=== PATIENT | male | born 1960 | race Caucasian/White ===

== ENCOUNTER 2018-07-04 16:05 | Outpatient (REF) | payer BC, SELFPAY ==
--- NOTE | 2018-07-04 15:53 | SKI_PTH ---
PATIENT: Gabe Lanza LOC: [facility] U#:[id number] AGE/SX: 58/M ROOM: RE07/04/[address]: Isac Barker MD : [id number] BED: DIS: 07/04/2018 SPEC #: [id number] RECD: 07/04/18 18:14 STATUS: DOMINGO REQ #: [id number] MANGO: 07/04/18 15:[address]: Isac Barker DEPT: Surgical Specimen RECD BY: Karina Stovall ENTERED: 07/04/18 18:14 SP TYPE: SKI OTHR DR: Lola Barnes Tissues: 1 - SKIN BIOPSY(SHAVE/PUNCH) Procedures: IMMUNOPEROXIDASE STAIN SKIN LEVEL 4 MIB-1 IHC Semi Quantative % SPECIAL STAIN 1 Comments: [id number]
== END 2018-07-04 16:25 ==
LOC: LBN 16:05
PROVIDERS: PCP Nurse Practitioner Family; Visit Provider Otolaryngology
DX: C96.6 Unifocal Langerhans-cell histiocytosis (principal)
CPT/HCPCS: 88360; 88305; 88312; 88361

== ENCOUNTER 2019-02-14 10:21 | Outpatient (CLI) | payer OTHER, SELFPAY ==
[2019-02-14 10:46] LABS: Abs Immature Grans 0.14 k/cumm (0.0-0.09); HGB 14.2 g/dL (13.5-17.5); Mean Corp. HGB Concentration 33.8 g/dL (32.0-36.0); Mean Corpuscular Hemoglobin 30.9 pg (27.0-33.0); Mean Corpuscular Volume 91.3 fL (80-95); Mean Platelet Volume 11.9 fL (8.0-11.0); RBC Distribution Width 13.9 % (11.8-14.1); White Blood Cell Count 7.15 k/cumm (4.4-10.8)
[2019-02-14 11:07] LABS: Absolute Monocyte Count 0.72 k/cumm (0.11-0.7); Absolute Neutrophil Count 4.79 k/cumm (1.2-6.7); Atypical Lymphocytes % 1; Diff Comment Manual Differential; Platelet Count 62 x1000/uL (130-400); RBC Morphology Normal
[2019-02-14 11:45] LABS: TSH 2.65 uIU/mL (0.36-3.74)
[2019-02-17 09:28] LABS: PSA, Screening 1.3 ng/ml (0-3.5)
== END 2019-02-14 10:41 ==
PROVIDERS: Surgery; PCP Family Medicine; Visit Provider Internal Medicine Hematology & Oncology
DX: Z12.5 Encounter for screening for malignant neoplasm of prostate (principal); Z80.42 Family history of malignant neoplasm of prostate; D69.6 Thrombocytopenia, unspecified; Z98.890 Other specified postprocedural states
CPT/HCPCS: 36415; 84153; 84443; 85025

== ENCOUNTER 2019-04-02 07:57 | Outpatient (CLI) | payer OTHER, SELFPAY ==
[2019-04-02 08:26] LABS: Abs Immature Grans 0.16 k/cumm (0.0-0.09); HCT 42.9 % (40.0-50.0); HGB 14.2 g/dL (13.5-17.5); Mean Corp. HGB Concentration 33.1 g/dL (32.0-36.0); Mean Corpuscular Hemoglobin 30.5 pg (27.0-33.0); Mean Corpuscular Volume 92.1 fL (80-95); Mean Platelet Volume 11.8 fL (8.0-11.0); RBC 4.66 m/cumm (4.50-6.00); RBC Distribution Width 13.8 % (11.8-14.1); White Blood Cell Count 6.71 k/cumm (4.4-10.8)
[2019-04-02 08:31] LABS: ALT 30 U/L (16-63); AST 15 U/L (15-37); Albumin 3.9 g/dL (3.4-5.0); Alkaline Phosphatase 80 U/L (46-116); Anion Gap 8.1 mmol/L (3-11); BUN 17 mg/dL (7-18); Bilirubin, Total 0.6 mg/dL (0.2-1.0); CO2 27.9 mmol/L (21.0-32.0); CREATININE 1.04 mg/dL (0.70-1.30); Calcium 8.3 mg/dL (8.5-10.1); Chloride 103 mmol/L (98-107); Glucose 114 mg/dL (70-100); Potassium 4.2 mmol/L (3.5-5.1); Sodium 139 mmol/L (136-145); Total Protein 7.5 g/dL (6.4-8.2)
[2019-04-02 09:14] LABS: Absolute Monocyte Count 0.94 k/cumm (0.11-0.7)
[2019-04-02 09:15] LABS: Absolute Lymphocyte Count 1.27 k/cumm (1.2-3.4); Atypical Lymphocytes % 4
[2019-04-02 09:17] LABS: Platelet Count 65 x1000/uL (130-400)
[2019-04-02 09:18] LABS: Diff Comment Manual Differential; Polychromasia Present
== END 2019-04-02 08:17 ==
PROVIDERS: PCP Family Medicine; Visit Provider Internal Medicine Hematology & Oncology
DX: D69.6 Thrombocytopenia, unspecified (principal)
CPT/HCPCS: 36415; 80053; 85025

== ENCOUNTER 2019-04-07 08:35 | Outpatient (CLI) | payer OTHER, SELFPAY | END 2019-04-07 08:55 | PROVIDERS: PCP Family Medicine; Visit Provider Internal Medicine Endocrinology, Diabetes & Metabolism | DX: C73 Malignant neoplasm of thyroid gland (principal); E89.0 Postprocedural hypothyroidism | CPT/HCPCS: 36415; 84443 ==

== ENCOUNTER 2019-04-23 02:05 | Outpatient (CLI) | payer OTHER, SELFPAY ==
[2019-04-23 07:45] LABS: Abs Immature Grans 0.26 k/cumm (0.0-0.09); Absolute Basophil Count 0.01 k/cumm (0.0-0.2); Absolute Eosinophil Count 0.01 k/cumm (0.0-0.7); Absolute Lymphocyte Count 1.37 k/cumm (1.2-3.4); Absolute Monocyte Count 1.26 k/cumm (0.11-0.7); Absolute Neutrophil Count 4.22 k/cumm (1.2-6.7); Basophils % 0.1; Eosinophils % 0.1; HCT 43.1 % (40.0-50.0); HGB 14.3 g/dL (13.5-17.5); Immature Grans % 3.6; Lymphocytes % 19.2; Mean Corp. HGB Concentration 33.2 g/dL (32.0-36.0); Mean Corpuscular Hemoglobin 30.2 pg (27.0-33.0); Mean Corpuscular Volume 90.9 fL (80-95); Mean Platelet Volume 11.6 fL (8.0-11.0); Monocytes % 17.7; Neutrophils % 59.3; RBC 4.74 m/cumm (4.50-6.00); RBC Distribution Width 13.7 % (11.8-14.1); White Blood Cell Count 7.13 k/cumm (4.4-10.8)
[2019-04-23 07:59] LABS: ALT 38 U/L (16-63); AST 18 U/L (15-37); Albumin 3.8 g/dL (3.4-5.0); Alkaline Phosphatase 80 U/L (46-116); Anion Gap 8.5 mmol/L (3-11); BUN 17 mg/dL (7-18); Bilirubin, Total 0.6 mg/dL (0.2-1.0); CO2 29.5 mmol/L (21.0-32.0); CREATININE 0.99 mg/dL (0.70-1.30); Calcium 8.6 mg/dL (8.5-10.1); Chloride 102 mmol/L (98-107); Glucose 117 mg/dL (70-100); Sodium 140 mmol/L (136-145); Total Protein 7.7 g/dL (6.4-8.2)
[2019-04-23 07:59] LABS: Diff Comment Diff Reviewed; Platelet Count 61 x1000/uL (130-400); Polychromasia Present
[2019-04-23 08:09] LABS: TSH 1.79 uIU/mL (0.36-3.74)
== END 2019-04-23 02:25 ==
PROVIDERS: Internal Medicine Endocrinology, Diabetes & Metabolism; PCP Family Medicine; Visit Provider Internal Medicine Hematology & Oncology
DX: D69.6 Thrombocytopenia, unspecified (principal); C73 Malignant neoplasm of thyroid gland
CPT/HCPCS: 36415; 80053; 84443; 85025

== ENCOUNTER 2019-06-25 17:27 | Emergency (ER) | payer OTHER, SELFPAY ==
[2019-06-25 17:39] VITALS: BP 138/86; PULSE 85; RESP 16; TEMP 36.6; O2SAT 95
--- NOTE | 2019-06-25 18:14 | ED.GENADUL_ITS ---
Discharge Plan Disposition Patient Disposition: HOME Condition: Good Discharge Details Chief Complaint: Orthopedic Clinical Impression: Epicondylitis, lateral Primary Care Provider: Washington Cristobal ED Provider: Renee Simpson Home Meds and New Rx's Prescriptions: New prednisone 20 mg tablet 40 mg PO DAILY Qty: 10 RF: 0 Continued amlodipine 10 mg tablet 10 mg PO DAILY Qty: 90 RF: 3 lisinopril 40 mg tablet 40 mg PO DAILY Qty: 90 RF: 3 levothyroxine 112 mcg tablet 112 mcg PO DAILY RF: 0 Discharge Instructions Instructions: Tennis Elbow (ED) Additional Instructions: Rest. Activities as tolerated. Elevate injury to prevent swelling. Ice to the area of discomfort for 15 min. 3-5 times daily. Use prednisone for inflammation Get tennis elbow strap Tylenol every 6 hours for soreness if needed over the counter for comfort. Followup with orthopedic doctor as discussed if not improving in one week. Return for any worsening or concerns sooner if needed. Referrals: Raffaele Merino MD [ [facility] STAFF PHYSICIAN] - Discharge Data Discharge Date/Time-TO BE ENTERED AT DEPARTURE: 06/25/19 19:40 Medical Decision Making Is a 59-year-old patient who presents to the emergency room after a syncopal episode while he was at the chiropractor having his right elbow evaluated. Patient reports severe right elbow pain which began 1 week ago after chopping wood. Patient points to the lateral epicondyle as maximum site of pain. Patient reports pain was somewhat improving over the last week after resting however yesterday lifted something heavy and had significant increase in right elbow pain now less tolerable. Patient reports significant pain with range of motion. Held at a 90 degree angle. Patient did have a syncopal episode which was witnessed at chiropractor's office which was brief, transient described as tunnel vision, clamminess mild nausea and episode of syncope after which patient returned normal and symptoms entirely resolved. Patient reports he is not significantly concerned with his syncopal episode. Patient reports this episode was concurrent with a painful elbow examination. I feel likely this is attributed to a vasovagal response and acute coronary syndrome or arrhythmia is less likely. EKG performed revealing normal sinus rhythm with a rate of 83. No ST segment changes. Nothing to indicate Brugada, hypertrophic cardiomyopathy, or QT prolongation. EKG was reviewed by Dr. Hahn. On exam patient does have notable lateral epicondyle tenderness consistent with tennis elbow. Patient would prefer x-ray at this time. X-ray ordered. X-ray does not reveal any identifiable fracture at this time. Patient provided a sling as well as a tennis elbow strap. Rice encouraged as well as orthopedic follow-up. Patient feels stable for discharge home at this time. Vital signs remained stable. Patient encouraged prompt follow-up with PCP. Encouraged return for any return of syncopal feeling, presyncopal state feeling or dizziness. Patient reports his understanding. The patient was stable and requested discharge. Prior to discharge, my usual and customary return precautions were reviewed with the patient - this included follow-up instructions and reasons to return to the Emergency Department if conditions worsens, does not improve as expected, or other new concerns arise. HPI General Date/Time Provider Initiated Documentation: 06/25/19 18:00 . HPI Narrative: Is a 59-year-old patient who presents for complaints of elbow pain. Patient was at chiropractor prior to arrival having elbow evaluated as he has had onset of elbow pain for several weeks when during his chiropractor appointment he had a syncopal episode when examining his elbow which was quite painful. Patient attributes his syncopal episode to this painful experience. Patient describes his syncopal episode as tunnel vision followed by clamminess mild nausea a brief syncopal episode which was witnessed and then returned to normal. At this time patient feels at his baseline with the exception of his elbow pain. Patient denies headache, dizziness, nausea, vomiting, chest pain or palpitations. Patient does report that he initially noted onset of elbow pain after chopping wood. Patient noted 1 week of elbow pain which she was trying to rest then tried to lift something heavy yesterday which exacerbated his pain. This prompted his evaluation at the chiropractor. Patient denies numbness, tingling or weakness. No other concerns or complaints at this time. Patient reports a history of new thrombocytopenia history of borderline diabetes otherwise denies any significant medical concerns or complaints. Related Data Home Medications Medication Instructions Recorded Confirmed amlodipine 10 mg tablet 10 mg PO DAILY #90 tab 09/09/18 06/25/19 lisinopril 40 mg tablet 40 mg PO DAILY #90 tab 09/09/18 06/25/19 levothyroxine 112 mcg tablet 112 mcg PO DAILY 06/13/19 06/25/19 prednisone 40 mg PO DAILY #10 tab 06/25/19 Previous Rx's Medication Instructions Recorded amlodipine 10 mg tablet 10 mg PO DAILY #90 tab 09/09/18 lisinopril 40 mg tablet 40 mg PO DAILY #90 tab 09/09/18 prednisone 40 mg PO DAILY #10 tab 06/25/19 Allergies Allergy/AdvReac Type Severity Reaction Status Date / Time No Known Allergies Allergy Unverified 06/25/19 17:47 General Stated Complaint: Orthopedic TARA: 3 Review of Systems All systems reviewed & are unremarkable except as noted in HPI and below Constitutional Constitutional: Denies fatigue, Denies headache(s) and Denies malaise Eyes Eyes: Denies change in vision ENT Ears, Nose, Mouth, and Throat: Denies headache(s) Cardiovascular Cardiovascular: Denies chest pain, Reports diaphoresis (Just prior to her syncopal episode now entirely resolved), Reports syncope, Denies rapid heart rate, Denies irregular heart rhythm, Denies dyspnea and Denies dyspnea on exertion Respiratory Respiratory: Denies cough, Denies dyspnea and Denies dyspnea on exertion Neurologic Neurologic: Reports syncope and Denies headache(s) Endocrine Endocrine: Denies fatigue [facility] Medical History Chronic bacterial otitis externa of both ears (Chronic) Hypertension (Chronic) Langerhans cell histiocytoses (Acute) [facility] [place]c [place] 04/23/19: KRAS gene mutation on the skin biopsy came back positive. This is an extremely rare diagnosis. his staging is negative . Single system disease involving the skin only. He will need to be followed by dermatology.([facility] [place] has requested that) Meralgia paraesthetica (Acute) Metabolic syndrome (Chronic) Prediabetes (Chronic) Skin lesion of face (Chronic) Thrombocytopenia (Chronic) Vitamin D deficiency (Chronic) Surgical History (Updated 04/23/19 @ 14:14 by Olinda Lombardi RN) H/O thyroidectomy (Chronic) 12/17/18- s/p hemithyroidectomy 12/17/18 with vocal cord paralysis. saw ENT in f/u. voice has recovered and he will see ENT again before his next surgery. ([facility] [place] report 04/23/19) Social History Smoking/Tobacco Use Status: Never Alcohol Intake: current Alcohol Intake frequency: holidays/special occasions only Drug use: Never Substance use type: does not use Household members: spouse Housing: house Number of Children: 2 current occupation: [employer], [employer] What type of physical activity do you participate in: none Seatbelt use: always Drive intox or ride w/intox cdl company driver: No Working smoke detector in home: Yes Fire extinguisher in home: Yes Carbon monox detector in home: Yes Do you feel safe at home: Yes Do you feel safe in your relationship?: Yes Exam Narrative Exam Narrative: CONST: Healthy appearing patient, in no acute distress. Well hydrated. Alert and alert. HENMT: Head nomocephalic, normal to inspection. Atraumatic. Hearing grossly normal. EYES: General normal appearance. Alignment normal. Eyelids normal. Conjunctiva normal. NECK: Normal visual inspection. FROM. Trachea midline. No Midline tenderness. CHEST: Normal insepection of the chest. RESP: Normal respiratory effort. Speaking full sentences. No cough. No audible wheezing. No retractions. Breath sounds full and equal bilaterally. CARDIO: No JVD. No murmurs or rubs. Regular rate and rhythm MUSCULOSKELETAL: Normal Gait. No shoulder pain with palpation, no clavicle pain with palpation. No humeral pain with palpation. Right lateral epicondyle tenderness at the elbow. No significant medial epicondyle tenderness or olecranon tenderness. Patient with full range of motion. Pain with supination pronation and flexion and extension at the wrist. No significant forearm pain with palpation. No wrist, hand pain with palpation. Pulses intact. [employer] strength intact. No lower leg swelling bilaterally SKIN: Normal. Dry. No rashes. No open wounds. NEURO: Alert and awake. Speech clear. PSYCH: Normal affect. Cooperative. Course Vital Signs Vital signs: Vital Signs Temperature 36.6 C 06/25/19 17:39 Pulse 85 06/25/19 17:39 Respiratory Rate 16 06/25/19 17:39 Blood Pressure 138/86 06/25/19 17:39 Pulse Oximetry 95 06/25/19 17:39 Temperature 36.6 C 06/25/19 17:39 Temperature Source Temporal Artery Scan 06/25/19 17:39 Pulse 85 06/25/19 17:39 Respiratory Rate 16 12/18/19 17:39 Respiratory Effort Non-Labored 06/25/19 17:46 Blood Pressure 138/86 06/25/19 17:39 Blood Pressure Position Sitting 06/25/19 17:39 Pulse Oximetry 95 06/25/19 17:39 Oxygen Delivery Method Room Air 06/25/19 17:39 Oxygen Flow Rate 0 06/25/19 17:39 Pain Level 10 06/25/19 17:39
--- NOTE | 2019-06-25 19:03 | DI.RAD_ITS ---
EXAM: XR ELBOW RT COMPLETE CLINICAL HISTORY: pain lateral epicondyle COMPARISON: No exams were available for comparison FINDINGS: Three views were obtained. There is no evidence of an elbow joint effusion or hemarthrosis. Mild ma rginal osteophyte formation noted involving the joints of the elbow with a small olecranon osteophyte also noted. Tiny soft tissue calcification noted medially. IMPRESSION: Degenerative changes, no evidence of acute process.
--- NOTE | 2019-06-25 19:16 | DI.VRAD_ITS ---
PROCEDURE INFORMATION: Exam: XR Right Elbow Exam date and time: 06/25/2019 7:03 PM Age: 59 years old Clinical indication: Pain; Elbow; Right TECHNIQUE: Imaging protocol: XR Right elbow. Views: 3 or more views. COMPARISON: No relevant prior studies available. FINDINGS: Bones/joints: No fractures. No blastic or lytic lesions. No periostitis or osteolysis. Radiocapitellar alignment and ulnotrochlear alignment are normal. Proximal radioulnar alignment is normal. Gross joint effusion although the lateral view is mildly obliqued, limiting radiographic sensitivity for effusion. Mild spurring at the coronoid process and olecranon. Soft tissues: 2 mm rounded hyperdense focus in the posteromedial soft tissues with mild focal subcutaneous stranding. This could relate to soft tissue contusion and a small foreign body, versus a small chronic degenerative or posttraumatic soft tissue calcification. IMPRESSION: 1. No acute osseous abnormalities. 2. Mild degenerative spurring at the olecranon and coronoid process. 3. Question mild soft tissue stranding in the posteromedial elbow above the joint line with a 2 mm rounded radiodense focus which could represent a small foreign body or chronic degenerative or posttraumatic calcification. Dictated and Authenticated by: Mark Buchanan MD. Ordering:YAHAIRA Duran MD
[2019-06-25] MEDS: Acetaminophen 500 MG TAB 1000 MG PO (19:28)
== END 2019-06-25 19:40 | disposition home or self-care (01) ==
PROVIDERS: Emergency Provider Physician Assistant; PCP Family Medicine
DX: M77.11 Lateral epicondylitis, right elbow (principal); R55 Syncope and collapse; I10 Essential (primary) hypertension
CPT/HCPCS: 93005; 99283; 73080; 93010; L3650

== ENCOUNTER 2019-07-27 15:30 | Inpatient (IN) | payer OTHER, SELFPAY ==
[2019-07-27] VITALS (29 sets, daily range): BP systolic 102–173; BP diastolic 57–87; PULSE 71–93; RESP 10–23; TEMP 36.2–36.8; O2SAT 93–97
[2019-07-27 16:08] LABS: Abs Immature Grans 0.18 k/cumm (0.0-0.09); Absolute Basophil Count 0.01 k/cumm (0.0-0.2); Absolute Eosinophil Count 0.01 k/cumm (0.0-0.7); Absolute Lymphocyte Count 2.33 k/cumm (1.2-3.4); Absolute Monocyte Count 1.88 k/cumm (0.11-0.7); Absolute Neutrophil Count 4.86 k/cumm (1.2-6.7); Basophils % 0.1; Eosinophils % 0.1; HCT 44.7 % (40.0-50.0); HGB 14.8 g/dL (13.5-17.5); Immature Grans % 1.9 %; Lymphocytes % 25.1; Mean Corp. HGB Concentration 33.1 g/dL (32.0-36.0); Mean Corpuscular Hemoglobin 29.4 pg (27.0-33.0); Mean Corpuscular Volume 88.7 fL (80-95); Mean Platelet Volume 12.2 fL (8.0-11.0); Monocytes % 20.3; Neutrophils % 52.5; Platelet Count 67 x1000/uL (130-400); RBC 5.04 m/cumm (4.50-6.00); RBC Distribution Width 14.1 % (11.8-14.1); White Blood Cell Count 9.27 k/cumm (4.4-10.8)
--- NOTE | 2019-07-27 16:23 | ED.GENADUL_ITS ---
Discharge Plan Disposition Patient Disposition: [facility] INPATIENT Condition: Serious Discharge Details Chief Complaint: Chest Pain Clinical Impression: Acute pancreatitis Primary Care Provider: Washington Cristobal ED Provider: Royer Jackson Home Meds and New Rx's Prescriptions: No Action amlodipine 10 mg tablet 10 mg PO DAILY Qty: 90 RF: 3 lisinopril 40 mg tablet 40 mg PO DAILY Qty: 90 RF: 3 levothyroxine 112 mcg tablet 112 mcg PO DAILY RF: 0 Medical Decision Making 16:30 --I arrived in the emergency department at 4 PM and immediately saw the patient. Screening ECG had been performed and was reviewed and interpreted by me: Normal sinus rhythm 85 bpm, normal axis, no STEMI, nondiagnostic. Mr. Lanza is a 59-year-old male with history of thrombocytopenia, Langerhans' cell histiocytosis, hypertension, here with epigastric abdominal pain that started about an hour prior to arrival. He has tenderness in his epigastrium and right upper quadrant. Pain radiates to right shoulder. I am concerned about the potential for acute cholecystitis or other acute surgical pathology. A bedside [id number] ultrasound was performed by me and revealed dilated gallbladder with gallbladder wall thickness of approximately 4 cm. Gallbladder slightly distended with no obvious stone. No pericholecystic fluid. Positive sonographic Tavera sign. Plan to check LFTs, lipase, and lactate. Plan to obtain advanced imaging. I have called radiology to request right upper quadrant ultrasound. I will give Dilaudid 1 mg IV for pain and will give Pepcid 20 mg IV. Consider less likely ACS. Troponin is pending. Patient NPO. --Patient reassessed and pain improved after Dilaudid. 17:55 --labs reviewed and lipase elevated. Normal LFTs. CT of the abdomen pelvis was interpreted by radiology: Findings suggesting mild pancreatitis without evidence of pancreatic necrosis or pseudocyst formation. Gallbladder and bile ducts noted to have prominent fold in the fundus of the gallbladder but no visible calculi, pericholecystic fluid, gallbladder wall thickening or dilatation of the bile ducts. Plan to admit for pain control and IV fluid. --Case discussed with Dr. Palma, we reviewed ED presentation and course. Plan to admit for further treatment. Bridging orders to follow requested. HPI General Mode of arrival: ambulatory . Date/Time Provider Initiated Documentation: 07/27/19 15:35 . Limitations to Documentation: no limitations . Information obtained by: patient and family . HPI Narrative: 59yo m presents with chief complaint of abdominal pain. Patient notes about an hour prior to arrival he was about to have dinner and started to have severe epigastric abdominal pain. Pain has persisted. Pain is constant. Pain described as a pressure. Pain localized to epigastrium. Pain radiates to his right shoulder. Pain is currently severe rated 10 out of 10. He has no associated nausea or vomiting. No shortness of breath. When he takes a deep breath pain worsens. No trauma. No recent fever. Related Data Home Medications Medication Instructions Recorded Confirmed amlodipine 10 mg tablet 10 mg PO DAILY #90 tab 09/09/18 07/27/19 lisinopril 40 mg tablet 40 mg PO DAILY #90 tab 09/09/18 07/27/19 levothyroxine 112 mcg tablet 112 mcg PO DAILY 06/13/19 07/27/19 Previous Rx's Medication Instructions Recorded amlodipine 10 mg tablet 10 mg PO DAILY #90 tab 09/09/18 lisinopril 40 mg tablet 40 mg PO DAILY #90 tab 09/09/18 Allergies Allergy/AdvReac Type Severity Reaction Status Date / Time No Known Allergies Allergy Unverified 07/27/19 15:38 General Stated Complaint: Chest Pain TARA: 3 Review of Systems All systems reviewed & are unremarkable except as noted in HPI and below Constitutional Constitutional: Denies fever(s) Gastrointestinal Gastrointestinal: Reports as per HPI and Denies hematemesis [facility] Medical History Chronic bacterial otitis externa of both ears (Chronic) Hypertension (Chronic) Langerhans cell histiocytoses (Acute) [facility] [place]c [place] 04/23/19: KRAS gene mutation on the skin biopsy came back positive. This is an extremely rare diagnosis. his staging is negative . Single system disease involving the skin only. He will need to be followed by dermatology.([facility] [place] has requested that) Meralgia paraesthetica (Acute) Metabolic syndrome (Chronic) Prediabetes (Chronic) Skin lesion of face (Chronic) Thrombocytopenia (Chronic) Vitamin D deficiency (Chronic) Surgical History H/O thyroidectomy (Chronic) 12/17/18- s/p hemithyroidectomy 6/11/19 with vocal cord paralysis. saw ENT in f/u. voice has recovered and he will see ENT again before his next surgery. ([facility] [place] report 04/23/19) Family History Mother Breast cancer Uterine cancer Father Alcohol abuse Sister No problems noted. Brother No problems noted. 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, [employer] What type of physical activity do you participate in: none Seatbelt use: always Drive intox or ride w/intox residential driver: No Working smoke detector in home: Yes Fire extinguisher in home: Yes Carbon monox detector in home: Yes Do you feel safe at home: Yes Do you feel safe in your relationship?: Yes Exam Const General: cooperative HENMT Mouth: moist mucous membranes Eyes Conjunctivae: normal conjunctivae Sclera: normal sclerae Neck Neck: trachea midline and no JVD Resp Auscultation: clear to auscultation bilaterally, no rales, no rhonchi and no wheezes Cardio Jugular venous pressure: no JVD Rate: regular rate and not tachycardic Rhythm: regular rhythm GI Palpation: soft, not firm, no guarding, no masses, not rigid and tender in the epigastrum, in the RUQ and Tavera's sign positive; with no rebound tenderness Auscultation: normal bowel sounds Skin General skin exam: no rashes or lesions noted Neuro General: alert, awake, oriented x3 and tone normal Extrem General: no edema Psych Appearance: grossly normal Mental Status: mental status grossly normal Course Vital Signs Vital signs: Vital Signs Temperature 34.9 C L 07/27/19 15:34 Pulse 93 H 07/27/19 15:34 Blood Pressure 173/87 H 07/27/19 15:34 Pulse Oximetry 95 07/27/19 15:34 Temperature 34.9 C L 07/27/19 15:34 Temperature Source Skin 07/27/19 15:34 Pulse 91 H 07/27/19 15:39 Pulse 89 07/27/19 16:00 Respiratory Rate 16 07/27/19 16:00 Respiratory Effort 07/27/19 15:40 Blood Pressure 173/87 H 07/27/19 15:39 Blood Pressure Mean 107 07/27/19 15:39 Blood Pressure Position Supine 07/27/19 15:34 Pulse Oximetry 94 L 07/27/19 16:00 Oxygen Delivery Method Room Air 07/27/19 15:34 Oxygen Flow Rate 0 07/27/19 15:34 Pain Level 10 07/27/19 15:34 Lab/Test Results Lab/Test Results: Laboratory Tests Range/Units 07/27/19 15:43 WBC (4.4-10.8) k/cumm 9.27 RBC (4.50-6.00) m/cumm 5.04 Hgb (13.5-17.5) g/dL 14.8 Hct (40.0-50.0) % 44.7 MCV (80-95) fL 88.7 MCH (27.0-33.0) pg 29.4 MCHC (32.0-36.0) g/dL 33.1 RDW (11.8-14.1) % 14.1 Plt Count (130-400) x1000/uL 67 L MPV (8.0-11.0) fL 12.2 H Immature Gran % % 1.9 Neutrophils % 52.5 Lymphocytes % 25.1 Monocytes % 20.3 Eosinophils % 0.1 Basophils % 0.1 Absolute Neutrophils (1.2-6.7) k/cumm 4.86 Absolute Lymphocytes (1.2-3.4) k/cumm 2.33 Absolute Monocytes (0.11-0.7) k/cumm 1.88 H Absolute Eosinophils (0.0-0.7) k/cumm 0.01 Absolute Basophils (0.0-0.2) k/cumm 0.01
[2019-07-27 16:25] LABS: ALT 45 U/L (16-63); AST 31 U/L (15-37); Albumin 4.1 g/dL (3.4-5.0); Alkaline Phosphatase 90 U/L (46-116); Anion Gap 11.4 mmol/L (3-11); BUN 14 mg/dL (7-18); Bilirubin, Total 0.5 mg/dL (0.2-1.0); CO2 29.6 mmol/L (21.0-32.0); CREATININE 1.18 mg/dL (0.70-1.30); Chloride 100 mmol/L (98-107); Glucose 149 mg/dL (74-106); Magnesium 1.8 mg/dL (1.8-2.4); Potassium 3.3 mmol/L (3.5-5.1); Sodium 141 mmol/L (136-145); Total Protein 8.1 g/dL (6.4-8.2)
[2019-07-27 16:27] LABS: PTT Activated 26.7 sec (21.0-31.4); Prothrombin Time 10.1 sec (9.3-11.0)
[2019-07-27 16:32] LABS: Diff Comment Agrees w/ Instrument
[2019-07-27] MEDS: HYDROmorphone 2 MG/ML VIAL 1 MG IVP (16:34)
[2019-07-27] MEDS: FAMOTIDINE 20 MG/50 ML BAG 200 MG IVPB (16:36)
[2019-07-27 16:54] LABS: Lactate 1.7 mmol/L (0.6-1.4)
[2019-07-27 16:55] LABS: Troponin I < 0.05 ng/Ml (<0.06)
[2019-07-27] MEDS: Omnipaque 350 MG/ML 100 ML BTL IJ (17:08)
[2019-07-27] MEDS: Normal Saline - Diluent 50 ML VIAL IV ×2 (17:08→17:18)
--- NOTE | 2019-07-27 17:14 | DI.CT_ITS ---
EXAM: CT ABDOMEN PELVIS W CLINICAL HISTORY: abdominal pain, ttp RUQ, ultrasound not available TECHNIQUE: CT examination of the abdomen and pelvis was performed with a bolus infusion of 100 cc of Omnipaque 350. COMPARISON: No exams were available for comparison FINDINGS: Images obtained through the lung bases are unremarkable. No free intraperitoneal air is seen. Liver shows mildly geographic heterogeneous attenuation. Tiny low-attenuation nonspecific left hepat ic lobe lesion noted, too small to characterize. Gallbladder and bile ducts are CT normal. Pancreas is mildly edematous with apparent robinson pancreatic fat edema consistent with pancreatitis. No free f luid collection seen. Spleen is unremarkable. Abdominal aorta and major branches are unremarkable. Adrenals and kidneys appear normal. No urinary tract calcification or obstruction. No abdominal or pelvic adenopathy. Small bilateral fat contain ing inguinal hernias noted. Appendix is normal. No evidence of diverticulitis or bowel obstruction. IMPRESSION: Pancreatic edema and robinson pancreatic fat edema suggesting acute uncomplicated pancreatitis.
[2019-07-27 17:28] LABS: Lipase > 15000 U/L (73-393)
--- NOTE | 2019-07-27 17:42 | DI.VRAD_ITS ---
PROCEDURE INFORMATION: Exam: CT Abdomen And Pelvis With Contrast Exam date and time: 07/27/2019 4:40 PM Age: 59 years old Clinical indication: Other: Abdominal pain, ttp ruq TECHNIQUE: Imaging protocol: Computed tomography of the abdomen and pelvis with intravenous contrast. Radiation optimization: All CT scans at this facility use at least one of these dose optimization techniques: automated exposure control; mA and/or kV adjustment per patient size (includes targeted exams where dose is matched to clinical indication); or iterative reconstruction. Contrast material: OMNIPAQUE 350; Contrast volume: 100 ml; Contrast route: IV; COMPARISON: No relevant prior studies available. FINDINGS: Lungs: Minimal scarring and/or atelectasis at the dependent lung bases. Liver: Normal. No mass. Gallbladder and bile ducts: Prominent fold in the fundus of the gallbladder but no visible calculi, pericholecystic fluid gallbladder wall thickening or dilatation of the bile ducts. Pancreas: No pancreatic mass is seen. There is no significant abnormal enhancement. There are no peripancreatic fluid collections. The pancreatic duct is not dilated. However the does appear to be minimal hazy inflammatory reaction around the head and body of the pancreas. Spleen: Normal. No splenomegaly. Adrenals: Normal. No mass. Kidneys and ureters: Normal. No hydronephrosis. Stomach and bowel: Stomach is moderately distended with residual food material and an air-fluid level. There are few borderline prominent loops of small bowel in the upper abdomen. There is no transition zone. No inflammation around the colon is visible. Appendix: No evidence of appendicitis. Intraperitoneal space: Unremarkable. No free air. No significant fluid collection. Vasculature: Minimal atherosclerotic calcification. Lymph nodes: Unremarkable. No enlarged lymph nodes. Bladder: Unremarkable as visualized. Reproductive: Unremarkable as visualized. Bones/joints: Moderate degenerative changes of facet joints in the lower lumbar spine. Soft tissues: Large amount of intra-abdominal fat. IMPRESSION: Findings suggesting mild pancreatitis without evidence of pancreatic necrosis or pseudocyst formation Dictated and Authenticated by: Jair Goff MD. Ordering:SHREE Linton MD
[2019-07-27] MEDS: Lactated Ringers 1,000 ML 1000 ML IV (18:07)
[2019-07-27 19:28] LABS: Calculated LDL 106 mg/dL; Cholesterol 153 mg/dL (<200); HDL Cholesterol 20 mg/dL (40-60); Triglyceride 137 mg/dL (<150)
[2019-07-27] MEDS: Normal Saline Flush 10 ML SYR IVP (19:45)
[2019-07-27] MEDS: Lactated Ringers 1,000 ML 600 ML IV ×2 (19:45→21:33)
--- NOTE | 2019-07-27 20:08 | HPE_ITS ---
Date of service: 07/27/19 Time of Service: 20:08 Assessment and Plan Assessment and plan (1) Acute pancreatitis: Status: Acute Assessment and plan: Possibly gallstone pancreatitis. However CT scan jo-ann ws no evidence for acute cholecystitis and no evidence for gallstones on ultrasound. Patient admits that he has couple of alcoholic drinks on the weekends. Does not participate in binge drinking. 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 Did state that he had some fried chicken wings this afternoon just prior to this attack. I checked a lipid panel and he has no evidence for hypertriglyceridemia. We will get an abdominal ultrasound in the morning and repeat his labs in the morning. Meantime we will treat him with aggressive IV fluid hydration along with narcotic analgesics and antiemetics. Depending on the results of his abdominal ultrasound he may need an MRCP Qualifiers: Acute pancreatitis complication: no infection or necrosis Pancreatitis type: unspecified pancreatitis type Qualified Code(s): K85.90 - Acute pancreatitis without necrosis or infection, unspecified (2) Hypertension: Status: Chronic Assessment and plan: Continue current home antihypertensive medications. Qualifiers: Hypertension type: essential hypertension Qualified Code(s): I10 - Essential (primary) hypertension (3) Hypothyroidism (acquired): Status: Chronic Assessment and plan: Continue current dose of levothyroxine. History of Present Illness History of Present Illness Chief Complaint: Abdominal pain Narrative: 59-year-old male presents emergency department with acute onset of epigastric abdominal pain with radiation into his right shoulder area. [id number] ultrasound of the abdomen was performed Dr. Royer Jackson, emergency room attending and per his interpretation demonstrated dilated gallbladder with gallbladder wall thickness of approximately 4 mm. No obvious stone was seen and no pericholecystic fluid was seen. Patient had a positive sonographic Tavera sign. Subsequent work-up in the emergency department revealed pancreatitis with a lipase greater than 15,000. CT scan of the abdomen pelvis with contrast was performed because of the lack of availability of formal abdominal ultrasound. CT scan suggested mild pancreatitis without evidence of pancreatic necrosis or pseudocyst formation. Gallbladder and bile duct showed prominent fold in the fundus of the gallbladder but no visible calculi or pericholecystic fluid or gallbladder wall thickening or dilatation of the bile ducts. No pancreatic mass is seen. No peripancreatic fluid collection. Other pertinent labs include a CBC that showed no leukocytosis and no anemia but a chronic stable thrombocytopenia of 67,000. CMP demonstrated a low potassium at 3.3 with normal BUN of 14 creatinine 1.18 and normal liver transaminases and normal alkaline phosphatase. Troponin was less than 0.05. Lipase was greater than 15,000. We subsequently obtain a lipid profile and showed normal triglycerides of 137. Calcium level was normal at 9.0 Treatment emergency department included 1 L of lactated Ringer's was given at a rate of thousand milliliters per hour and he was given Pepcid 20 mg IV and Dilaudid 1 mg IV. Patient is now admitted to the medical/surgical floor for treatment acute pancreatitis including analgesics antiemetics and aggressive IV fluids. Serial labs will be obtained. A formal ultrasound of his abdomen will be obtained in the morning. Depending on that result an MRCP may be indicated. Review of Systems All systems reviewed & are unremarkable except as noted in HPI and below Gastrointestinal Gastrointestinal: Reports as per HPI [facility] Medical History (Updated 07/27/19 @ 21:37 by Mike Palma) Chronic bacterial otitis externa of both ears (Resolved) History of thyroid cancer (Acute) Hypertension (Chronic) Hypothyroidism (acquired) (Chronic) Langerhans cell histiocytoses (Acute) [facility] [place] hem/onc report 04/23/19: KRAS gene mutation on the skin biopsy came back positive. This is an extremely rare diagnosis. his staging is negative . Single system disease involving the skin only. He will need to be followed by dermatology.([facility] has requested that) Meralgia paraesthetica (Acute) Metabolic syndrome (Chronic) Prediabetes (Chronic) Skin lesion of face (Chronic) Thrombocytopenia (Chronic) Vitamin D deficiency (Chronic) Surgical History (Updated 07/27/19 @ 21:30 by Mike Palma) H/O inguinal hernia repair (Acute) H/O local excision of skin lesion (Acute) excision of skin lesion from chin; positive for Langerhans cell histiocytosis H/O thyroidectomy (Chronic) 12/17/18- s/p hemithyroidectomy 12/17/18 with vocal cord paralysis. saw ENT in f/u. voice has recovered and he will see ENT again before his next surgery. ([facility] report 04/23/19) Family History Mother Breast cancer Uterine cancer Father Alcohol abuse Sister No problems noted. Brother No problems noted. 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 Working smoke detector in home: Yes Fire extinguisher in home: Yes Carbon monox detector in home: Yes Do you feel safe at home: Yes Do you feel safe in your relationship?: Yes Meds Home Medications and Allergies Home Medications Medication Instructions Recorded Confirmed Type amlodipine 10 mg tablet 10 mg PO DAILY #90 tab 09/09/18 07/27/19 Rx lisinopril 40 mg tablet 40 mg PO DAILY #90 tab 09/09/18 07/27/19 Rx levothyroxine 112 mcg tablet 112 mcg PO DAILY 06/13/19 07/27/19 History Allergies Allergy/AdvReac Type Severity Reaction Status Date / Time No Known Allergies Allergy Unverified 07/27/19 15:38 Exam Narrative Exam Narrative: Obese male lying in bed sleeping. Easily awakened alert and oriented person place time and circumstance. HEENT unremarkable. Neck supple nontender with normal carotid pulses no bruits. He has a well- healed anterior cervical incision scar from the site of his previous hemithyroidectomy. Lungs clear to auscultation. Heart regular rate and rhythm without murmur rub or gallop. Abdomen is obese soft minimal tenderness in right upper quadrant. No guarding or rebound tenderness. Normal active bowel sounds. Extremities without peripheral cyanosis or edema. He has normal strength and range of motion. Neurologic exam is nonfocal. Results Imaging Abdomen CT scan report/results: report reviewed Labs Result diagrams: 07/27/19 15:43 07/27/19 15:43 Labs: Laboratory Results - last 24 hr 07/27/19 07/27/19 07/27/19 15:43 15:43 15:43 WBC 9.27 RBC 5.04 Hgb 14.8 Hct 44.7 MCV 88.7 MCH 29.4 MCHC 33.1 RDW 14.1 Plt Count 67 L MPV 12.2 H Immature Gran % 1.9 Neutrophils % 52.5 Lymphocytes % 25.1 Monocytes % 20.3 Eosinophils % 0.1 Basophils % 0.1 Absolute Neutrophils 4.86 Absolute Lymphocytes 2.33 Absolute Monocytes 1.88 H Absolute Eosinophils 0.01 Absolute Basophils 0.01 Differential Comment Agrees w/ instrument PT 10.1 INR 1.0 APTT 26.7 Sodium 141 Potassium 3.3 L Chloride 100 Carbon Dioxide 29.6 Anion Gap 11.4 H BUN 14 Creatinine 1.18 Estimated GFR/1.73 m2 >= 60.00 Glucose 149 H Lactate Calcium 9.0 Magnesium 1.8 Total Bilirubin 0.5 AST 31 ALT 45 Alkaline Phosphatase 90 Troponin I < 0.05 Total Protein 8.1 Albumin 4.1 Triglycerides Total Cholesterol LDL Cholesterol, Calc HDL Cholesterol Lipase 07/27/19 07/27/19 07/27/19 16:43 16:43 16:43 WBC RBC Hgb Hct MCV MCH MCHC RDW Plt Count MPV Immature Gran % Neutrophils % Lymphocytes % Monocytes % Eosinophils % Basophils % Absolute Neutrophils Absolute Lymphocytes Absolute Monocytes Absolute Eosinophils Absolute Basophils Differential Comment PT INR APTT Sodium Potassium Chloride Carbon Dioxide Anion Gap BUN Creatinine Estimated GFR/1.73 m2 Glucose Lactate 1.7 H Calcium Magnesium Total Bilirubin AST ALT Alkaline Phosphatase Troponin I Total Protein Albumin Triglycerides 137 Total Cholesterol 153 LDL Cholesterol, Calc 106 HDL Cholesterol 20 L Lipase > 81594 H Last Vital Signs Temp 36.6 C 07/27/19 19:30 Pulse 71 07/27/19 19:30 Resp 14 07/27/19 19:30 BP 122/79 07/27/19 19:30 Pulse Ox 97 07/27/19 19:30
[2019-07-27] MEDS: Pantoprazole 40 MG VIAL IVP (21:28)
[2019-07-27 22:21] LABS: Lactate 1.7 mmol/L (0.6-1.4)
[2019-07-27 22:31] LABS: Anion Gap 5.7 mmol/L (3-11); BUN 14 mg/dL (7-18); CO2 29.3 mmol/L (21.0-32.0); CREATININE 0.97 mg/dL (0.70-1.30); Calcium 8.4 mg/dL (8.5-10.1); Chloride 105 mmol/L (98-107); Glucose 120 mg/dL (74-106); Potassium 4.1 mmol/L (3.5-5.1); Sodium 140 mmol/L (136-145)
[2019-07-27 22:36] LABS: C-Reactive Protein 0.66 mg/dL (0.0-0.3)
[2019-07-27 22:46] LABS: Lipase 5350 U/L (73-393)
[2019-07-27] MEDS: POTASSIUM CHLORIDE/0.9% NACL 1,000 ML 350 MEQ IV (23:15)
[2019-07-28] VITALS (7 sets, daily range): BP systolic 112–132; BP diastolic 60–88; PULSE 78–90; RESP 16–22; TEMP 36.6–37; O2SAT 95–99
[2019-07-28] MEDS: POTASSIUM CHLORIDE/0.9% NACL 1,000 ML 350 MEQ IV ×2 (02:05→05:02)
[2019-07-28 07:20] LABS: Lactate 1.4 mmol/L (0.6-1.4)
[2019-07-28 07:30] LABS: Abs Immature Grans 0.12 k/cumm (0.0-0.09); Absolute Lymphocyte Count 1.12 k/cumm (1.2-3.4); Absolute Neutrophil Count 6.46 k/cumm (1.2-6.7); HGB 13.3 g/dL (13.5-17.5); Immature Grans % 1.3 %; Lymphocytes % 12.3; Mean Corp. HGB Concentration 33.3 g/dL (32.0-36.0); Mean Corpuscular Volume 90.3 fL (80-95); Mean Platelet Volume 11.4 fL (8.0-11.0); Monocytes % 15.4; RBC 4.43 m/cumm (4.50-6.00); RBC Distribution Width 14.1 % (11.8-14.1)
[2019-07-28 07:45] LABS: ALT 58 U/L (16-63); AST 29 U/L (15-37); Albumin 3.4 g/dL (3.4-5.0); Alkaline Phosphatase 79 U/L (46-116); Anion Gap 7.4 mmol/L (3-11); BUN 12 mg/dL (7-18); Bilirubin, Total 0.5 mg/dL (0.2-1.0); C-Reactive Protein 1.04 mg/dL (0.0-0.3); CO2 28.6 mmol/L (21.0-32.0); CREATININE 0.87 mg/dL (0.70-1.30); Calcium 8.3 mg/dL (8.5-10.1); Chloride 108 mmol/L (98-107); Glucose 103 mg/dL (74-106); Potassium 4.3 mmol/L (3.5-5.1); Sodium 144 mmol/L (136-145); Total Protein 6.8 g/dL (6.4-8.2)
[2019-07-28 07:52] LABS: Lipase 1535 U/L (73-393)
[2019-07-28 07:56] LABS: Diff Comment Diff Reviewed; Platelet Count 53 x1000/uL (130-400); Polychromasia Present
[2019-07-28] MEDS: amLODIPine 10 MG TAB PO (09:06)
[2019-07-28] MEDS: POTASSIUM CHLORIDE/0.9% NACL 1,000 ML 175 MEQ IV (09:06)
[2019-07-28] MEDS: Lisinopril 20 MG TAB 40 MG PO (09:06)
[2019-07-28] MEDS: Levothyroxine 112 MCG TAB PO (09:06)
--- NOTE | 2019-07-28 10:43 | PHARADMIT ---
Admission Pharmacy Clinical Review acute pancreatitis Code Status Full Code Current Weight 117.934 kg Renally Cleared and Narrow Therapeutic Index Meds Crcl ~116.9 mL/min using adjusted body weight current meds okay QTc Value / Action Taken QTc 452 BP Control, Fever BP 132/88 afebrile Electrolytes reviewed Cl 108 DVT Prophylaxis none plt 53 Opiate Usage / Scheduled Bowel Regimen Ordered prn/none Plt/SCr for Heparin / Enoxaparin plt 53 SCr 0.87 INR for Warfarin n/a H/H stable, WBC/Bands h/h 13.36/40 wbc 9.10 Antibiotic appropriateness none Cultures and Sensitivities none Surgical ABX d/c within 24 hr n/a DM control / Insulin Dosing BG 103 none Heart Failure (Check EF%) (CHONG's, B-Block, Diuretics) amlodipine, lisinopril IV to PO Switch n/a Home Meds Reviewed yes Home Meds Not Ordered all ordered Comments abdominal ultrasound ordered for today, possible ERCP pending US results
--- NOTE | 2019-07-28 10:57 | DI.US_ITS ---
EXAM: US ABDOMEN CLINICAL HISTORY: acute pancreatitis TECHNIQUE: Ultrasound performed using standard protocol. COMPARISON: CT ABDOMEN PELVIS W from 07/27/2019 FINDINGS: The hepatic parenchyma is heterogeneous as noted on CT. A 2 cm in diameter low echogenicity region i s seen adjacent to the falciform ligament, I am uncertain whether this corresponds to the small focal area of decreased attenuation seen on CT but the measurement of the area on ultrasound is significan tly larger than on CT where this only measured about 10 millimeters. Findings are nonspecific and ma y represent an area of focal fat. No gross mass was identified on CT. Gallbladder is distended but there is no cholelithiasis. No biliary dilatation. Kidneys are unremarkable. Pancreas poorly seen. IMPRESSION: Pancreas not well visualized in a patient with CT evidence of presumed acute pancreatitis. Hepatic geographic changes consistent with hepatic steatosis. Indeterminate left lobe hepatic lesion , 2 cm, neoplastic process not absolutely excluded but this is more likely enrollment representative of focal fa t or focal fat sparing. Multiphasic hepatic CT or multiphasic hepatic MRI may be considered for foll ow-up when the patient is able to tolerate such a procedure.
--- NOTE | 2019-07-28 14:22 | DSE_ITS ---
Date of service: 07/28/19 Time of Service: 14:22 DS: Diagnosis Discharge Diagnosis (1) Acute pancreatitis: Status: Resolved (2) Hypertension: Status: Chronic (3) Hypothyroidism (acquired): Status: Chronic (4) Hepatic lesion: Status: Acute Asessment and Plan: seen on ultrasound - will require outpatient follow up. Discharge Plan Disposition Patient Disposition: HOME Condition: Stable Discharge Details Chief Complaint: Chest Pain Clinical Impression: Acute pancreatitis Reason For Visit: ACUTE PANCREATITIS Admit Date/Time: 07/27/19 18:09 Admit Provider: Mike Palma Attending Provider: Mike Palma Primary Care Provider: [place] Cristobal ED Provider: Royer Jackson Hospital Course Hospital Course: Mr Lanza is a 59 year old male with PMHx of one prior episode of pancreatitis, as well as hypertension, hypothyroidism, chronic thrombocytopenia, who was admitted to [facility] hospitalist service on 07/27/2019 with acute pancreatitis. Imaging (CT, ultrasound) ruled out gall stones/cyst/pseudocyst/abscess formation. His triglycerides were not elevated, and the patient denies drinking heavily - drinks rarely. He was made NPO, treated with aggressive IV fluids and improved unexpectedly quickly. He was able to tolerate a regular consistency low fat lunch on 07/28/2019 and is felt to be medically ready for discharge home today. He will need outpatient follow up for an incidentally found 2 cm hepatic lesion - he will need either a hepatic CT or an MRI, which I will defer to the PCP. The patient should follow with his PCP within 1-2 weeks and is recommended to follow a low fat diet. Care for patient as well as completion of his discharge summary on day of discharge took 25 minutes. Home Meds and New Rx's Prescriptions: Continued amlodipine 10 mg tablet 10 mg PO DAILY Qty: 90 RF: 3 lisinopril 40 mg tablet 40 mg PO DAILY Qty: 90 RF: 3 levothyroxine 112 mcg tablet 112 mcg PO DAILY RF: 0 Discharge Instructions Instructions: Pancreatitis (DC), Low Fat Diet (DC) Additional Instructions: Return to the hospital with any fever, bleeding, worsening abdominal pain, chest pain, or shortness of breath. Follow a low fat diet. Referrals: [place] Cristobal DO [Primary Care Provider] - Activity:: Activity as Tolerated Equipment/Supplies:: No Equipment Needed Diet:: low fat Discharge Orders Discharge Orders: Discharge Order (Routine); Ordered 07/28/19 Ordered By: Indu Figueroa DS: Summary Status at Discharge Functional status at discharge: independent ambulation Overall status at discharge: patient is back to baseline Mental Status: mental status grossly normal Speech and Movement: speech and movement normal Mood: congruent mood Affect: normal affect Exam Narrative Exam Narrative: General: pleasant obese male, A&Ox3, sitting up comfortably in bed HEENT: EOMI, MMM Heart: RRR, no m/r/g Lungs: CTAB GI: abdomen is soft, nontender, nondistended Extremities: no e/c/c BLE's Psych Mental Status: mental status grossly normal Speech and Movement: speech and movement normal Mood: congruent mood Affect: normal affect DS: Data Vitals/I&O Vitals and I&O: Vital Signs Temperature 36.6 C 07/28/19 07:30 Temperature Source Tympanic 07/28/19 07:30 Pulse 89 07/28/19 10:05 Pulse Rhythm Regular 07/28/19 07:40 Pulse 74 07/27/19 18:32 Respiratory Rate 22 07/28/19 07:30 Respiratory Effort Non-Labored 07/28/19 07:40 Respiratory Depth Normal 07/28/19 07:40 Respiratory Pattern Normal 07/28/19 07:40 Blood Pressure 132/88 07/28/19 07:30 Blood Pressure Mean 86 07/27/19 18:31 Blood Pressure Position Supine 07/27/19 15:34 Pulse Oximetry 97 07/28/19 07:30 Oxygen Delivery Method Room Air 07/28/19 07:30 Oxygen Flow Rate 0 07/28/19 07:30 Pain Level 0 07/28/19 04:33 Intake & Output 07/27/19 07/28/19 07/28/19 23:59 11:59 23:59 Intake Total 1050 / 1050 4991.667 / 4991.667 Output Total 800 / 800 Balance 1050 / 1050 4191.667 / 4191.667 Weight 117.934 kg Intake: IV 1050 / 1050 4991.667 / 4991.667 Output: Urine 800 / 800 Other: Urine Color Yellow Urine Appearance Clear Urine Odor None Comment Voided into the toiletx2 as per patient. Voiding Methods Toilet Urinal Data Completed and Pending Completed studies during hospitalization [Text1]: CT abdomen/pelvis 07/27/2019: Pancreatic edema and robinson pancreatic fat edema suggesting acute uncomplicated pancreatitis. US abdomen 07/28/2019: Pancreas not well visualized in a patient with CT evidence of presumed acute pancreatitis. Hepatic geographic changes consistent with hepatic steatosis. Indeterminate left lobe hepatic lesion, 2 cm, neoplastic process not absolutely excluded but this is more likely medical collections representative of focal fat or focal fat sparing. Multiphasic hepatic CT or multiphasic hepatic MRI may be considered for follow- up when the patient is able to tolerate such a procedure. Labs on day of discharge: Labs from last 24 hours 07/28/19 07/28/19 07/28/19 07:07 07:07 07:07 WBC 9.10 RBC 4.43 L Hgb 13.3 L Hct 40.0 MCV 90.3 MCH 30.0 MCHC 33.3 RDW 14.1 Plt Count 53 L MPV 11.4 H Immature Gran % 1.3 Neutrophils % 71.0 Lymphocytes % 12.3 Monocytes % 15.4 Eosinophils % 0.0 Basophils % 0.0 Absolute Neutrophils 6.46 Absolute Lymphocytes 1.12 L Absolute Monocytes 1.40 H Absolute Eosinophils 0.00 Absolute Basophils 0.00 Differential Comment Diff reviewed RBC Morphology See below Polychromasia Present PT INR APTT Sodium 144 Potassium 4.3 Chloride 108 H Carbon Dioxide 28.6 Anion Gap 7.4 BUN 12 Creatinine 0.87 Estimated GFR/1.73 m2 >= 60.00 Glucose 103 Lactate 1.4 Calcium 8.3 L Magnesium Total Bilirubin 0.5 AST 29 ALT 58 Alkaline Phosphatase 79 Troponin I C-Reactive Protein Total Protein 6.8 Albumin 3.4 Triglycerides Total Cholesterol LDL Cholesterol, Calc HDL Cholesterol Lipase 1535 H 07/28/19 07/27/19 07/27/19 07:07 22:12 22:12 WBC RBC Hgb Hct MCV MCH MCHC RDW Plt Count MPV Immature Gran % Neutrophils % Lymphocytes % Monocytes % Eosinophils % Basophils % Absolute Neutrophils Absolute Lymphocytes Absolute Monocytes Absolute Eosinophils Absolute Basophils Differential Comment RBC Morphology Polychromasia PT INR APTT Sodium Potassium Chloride Carbon Dioxide Anion Gap BUN Creatinine Estimated GFR/1.73 m2 Glucose Lactate 1.7 H Calcium Magnesium 2.0 Total Bilirubin AST ALT Alkaline Phosphatase Troponin I C-Reactive Protein 1.04 H 0.66 H Total Protein Albumin Triglycerides Total Cholesterol LDL Cholesterol, Calc HDL Cholesterol Lipase 5350 H 07/27/19 07/27/19 07/27/19 22:12 16:43 16:43 WBC RBC Hgb Hct MCV MCH MCHC RDW Plt Count MPV Immature Gran % Neutrophils % Lymphocytes % Monocytes % Eosinophils % Basophils % Absolute Neutrophils Absolute Lymphocytes Absolute Monocytes Absolute Eosinophils Absolute Basophils Differential Comment RBC Morphology Polychromasia PT INR APTT Sodium 140 Potassium 4.1 D Chloride 105 Carbon Dioxide 29.3 Anion Gap 5.7 BUN 14 Creatinine 0.97 Estimated GFR/1.73 m2 >= 60.00 Glucose 120 H Lactate 1.7 H Calcium 8.4 L Magnesium Total Bilirubin AST ALT Alkaline Phosphatase Troponin I C-Reactive Protein Total Protein Albumin Triglycerides 137 Total Cholesterol 153 LDL Cholesterol, Calc 106 HDL Cholesterol 20 L Lipase 07/27/19 07/27/19 07/27/19 16:43 15:43 15:43 WBC 9.27 RBC 5.04 Hgb 14.8 Hct 44.7 MCV 88.7 MCH 29.4 MCHC 33.1 RDW 14.1 Plt Count 67 L MPV 12.2 H Immature Gran % 1.9 Neutrophils % 52.5 Lymphocytes % 25.1 Monocytes % 20.3 Eosinophils % 0.1 Basophils % 0.1 Absolute Neutrophils 4.86 Absolute Lymphocytes 2.33 Absolute Monocytes 1.88 H Absolute Eosinophils 0.01 Absolute Basophils 0.01 Differential Comment Agrees w/ instrument RBC Morphology Polychromasia PT 10.1 INR 1.0 APTT 26.7 Sodium Potassium Chloride Carbon Dioxide Anion Gap BUN Creatinine Estimated GFR/1.73 m2 Glucose Lactate Calcium Magnesium Total Bilirubin AST ALT Alkaline Phosphatase Troponin I C-Reactive Protein Total Protein Albumin Triglycerides Total Cholesterol LDL Cholesterol, Calc HDL Cholesterol Lipase > 64979 H 07/27/19 15:43 WBC RBC Hgb Hct MCV MCH MCHC RDW Plt Count MPV Immature Gran % Neutrophils % Lymphocytes % Monocytes % Eosinophils % Basophils % Absolute Neutrophils Absolute Lymphocytes Absolute Monocytes Absolute Eosinophils Absolute Basophils Differential Comment RBC Morphology Polychromasia PT INR APTT Sodium 141 Potassium 3.3 L Chloride 100 Carbon Dioxide 29.6 Anion Gap 11.4 H BUN 14 Creatinine 1.18 Estimated GFR/1.73 m2 >= 60.00 Glucose 149 H Lactate Calcium 9.0 Magnesium 1.8 Total Bilirubin 0.5 AST 31 ALT 45 Alkaline Phosphatase 90 Troponin I < 0.05 C-Reactive Protein Total Protein 8.1 Albumin 4.1 Triglycerides Total Cholesterol LDL Cholesterol, Calc HDL Cholesterol Lipase [facility] Medical History (Updated 07/28/19 @ 14:23 by Indu Figueroa MD) Chronic bacterial otitis externa of both ears (Resolved) History of thyroid cancer (Acute) Hypertension (Chronic) Hypothyroidism (acquired) (Chronic) Langerhans cell histiocytoses (Acute) [facility] [place] hem/onc report 04/23/19: KRAS gene mutation on the skin biopsy came back positive. This is an extremely rare diagnosis. his staging is negative . Single system disease involving the skin only. He will need to be followed by dermatology.([facility] has requested that) Meralgia paraesthetica (Acute) Metabolic syndrome (Chronic) Prediabetes (Chronic) Skin lesion of face (Chronic) Thrombocytopenia (Chronic) Vitamin D deficiency (Chronic) Surgical History (Updated 07/27/19 @ 21:30 by Mike Palma) H/O inguinal hernia repair (Acute) H/O local excision of skin lesion (Acute) excision of skin lesion from chin; positive for Langerhans cell histiocytosis H/O thyroidectomy (Chronic) 12/17/18- s/p hemithyroidectomy 12/17/18 with vocal cord paralysis. saw ENT in f/u. voice has recovered and he will see ENT again before his next surgery. ([facility] report 04/23/19) Family History Mother Breast cancer Uterine cancer Father Alcohol abuse Sister No problems noted. Brother No problems noted. 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
== END 2019-07-28 14:43 | disposition home or self-care (01) | DRG 440 ==
LOC: ER 18:27 → MS 18:55
PROVIDERS: Admitting Provider Internal Medicine; Emergency Provider Student in an Organized Health Care Education/Training Program; PCP Family Medicine; Visit Provider Internal Medicine
DX: K85.90 Acute pancreatitis without necrosis or infection, unspecified (principal); I10 Essential (primary) hypertension; D69.6 Thrombocytopenia, unspecified; R93.2 Abnormal findings on diagnostic imaging of liver and biliary tract; E89.0 Postprocedural hypothyroidism
CPT/HCPCS: 36415; 80048; 80053; 80061; 83690; 93005; 96361; 96365; 96375; 99223; 99238; 99285; 74177; 76700; 83605; 83735; 84484; 85025; 85610; 85730; 86140; 93010; J3490

== ENCOUNTER 2019-09-02 01:59 | Outpatient (CLI) | payer OTHER, SELFPAY ==
--- NOTE | 2019-09-02 06:45 | DI.CT_ITS ---
EXAM: CT ABDOMEN WO/W CLINICAL HISTORY: F/U PREVIOUS HEPATIC LESION, K76.9 TECHNIQUE: The exam was performed according to the usual protocol. COMPARISON: CT ABDOMEN PELVIS W from 07/27/2019 FINDINGS: CT examination of the liver was performed with noncontrast CT followed by contrast injection of 100 c c of Omnipaque 350 with arterial phase, venous phase, and 5 minutes delay imaging. There is a 9 mill imeter well-circumscribed water attenuation lesion of the left hepatic lobe. This shows no enhanceme nt. No additional lesion identified. Mild heterogeneity of attenuation of hepatic parenchyma noted. No biliary dilatation. Gallbladder CT normal. Pancreas unremarkable. Spleen is intact. Adrenals and kidneys are unremarkable. No vascular abnormality. No adenopathy. Images obtained through the lung bases are unremarkable. IMPRESSION: 9 millimeter benign-appearing left hepatic lobe lesion. No additional hepatic mass identified. No f ollow-up recommended.
[2019-09-02 07:43] LABS: Anion Gap 9.4 mmol/L (3-11); BUN 16 mg/dL (7-18); CO2 27.6 mmol/L (21.0-32.0); CREATININE 1.04 mg/dL (0.70-1.30); Calcium 8.5 mg/dL (8.5-10.1); Chloride 105 mmol/L (98-107); Glucose 110 mg/dL (74-106); Potassium 4.1 mmol/L (3.5-5.1); Sodium 142 mmol/L (136-145)
[2019-09-02 07:54] LABS: Calculated LDL 100 mg/dL (<100); Cholesterol 150 mg/dL (<200); HDL Cholesterol 24 mg/dL (40-60); Triglyceride 130 mg/dL (<150)
[2019-09-02] MEDS: Omnipaque 350 MG/ML 100 ML BTL IJ (08:51)
== END 2019-09-02 02:19 ==
PROVIDERS: PCP Family Medicine; Visit Provider Family Medicine
DX: K76.9 Liver disease, unspecified (principal); I10 Essential (primary) hypertension; R93.2 Abnormal findings on diagnostic imaging of liver and biliary tract
CPT/HCPCS: 80048; 80061; 74170; J3490

== ENCOUNTER 2019-11-11 02:54 | Outpatient (CLI) | payer OTHER, SELFPAY ==
[2019-11-11 17:13] LABS: Abs Immature Grans 0.15 k/cumm (0.0-0.09); Absolute Basophil Count 0.01 k/cumm (0.0-0.2); Absolute Eosinophil Count 0.01 k/cumm (0.0-0.7); Absolute Lymphocyte Count 1.85 k/cumm (1.2-3.4); Absolute Monocyte Count 3.17 k/cumm (0.11-0.7); Absolute Neutrophil Count 5.51 k/cumm (1.2-6.7); Basophils % 0.1; Eosinophils % 0.1; HGB 14.8 g/dL (13.5-17.5); Immature Grans % 1.4 %; Lymphocytes % 17.3; Mean Corp. HGB Concentration 33.6 g/dL (32.0-36.0); Mean Corpuscular Hemoglobin 30.3 pg (27.0-33.0); Mean Platelet Volume 11.6 fL (8.0-11.0); Monocytes % 29.6; Neutrophils % 51.5; RBC 4.89 m/cumm (4.50-6.00); RBC Distribution Width 14.5 % (11.8-14.1)
[2019-11-11 17:45] LABS: ALT 38 U/L (16-63); AST 17 U/L (15-37); Alkaline Phosphatase 86 U/L (46-116); Anion Gap 7.7 mmol/L (3-11); BUN 19 mg/dL (7-18); Bilirubin, Total 0.4 mg/dL (0.2-1.0); CO2 30.3 mmol/L (21.0-32.0); CREATININE 1.09 mg/dL (0.70-1.30); Calcium 8.6 mg/dL (8.5-10.1); Chloride 102 mmol/L (98-107); Glucose 110 mg/dL (74-106); Sodium 140 mmol/L (136-145); Total Protein 7.6 g/dL (6.4-8.2)
[2019-11-11 19:02] LABS: Diff Comment Diff Reviewed
[2019-11-11 19:03] LABS: Platelet Count 62 x1000/uL (130-400)
== END 2019-11-11 03:14 ==
PROVIDERS: PCP Family Medicine; Visit Provider Internal Medicine Hematology & Oncology
DX: D69.6 Thrombocytopenia, unspecified (principal)
CPT/HCPCS: 36415; 80053; 85025

== ENCOUNTER 2019-11-20 17:33 | Outpatient (REF) | payer OTHER, SELFPAY | END 2019-11-20 17:53 | LOC: LBN 17:33 | PROVIDERS: PCP Family Medicine; Visit Provider Otolaryngology | DX: H60.333 Swimmer's ear, bilateral (principal); H60.8X3 Other otitis externa, bilateral | CPT/HCPCS: 87077; 87070; 87186 ==

== ENCOUNTER 2019-12-18 17:16 | Outpatient (REF) | payer OTHER, SELFPAY | END 2019-12-18 17:36 | LOC: LBN 17:16 | PROVIDERS: PCP Family Medicine; Visit Provider Family Medicine | DX: H60.333 Swimmer's ear, bilateral (principal) | CPT/HCPCS: 87070 ==

== ENCOUNTER 2020-02-20 04:38 | Outpatient (CLI) | payer OTHER, SELFPAY ==
[2020-02-20 16:52] LABS: Abs Immature Grans 0.25 10^3/uL (0.0-0.06); Absolute Basophil Count 0.02 10^3/uL (0.0-0.2); Absolute Eosinophil Count 0.03 10^3/uL (0.0-0.7); Absolute Lymphocyte Count 1.54 10^3/uL (1.2-3.4); Absolute Monocyte Count 1.52 10^3/uL (0.1-0.8); Absolute Neutrophil Count 4.91 10^3/uL (1.2-6.7); Basophils % 0.2; Eosinophils % 0.4; HCT 40.3 % (40.0-50.0); HGB 13.4 g/dL (13.5-17.5); Lymphocytes % 18.6; MCH 29.9 pg (27.0-33.0); MCHC 33.3 % (32.0-36.0); MPV 12.1 fL (8.0-11.0); Monocytes % 18.4; Neutrophils % 59.4; Nucleated RBC 0 %; RBC 4.48 10^6/uL (4.36-5.78); RDW 13.2 % (11.8-14.1); RDW-SD 43.3 fL; WBC 8.27 10^3/uL (4.4-10.8)
[2020-02-20 17:10] LABS: ALT 64 U/L (16-63); AST 29 U/L (15-37); Albumin 3.9 g/dL (3.4-5.0); Alkaline Phosphatase 74 U/L (46-116); BUN 21 mg/dL (7-18); Bilirubin, Total 0.5 mg/dL (0.2-1.0); CREATININE 1.18 mg/dL (0.70-1.30); Calcium 8.4 mg/dL (8.5-10.1); Chloride 105 mmol/L (98-107); Glucose 106 mg/dL (74-106); Potassium 3.8 mmol/L (3.5-5.1); Sodium 143 mmol/L (136-145); Total Protein 8.1 g/dL (6.4-8.2)
[2020-02-20 17:34] LABS: Diff Comment Agrees w/ Instrument; Platelet Count 71 10^3/uL (130-400)
[2020-02-20 17:35] LABS: RBC Morphology Normal
== END 2020-02-20 04:58 ==
PROVIDERS: PCP Family Medicine; Visit Provider Internal Medicine Hematology & Oncology
DX: D69.6 Thrombocytopenia, unspecified (principal)
CPT/HCPCS: 36415; 80053; 85025

== ENCOUNTER 2020-07-19 01:31 | Outpatient (CLI) | payer OTHER, SELFPAY ==
--- NOTE | 2020-07-19 10:23 | DI.CT_ITS ---
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 TECHNIQUE: Imaging Protocol: Axial computed tomography images with coronal and sagittal reformatted images were created and reviewed. CONTRAST MATERIAL: Intravenous: Omnipaque 350 Contrast volume:structured data in ml Contrast route:I V - Oral: yes / no COMPARISON: No exams were available for comparison FINDINGS: In the right maxillary sinus there is a retention cyst in the posterior wall which measures 1.2 by 1. 2 by 1.9 centimetres and most probably post inflammatory retention cyst. There is no associated flui d level. The opposite-left maxillary sinus is clear. Ethmoidal air cells are clear bilaterally. Sp henoid sinuses are clear. Frontal sinuses are also well aerated. Mastoid air cells are also clear b ilaterally. External auditory canals: There is significant thickening of the lining mucosa-skin in both external auditory canals all the way to the tympanic membranes. There is thickening of both tympanic membrane s with some indrawing. There is no evidence of middle ear ossicle destruction. Right Temporal Bone: The cochlea, vestibule, vestibular and cochlear aqueduct are normal. The facial nerve canal is well m aintained. The semicircular canals are unremarkable. There is no evidence of dehiscence. The internal auditory canal is within normal limits. The scutum and tegmen are within normal limits. Left Temporal Bone: The cochlea, vestibule, vestibular and cochlear aqueduct are normal. The facial nerve canal is well m aintained. The semicircular canals are unremarkable. There is no evidence of dehiscence. The interna l auditory canal is within normal limits. The scutum and tegmen are within normal limits. There is no evidence of otosclerosis. IMPRESSION: There is symmetrical circumference thickening of the lining of both external auditory canals and ther e is thickening of both tympanic membranes with intra bill noted both tympanic membranes also evident. There is no evidence of ossicular destruction nor abnormal soft tissue density within the middle ea r cavities to suggest cholesteatoma formation. Mastoid air cells are also clear. No obvious inner ear abnormality. RADIATION DOSE DELIVERED: 414.92mGy.cm Total DLP DATA REPOSITORY: All CT scans at this facility are submitted to the National Radiology Data Registry (NRDR) Dose Index Registry (DIR) with the [employer] (A[employer]). RADIATION OPTIMIZATION: All CT scans at this facility use at least one of these dose optimization te chniques: automated exposure control; mA and/or kV adjustment per patient size (includes targeted exa ms where dose is matched to clinical indication); or iterative reconstruction.
== END 2020-07-19 01:51 ==
PROVIDERS: PCP Family Medicine; Visit Provider Otolaryngology
DX: H90.A31 Mixed conductive and sensorineural hearing loss, unilateral, right ear with restricted hearing on the contralateral side (principal)
CPT/HCPCS: 70480

== ENCOUNTER 2020-11-24 08:44 | Outpatient (CLI) | payer OTHER, SELFPAY ==
[2020-11-24 10:29] LABS: Source Nasal/Nares
[2020-11-24 12:58] LABS: COVID-19 PCR Negative (Negative)
== END 2020-11-24 08:45 | disposition home or self-care (01) ==
LOC: LBO 08:44
PROVIDERS: PCP Family Medicine; Visit Provider Surgery
DX: Z20.822 Contact with and (suspected) exposure to COVID-19 (principal); Z01.818 Encounter for other preprocedural examination
CPT/HCPCS: 87635

== ENCOUNTER 2020-11-26 07:09 | Day surgery (SDC) | payer OTHER, SELFPAY ==
[2020-11-26 07:24] VITALS: BP 115/71; PULSE 95; RESP 18; TEMP 36.6; O2SAT 94
[2020-11-26] MEDS: Lactated Ringers 1,000 ML 80 ML IV (07:41)
--- NOTE | 2020-11-26 07:45 | W.ANESPRE ---
General Info Date of Service Date Performed: 11/26/20 Height: 5 ft 8 in Weight: 117 kg Body Mass Index (BMI): 39.2 Surgical Procedure: Operation Date: 11/26/20 08:35 Proposed Procedures Side Surgeon p Colonoscopy, hemorrhoid banding Tonja Feranndez, DO Meds Allergies and Home Medications Allergies Allergy/AdvReac Type Severity Reaction Status Date / Time No Known Allergies Allergy Verified 11/26/20 07:29 Home Medication Medication Instructions Recorded hydrocortisone-pramoxine 2.5 %-1 % 1 applic TN QID PRN #30 gm 07/08/20 rectal cream calcium citrate 315 mg 3 tab PO BID tab 08/03/20 calcium-vitamin D3 6.25 mcg (250 unit) tablet levothyroxine 100 mcg tablet 225 mcg PO DAILY tab 08/03/20 lisinopril 40 mg tablet 40 mg PO DAILY #90 tab 09/14/20 calcitriol 0.5 mcg capsule 0.5 mcg PO BID #180 cap 10/19/20 amlodipine 10 mg tablet 10 mg PO DAILY #90 tab 11/02/20 bisacodyl 5 mg tablet,delayed 5 mg PO ONCE #4 tab 11/10/20 release polyethylene glycol 3350 17 238 g PO ONCE #238 g 11/10/20 gram/dose oral powder Current Visit Medications: Current Medications Generic Name Dose Route Start Last Admin Trade Name Freq PRN Reason Stop Dose Admin Hyoscyamine Sulfate 0.125 mg 11/25/20 23:48 Hyoscyamine 0.125 Mg Sl/Oral/Chew SL DIRECTED PRN Ringer's Solution 1,000 mls @ 80 mls/hr 11/26/20 06:00 11/26/20 07:41 IV 12/25/20 23:59 80 mls/hr INFUSION AISHA Administration IV Miscellaneous Supplies 1 each 11/26/20 06:00 Iv Access IV 12/25/20 23:59 DIRECTED AISHA Ondansetron HCl 4 mg 11/25/20 23:48 Ondansetron 4 Mg/2 Ml Vial IVP Q4H PRN PRN Nausea / Vomiting Sodium Chloride 0 ml 11/26/20 06:00 Normal Saline Flush 10 Ml Syr IV 12/25/20 23:59 PRN PRN Sodium Chloride 0 ml 11/26/20 06:00 Normal Saline 10 Ml Vial IJ 12/25/20 23:59 DIRECTED PRN Sterile Water 0 ml 11/26/20 06:00 Water,Injection,Sterile 10 Ml Vial IJ 12/25/20 23:59 DIRECTED PRN PFSH Active Problems Active Problems: Problem Status Onset Code 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 Rectal pain, chronic K62.89, G89.29 Chronic otitis externa of both ears H60.63 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 Erectile dysfunction N52.9 Hepatic lesion K76.9 Acute pancreatitis K85.90 Hypothyroidism (acquired) E03.9 H/O thyroidectomy Z90.09 Meralgia paraesthetica G57.10 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 Peck radiation oncology 02/25/20. Hypertension Hypothyroidism (acquired) Langerhans cell histiocytoses [facility] [place]: KRAS gene mutation on the skin biopsy came back positive. This is an extremely rare diagnosis. his staging is negative . Single system disease involving the skin only. He will need to be followed by dermatology.([facility] [place] has requested that) 09/24/20 Skin isolation only. [facility] [place] [facility] [place]U [place] 6 mo. Meralgia paraesthetica Metabolic syndrome Prediabetes Skin lesion of face Thrombocytopenia Vitamin D deficiency Surgical History Surgical History H/O inguinal hernia repair H/O local excision of skin lesion excision of skin lesion from chin; positive for Langerhans cell histiocytosis H/O thyroidectomy 12/17/18- s/p hemithyroidectomy; 12/22/19 completion thyroidectomy 12/17/18 with vocal cord paralysis. saw ENT in f/u. voice has recovered and he will see ENT again before his next surgery. ([facility] [place] report 04/23/19) Tobacco Smoking/Tobacco Use Status: Never Alcohol Alcohol Intake: current Alcohol intake frequency: a few times a week Substance Use Substance use: Never Substance use type: does not use Vital Signs and Lab Results Vital Signs Most Recent Vital Signs in EMR: Most Recent Vital Signs Temp Pulse Resp BP Pulse Ox 36.6 C 95 H 18 115/71 94 11/26/20 07:24 11/26/20 07:24 11/26/20 07:24 11/26/20 07:24 11/26/20 07:24 Lab Results Blood Type / Crossmatch: No Data to Display Complete Blood Count: No Data to Display Complete Metabolic Panel: No Data to Display Liver Function Panel: No Data to Display Coagulation Panel: No Data to Display Cardiac Panel: No Data to Display Arterial Blood Gas: No Data to Display Venous Blood Gas: No Data to Display Pancreas Panel: No Data to Display Thyroid Panel: No Data to Display Infectious Disease: Coronavirus (COVID-19)(PCR) Negative (Negative) 11/24/20 08:38 11/24/20 Coronavirus 2019 Source Nasal/nares 11/24/20 08:38 11/24/20 Blood Cultures: No Data to Display Toxicology Panel: No Data to Display Anesthesia Assessment and Plan Anesthesia History Personal History: No History of Anesthesia Complications Family History: No Family History of Anesthesia Complications Exercise Tolerance Exercise Tolerance: Metabolic Equivalents>4 Pertinent Negatives Pertinent Negatives: No Symptoms of GERD, No Major Cardiovascular Symptoms or Complaints, No Major Pulmonary Symptoms or Complaints and No History of CVA/TIA Cardiac & Pulmonary Exam Cardiac Exam: Normal S1/S2 Heart Sounds Pulmonary Exam: Clear Bilateral Breath Sounds Airway Exam Known Difficult Airway: No Mallampati Class: 3 Mouth Opening: Normal (> 3cm) Thyromental Distance: Greater than 3 cm Neck Range of Motion: Full ROM Neck Circumference: Thick Teeth Condition: Normal Dentition ASA Classification ASA Score: ASA 3 Emergency Case?: No NPO Status NPO Status: NPO Clears >2 hours, Solids >8 hours Anesthesia Plan Resuscitation Status: Full Code Anesthesia Technique: General Anesthesia Airway Planned: Natural Airway Monitors Used: Standard Monitors
[2020-11-26 08:31] VITALS: BMI 39.2
--- NOTE | 2020-11-26 09:02 | BOWEL_PTH ---
PATIENT: Gabe Lanza LOC: ANU U#:[id number] AGE/SX: 60/M ROOM: RE11/26/[address]: Tonja Fernandez : 1960 BED: DIS: 11/26/2020 SPEC #: [id number] RECD: 11/26/20 09:52 STATUS: DOMINGO RE #: [id number] MANGO: 11/26/20 09:[address]: Tonja Fernandez DEPT: Surgical Specimen RECD BY: Kristin Shah ENTERED: 11/26/20 09:54 SP TYPE: Bowel OTHR DR: [place] Cristobal DO Tissues: 1 - BIOPSY BOWEL 2 - BIOPSY BOWEL Procedures: GROSS AND MICRO LEVEL 4 Comments: [id number]
[2020-11-26 09:32] VITALS: BP 110/83; PULSE 83; RESP 18; TEMP 36.5; O2SAT 93
--- NOTE | 2020-11-26 09:34 | W.ANESPOSTOP ---
Postoperative Evaluation Date, Time and Location Date Performed: 11/26/20 Time Performed: 09:35 Patient Location: Day Surgery Unit Vital Signs Most Recent Imported Vital Signs: Most Recent Vital Signs Temp Pulse Resp BP Pulse Ox 36.6 C 95 H 18 115/71 94 11/26/20 07:24 11/26/20 07:24 11/26/20 07:24 11/26/20 07:24 11/26/20 07:24 Most Recent Manually Entered Vital Signs: Adult Blood Pressure: 110/83 Heart Rate: 83 Respirations: 16 Oxygen Saturation (%): 93 Temperature (C): 36.5 C Pain Score (0-10 Scale): 0 Pain Score Most Recent Pain Score: Most Recent Pain Score Pain Level 0 11/26/20 07:24 Assessment Mental Status: Awake (Alert & Oriented to Patient Baseline) Airway and Respiratory Function: Patent airway with normal (patient baseline) respiratory exam Cardiovascular Function: Hemodynamically Stable Hydration Status: Adequately Hydrated Nausea & Vomiting: No Nausea or Vomiting Pain: Pt. Denies Any Pain Peripheral Nerve Block: Patient did not receive a nerve block
[2020-11-26 09:36] VITALS: BP 110/83; PULSE 83; RESP 16; TEMPC 36.5; O2SAT 93
[2020-11-26 10:05] VITALS: BP 121/75; PULSE 82; RESP 17; TEMP 36.6; O2SAT 94
--- NOTE | 2020-11-26 11:02 | W.COLOREPORT ---
Date of service: 11/26/20 Time of Service: 11:02 Colonoscopy Report Date of procedure: 11/26/20 Pre-op diagnosis general: rectal bleeding/pain Post-op diagnosis procedure note: other (rectal fissure/ulceration of cecum/polyp) Procedure: polypectomy x1 biopsy Surgeon: Tonja Fernandez Anesthesia Type: General:No Airway Pathology: other Complications: None Disposition: PACU Prep: Miralax/Dulcolax Retraction Time: 12 mins Procedure Description: After informed consent was obtained the patient was taken to the procedure room and placed in a left decubitous position. Monitors were applied and a time out was done. The patients name, date of , procedure, allergies to medications and metal in their body was reviewed. The patient was then sedated. Once sedated and comfortable a rectal exam was done. External exam was normal. Internal exam revealed a normal sphincter tone and no palpable masses. The scope was then introduced and retrofelexed. No internal hemorrhoids were identified. He has a lot of scarring in the 12 o'clock position from chronic longstanding and repeated bouts of anal fissures. There is no active fissure and it is healed currently. The scope was then advanced to the cecum w/out difficulty. The TI and appendiceal orifice were identified. The prep was good. The scope was then slowly retracted over 12 minutes back into the rectum. He has a small polyp at 80 cm. This is removed with cold biopsy forcep. All specimen is retrieved and no bleeding is noted. In the cecum- he has a one by one discrete area of ulceration. This is biopsied. The surrounding mucosa is normal. This is the only ulceration of the entire colon. There is no signs of inflammatory bowel disease within the remainder of the colon. He does have a few small diverticula in the sigmoid colon. There is no signs of active bleeding or infection. The scope was removed and the patient was woken up and taken back to Same day surgery in stable condition. The patient tolerated the procedure well and there were no immediate complications. Follow up: The patient should have a repeat colonoscopy depending on the pathology of the biopsies, probably 5 years, unless they develop changes in bowel habits or other new gastrointestinal complaints.
--- NOTE | 2020-11-26 11:14 | PDOC.DSDIS_ITS ---
Discharge Plan Disposition Patient Disposition: HOME Condition: Good Discharge Details Reason For Visit: colon scope Attending Provider: Tonja Fernandez Primary Care Provider: [place] Cristobal Home Meds and New Rx's Prescriptions: New Metamucil Sugar-Free (aspart) 3.4 gram/5.8 gram powder [id number] g PO DAILY Qty: 1040 RF: 6 Continued hydrocortisone-pramoxine 2.5-1 % cream 1 applic UT QID PRN (Reason: itching) Qty: 30 RF: 6 levothyroxine 100 mcg tablet 225 mcg PO DAILY RF: 0 calcium citrate-vitamin D3 [Citracal + D Maximum] 315 mg-6.25 mcg (250 unit) tablet 3 tab PO BID RF: 0 lisinopril 40 mg tablet 40 mg PO DAILY Qty: 90 RF: 3 calcitriol 0.5 mcg capsule 0.5 mcg PO BID Qty: 180 RF: 3 amlodipine 10 mg tablet 10 mg PO DAILY Qty: 90 RF: 3 Discontinued polyethylene glycol 3350 17 gram/dose powder 238 g PO ONCE Qty: 238 RF: 0 bisacodyl [Dulcolax (bisacodyl)] 5 mg tablet,delayed release (DR/EC) 5 mg PO ONCE Qty: 4 RF: 0 Discharge Instructions Instructions: High Fiber Diet (GEN), Anal Fissure (GEN) Additional Instructions: [facility] Colonoscopy Post- Op Instructions Instructions for Everyone who is given Anesthesia: For your safety, please do the following for the next twenty-four (24) hours: *Do Not operate a motor vehicle (car, truck, motorcycle, etc.) *Do Not drink alcoholic beverages or use any recreational drugs for the first 24 hours or while taking pain medications. The medications in your body may have a reaction that can be dangerous. *Do Not make any important decisions or sign any important papers. Findings: polyp x1 diverticula chronic anal fissure -High fiber diet. Make sure you are moving your bowels on a regular basis and no staining. Follow up: We will send a letter in 3 to 4 weeks as to when to repeat the colonoscopy, most likely in 5 years time. 1. No lifting over 20 pounds or strenuous activity for the first 24 hours after your procedure. After 24 hours there are no restrictions on your activity but you may feel fatigued for a few days. 2. After you arrive home you may have a light meal and return to your normal diet as you can tolerate it without feeling sick to your stomach. 3. You may have a bloated, gaseous feeling in your belly (abdomen) after a colonoscopy. Passing gas and belching will help. Walking or lying down on your left side with your knees flexed may relieve the discomfort. Call the office at [phone] (Office) or [phone] (Hospital) right away if you notice any of the following: a.Vomiting of blood or ?coffee ground stools?. b.Rectal bleeding 1Tbsp, blood clots or continuous bleeding. c.Severe belly (abdominal) pain. d.A hard distended belly (abdomen) and an inability to pass gas. 4. Please don?t expect to have a normal BM (bowel movement) for 2-3 days after your procedure. 5. If there are questions regarding the findings of your procedure, please contact your doctor 6. If you are unable to contact your doctor with a problem, contact the hospital at [phone]. 7. Continue all your regular medications unless directed otherwise. I understand the above instructions and have no questions. Signature of Patient or Adult Escort Name of Responsible Adult Escort Signature of Nurse Date/Time DIVERTICULAR DISEASE OVERVIEW???A diverticulum is a pouch-like structure that can form through points of weakness in the muscular wall of the colon (ie, at points where blood vessels pass through the wall). Diverticulosis affects men and women equally. The risk of diverticular disease increases with age. It occurs throughout the world but is seen more commonly in developed countries. WHAT IS DIVERTICULAR DISEASE? Diverticulosis???Diverticulosis merely describes the presence of diverticula. Diverticulosis is often found during a test done for other reasons, such as flexible sigmoidoscopy, colonoscopy, or barium enema. Most people with diverticulosis have no symptoms and will remain symptom free for the rest of their lives. A person with diverticulosis may have diverticulitis, or diverticular bleeding. Diverticulitis???Inflammation of a diverticulum (diverticulitis) occurs when there is thinning and breakdown of the diverticular wall. This may be caused by increased pressure within the colon or by hardened particles of stool, which can become lodged within the diverticulum. The symptoms of diverticulitis depend upon the degree of inflammation present. The most common symptom is pain in the left lower abdomen. Other symptoms can include nausea and vomiting, constipation, diarrhea, and urinary symptoms such as pain or burning when urinating or the frequent need to urinate. Diverticulitis is divided into simple and complicated forms. ?Simple diverticulitis, which accounts for 75 percent of cases, is not associated with complications and typically responds to medical treatment without surgery. ?Complicated diverticulitis occurs in 25 percent of cases and usually requires surgery. Complications associated with diverticulitis can include the following: ?Abscess ? a localized collection of pus ?Fistula ? an abnormal tract between two areas that are not normally connected (eg, bowel and bladder) ?Obstruction ? a blockage of the colon ?Peritonitis ? infection involving the space around the abdominal organ ?Sepsis ? overwhelming body-wide infection that can lead to failure of multiple organs Diverticular bleeding???Diverticular bleeding occurs when a small artery located within a diverticulum is eroded and bleeds into the colon. Diverticular bleeding usually causes painless bleeding from the rectum. In approximately 50 percent of cases, the person will see maroon or bright red blood with bowel movements. Is bleeding with a bowel movement normal?It is not normal to see blood in a bowel movement; this can be a sign of several conditions, most of which are not serious (eg, hemorrhoids) but some of which are serious and require immediate treatment. Anyone who sees blood after a bowel movement should consult with their healthcare provider to determine if further testing or evaluation is n eeded. DIVERTICULOSIS AND DIVERTICULITIS DIAGNOSIS???Diverticulosis is often found during tests performed for other reasons. ?Barium?enema ? This is an x-ray study that uses barium in an enema to view the outline of the lower intestinal tract. This is an older test and has been largely replaced by computed tomography (CT) scan. ?Flexible sigmoidoscopy ? This is an examination of the inside of the sigmoid colon with a thin, flexible tube that contains a camera. ?Colonoscopy ? This is an examination of the inside of the entire colon. ?CT scan ? A CT scan is often used to diagnose diverticulitis and its complications. If diverticulitis (not just diverticulosis) is suspected, the above three tests should not be used because of the risk of perforation. TREATMENT Diverticulosis???People with diverticulosis who do not have symptoms do not require treatment. However, most clinicians recommend increasing fiber in the diet, which can help to bulk the stools and possibly prevent the development of new diverticula, diverticulitis, or diverticular bleeding. Fiber is not proven to prevent these conditions in all patients but may help to control recurrent episodes in some. Increase fiber???Fruits and vegetables are a good source of fiber.? Fiber content of packaged foods can be calculated by reading the nutrition label. Seeds and nuts???Patients with diverticular disease have historically been advised to avoid whole pieces of fiber (such as seeds, corn, and nuts) because of concern that these foods could cause an episode of diverticulitis. However, this belief is completely unproven. We do not suggest that patients with diverticulosis avoid seeds, corn, or nuts. Diverticulitis???Treatment of diverticulitis depends upon how severe your symptoms are. Home treatment???If you have mild symptoms of diverticulitis (mild abdominal pain, usually left lower abdomen), you can be treated at home with a clear liquid diet and oral antibiotics. However, if you develop one or more of the following signs or symptoms, you should seek immediate medical attention: ?Temperature >100.1?F (38?C) ?Worsening or severe abdominal pain ?An inability to tolerate fluids Hospital treatment???If you have moderate to severe symptoms, you may be hospitalized for treatment. During this time, you are not allowed to eat or drink; antibiotics and fluids are given into a vein. If you develop an abscess of the colon, you may require drainage of the abscess (usually performed by placing a drainage tube across the abdominal wall) or by surgically opening the affected area. Surgery???If you develop a generalized infection in the abdomen (peritonitis), you will usually require an emergency operation. A two-part operation may be necessary in some cases. ?The first operation involves removal of the diseased colon and creation of a colostomy. A colostomy is an opening between the colon and the skin, where a bag is attached to collect waste from the intestine. The lower end of the colon is temporarily sewed closed to allow it to heal. ?Approximately three to six months later, a second operation is performed to reconnect the two parts of the colon and close the opening in the skin. You are then able to empty your bowels through the rectum. Sometimes patients require up to a year to recover from the first operation, depending on how sick they were. In non-emergency situations, the diseased area of the colon can be removed and the two ends of the colon can be reconnected in one operation, without the need for a colostomy. Surgery versus medical therapy???An operation to remove the diseased area of the colon may be necessary if you do not improve with medical therapy. After an episode of uncomplicated diverticulitis, elective surgery is generally not required as the risk of another attack or requiring emergency surgery is low. However, patients with persistent symptoms attributable to diverticulitis, a history of complicated diverticulitis, or a compromised immune system should be evaluated for possible surgery to prevent another attack. In such patients, another attack has been associated with a higher risk of complications or . Of course, the decision will also depend in part upon your other medical co nditions and ability to undergo surgery. In many cases, an elective operation can be performed laparoscopically, using small incisions, rather than the typical vertical (up and down) abdominal incisi on. Laparoscopic surgery usually allows you to recover more quickly and shortens the hospital stay. After diverticulitis resolves???After an episode of diverticulitis resolves, if you have not had a recent colonoscopy, the entire length of the colon should be evaluated to determine the extent of disease and to rule out the presence of abnormal lesions such as polyps or cancer. Recommended tests include colonoscopy, barium enema and sigmoidoscopy, or CT colonography. Diverticular bleeding???Most cases of diverticular bleeding resolve on their own. However, some people will need further testing or treatment to stop bleeding, which may include a colonoscopy, angiography (a treatment that blocks off the bleeding artery), bleeding scan, or surgery. DIVERTICULAR DISEASE PROGNOSIS Diverticulosis???Over time, diverticulosis may cause no problems or it may cause episodes of bleeding and/or diverticulitis. Approximately 15 to 25 percent of people with diverticulosis will develop diverticulitis, while 5 to 15 percent will develop diverticular bleeding. Diverticulitis???Approximately 85 percent of people with uncomplicated diverticulitis will respond to medical treatment, while approximately 15 percent of patients will need an operation. After successful treatment for a first attack of diverticulitis, one-third of patients will remain asymptomatic, one- third will have episodic cramps without diverticulitis, and one-third will go on to have a second attack of diverticulitis. The prognosis tends to remain similar following a second attack of diverticulitis. Only 10 percent of people remain symptom-free after a second attack. Subsequent attacks tend to be of similar severity, not increasing in severity as previously believed. ? ? ? High Fiber Diet What is Dietary Fiber? All fiber comes from plants, bushes, shawna or trees.? Of course, the ones that we eat provide us with fruits, vegetables and grains.? There are many different types of fiber but the three that are most important to the health of the body are: Insoluble Fiber This fiber does not dissolve in water, nor is it fermented by the bacteria residing in the colon.? Rather, it retains water and in so doing, helps to promote a larger, bulkier and more regular bowel activity.? This, in turn, may be important in preventing disorder such as diverticulosis and hemorrhoids, and in sweeping out certain toxins and cancer causing carcinogens.? Sources of insoluble fiber are: ? whole grain wheat and other whole grains ? corn bran, including popcorn, unflavored and unsweetened ? nuts and seeds ? potatoes and the skins from most fruits from trees such as apples, bananas and avocados ? many green vegetables such as green beans, zucchini, celery and cauliflower ? some fruit plants such as tomatoes and kiwi Soluble Fiber These fibers are fermented or used by the colon bacteria as a food source or nourishment.? When these good bacteria grow and thrive, many health benefits occur in both the colon and the body.? Soluble fiber is present in some degree in most edible plant foods, but the ones with the most soluble fiber include: ? legumes such as peas and most beans, including soybeans ? oats, rye and barley ? many fruits such as berries, plums, apples bananas and pears ? certain vegetables such as broccoli and carrots ? most root vegetables ? psyllium husk supplement products Prebiotic Soluble Fiber These are relatively newly discovered soluble plant fibers.? The technical name for this fiber is inulin or fructan. When these soluble fibers are fermented by the good colon bacteria, some further significant health benefits have been shown to occur by research in many medical centers. These soluble prebiotic fibers occur in significant amounts in: ? asparagus ? yams ? onions ? garlic ? bananas ? leeks ? agave ? chicory and other root vegetables such as [place] artichokes ? wheat, rye and barley (smaller amounts) Benefits of a High Fiber Diet The health benefits of a high fiber diet, consumed on a regular basis and reaching recommended amounts (below), are now fairly well-defined. There are some additional benefits in the early research stage with the prebiotic soluble fibers. What is now known regarding a high fiber diet include: Bowel Regularity A high fiber diet promotes regularity with a softer, bulkier and regular stool pattern. This decreases the chance of hemorrhoids, diverticulosis and perhaps colon cancer. Cholesterol and Reduced Triglycerides The soluble fibers are the ones that will reduce cholesterol levels when used on a regular basis. Psyllium husk and prebiotic soluble fiber will also reduce cholesterol. They may also reduce the incidence of coronary heart disease. Oats, flax seeds and legumes or beans are the recommended fibers. Colon Polyps and Cancer It is still not certain if a high fiber diet helps prevent colon cancer. Considerable research suggests that this may occur. Certainly it makes sense to increase regularity and so speed the movement of cancer causing carcinogens through the bowel. In addition, reducing a heavy meat diet reduces the bile flow from the liver in a favorable way. This, too, reduces the amount of carcinogens that reach and are manufactured in the colon. Finally, a high fiber diet, including prebiotic soluble fiber, increases the integrity and health of the wall of the colon. The risk of cancer may be reduced. Colon Wall Integrity A high fiber diet changes the bacterial makeup of the colon toward a more favorable balance. For instance, it is known that those people with obesity, diabetes type 2 and inflammatory bowel disease have a predominance of bad bacteria in the colon. This, in turn, may render the bowel wall weak and allow bacteria and, indeed, even toxins to seep through. A high fiber diet with a modest reduction in animal and meat products may return the bacterial makeup to a more positive balance. This, in particular, has been seen when the soluble fiber prebiotics are added to the diet. Blood Sugar Soluble fiber such as in legumes (beans), oats and in prebiotic fibers slows the absorption of blood sugar and so helps regulate the sugar in the blood. Insoluble fiber on a regular basis is associated with reduced risk of type 2 diabetes. Weight Loss High fiber diets are more filling and give a sense of fullness sooner than an animal and meat based diet does. In addition, the soluble prebiotic fibers have been shown to turn off the hunger hormones produced in the wall of the gut and to increase the hormones that give a sense of fullness. Those hormones are made in the wall of the gut. New medical research has shown that the bacterial makeup in the colon in overweight people is abnormal to the extent that they manufacture and absorb almost twice the number of calories through the colon wall as do normals. Prebiotic fibers (below) will help change this hormonal balancein a favorable way. Bacteria and the Function of the Colon The colon finishes the digestive process. Hopefully, the waste products move through in a nice regular manner. Insoluble fibers help this process by retaining water and so producing a bulkier, softer stool, which is easy to pass. The additional role of the colon is to provide a home for an enormous number of micro-organisms, mostly bacteria. Recent research has shown that there are over 1,000 species of bacteria with a total bacterial count ten times the number of cells in the body. These bacteria play a major role in keeping the colon wall itself healthy. In addition, these good bacteria produce a very strong immune system for the body. They significantly increase calcium absorption and bone density. They provide other documented benefits. It is the soluble fibers in the diet that are so effective in stimulating the growth of good colon bacteria. How Much is Enough? The amount of fiber in food is measured in grams.? National nutritional authorities recommend the following amounts of dietary fiber daily. Under Age 50? Over Age 50 Men? 38 grams? 30 grams Women??? 25 grams? 21 grams For a week or so, it is best to tally the amount of fiber you are consuming.? Boxed and packaged foods will have the amount of fiber per serving on the nut rition label. Which Fibers and Which Foods are Best? As noted, healthy fiber is only found in plants. The three major categories are whole grains, fruits and vegetables. Whole Grains Wheat, oats, barley, wild or brown rice, amaranth, buckwheat, bulgur, corn, millet, quinoa, rye, sorghum, teff and triticals. By far, wheat, oats and wild or brown rice are most common. Always buy whole grain products. White bread, baked goods and rolls almost always are made from wheat flour. Wheat flour is white because most of the fiber, vitamins and other nutrients have been removed. Try not buy enriched grains. What this means is that simple white flour has had vitamins added to it by the tearer. The word, enriched, implies a good and healthy product. On the contrary, enriched means that most of the fiber has been removed and a few vitamins added. Fruits Fruits come from trees such as apple and pear or from bushes or shawna. You should eat a wide variety of fruits, preferably with every meal. In many cases, the skin of a fruit such as apple will contain much of the insoluble fiber while the pulp contains most of the soluble fiber. To the extent possible, buy organic fruits as these will have little or no pesticides. Always wash fruit. Vegetables Eat a wide variety of vegetables. They should be a mainstay of lunch and dinners. Frozen vegetables retain as much nutrition and fiber as fresh vegetables. As with fruit, try to buy organic to reduce any residual pesticide ingestion. Wash fresh vegetables thoroughly. Cruciferous vegetables such as broccoli, [place] sprouts and cauliflower contain certain chemicals such as sulforaphane. This substance has very strong anti-cancer properties and should be eaten frequently. Legumes, Beans, Peas and Soybeans These vegetables have plenty of soluble fiber and should be part of a varied vegetable intake. Beans, in particular, contain a certain type of fiber that may lead to harmless gas or bloating. Nuts and Seeds These are rich sources of fiber and are a good substitute for sweets such as candies and baked sweet goods. While nuts and seeds are rich in fiber, they also contain vegetable fat and so can and do add calories. Read the Labels As noted, fresh and frozen foods are usually better.? They have good nutrition and few, if any, chemicals added to them.? When buying packaged foods and, in particular grains, look for three things: ? The first word on the label should be whole, such as whole wheat or whole grain. ? Check out the calories and the amount of fiber in a serving. ? How many and what other additives or chemicals are added.? Fewer is always better.? Do you know what each additive does?? Some are added not for the benefit of the chicken buyer but rather for manufacturers.? These could and do include sugar, artificial flavor, chemicals to prevent oxidation and spoilage, emulsifiers to blend the product.? You have to be a office automation technician. Fiber Facts, Nuggets and Pearls ? For breakfast you can easily get the day started well by using a high fiber, whole grain cereal.? Check the labels.? Add fruit such as blueberries and bananas.? If you are an egg eater, use whole wheat or grain toast.? Adding wheat germ gives you a good fiber kick. ? Always use whole grain or wheat with rolls and sandwiches.? Does your fast food store not have them?? Perhaps you look elsewhere.? Eating an occasional black cox or veggie burger provides variety. ? Snacks should consist of fruit and/or nuts.? While nuts are loaded with fiber, they are an energy rich food, meaning they have a lot of calories in a small packet. ? Fruit juices should contain pulp.? Clear juices such as clear orange, pear or apple juice contain little fiber and have a lot of fructose.? Prune juice is usually high in fiber. ? Homemade soups ? adding fresh or frozen vegetables to a chicken or vegetable stock is a good way to start homemade soup. ? Salads ? adding cooked and then chilled vegetables provide great flavoring to almost any salad.? Remember, a narvaez salad has lots of cooked corn in it.? Small slices of apples or oranges and nuts such as chopped walnuts or sliced almonds always adds taste, variety and fiber to almost any salad. ? Fruit ? Try to eat fruit of some type with almost every meal. ? Rethink how you place the various foods on your dinner plate.? Reducing the portions of the meat or animal food portion to the side with equal or more portions of vegetables, legumes and fruits portion always allows for more fiber.? There was never anything magic about making the meat or animal food portion the main part of the dinner plate.? Eating from smaller plates can, over time, trick your mind and assisted habit of using a dinner plate.? Again, there is nothing magic in an 11, 12, or 13 inch dinner plate. Fiber Supplements There are a variety of fiber supplements available on the food or pharmacy shelves. Psyllium This soluble plant fiber has been used in [place] for over 2,000 years. It is a soluble fiber with mucilage in it. This acts to retain a lot of water and also is fermented by colon bacteria. When 7 grams a day are used, it does lower cholesterol. Metamucil in various forms is psyllium. Methyl Cellulose All the cellulose products come from finely ground wood chips which are then treated in a variety of ways such as boiling in acids. Methyl cellulose is an insoluble fiber which does dissolve in water. It is also an emulsifier, meaning it blends oils and water. Citrucel is methyl cellulose (MC). MC may not be appropriate for Crohn?s disease or ulcerative colitis as several medical studies have shown that certain emulsifiers dissolve the mucous lining of the colon in animals prone to Crohn?s disease. This then allows bacteria to invade the underlying tissue. Inulin Inulin is a soluble prebiotic fiber found in many foods and which are fermented mostly in the left side of the colon. It is available in a supplement as generic inulin and in Fiber Choice. Oligofructose FOS These are also prebiotic fibers. They are fermented very quickly in the right side of the colon. Prebiotin [email or web address].[employer] B[employer]/ This product is a combination of oligofructose, which feeds the bacteria in the right side of the colon and inulin, which does the same in the left side of the colon. There seems to be a benefit for this particular formula based on medical research. Prebiotic Soluble Fiber These may be the healthiest of all the soluble fibers.? They grow in many plants and have had a great deal of research done on them in the last 10-15 years.? These fibers are found in asparagus, yams and other root vegetables such as chicory, garlic, onion, leeks and in smaller amounts in wheat.? This research has shown the following: ? Increase in good and decrease in bad colon bacteria ? Increase calcium absorption and enhanced bone mass ? Enhanced immune system ? Appetite and weight control by changing the hormone appetite signals to the brain ? May decrease colon cancer incidence ? Reduce or correct a leaky colon Eating a wide variety of plant food up to the recommended amount will likely give you enough prebiotic fiber. Supplements such as Prebiotin https://www.prebiotin.com/ can be added to the diet. Short Chain Fatty Acids (SCFA) Some rather remarkable research findings have shown that one of the benefits of ingesting a lot of soluble fiber, in particular the prebiotic ones, results in larger amounts of SCFAs in the colon.? These SCFAs are made by the good bacteria in the colon such as Bifidobacter and Lactobacillus.? These small molecules have been shown to do the following: ? Enhance the health and integrity of the colon wall ? Provide nourishment for the cells that actually line the colon ? Increases the acidity of the colon which is a very real health benefit ? Stabilize blood sugar for diabetics ? Reduce blood cholesterol and triglyceride ? Significantly enhance immunity ? May be a benefit for Crohn?s disease and ulcerative colitis patients Fiber and Gas Everyone has intestinal gas and that is a good thing.? It means that bacteria, hopefully the good ones, are thriving.? The normal amount of flatus passed each day depends on sex and what is eaten.? The normal number of flatus is 10-20 times a day.? When the bacteria that make intestinal gases are growing, it also means that other good bacteria are using the same fibers to grow and produce multiple health benefits, including the production of healthy short-chain fatty acids.? These substances are produced quietly in the colon and produce many health-related outcomes. Soluble fiber should always be used in a gradual manner.? If too much is consumed at any one time, then excess, but harmless, intestinal gas can occur.? People with irritable bowel syndrome are particularly prone to bloating and mild cramping.? In this instance, soluble fiber in the diet or supplement should be used in small doses and increased gradually. Finally, prebiotic fibers tend to cause the production of short-chain fatty acid s which acidify the colon.? This, in turn, reduces or stops the growth of bacteria that make the smelly hydrogen sulfide gases that produce noxious flatus.? People who consume many vegetables with prebiotics or take a prebiotic fiber supplement often have non-odoriferous flatus. Fiber and Irritable Bowel Syndrome Irritable bowel syndrome (IBS) is one of the most common disorders of the lower digestive tract.? The symptoms of IBS can be quite varied.? They can be a mix of several symptoms such as constipation, diarrhea, crampy abdominal discomfort, bloating and gas.? An attack of IBS can be triggered by emotional tension and anxiety, poor dietary habits and certain medications.? It is now known that infections in the intestine can lead to long-term IBS symptoms.? Increased amounts of fiber in the diet can help relieve the symptoms of irritable bowel syndrome by producing soft, bulky stools.? This helps to normalize the time it takes for the stool to pass through the colon.? Recent medical research with newer techniques has shown some surprising and dramatic findings for IBS patients.? Specifically, there is a very significant and abnormal shift of bacteria from those that provide health benefits to those bad bacteria that we really do not want in the gut.? The technical name for this bad group of bacteria is called Firmicutes.? Along with this abnormal bacterial collection, there is a smoldering low-grade inflammation in the gut wall that may contribute to symptoms.? The goal for IBS patients should be to gradually increase the soluble dietary fibers in the diet so as to promote the growth of good bacteria and so suppress the bad ones along with the associated inflammation. IBS patients need to be careful of the amount of soluble fiber they consume.? The reason for this is that, while the good colon bacteria thrive on these fibers and produce health benefits, other gas-forming bacteria may generate excessive but harmless gas and subsequent bloating.? Thus, soluble plant fibers or a dietary prebiotic supplement should be taken in small initial doses and then gradually increased to tolerance. Fiber and Colon Polyps/Cancer Colon cancer is a major health problem. This disease is most common in Western cultures. It is not seen very often in rural cultures where the diet is mostly plant based. Usually, colon cancer starts out as a colon polyp, a benign mushroom-shaped growth. In time it grows, and in some people it becomes cancerous. Colon cancer is usually always curable if polyps are removed when found or if surgery is performed at an early stage. It is now known that people can inherit the risk of developing colon cancer, but diet is important, too. As noted, there is a very low rate of colon cancer in residents of countries where grains are unprocessed and retain their fiber. It seems that in the [place] world, cancer-containing agents (carcinogens) remain in contact with the colon wall for a longer time and in higher concentrations. So, a large bulky stool may act to dilute these carcinogens by moving them through the bowel more quickly. Less carcinogenic exposure to the colon may mean fewer colon polyps and less cancer. A very current review of the entire world?s literature on the effect of fiber on colon polyps and cancer prevention has shown rather clearly that for every 10 grams of fiber added to the diet, there is a 10% reduction in incidence of colon cancer. So the recommended 30 gram fiber diet would result in a 30% less chance of getting these tumors. There are also substances produced in the colon by the good bacteria that seem to retard certain pre-cancer factors from developing. They are called short- chain fatty acids (SCFA). See above for description of SCFAs. A high fiber diet increases these substances. So, the combination of dietary fiber and the production of short-chain fatty acids have a clear health benefit. Fiber and Diverticulosis Prolonged, vigorous contraction of the colon over a long period of time may result in diverticulosis.? This increased pressure causes small and, eventually, larger ballooning pockets to form.? These pockets by themselves cause no problem.? However, sometimes they become infected (diverticulitis) or even break open (perforate) causing infection or inflammation within the abdomen (peritonitis).? A high fiber diet increases the bulk in the stool and thereby reduces the pressure within the colon.? By so doing, the formation of pockets may be reduced or possibly even stopped. In the past, many physicians were fearful that seeds as in tomatoes, nuts or berries were harmful and could get inside these pockets and rattle around, causing damage. We now know that this has never been the case and that these foods contain lots of fiber and are actually beneficial for diverticulosis patients. Certain bulking agents such as psyllium are traditional types of bulk producing supplements.? Psyllium is a soluble fiber.? Combining it with insoluble fiber as in wheat bran or corn bran (no gluten) can enhance this bulking effect even more.? A product containing a prebiotic, psyllium and wheat bran is probably a very good combination for bowel regularity. Prebiotin https://www.prebiotin.com/ Regularity/Diverticulosis is one such product. Equipment/Supplies: Non-Weight Bearing Crutches Activity:: see above Diet:: see above Discharge Orders Discharge Orders: Discharge Order (Routine); Ordered 11/25/20 Ordered By: Tonja Fernandez DS: Diagnosis Discharge Diagnosis (1) Diverticula of colon: Status: Acute (2) Adenomatous polyp of cecum: Status: Acute
== END 2020-11-26 10:10 | disposition home or self-care (01) ==
PROVIDERS: PCP Family Medicine; Visit Provider Surgery
PROC: 0DJD8ZZ Inspection of Lower Intestinal Tract, Via Natural or Artificial Opening Endoscopic (ICD-10-PCS; CPT 45378; principal; 2020-11-26 08:30)
DX: K62.5 Hemorrhage of anus and rectum (principal); K63.3 Ulcer of intestine; D12.4 Benign neoplasm of descending colon
CPT/HCPCS: 45380; 88305; J2001

== ENCOUNTER 2021-01-17 02:18 | Outpatient (CLI) | payer OTHER, SELFPAY ==
[2021-01-17 08:21] LABS: CREATININE 1.1 mg/dL (0.70-1.30)
[2021-01-17] MEDS: Normal Saline - Diluent 50 ML VIAL IV (08:43)
[2021-01-17] MEDS: Omnipaque 350 MG/ML 100 ML BTL IJ (08:44)
--- NOTE | 2021-01-17 08:48 | DI.CT_ITS ---
Exam(s) CT ABDOMEN PELVIS CTA EXAM: CT ABDOMEN PELVIS CTA CLINICAL HISTORY: ischemia on bx of cecum during C scope,RECTAL PAIN AND BLEEDING. TECHNIQUE: Imaging Protocol: Axial computed tomography images with coronal and sagittal reformatted images were created and reviewed CONTRAST MATERIAL: Intravenous: Omnipaque 350 Contrast volume:100 ml Oral: None COMPARISON: CT CT ABDOMEN PELVIS W from 07/27/[address] ABDOMEN PELVIS W from 07/27/[address] ABDOMEN WO/W from 09/02/2019 FINDINGS: ABDOMEN: There is no evidence of abdominal aortic aneurysm nor dissection.There is no aneurysmal dilatation of the common iliac arteries.The celiac and superior mesenteric arteries are patent.The inferior mesent mike artery is also patent. No significant stenosis in the renal arteries. Both kidneys exhibit normal size. There is mild fusi form dilatation of the distal left common iliac artery again noted (1.5 cm), unchanged the prior stud ies. There is no ascites. LIVER: Liver is again noted be hypodense implying steatosis. The previously described small well-def ined hypo density in the left hepatic lobe remains unchanged. This measures approximately 9 x 7 mill imeters. This is either cyst or small hemangioma. No other focal hepatic findings identified. GALLBLADDER/BILIARY: No obvious gallbladder pathology. CBD is not dilated. PANCREAS: No evidence of pancreatic mass nor dilatation of the pancreatic duct. SPLEEN: Spleen is not enlarged. There are no intrasplenic lesions. Splenic and portal veins are alan nt. ADRENALS: There are no significant adrenal masses. KIDNEYS: No cysts evident. No calculi nor hydronephrosis. No solid renal masses. ABDOMINAL AORTA: The abdominal aorta is not enlarged. LYMPH NODES: There is no retroperitoneal nor para-aortic adenopathy. No obvious mesenteric masses. ABDOMINAL WALL: No evidence of significant anterior abdominal wall hernia. GI: There is no evidence of bowel obstruction, free air, nor abscess. PELVIS: LYMPH NODES: There is no intrapelvic nor inguinal adenopathy. GI: No evidence of appendicitis.No evidence of sigmoid diverticulitis. URINARY BLADDER: No calculi nor masses evident REPRODUCTIVE: Prostate gland size upper normal OSSEOUS: No significant osseous lesions. IMPRESSION: 1. Stable size and appearance of the solitary focal hepatic findings in the left lobe which has appea srikanht of a small cyst or possibly small benign hemangioma. This has not increased in size since 2019. There are no new additional focal hepatic findings noted although hepatic steatosis is aga in noted. There is no splenomegaly. 2. There is no evidence of abdominal aortic aneurysm. There is mild dilatation of the diameter of th e distal left common carotid artery (1.5 cm) which is unchanged from the prior studies. No significa nt atherosclerotic stenosis at this level. No dissection. 3. There is no ascites. RADIATION DOSE DELIVERED: 2,587.73mGy.cm Total DLP DATA REPOSITORY: All CT scans at this facility are submitted to the National Radiology Data Registry (NRDR) Dose Index Registry (DIR) with the [employer] ([employer]). RADIATION OPTIMIZATION: All CT scans at this facility use at least one of these dose optimization te chniques: automated exposure control; mA and/or kV adjustment per patient size (includes targeted exa ms where dose is matched to clinical indication); or iterative reconstruction.
== END 2021-01-17 02:38 ==
PROVIDERS: PCP Family Medicine; Visit Provider Surgery
DX: I72.0 Aneurysm of carotid artery (principal); K76.89 Other specified diseases of liver; G89.29 Other chronic pain; K62.5 Hemorrhage of anus and rectum; K55.1 Chronic vascular disorders of intestine
CPT/HCPCS: 74174; 82565; J3490

== ENCOUNTER 2021-04-27 18:03 | Inpatient (IN) | payer OTHER, SELFPAY ==
[2021-04-27] VITALS (49 sets, daily range): BP systolic 83–138; BP diastolic 34–86; PULSE 94–113; RESP 2–34; O2SAT 70–98
--- NOTE | 2021-04-27 18:00 | RT.EKG_ITS ---
APPROVED REPORT Exam: Resting ECG Reason for Exam: SOB Patient Location: E HR:106 bpm ECG Measurements Heart Rate 106 AXIS IL 143 P 62 QRSd 99 QRS 59 QT 347 T -6 QTc 460 Conclusion Sinus tachycardia...rate> 99 Left atrial enlargement...P, P'>60mS, <-0.15mV V1. Sinus. No STEMI. I have reviewed and interpreted ECG and agree with software generated interpretation.
[2021-04-27 18:25] LABS: HCT 38.1 % (40.0-50.0); HGB 12.8 g/dL (13.5-17.5); MCH 30.5 pg (27.0-33.0); MCHC 33.6 % (32.0-36.0); MCV 90.7 fL (80-95); MPV 14.4 fL (8.0-11.0); Nucleated RBC 0 %; RDW 13.6 % (11.8-14.1); RDW-SD 45.5 fL; WBC 8.07 10^3/uL (4.4-10.8)
--- NOTE | 2021-04-27 18:30 | DI.CT_ITS ---
Exam(s) CT CHEST PE CTA EXAM: CT CHEST PE CTA CLINICAL HISTORY: shortness of breath, cough, COVID +. TECHNIQUE: Imaging Protocol: CT angiography of the chest was performed using pulmonary embolus june col. Multi planar reconstructions were performed. CONTRAST MATERIAL: Intravenous: Omnipaque 350 Contrast volume: 100 cc COMPARISON: CT CT ABDOMEN PELVIS CTA from 01/17/2021 FINDINGS: CHEST: PULMONARY ARTERIES: There are no obvious intraluminal filling defects to suggest acute pulmonary embo li. LUNGS: There is severe bilateral patchy and confluent airspace disease involving all segments of all lobes of both lungs.. There are no pleural effusions. MEDIASTINUM: There is no hilar nor mediastinal adenopathy. Visualized thyroid unremarkable. CARDIAC: Heart size is upper normal. There is no pericardial effusion.Caliber of the thoracic aorta is within normal limits. There is no significant shift of the interventricular septum. PARTIALLY VISUALIZED UPPERMOST ABDOMEN: Hepatic steatosis noted. Also small benign-appearing hypoden sity in the liver probably a cyst or hemangioma. OSSEOUS: No significant osseous lesions.. IMPRESSION: 1. Extensive bilateral patchy and confluent pulmonary infiltrates involving all lobes of both lungs.T here are no pleural effusions nor obvious adenopathy. 1st consideration is for extensive pneumonia. Recommend Covid testing. 2. No evidence of obvious pulmonary emboli. 3. Hepatic steatosis noted. RADIATION DOSE DELIVERED: 727.76mGy.cm Total DLP DATA REPOSITORY: All CT scans at this facility are submitted to the National Radiology Data Registry (NRDR) Dose Index Registry (DIR) with the [employer] (ACR). RADIATION OPTIMIZATION: All CT scans at this facility use at least one of these dose optimization te chniques: automated exposure control; mA and/or kV adjustment per patient size (includes targeted exa ms where dose is matched to clinical indication); or iterative reconstruction.
[2021-04-27 18:34] LABS: Lactate 1.7 mmol/L (0.9-1.7)
--- NOTE | 2021-04-27 18:37 | ED.GENADUL_ITS ---
Discharge Plan Disposition Patient Disposition: [facility] INPATIENT Condition: Serious Discharge Details Clinical Impression: Pneumonia due to COVID-19 virus, Thrombocytopenia, Hypoxia, Requires supplemental oxygen, Acute respiratory distress Admit Date/Time: 04/27/21 20:04 Admit Provider: Indu Figueroa Attending Provider: Indu Figueroa Primary Care Provider: [place] Cristobal ED Provider: Gala Ferrera Discharge Data Discharge Date/Time-TO BE ENTERED AT DEPARTURE: 04/27/21 21:15 Medical Decision Making 61-year-old male diagnosed with Covid yesterday with a history of morbid obesity, Langerhans' cell histiocytosis, hypothyroidism, hypertension, pancreatitis, prediabetes, metabolic syndrome presents with cough, fatigue and shortness of breath for the past 5 days, worse today. EMS noted O2 sat of 60s on room air. O2 sat mid 80s mid 80s on 15 L of nonrebreather on arrival. Patient shortly placed on CPAP by respiratory which he is tolerating well. Oxygen saturation mid 90s on 80% FiO2. He has crackles in the mid and lower lungs bilaterally. He does not appear to be in acute respiratory distress and is speaking in full sentences. Will obtain screening labs, CT chest and give duo nebs and Solu- Medrol and reassess. Labs and imaging reviewed. White blood cell count 8. Bands 3. Platelets 35, have been downtrending for years but much more significant today. pH 7.43, PCO2 43, PO2 64 on ABG. Lactate 1.7. Potassium 3.2, will replete. Ferritin 1440. LDH 564. CRP 23.57. Troponin negative. Procalcitonin 0.4. CT chest notes extensive bilateral groundglass opacities consistent with COVID- 19 pneumonia. No PE. Patient remains in no acute respiratory distress. He is tolerating CPAP well. O2 sat low to mid 90s on 100% FiO2. We will plan to start proning to able to titrate down the FiO2. Case d/w hospitalist who accepts pt for admission to the ICU for closer monitoring. Will start antibiotics. No proning pillows available in the ED and patient is in no acute respiratory distress, laying on the side with CPAP in place, will plan to start proning in the ICU. Medical Records Medical records reviewed: Yes I reviewed the patient's medical records. Imaging Data Radiologic Study: Radiologist's impression: CTA Chest With Contrast Exam date and time: 04/27/2021 6:37 PM Age: 61 years old Clinical indication: Other: Shortness of breath, cough, covid + TECHNIQUE: Imaging protocol: Computed tomographic angiography of the chest with contrast. 3D rendering (Not supervised by radiologist): MIP and/or 3D reconstructed images were created by the technologist. COMPARISON: CT ABDOMEN PELVIS CTA 01/17/2021 8:43 AM FINDINGS: Pulmonary arteries: No filling defects within the pulmonary arteries are identified to suggest pulmonary embolism. Aorta: There is mild scattered atherosclerotic calcification of the thoracic aorta. No thoracic aortic aneurysm or dissection is identified. Lungs: There are multifocal nodular as well as patchy and confluent regions ground-glass opacity with superimposed consolidative opacities throughout the lungs, most marked in the mid and lower lung regions, and mostly in a peripheral distribution, consistent with pneumonia. Pleural spaces: There are no pleural effusions present. There is no evidence of pneumothorax. Heart: Heart size is borderline enlarged. There is no pericardial effusion. Lymph nodes: There is no evidence of lymphadenopathy. Liver: There is a sub cm low-dense lesion within the left hepatic lobe which is too small to characterize but likely represents a benign cyst or biliary hamartoma. Pancreas: The pancreas is moderately atrophic but appears otherwise unremarkable without focal lesion or evidence of acute inflammation. The pancreatic head is only partially imaged. Bones/joints: There is multilevel moderate spondylosis/hyperostosis throughout the mid and lower thoracic spine. No acute fractures are identified. Soft tissues: Unremarkable. IMPRESSION: 1. No pulmonary embolism identified. 2. Severe multifocal nodular as well as patchy and confluent ground-glass and consolidative opacities throughout the lungs, consistent with pneumonia. Commonly reported imaging features of COVID-19 pneumonia are present. Other processes such as influenza pneumonia and organizing pneumonia, as can be seen with drug toxicity and connective tissue disease, can cause a similar imaging pattern. (Reference: Lanza) Lab Data Lab results reviewed: Yes I reviewed the patient's lab results. Labs: 04/27/21 18:50 Blood Blood Culture - Pending 04/27/21 18:38 Blood Blood Culture - Pending Laboratory Tests Range/Units 04/27/21 04/27/21 04/27/21 08:49 18:10 18:10 WBC (4.4-10.8) 10^3/uL RBC (4.36-5.78) 10^6/uL Hgb (13.5-17.5) g/dL Hct (40.0-50.0) % MCV (80-95) fL MCH (27.0-33.0) pg MCHC (32.0-36.0) % RDW (11.8-14.1) % Plt Count (130-400) 10^3/uL MPV (8.0-11.0) fL Immature Gran % Neutrophils % Band Neutrophils % Lymphocytes % Monocytes % Eosinophils % Basophils % Myelocytes % Nucleated RBC % % Absolute Neutrophils (1.2-6.7) 10^3/uL Absolute Lymphocytes (1.2-3.4) 10^3/uL Absolute Monocytes (0.1-0.8) 10^3/uL Absolute Eosinophils (0.0-0.7) 10^3/uL Absolute Basophils (0.0-0.2) 10^3/uL RBC Morphology D-Dimer Sample Site Right Radial ABG Sample Site ABG pH (7.35-7.45) 7.43 ABG pCO2 (35-45) mmHg 43 ABG pO2 (80-105) mmHg 64 L ABG HCO3 (22-26) mmol/L 29 H ABG Total CO2 (23-27) mmol/L 30 H ABG O2 Saturation (95-98) % 93 L ABG Base Excess (-2-3) mmol/L 5 H VBG Lactate (0.9-1.7) mmol/L Oxygen Liter Flow FiO2 100 Sodium (136-145) mmol/L 139 Potassium (3.5-5.1) mmol/L 3.2 L Chloride (98-107) mmol/L 98 Carbon Dioxide (21.0-32.0) mmol/L 33.2 H Anion Gap (3-11) mmol/L 7.8 BUN (7-18) mg/dL 19 H Creatinine (0.70-1.30) mg/dL 1.2 Estimated GFR/1.73 m2 (mL/min/1.73m2) >= 60.00 Glucose (74-106) mg/dL 137 H Calcium (8.5-10.1) mg/dL 7.5 L Ferritin (26-388) ng/mL Total Bilirubin (0.2-1.0) mg/dL 0.6 AST (15-37) U/L 59 H ALT (16-63) U/L 57 Alkaline Phosphatase (46-116) U/L 69 Lactate Dehydrogenase (85-227) U/L 564 H Troponin I (<0.06) ng/mL < 0.05 C-Reactive Protein (0.0-0.3) mg/dL 23.57 H Total Protein (6.4-8.2) g/dL 7.8 Albumin (3.4-5.0) g/dL 3.0 L Procalcitonin ng/mL 0.4 Range/Units 04/27/21 04/27/21 04/27/21 18:10 18:10 18:10 WBC (4.4-10.8) 10^3/uL 8.07 RBC (4.36-5.78) 10^6/uL 4.20 L Hgb (13.5-17.5) g/dL 12.8 L Hct (40.0-50.0) % 38.1 L MCV (80-95) fL 90.7 MCH (27.0-33.0) pg 30.5 MCHC (32.0-36.0) % 33.6 RDW (11.8-14.1) % 13.6 Plt Count (130-400) 10^3/uL 35 L MPV (8.0-11.0) fL 14.4 H Immature Gran % See Differential Neutrophils % 63.0 Band Neutrophils % 3 Lymphocytes % 5.0 Monocytes % 28.0 Eosinophils % 0.0 Basophils % 0.0 Myelocytes % 1 Nucleated RBC % % 0 Absolute Neutrophils (1.2-6.7) 10^3/uL 5.33 Absolute Lymphocytes (1.2-3.4) 10^3/uL 0.40 L Absolute Monocytes (0.1-0.8) 10^3/uL 2.26 H Absolute Eosinophils (0.0-0.7) 10^3/uL 0.00 Absolute Basophils (0.0-0.2) 10^3/uL 0.00 RBC Morphology Normal D-Dimer Sample Site ABG Sample Site ABG pH (7.35-7.45) ABG pCO2 (35-45) mmHg ABG pO2 (80-105) mmHg ABG HCO3 (22-26) mmol/L ABG Total CO2 (23-27) mmol/L ABG O2 Saturation (95-98) % ABG Base Excess (-2-3) mmol/L VBG Lactate (0.9-1.7) mmol/L 1.7 Oxygen Liter Flow FiO2 Sodium (136-145) mmol/L Potassium (3.5-5.1) mmol/L Chloride (98-107) mmol/L Carbon Dioxide (21.0-32.0) mmol/L Anion Gap (3-11) mmol/L BUN (7-18) mg/dL Creatinine (0.70-1.30) mg/dL Estimated GFR/1.73 m2 (mL/min/1.73m2) Glucose (74-106) mg/dL Calcium (8.5-10.1) mg/dL Ferritin (26-388) ng/mL 1440 H Total Bilirubin (0.2-1.0) mg/dL AST (15-37) U/L ALT (16-63) U/L Alkaline Phosphatase (46-116) U/L Lactate Dehydrogenase (85-227) U/L Troponin I (<0.06) ng/mL C-Reactive Protein (0.0-0.3) mg/dL Total Protein (6.4-8.2) g/dL Albumin (3.4-5.0) g/dL Procalcitonin ng/mL Range/Units 04/27/21 04/27/21 04/27/21 18:12 20:02 21:13 WBC (4.4-10.8) 10^3/uL RBC (4.36-5.78) 10^6/uL Hgb (13.5-17.5) g/dL Hct (40.0-50.0) % MCV (80-95) fL MCH (27.0-33.0) pg MCHC (32.0-36.0) % RDW (11.8-14.1) % Plt Count (130-400) 10^3/uL MPV (8.0-11.0) fL Immature Gran % Neutrophils % Band Neutrophils % Lymphocytes % Monocytes % Eosinophils % Basophils % Myelocytes % Nucleated RBC % % Absolute Neutrophils (1.2-6.7) 10^3/uL Absolute Lymphocytes (1.2-3.4) 10^3/uL Absolute Monocytes (0.1-0.8) 10^3/uL Absolute Eosinophils (0.0-0.7) 10^3/uL Absolute Basophils (0.0-0.2) 10^3/uL RBC Morphology D-Dimer Cancelled Sample Site ABG Sample Site Cancelled ABG pH (7.35-7.45) ABG pCO2 (35-45) mmHg ABG pO2 (80-105) mmHg ABG HCO3 (22-26) mmol/L ABG Total CO2 (23-27) mmol/L ABG O2 Saturation (95-98) % ABG Base Excess (-2-3) mmol/L VBG Lactate (0.9-1.7) mmol/L Oxygen Liter Flow Cancelled FiO2 Sodium (136-145) mmol/L Potassium (3.5-5.1) mmol/L Chloride (98-107) mmol/L Carbon Dioxide (21.0-32.0) mmol/L Anion Gap (3-11) mmol/L BUN (7-18) mg/dL Creatinine (0.70-1.30) mg/dL Estimated GFR/1.73 m2 (mL/min/1.73m2) Glucose (74-106) mg/dL Calcium (8.5-10.1) mg/dL Ferritin (26-388) ng/mL Total Bilirubin (0.2-1.0) mg/dL AST (15-37) U/L ALT (16-63) U/L Alkaline Phosphatase (46-116) U/L Lactate Dehydrogenase (85-227) U/L Troponin I (<0.06) ng/mL Cancelled C-Reactive Protein (0.0-0.3) mg/dL Total Protein (6.4-8.2) g/dL Albumin (3.4-5.0) g/dL Procalcitonin ng/mL ECG Data Attestation: I personally reviewed and interpreted this ECG (s) as follows: Interpretation: Rate of 106, sinus, no acute ST elevation or depression. ME 143. QTc 460. HPI General Mode of arrival: EMS . Date/Time Provider Initiated Documentation: 04/27/21 18:41 . Limitations to Documentation: no limitations . Information obtained by: patient . HPI Narrative: Patient is a 61-year-old male diagnosed with Covid yesterday with a history of obesity, Langerhans' cell histiocytosis, prediabetes, hypertension, metabolic syndrome, pancreatitis presents for cough, body aches and shortness of breath for the past 5 days, shortness of breath worse today. Patient states he had a Covid swab 2 days ago and was told his Covid test was positive yesterday. He states his symptoms started with cough, body aches and fatigue and then progressed to cough and shortness of breath which is worse today. EMS noted an oxygen saturation in the 60s on room air and patient appeared ashen in color. Patient states he had sweats this morning and thinks he had a fever. He is not vaccinated but states he would like to be vaccinated for Covid now. Related Data Home Medications Medication Instructions Recorded Confirmed hydrocortisone-pramoxine 2.5 %-1 % 1 applic ME QID PRN #30 gm 07/08/20 04/29/21 rectal cream levothyroxine 100 mcg tablet 200 mcg PO DAILY tab 08/03/20 04/28/21 calcitriol 0.5 mcg capsule 0.5 mcg PO BID #180 cap 10/19/20 04/27/21 amlodipine 10 mg tablet 10 mg PO DAILY #90 tab 11/02/20 04/27/21 psyllium husk (aspartame) 5.035294 g PO DAILY #1040 g 11/26/20 04/27/21 [Metamucil Sugar-Free (aspart)] calcium carbonate 400 mg calcium 1,200 mg PO DAILY tab 11/30/20 04/27/21 (1,000 mg) chewable tablet cholecalciferol (vitamin D3) 100 100 mcg PO DAILY 11/30/20 04/27/21 mcg (4,000 unit) tablet clotrimazole 1 % topical solution 1 applic TOPICAL BID ml 01/03/21 04/29/21 losartan 50 mg tablet 50 mg PO DAILY #90 tab 01/04/21 04/27/21 prednisolone acetate 1 % eye 2 drp OPHTHALMIC (EYE) HS ml 02/03/21 04/27/21 drops,suspension sildenafil 50 mg tablet 50 mg PO DAILY PRN #10 tab 04/07/21 04/27/21 Previous Rx's Medication Instructions Recorded hydrocortisone-pramoxine 2.5 %-1 % 1 applic ME QID PRN #30 gm 07/08/20 rectal cream calcitriol 0.5 mcg capsule 0.5 mcg PO BID #180 cap 10/19/20 amlodipine 10 mg tablet 10 mg PO DAILY #90 tab 11/02/20 psyllium husk (aspartame) 5.620051 g PO DAILY #1040 g 11/26/20 [Metamucil Sugar-Free (aspart)] losartan 50 mg tablet 50 mg PO DAILY #90 tab 01/04/21 sildenafil 50 mg tablet 50 mg PO DAILY PRN #10 tab 04/07/21 Allergies Allergy/AdvReac Type Severity Reaction Status Date / Time No Known Allergies Allergy Verified 04/27/21 18:16 General Stated Complaint: SOB TARA: 2 Review of Systems All systems reviewed & are unremarkable except as noted in HPI and below Constitutional Constitutional: Reports as per HPI, Reports body ache(s), Denies chills, Reports fatigue and Denies fever(s) Eyes Eyes: Denies blurry vision ENT Ears, Nose, Mouth, and Throat: Denies dizziness, Denies sore throat and Denies throat swelling Cardiovascular Cardiovascular: Denies chest pain and Reports dyspnea Respiratory Respiratory: Reports cough and Reports dyspnea Gastrointestinal Gastrointestinal: Denies abdominal pain, Denies diarrhea and Denies vomiting Genitourinary Genitourinary: Denies hematuria and Denies dysuria Musculoskeletal Musculoskeletal: Denies back pain and Denies numbness Integumentary/Breasts Skin/Breast: Denies lesions and Denies rash Neurologic Neurologic: Denies dizziness, Denies localized weakness and Denies numbness Endocrine Endocrine: Reports fatigue Allergic/Immunologic Allergic/Immunologic: Denies throat swelling [facility] Medical History (Updated 04/30/21 @ 10:07 by Gala Ferrera DO) Chronic bacterial otitis externa of both ears Erectile dysfunction History of thyroid cancer completion of thyroidectomy 12/22/19; referred to Dr. Peck radiation oncology 02/25/20. Hypertension Hypomagnesemia Hypothyroidism (acquired) Langerhans cell histiocytoses [facility] [place] hem[place]onc report 04/23/19: KRAS gene mutation on the skin biopsy came back positive. This is an extremely rare diagnosis. his staging is negative . Single system disease involving the skin only. He will need to be followed by dermatology.([facility] [place]) 09/24/20 [place] [facility] [place] 6 [place]. Meralgia paraesthetica Metabolic syndrome Prediabetes Skin lesion of face Thrombocytopenia Tubulovillous adenoma Vitamin D deficiency Surgical History (Updated 02/24/21 @ 14:32 by Aspen Roth RN) H/O inguinal hernia repair H/O local excision of skin lesion excision of skin lesion from chin; positive for Langerhans cell histiocytosis H/O thyroidectomy 12/17/18- s/p hemithyroidectomy; 12/22/19 completion thyroidectomy 12/17/18 with vocal cord paralysis. saw ENT in f/u. voice has recovered and he will see ENT again before his next surgery. ([facility] [place]/23/19) History of colonoscopy with polypectomy (~11/26/20) Family History Mother Breast cancer Uterine cancer Father Alcohol abuse Sister No problems noted. Brother No problems noted. Social History (Updated 12/26/19 @ 16:11 by Corazon Encarnacion RN) Smoking/Tobacco Use Status: Never Smoking risk assessment performed?: Yes Alcohol Intake: current Alcohol Intake frequency: a few times a week Drug use: Never Substance use type: does not use Caregiver/Support person: No Household members: spouse Housing: house Number of Children: 2 Communication Needs: Hard of Hearing Do you need help understanding health information?: Rarely current occupation: [employer], [employer] Pets and animals: Yes (horses, rabbits, pigs) Sexually active: Yes Do you think of yourself as: straight/heterosexual Current gender identity: male What is your relationship status?: How often do you talk on the phone with friends or family?: three or more times per week How often do you get together with friends or relatives?: three or more times per week How often do you attend nondenominational or oriental orthodox services?: 1-3 times per year Do you belong to any clubs or organized social groups?: yes Panel score (0-1 are the most socially isolated patients): 3 What type of physical activity do you participate in: none Mari/Adventism: Orthodoxy Special mari needs: No Agree to transfusion: Yes Seatbelt use: always Helmet use: Yes Drive intox or ride w/intox entry level truck driver: No Working smoke detector in home: Yes Fire extinguisher in home: Yes Carbon monox detector in home: Yes Do you feel safe at home: Yes Do you feel safe in your relationship?: Yes Exam Const General: cooperative and no acute distress Nutritional Appearance: obese morbidly obese Orientation: alert, awake and oriented x3 HENMT Head: normal to inspection Face and sinus: normal facial exam Eyes General: appearance normal, both eyes and all related structures Pupils: PERRL EOM: EOM intact bilaterally Neck Neck: normal visual inspection and No submandibular swelling Lymphatic: no lymphadenopathy noted Chest Chest: normal inspection of the chest and no tenderness Resp Effort & Inspection: normal respiratory effort and able to speak in complete sentences Auscultation: crackles bilaterally at the base and in the mid lung quinones Cardio Rate: regular rate Rhythm: regular rhythm GI Inspection: normal to inspection Palpation: soft, not firm, not rigid and nontender Auscultation: normal bowel sounds Skin General skin exam: no rashes or lesions noted Neuro General: patient alert, patient awake and patient oriented x3 Cognition: normal cognition Speech: speech normal Motor: muscle tone normal throughout Sensory Exam: no sensory deficits noted Extrem General: normal to inspection, full ROM, capillary refill normal, no calf tenderness bilaterally and no edema Psych Appearance: grossly normal Mental Status: mental status grossly normal Speech and Movement: speech and movement normal Affect: normal affect Course Vital Signs Vital signs: Vital Signs Pulse 108 H 04/27/21 18:07 Respiratory Rate 31 H 04/27/21 18:07 Blood Pressure 137/79 04/27/21 18:07 Pulse Oximetry 90 L 04/27/21 18:07 Pulse 108 H 04/27/21 18:07 Respiratory Rate 31 H 04/27/21 18:07 Respiratory Effort Incrsd Work of Breathing 04/27/21 18:14 Blood Pressure 137/79 04/27/21 18:07 Pulse Oximetry 90 L 04/27/21 18:07 Pain Level 8 04/27/21 18:07 Lab/Test Results Lab/Test Results: 04/27/21 18:13 Blood Blood Culture - Pending 04/27/21 18:13 Blood Blood Culture - Pending Laboratory Tests Range/Units 04/27/21 04/27/21 18:10 18:12 D-Dimer Cancelled VBG Lactate (0.9-1.7) mmol/L 1.7 Critical Care Time Critical Care Time Critical Care Time: Yes Total Critical Care Time: 60 Attestation: I spent 60 minutes of critical care time with this patient. This does not include time spent on separately reported billable procedures.
[2021-04-27] MEDS: Albuterol 2.5 MG/3 ML INH SOLN VIAL 5 MG UPD ×2 (18:44→20:15)
[2021-04-27] MEDS: Albuterol/Ipratropium 3 ML UPD VIAL UPD ×2 (18:46→23:58)
[2021-04-27] MEDS: Normal Saline Flush 10 ML SYR IVP ×2 (18:50→23:37)
[2021-04-27] MEDS: Normal Saline 1,000 ML 1000 ML IV (18:50)
[2021-04-27] MEDS: methylPREDNISolone SUCC 125 MG VIAL IVP (18:51)
[2021-04-27 19:10] LABS: ALT 57 U/L (16-63); AST 59 U/L (15-37); Alkaline Phosphatase 69 U/L (46-116); Anion Gap 7.8 mmol/L (3-11); BUN 19 mg/dL (7-18); Bilirubin, Total 0.6 mg/dL (0.2-1.0); C-Reactive Protein 23.57 mg/dL (0.0-0.3); CO2 33.2 mmol/L (21.0-32.0); CREATININE 1.2 mg/dL (0.70-1.30); Calcium 7.5 mg/dL (8.5-10.1); Chloride 98 mmol/L (98-107); Glucose 137 mg/dL (74-106); LDH 564 U/L (85-227); Potassium 3.2 mmol/L (3.5-5.1); Sodium 139 mmol/L (136-145); Total Protein 7.8 g/dL (6.4-8.2)
[2021-04-27 19:11] LABS: Troponin I < 0.05 ng/mL (<0.06)
[2021-04-27 19:14] LABS: Absolute Neutrophil Count 5.33 10^3/uL (1.2-6.7); Bands % 3; Platelet Count 35 10^3/uL (130-400)
[2021-04-27 19:16] LABS: Absolute Monocyte Count 2.26 10^3/uL (0.1-0.8); Diff Comment Manual Differential; Myelocytes % 1; RBC Morphology Normal
[2021-04-27 19:33] LABS: Procalcitonin 0.4 ng/mL
[2021-04-27 20:13] LABS: Ferritin 1440 ng/mL (26-388)
--- NOTE | 2021-04-27 20:28 | DI.VRAD_ITS ---
PROCEDURE INFORMATION: Exam: CTA Chest With Contrast Exam date and time: 04/27/2021 6:37 PM Age: 61 years old Clinical indication: Other: Shortness of breath, cough, covid + TECHNIQUE: Imaging protocol: Computed tomographic angiography of the chest with contrast. 3D rendering (Not supervised by radiologist): MIP and/or 3D reconstructed images were created by the technologist. COMPARISON: CT ABDOMEN PELVIS CTA 01/17/2021 8:43 AM FINDINGS: Pulmonary arteries: No filling defects within the pulmonary arteries are identified to suggest pulmonary embolism. Aorta: There is mild scattered atherosclerotic calcification of the thoracic aorta. No thoracic aortic aneurysm or dissection is identified. Lungs: There are multifocal nodular as well as patchy and confluent regions ground-glass opacity with superimposed consolidative opacities throughout the lungs, most marked in the mid and lower lung regions, and mostly in a peripheral distribution, consistent with pneumonia. Pleural spaces: There are no pleural effusions present. There is no evidence of pneumothorax. Heart: Heart size is borderline enlarged. There is no pericardial effusion. Lymph nodes: There is no evidence of lymphadenopathy. Liver: There is a sub cm low-dense lesion within the left hepatic lobe which is too small to characterize but likely represents a benign cyst or biliary hamartoma. Pancreas: The pancreas is moderately atrophic but appears otherwise unremarkable without focal lesion or evidence of acute inflammation. The pancreatic head is only partially imaged. Bones/joints: There is multilevel moderate spondylosis/hyperostosis throughout the mid and lower thoracic spine. No acute fractures are identified. Soft tissues: Unremarkable. IMPRESSION: 1. No pulmonary embolism identified. 2. Severe multifocal nodular as well as patchy and confluent ground-glass and consolidative opacities throughout the lungs, consistent with pneumonia. Commonly reported imaging features of COVID-19 pneumonia are present. Other processes such as influenza pneumonia and organizing pneumonia, as can be seen with drug toxicity and connective tissue disease, can cause a similar imaging pattern. (Reference: Pool) REFERENCES: Pool S, et al., Radiological Society of [place] Expert Consensus Statement on Reporting Chest CT Findings Related to COVID-19. Endorsed by the Society of Thoracic Radiology, the [place] [employer], and RSNA. Published October 01, 2019. Dictated and Authenticated by: Mark Osei MD. Ordering:KADY Cedeño MD
--- NOTE | 2021-04-27 20:40 | HPE_ITS ---
Date of service: 04/27/21 Time of Service: 20:40 Assessment and Plan Assessment and plan (1) Pneumonia due to COVID-19 virus: Status: Acute Assessment and plan: with acute hypoxic respiratory failure. SOFA score 8: predicts <=33.3 % mortality. 4C Mortality score is 9: 31.4-34.9% mortality predicted on this hospitalization. Given a borderline elevated procalcitonin, cannot rule out an additional bact erial process. Will treat with remdesivir, dexamethasone, baricitinib, and empiric ceftriaxone/doxycycline. Provide vitamin C and D supplementation. O2 requirement: at this time, on CPAP with FiO2 of 100% and PEEP of 16. Encourage proning. Full code. We are notifying anesthesia of the patient's condition. Will wean O2 as tolerated, but making NPO in case intubation is necessary tonight (likely). No tertiary care facilities have beds at this time in 2.5-[address] radius. (2) Acute respiratory failure with hypoxia: Status: Acute Assessment and plan: As above (3) Thrombocytopenia: Status: Chronic Assessment and plan: Acute on chronic. Avoid chemical DVT ppx. (4) Hypokalemia: Status: Acute Assessment and plan: Replete and check magnesium. (5) Hypocalcemia: Status: Acute Assessment and plan: Replete. (6) DVT prophylaxis: Status: Acute Assessment and plan: TEDs due to thrombocytopenia (7) Discharge planning issues: Status: Acute Assessment and plan: Full code Admit to ICU. Total Critical care Time 60 minutes. History of Present Illness History of Present Illness Chief Complaint: shortness of breath Narrative: Mr Lanza is a 61 year old male with PMHx of Langerhans histiocytosis, prediabetes, hypertension, metabolic syndrome, thrombocytopenia, who is not vaccinated against COVID-19, who was brought in to [facility] ED by EMS for shortness of breath with O2 sats of 60% on RA. The patient stated to the ED that he had first started to experience sx of COVID-19 (fever, body aches) on Sunday, 5 days ago, got tested on Sunday and received positive results yesterday. When he arrived to [facility] ED, he was saturating in mid-80s on non-rebreather. He was placed on CPAP with FiO2 of 80% and saturated 93%. His CTA ruled out acute PE. Hospitalist admission was requested. The patient was reported to be hemodynami lizett stable. He is full code, per my conversation with him. At this time, he is on CPAP at 100% FiO2 and PEEP of 16. He is anxious. He just took off the CPAP for about a minute before the nurse was able to get in there - His O2 sat was in the 70s while he was breathing in air coming from the CPAP t ubing. He is proning. It is difficult to obtain history given the fact that he is on CPAP and proning, but he is able to provide short answers - he does not feel any chest pain, shortness of breath, and reported a productive cough with yellow sputum. Review of Systems Narrative: ROS limited due to patient's condition/being on CPAP. All systems reviewed & are unremarkable except as noted in HPI and below PFSH Medical History (Updated 04/27/21 @ 21:04 by Gala Ferrera, ) Chronic bacterial otitis externa of both ears Erectile dysfunction History of thyroid cancer completion of thyroidectomy 12/22/19; referred to Dr. Peck radiation onc ology 02/25/20. Hypertension Hypomagnesemia Hypothyroidism (acquired) Langerhans cell histiocytoses [facility] [place] hem/onc report 04/23/19: KRAS gene mutation on the skin biopsy came back positive. This is an extremely rare diagnosis. his staging is negative . Single system disease involving the skin only. He will need to be followed by dermatology.([facility] [place] requested that) 09/24/20 Skin [place] [facility] [place] 6 [place]. Meralgia paraesthetica Metabolic syndrome Prediabetes Skin lesion of face Thrombocytopenia Tubulovillous adenoma Vitamin D deficiency Surgical History (Updated 02/24/21 @ 14:32 by Aspen Roth RN) H/O inguinal hernia repair H/O local excision of skin lesion excision of skin lesion from chin; positive for Langerhans cell histiocytosis H/O thyroidectomy 12/17/18- s/p hemithyroidectomy; 12/22/19 completion thyroidectomy 12/17/18 with vocal cord paralysis. saw ENT in f/u. voice has recovered and he will see ENT again before his next surgery. ([facility] report 04/23/19) History of colonoscopy with polypectomy (~11/26/20) Family History Mother Breast cancer Uterine cancer Father Alcohol abuse Sister No problems noted. Brother No problems noted. 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, [employer] Pets and animals: Yes (horses, rabbits, pigs) Sexually active: Yes Do you think of yourself as: straight/heterosexual Current gender identity: male What is your relationship status?: How often do you talk on the phone with friends or family?: three or more times per week How often do you get together with friends or relatives?: three or more times per week How often do you attend mandaeism or yarsani services?: 1-3 times per year Do you belong to any clubs or organized social groups?: yes Panel score (0-1 are the most socially isolated patients): 3 What type of physical activity do you participate in: none Mari/Mu-Ism: Cheondoism Special mari needs: No Agree to transfusion: Yes Seatbelt use: always Helmet use: Yes Drive intox or ride w/intox warehouse associate driver: No Working smoke detector in home: Yes Fire extinguisher in home: Yes Carbon monox detector in home: Yes Do you feel safe at home: Yes Do you feel safe in your relationship?: Yes Meds Allergies and Home Medications Allergies Allergy/AdvReac Type Severity Reaction Status Date / Time No Known Allergies Allergy Verified 04/27/21 18:16 Home Medications Medication Instructions Recorded Confirmed Type hydrocortisone-pramoxine 2.5 %-1 % 1 applic GA QID PRN #30 gm 07/08/20 11/26/20 Rx rectal cream levothyroxine 100 mcg tablet 225 mcg PO DAILY tab 08/03/20 04/27/21 History calcitriol 0.5 mcg capsule 0.5 mcg PO BID #180 cap 10/19/20 04/27/21 Rx amlodipine 10 mg tablet 10 mg PO DAILY #90 tab 11/02/20 04/27/21 Rx psyllium husk (aspartame) 5.776094 g PO DAILY #1040 g 11/26/20 04/27/21 Rx [Metamucil Sugar-Free (aspart)] calcium carbonate 400 mg calcium 1,200 mg PO DAILY tab 11/30/20 04/27/21 History (1,000 mg) chewable tablet cholecalciferol (vitamin D3) 100 100 mcg PO DAILY 11/30/20 04/27/21 History mcg (4,000 unit) tablet clindamycin 1 %-benzoyl peroxide 5 1 applic TOPICAL BID 12/10/20 History % topical gel clotrimazole 1 % topical solution 1 applic TOPICAL HS ml 01/03/21 04/27/21 History fluconazole 100 mg tablet 100 mg PO DAILY 01/03/21 04/27/21 History losartan 50 mg tablet 50 mg PO DAILY #90 tab 01/04/21 04/27/21 Rx prednisolone acetate 1 % eye 2 drp OPHTHALMIC (EYE) HS ml 02/03/21 04/27/21 History drops,suspension sildenafil 50 mg tablet 50 mg PO DAILY PRN #10 tab 04/07/21 04/27/21 Rx Exam Narrative Exam Narrative: Patient was examined while prone General: Middle-aged Obese male who is proning on CPAP, no evidence of increased work of breathing in this position Neurological: A&Ox3, no obvious focal deficits Psychiatric: Unable to fully examine given the patient's condition/being on CPAP Skin: Visible skin in tact HEENT: The patient is proning while laying face down on CPAP - I am unable to see his face or examine his oropharynx. He does have a large neck diameter Cardiovascular: RRR, tachycardic (auscultated through the back) Lungs: Coarse breath sounds B (not clearly crackles or wheezes) Gastrointestinal: unable to examine given the patient's position Genitourinary: deferred Extremities: no edema BLE's, 1+ pedal pulse B Results Imaging Additional studies: CTA chest: 1. No pulmonary embolism identified. 2. Severe multifocal nodular as well as patchy and confluent ground-glass and consolidative opacities throughout the lungs, consistent with pneumonia. Commonly reported imaging features of COVID-19 pneumonia are present. Other processes such as influenza pneumonia and organizing pneumonia, as can be seen with drug toxicity and connective tissue disease, can cause a similar imaging pattern. EKG: Sins tach, HR 106, inferolateral ST segment depressions, new. Labs Result diagrams: 04/27/21 18:10 04/27/21 18:10 Labs: Laboratory Results - last 24 hr 04/27/21 04/27/21 04/27/21 18:10 18:10 18:10 WBC 8.07 RBC 4.20 L Hgb 12.8 L Hct 38.1 L MCV 90.7 MCH 30.5 MCHC 33.6 RDW 13.6 Plt Count 35 L MPV 14.4 H Immature Gran % See Differential Neutrophils % 63.0 Band Neutrophils % 3 Lymphocytes % 5.0 Monocytes % 28.0 Eosinophils % 0.0 Basophils % 0.0 Myelocytes % 1 Nucleated RBC % 0 Absolute Neutrophils 5.33 Absolute Lymphocytes 0.40 L Absolute Monocytes 2.26 H Absolute Eosinophils 0.00 Absolute Basophils 0.00 RBC Morphology Normal D-Dimer VBG Lactate Sodium 139 Potassium 3.2 L Chloride 98 Carbon Dioxide 33.2 H Anion Gap 7.8 BUN 19 H Creatinine 1.2 Estimated GFR/1.73 m2 >= 60.00 Glucose 137 H Calcium 7.5 L Ferritin Total Bilirubin 0.6 AST 59 H ALT 57 Alkaline Phosphatase 69 Lactate Dehydrogenase 564 H Troponin I < 0.05 C-Reactive Protein 23.57 H Total Protein 7.8 Albumin 3.0 L Procalcitonin 0.4 04/27/21 04/27/21 04/27/21 18:10 18:10 18:12 WBC RBC Hgb Hct MCV MCH MCHC RDW Plt Count MPV Immature Gran % Neutrophils % Band Neutrophils % Lymphocytes % Monocytes % Eosinophils % Basophils % Myelocytes % Nucleated RBC % Absolute Neutrophils Absolute Lymphocytes Absolute Monocytes Absolute Eosinophils Absolute Basophils RBC Morphology D-Dimer Cancelled VBG Lactate 1.7 Sodium Potassium Chloride Carbon Dioxide Anion Gap BUN Creatinine Estimated GFR/1.73 m2 Glucose Calcium Ferritin 1440 H Total Bilirubin AST ALT Alkaline Phosphatase Lactate Dehydrogenase Troponin I C-Reactive Protein Total Protein Albumin Procalcitonin 04/27/21 21:13 WBC RBC Hgb Hct MCV MCH MCHC RDW Plt Count MPV Immature Gran % Neutrophils % Band Neutrophils % Lymphocytes % Monocytes % Eosinophils % Basophils % Myelocytes % Nucleated RBC % Absolute Neutrophils Absolute Lymphocytes Absolute Monocytes Absolute Eosinophils Absolute Basophils RBC Morphology D-Dimer VBG Lactate Sodium Potassium Chloride Carbon Dioxide Anion Gap BUN Creatinine Estimated GFR/1.73 m2 Glucose Calcium Ferritin Total Bilirubin AST ALT Alkaline Phosphatase Lactate Dehydrogenase Troponin I Cancelled C-Reactive Protein Total Protein Albumin Procalcitonin Last Vital Signs Pulse 104 H 04/27/21 20:13 Resp 21 04/27/21 20:20 BP 83/34 L 04/27/21 20:13 Pulse Ox 93 04/27/21 20:20
[2021-04-27 21:01] LABS: BE 5 mmol/L (-2-3); HCO3 29 mmol/L (22-26); TCO2 30 mmol/L (23-27); pCO2 43 mmHg (35-45); pH 7.43 (7.35-7.45); pO2 64 mmHg (80-105)
[2021-04-27 21:02] LABS: FIO2 100; Site Right Radial; sO2 93 % (95-98)
[2021-04-27 21:31] LABS: Magnesium 2.2 mg/dL (1.8-2.4)
[2021-04-27] MEDS: Omnipaque 350 MG/ML 100 ML BTL IJ (21:33)
[2021-04-27] MEDS: Normal Saline - Diluent 50 ML VIAL IV (21:34)
[2021-04-27 21:44] LABS: Creatine Kinase 532 U/L (39-308); NT-proBNP 97 pg/mL (<300)
[2021-04-27] MEDS: LORazepam 2 MG/ML VIAL 0.5 MG IVP (21:57)
[2021-04-27] MEDS: Normal Saline 500 ML 30 ML IV (23:35)
[2021-04-27] MEDS: Water,Injection,Sterile 10 ML VIAL (23:35)
[2021-04-27] MEDS: REMDESIVIR 200 MG in Normal Saline 250 ML 250 MG IVPB (23:37)
[2021-04-27] MEDS: POTASSIUM CHLORIDE 20 MEQ/100 ML BAG 50 MEQ IVPB (23:38)
[2021-04-27] MEDS: FAMOTIDINE 20 MG/50 ML BAG 200 MG IVPB (23:41)
[2021-04-27] MEDS: Dexamethasone 4 MG/ML VIAL 6 MG IVP (23:42)
[2021-04-27] MEDS: cefTRIAXone 2 GM/50 ML BAG IVPB (23:56)
[2021-04-28] VITALS (46 sets, daily range): BP systolic 111–159; BP diastolic 55–82; PULSE 78–105; RESP 0–39; TEMP 36–36.9; O2SAT 72–98
[2021-04-28 01:28] LABS: Source Nasal/Nares
[2021-04-28] MEDS: DOXYCYCLINE 100 MG in Normal Saline 100 ML IVPB ×3 (01:45→15:21)
[2021-04-28 03:02] LABS: COVID-19 PCR POSITIVE (Negative)
[2021-04-28] MEDS: POTASSIUM CHLORIDE 20 MEQ/100 ML BAG 50 MEQ IVPB (05:25)
[2021-04-28 07:12] LABS: HCT 35.2 % (40.0-50.0); HGB 11.5 g/dL (13.5-17.5); MCHC 32.7 % (32.0-36.0); MCV 91.9 fL (80-95); Nucleated RBC 0 %; Platelet Count 37 10^3/uL (130-400); RBC 3.83 10^6/uL (4.36-5.78); RDW 13.7 % (11.8-14.1); RDW-SD 46.3 fL; WBC 6.61 10^3/uL (4.4-10.8)
[2021-04-28 07:38] LABS: Absolute Lymphocyte Count 0.46 10^3/uL (1.2-3.4); Absolute Neutrophil Count 5.42 10^3/uL (1.2-6.7); Bands % 7
[2021-04-28 07:39] LABS: Absolute Monocyte Count 0.73 10^3/uL (0.1-0.8); Diff Comment Manual Differential; RBC Morphology Normal
[2021-04-28 07:44] LABS: Hemoglobin A1C 6.5 % (<5.7)
[2021-04-28 08:01] LABS: D-Dimer 1239 ng/mlFEU (<500)
[2021-04-28 08:04] LABS: ALT 51 U/L (16-63); AST 46 U/L (15-37); Albumin 2.5 g/dL (3.4-5.0); Alkaline Phosphatase 61 U/L (46-116); BUN 30 mg/dL (7-18); Bilirubin, Total 0.4 mg/dL (0.2-1.0); CREATININE 1.4 mg/dL (0.70-1.30); Calcium 7.3 mg/dL (8.5-10.1); Chloride 99 mmol/L (98-107); Estimated GFR 51.87 (mL/min/1.73m2); Ferritin 1480 ng/mL (26-388); Glucose 185 mg/dL (74-106); Magnesium 2.2 mg/dL (1.8-2.4); Potassium 3.6 mmol/L (3.5-5.1); Sodium 139 mmol/L (136-145)
[2021-04-28 08:15] LABS: Bilirubin, Direct 0.1 mg/dL (0.0-0.2)
[2021-04-28 09:13] LABS: Vitamin D 25 Total 21.8 ng/mL (30-100)
[2021-04-28] MEDS: LEVOTHYROXINE 200 MCG, LEVOTHYROXINE 25 MCG 225 MCG PO (09:29)
[2021-04-28] MEDS: Cholecalciferol (Vitamin D3) 1,000 UNIT TAB 2000 UNITS PO (09:30)
[2021-04-28] MEDS: Losartan 50 MG TAB PO (09:30)
[2021-04-28] MEDS: Calcium Carbonate *TUMS* 500 MG CHEW 1000 MG PO (09:30)
[2021-04-28] MEDS: amLODIPine 10 MG TAB PO (09:30)
[2021-04-28] MEDS: Ascorbic Acid 500 MG TAB 1000 MG PO ×2 (09:30→21:11)
[2021-04-28] MEDS: Psyllium PKT 1 EACH PO (09:31)
[2021-04-28] MEDS: Dexamethasone 4 MG/ML VIAL 6 MG IVP (09:31)
[2021-04-28] MEDS: Calcitriol 0.25 MCG CAP 0.5 MCG PO ×2 (09:31→21:11)
[2021-04-28] MEDS: Normal Saline Flush 10 ML SYR IVP ×2 (09:32→21:12)
--- NOTE | 2021-04-28 12:24 | PHACLINREV_ITS ---
Pharmacy Admission Review - Admission Clinical Review (Last Updated 04/27/21 @ 20:51 by Indu Figueroa MD) Pneumonia due to COVID-19 virus (Acute) Hypoxia (Acute) Requires supplemental oxygen (Acute) Discharge planning issues (Acute) DVT prophylaxis (Acute) Hypocalcemia (Acute) Hypokalemia (Acute) Pneumonia due to COVID-19 virus (Acute) Acute respiratory failure with hypoxia (Acute) No Known Allergies Allergy (Verified 04/27/21 18:16) Resuscitation Status Full Code Height 5 ft 8 in Weight 123.6 kg - Renal Dosing Renal Dosing: BUN 30 mg/dL (7-18) H D 04/28/21 06:20 Creatinine 1.4 mg/dL (0.70-1.30) H 04/28/21 06:20 Medications needing adjustments: Intervened (eCrCl 72 ml/min using adj bw; eGFR is 51.87) List of meds needing interventions: baricitinib dosing should be adjusted to 2mg/daily if eGFR remains <60 -- will notify MD and monitor kidney fxn daily (he was >60 yesterday with sCr of 1.2) - Anticoagulation Anticoagulation: Hgb 11.5 g/dL (13.5-17.5) L 04/28/21 06:20 Hct 35.2 % (40.0-50.0) L 04/28/21 06:20 Plt Count 37 10^3/uL (130-400) L 04/28/21 06:20 Creatinine 1.4 mg/dL (0.70-1.30) H 04/28/21 06:20 DVT Prophylaxis: N/A Therapeutic Anticoagulation: N/A (CI due to thrombocytopenia, TEDs only) - Opiate Usage Evaluate Pain Scale/Pains Meds: N/A - Relevant Labs Sodium 139 mmol/L (136-145) 04/28/21 06:20 Potassium 3.6 mmol/L (3.5-5.1) 04/28/21 06:20 Chloride 99 mmol/L (98-107) 04/28/21 06:20 Magnesium 2.2 mg/dL (1.8-2.4) 04/28/21 06:20 C-Reactive Protein 22.10 mg/dL (0.0-0.3) H 04/28/21 06:20 Electrolytes, C-Reactive P, ESR: Reviewed - DM Control DM Control: Glucose 185 mg/dL (74-106) H 04/28/21 06:20 Hemoglobin A1c 6.5 % (<5.7) H 04/28/21 06:20 - Heart Failure/DC Heart Failure/DC: Troponin I Cancelled 04/27/21 21:13 NT-Pro-B Natriuret Pep 97 pg/mL (<300) 04/27/21 18:10 - BP Control BP Control: Blood Pressure 144/73 Blood Pressure 132/66 Blood Pressure 132/64 Blood Pressure 147/71 Blood Pressure 128/73 Blood Pressure 146/67 Blood Pressure 122/59 Blood Pressure 133/65 Blood Pressure 125/60 Blood Pressure 118/62 If elevated: Reviewed - Qtc Review If Elevated: Reviewed List meds needing interventions: QTc 460 on admission - IV to PO Switch IV Medications: Reviewed - Home Meds Home Med List reviewed: Intervened Relevent Home Meds Not ordered & why?: losartan; all confirmed, updated l- thyroxine dose - Current meds Current Medication Order Review: Reviewed (ceftriazone + doxy IV continue; remdesivir + barcitinib)
--- NOTE | 2021-04-28 14:49 | W.PM.PROGNOT ---
Date of Service Date of service: 04/28/21 Time of Service: 14:49 Assessment and Plan Assessment and plan (1) Pneumonia due to COVID-19 virus: Status: Acute Assessment and plan: with acute hypoxic respiratory failure. SOFA score 8: predicts <=33.3 % mortality. 4C Mortality score is 9: 31.4-34.9% mortality predicted on this hospitalization. Given a borderline elevated procalcitonin, cannot rule out an additional bacterial process. Continue remdesivir, dexamethasone, baricitinib, and empiric ceftriaxone/doxycycline. Trend inflammatory markers. Provide vitamin C and D supplementation. O2 requirement: at this time, on CPAP with FiO2 of 75%and PEEP of 16. Encourage proning. Full code. Will wean O2 as tolerated (2) Acute respiratory failure with hypoxia: Status: Acute Assessment and plan: As above (3) Thrombocytopenia: Status: Chronic Assessment and plan: Acute on chronic. Avoid chemical DVT ppx. (4) Hypokalemia: Status: Acute Assessment and plan: Repleted; normal magnesium. (5) Hypocalcemia: Status: Acute Assessment and plan: Replete. On Vit D supp. Monitor (6) DVT prophylaxis: Status: Acute Assessment and plan: TEDs due to thrombocytopenia (7) Discharge planning issues: Status: Acute Assessment and plan: Full code Admit to ICU. Subjective Subjective Patient reports: afebrile; denies diarrhea and vomiting Interval history since last seen: Proning well. Tolerating CPAP. Exam Narrative Exam Narrative: Patient is lying prone with CPAP in place. DIO2 of 75%, 16mmHg pressure. O2 saturations in the low 90's. Const General: cooperative and no acute distress Nutritional Appearance: obese Resp Effort & Inspection: not labored Objective Last Vital Signs Temp 36.6 C 04/28/21 10:00 Pulse 85 04/28/21 13:01 Resp 24 04/28/21 13:01 BP 149/71 H 04/28/21 13:01 Pulse Ox 93 04/28/21 13:01 Laboratory Results - last 24 hr 04/27/21 04/27/21 04/27/21 08:49 18:10 18:10 WBC RBC Hgb Hct MCV MCH MCHC RDW Plt Count MPV Immature Gran % Neutrophils % Band Neutrophils % Lymphocytes % Monocytes % Eosinophils % Basophils % Myelocytes % Nucleated RBC % Absolute Neutrophils Absolute Lymphocytes Absolute Monocytes Absolute Eosinophils Absolute Basophils RBC Morphology D-Dimer Sample Site Right Radial ABG Sample Site ABG pH 7.43 ABG pCO2 43 ABG pO2 64 L ABG HCO3 29 H ABG Total CO2 30 H ABG O2 Saturation 93 L ABG Base Excess 5 H VBG Lactate Oxygen Liter Flow FiO2 100 Sodium 139 Potassium 3.2 L Chloride 98 Carbon Dioxide 33.2 H Anion Gap 7.8 BUN 19 H Creatinine 1.2 Estimated GFR/1.73 m2 >= 60.00 Glucose 137 H Hemoglobin A1c Calcium 7.5 L Magnesium 2.2 Ferritin Total Bilirubin 0.6 Conjugated Bilirubin AST 59 H ALT 57 Alkaline Phosphatase 69 Lactate Dehydrogenase 564 H Creatine Kinase Troponin I < 0.05 C-Reactive Protein 23.57 H NT-Pro-B Natriuret Pep Total Protein 7.8 Albumin 3.0 L 25-OH Vitamin D Total Procalcitonin 0.4 COVID-19 Source SARS-CoV-2 (PCR) 04/27/21 04/27/21 04/27/21 18:10 18:10 18:10 WBC 8.07 RBC 4.20 L Hgb 12.8 L Hct 38.1 L MCV 90.7 MCH 30.5 MCHC 33.6 RDW 13.6 Plt Count 35 L MPV 14.4 H Immature Gran % See Differential Neutrophils % 63.0 Band Neutrophils % 3 Lymphocytes % 5.0 Monocytes % 28.0 Eosinophils % 0.0 Basophils % 0.0 Myelocytes % 1 Nucleated RBC % 0 Absolute Neutrophils 5.33 Absolute Lymphocytes 0.40 L Absolute Monocytes 2.26 H Absolute Eosinophils 0.00 Absolute Basophils 0.00 RBC Morphology Normal D-Dimer Sample Site ABG Sample Site ABG pH ABG pCO2 ABG pO2 ABG HCO3 ABG Total CO2 ABG O2 Saturation ABG Base Excess VBG Lactate 1.7 Oxygen Liter Flow FiO2 Sodium Potassium Chloride Carbon Dioxide Anion Gap BUN Creatinine Estimated GFR/1.73 m2 Glucose Hemoglobin A1c Calcium Magnesium Ferritin 1440 H Total Bilirubin Conjugated Bilirubin AST ALT Alkaline Phosphatase Lactate Dehydrogenase Creatine Kinase Troponin I C-Reactive Protein NT-Pro-B Natriuret Pep Total Protein Albumin 25-OH Vitamin D Total Procalcitonin COVID-19 Source SARS-CoV-2 (PCR) 04/27/21 04/27/21 04/27/21 18:10 18:12 18:46 WBC RBC Hgb Hct MCV MCH MCHC RDW Plt Count MPV Immature Gran % Neutrophils % Band Neutrophils % Lymphocytes % Monocytes % Eosinophils % Basophils % Myelocytes % Nucleated RBC % Absolute Neutrophils Absolute Lymphocytes Absolute Monocytes Absolute Eosinophils Absolute Basophils RBC Morphology D-Dimer Cancelled Sample Site ABG Sample Site ABG pH ABG pCO2 ABG pO2 ABG HCO3 ABG Total CO2 ABG O2 Saturation ABG Base Excess VBG Lactate Oxygen Liter Flow FiO2 Sodium Potassium Chloride Carbon Dioxide Anion Gap BUN Creatinine Estimated GFR/1.73 m2 Glucose Hemoglobin A1c Calcium Magnesium Ferritin Total Bilirubin Conjugated Bilirubin AST ALT Alkaline Phosphatase Lactate Dehydrogenase Creatine Kinase 532 H Troponin I C-Reactive Protein NT-Pro-B Natriuret Pep 97 Total Protein Albumin 25-OH Vitamin D Total Procalcitonin COVID-19 Source Nasal/Nares SARS-CoV-2 (PCR) POSITIVE A* 04/27/21 04/27/21 04/28/21 20:02 21:13 06:20 WBC RBC Hgb Hct MCV MCH MCHC RDW Plt Count MPV Immature Gran % Neutrophils % Band Neutrophils % Lymphocytes % Monocytes % Eosinophils % Basophils % Myelocytes % Nucleated RBC % Absolute Neutrophils Absolute Lymphocytes Absolute Monocytes Absolute Eosinophils Absolute Basophils RBC Morphology D-Dimer Sample Site ABG Sample Site Cancelled ABG pH ABG pCO2 ABG pO2 ABG HCO3 ABG Total CO2 ABG O2 Saturation ABG Base Excess VBG Lactate Oxygen Liter Flow Cancelled FiO2 Sodium 139 Potassium 3.6 Chloride 99 Carbon Dioxide 29.0 Anion Gap 11.0 BUN 30 H D Creatinine 1.4 H Estimated GFR/1.73 m2 51.87 Glucose 185 H Hemoglobin A1c Calcium 7.3 L Magnesium 2.2 Ferritin 1480 H Total Bilirubin 0.4 Conjugated Bilirubin 0.1 AST 46 H ALT 51 Alkaline Phosphatase 61 Lactate Dehydrogenase Creatine Kinase Troponin I Cancelled C-Reactive Protein 22.10 H NT-Pro-B Natriuret Pep Total Protein 7.0 Albumin 2.5 L 25-OH Vitamin D Total Procalcitonin COVID-19 Source SARS-CoV-2 (PCR) 04/28/21 04/28/21 04/28/21 06:20 06:20 06:20 WBC 6.61 RBC 3.83 L Hgb 11.5 L Hct 35.2 L MCV 91.9 MCH 30.0 MCHC 32.7 RDW 13.7 Plt Count 37 L MPV Immature Gran % 0.0 Neutrophils % 75.0 Band Neutrophils % 7 Lymphocytes % 7.0 Monocytes % 11.0 Eosinophils % 0.0 Basophils % 0.0 Myelocytes % Nucleated RBC % 0 Absolute Neutrophils 5.42 Absolute Lymphocytes 0.46 L Absolute Monocytes 0.73 Absolute Eosinophils 0.00 Absolute Basophils 0.00 RBC Morphology Normal D-Dimer Sample Site ABG Sample Site ABG pH ABG pCO2 ABG pO2 ABG HCO3 ABG Total CO2 ABG O2 Saturation ABG Base Excess VBG Lactate Oxygen Liter Flow FiO2 Sodium Potassium Chloride Carbon Dioxide Anion Gap BUN Creatinine Estimated GFR/1.73 m2 Glucose Hemoglobin A1c 6.5 H Calcium Magnesium Ferritin Total Bilirubin Conjugated Bilirubin AST ALT Alkaline Phosphatase Lactate Dehydrogenase Creatine Kinase Troponin I C-Reactive Protein NT-Pro-B Natriuret Pep Total Protein Albumin 25-OH Vitamin D Total 21.8 L Procalcitonin COVID-19 Source SARS-CoV-2 (PCR) 04/28/21 06:20 WBC RBC Hgb Hct MCV MCH MCHC RDW Plt Count MPV Immature Gran % Neutrophils % Band Neutrophils % Lymphocytes % Monocytes % Eosinophils % Basophils % Myelocytes % Nucleated RBC % Absolute Neutrophils Absolute Lymphocytes Absolute Monocytes Absolute Eosinophils Absolute Basophils RBC Morphology D-Dimer 1239 H Sample Site ABG Sample Site ABG pH ABG pCO2 ABG pO2 ABG HCO3 ABG Total CO2 ABG O2 Saturation ABG Base Excess VBG Lactate Oxygen Liter Flow FiO2 Sodium Potassium Chloride Carbon Dioxide Anion Gap BUN Creatinine Estimated GFR/1.73 m2 Glucose Hemoglobin A1c Calcium Magnesium Ferritin Total Bilirubin Conjugated Bilirubin AST ALT Alkaline Phosphatase Lactate Dehydrogenase Creatine Kinase Troponin I C-Reactive Protein NT-Pro-B Natriuret Pep Total Protein Albumin 25-OH Vitamin D Total Procalcitonin COVID-19 Source SARS-CoV-2 (PCR)
[2021-04-28] MEDS: cefTRIAXone 2 GM/50 ML BAG IVPB (15:20)
[2021-04-28] MEDS: FAMOTIDINE 20 MG/50 ML BAG 200 MG IVPB (15:20)
[2021-04-28] MEDS: Normal Saline 500 ML 30 ML IV (15:21)
--- NOTE | 2021-04-28 18:04 | PDOC.CMIN ---
- If Service Date Differs Date of service: 04/28/21 Time of Service: 18:04 Care Management Initial Assess REASON FOR HOSPITALIZATION:: Covid 19 pneumonia, acute hypoxic respiratory failure PAST MEDICAL HISTORY/PAST SURGICAL HISTORY:: Medical History. Chronic bacterial otitis externa of both ears. Erectile dysfunction. History of thyroid cancer. completion of thyroidectomy 12/22/19; referred to Dr. Peck radiation oncology 02/25/20. Hypertension. Hypomagnesemia. Hypothyroidism (acquired). Langerhans cell histiocytoses. [facility] hem/onc report 04/23/19: KRAS gene mutation on the skin biopsy came back positive. This is an extremely rare diagnosis. his staging is negative . Single system disease involving the skin only. He will need to be followed by dermatology.([facility] has requested that). 09/24/20 Skin isolation only. [facility] FU Q 6 mo. Meralgia paraesthetica. Metabolic syndrome. Prediabetes. Skin lesion of face. Thrombocytopenia. Tubulovillous adenoma. Vitamin D deficiency. Surgical History. H/O inguinal hernia repair. H/O local excision of skin lesion. excision of skin lesion from chin; positive for Langerhans cell histiocytosis. H/O thyroidectomy. 12/17/18- s/p hemithyroidectomy; 12/22/19 completion thyroidectomy. 12/17/18 with vocal cord paralysis. saw ENT in f/u. voice has recovered and he will see ENT again before his next surgery. ([facility] report 04/23/19). History of colonoscopy with polypectomy (~11/26/20) PREVIOUS FUNCTIONAL STATUS/SOCIAL/FAMILY SUPPORTS:: Boy lives in [place] with his , Vi. They have two adult children. 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 He is independent at baseline. CURRENT FUNCTIONAL STATUS:: Boy was unable to participate in a conversation with CM due to his oxygen requirements. CM called his RN, who was unavailable to discuss him at that time. Per report, he is being treated aggresively for Covid, and is on empiric antibiotics. He is currently on CPAP with FiO2 of 75%. CM will continue to follow. ADVANCE DIRECTIVES:: None on file. Has patient been provided with info about the portal/API?: No Did the patient sign up for the portal?: Yes (active) CODE STATUS:: Full Code INSURANCE COVERAGE / FINANCIAL ISSUES:: [employer] (not [facility]) CURRENT HOME/COMMUNITY SERVICES/EQUIPMENT:: No known services or equipment. PRIMARY CARE PHYSICIAN:: [place] Cristobal POTENTIAL DISCHARGE NEEDS:: Evaluations for further needs, follow up appointments. PATIENT/FAMILY EDUCATION NEEDS:: Review discharge instructions regarding activity levels and medications, discussion of self care needs including ask me three. ANTICIPATED BARRIERS TO DISCHARGE:: Oxygen requirements with no oxygen at baseline. TRANSPORTATION:: Via private vehicle by family. PLAN:: Anticipate Boy will return home when medically cleared. Unclear if services will be indicated at this time, further evaluations needed to determine need. He will be transported home via private vehicle by family. He will follow up with his PCP and discharge plan of care. CM will continue to follow.
[2021-04-29] VITALS (83 sets, daily range): BP systolic 105–151; BP diastolic 53–98; PULSE 73–107; RESP 1–37; TEMP 31–38.6; O2SAT 80–99
--- NOTE | 2021-04-29 | DI.US_ITS ---
Exam(s) US EXTREMITY VENOUS BI EXAM: US EXTREMITY VENOUS BI CLINICAL HISTORY: Covid, increased d dimer. TECHNIQUE: Bilateral lower extremity venous ultrasound performed using grayscale, color-flow, and sp ectral Doppler analysis. COMPARISON: No exams were available for comparison FINDINGS: The bilateral common femoral, femoral and popliteal veins demonstrate normal compressibility, augment ation, and color Doppler. The posterior tibial veins are patent. The saphenofemoral junctions are unr emarkable. There is no evidence of a Ann's cyst. The soft tissues are unremarkable. IMPRESSION: Right: Negative for DVT Left: Negative for DVT DATA REPOSITORY:
[2021-04-29] MEDS: DOXYCYCLINE 100 MG in Normal Saline 100 ML IVPB ×2 (03:21→16:30)
[2021-04-29] MEDS: FAMOTIDINE 20 MG/50 ML BAG 200 MG IVPB ×2 (03:21→15:56)
[2021-04-29] MEDS: LEVOTHYROXINE 200 MCG, LEVOTHYROXINE 25 MCG 225 MCG PO (05:22)
[2021-04-29] MEDS: Levothyroxine 200 MCG TAB PO (05:22)
[2021-04-29 07:21] LABS: Abs Immature Grans 0.79 10^3/uL (0.0-0.06); Absolute Eosinophil Count 0.01 10^3/uL (0.0-0.7); Absolute Monocyte Count 1.22 10^3/uL (0.1-0.8); Basophils % 0.1; Eosinophils % 0.1; HCT 33.7 % (40.0-50.0); HGB 11.2 g/dL (13.5-17.5); Immature Grans % 5.8; Lymphocytes % 6.8; MCH 30.4 pg (27.0-33.0); MCHC 33.2 % (32.0-36.0); MCV 91.3 fL (80-95); Neutrophils % 78.2; Nucleated RBC 0 %; RBC 3.69 10^6/uL (4.36-5.78); RDW 13.7 % (11.8-14.1); RDW-SD 46.3 fL; WBC 13.58 10^3/uL (4.4-10.8)
[2021-04-29 07:24] LABS: Absolute Basophil Count 0.01 10^3/uL (0.0-0.2); Absolute Lymphocyte Count 0.92 10^3/uL (1.2-3.4); Absolute Neutrophil Count 10.62 10^3/uL (1.2-6.7)
[2021-04-29 07:35] LABS: ALT 53 U/L (16-63); AST 38 U/L (15-37); Albumin 2.4 g/dL (3.4-5.0); Alkaline Phosphatase 56 U/L (46-116); Anion Gap 9.6 mmol/L (3-11); BUN 48 mg/dL (7-18); Bilirubin, Total 0.4 mg/dL (0.2-1.0); CO2 27.4 mmol/L (21.0-32.0); CREATININE 1.3 mg/dL (0.70-1.30); Calcium 6.9 mg/dL (8.5-10.1); Chloride 103 mmol/L (98-107); Glucose 225 mg/dL (74-106); Potassium 3.4 mmol/L (3.5-5.1); Sodium 140 mmol/L (136-145); Total Protein 6.6 g/dL (6.4-8.2)
[2021-04-29 07:55] LABS: Basophilic Stippling Present; Diff Comment Agrees w/ Instrument; Polychromasia Present
[2021-04-29 07:57] LABS: Platelet Count 51 10^3/uL (130-400)
[2021-04-29 08:00] LABS: D-Dimer 2324 ng/mlFEU (<500)
[2021-04-29] MEDS: Calcium Carbonate *TUMS* 500 MG CHEW 1000 MG PO (09:10)
[2021-04-29] MEDS: Calcitriol 0.25 MCG CAP 0.5 MCG PO ×2 (09:10→20:51)
[2021-04-29] MEDS: amLODIPine 10 MG TAB PO (09:10)
[2021-04-29] MEDS: Losartan 50 MG TAB PO (09:11)
[2021-04-29] MEDS: Enoxaparin 40 MG/0.4 ML SYR SC (09:11)
[2021-04-29] MEDS: Cholecalciferol (Vitamin D3) 1,000 UNIT TAB 2000 UNITS PO (09:11)
[2021-04-29] MEDS: Dexamethasone 4 MG/ML VIAL 6 MG IVP (09:11)
[2021-04-29] MEDS: Furosemide 40 MG/4 ML VIAL IVP (09:12)
[2021-04-29] MEDS: Psyllium PKT 1 EACH PO (09:12)
[2021-04-29] MEDS: Ascorbic Acid 500 MG TAB 1000 MG PO ×2 (09:23→20:51)
--- NOTE | 2021-04-29 10:25 | NUR.NOTE ---
Bialteral lower extremity ultrasound is being performed in room.Nursing Note:
--- NOTE | 2021-04-29 10:41 | PDOC.CMPRO ---
Care Management Progress Note S/O: Boy was lying in bed, having LE US completed when CM observed him. CM spoke with Boy's son Chris who reported his mom, and Boy's , Vi is home with AMBROCIO as well and very sick, on oxygen and being closely monitored by family. Boy is a big fan of the [employer] football team, who are playing in the [employer] game tomorrow; Chris is a beater head, CM agreed to support Boy in being able to listen or watch the game from his phone, laptop or radio. [employer] will have the game live and [employer] radio will, as well. Boy's RN, Josiah reported Boy was able to speak to him, and hiflo O2 was being set up for when ultrasounds were completed. CM continues to follow. A: 61 year old male admitted to [facility] 04/27/21 for COVID-19, acute hypoxic respiratory failure P: Anticipate Boy will return home when medically cleared. Unclear if services will be indicated at this time, anticipate further evaluations to determine need. He will be transported home via private vehicle by family. He will follow up with his PCP and discharge plan of care. CM will continue to follow.
--- NOTE | 2021-04-29 10:41 | W.PULMCC ---
General Date of Service Date of service: 04/29/21 Time of Service: 07:50 Assessment and Plan Assessment and plan (1) Pneumonia due to COVID-19 virus: Status: Acute (2) Thrombocytopenia: Status: Chronic (3) Hypocalcemia: Status: Acute (4) Hypokalemia: Status: Acute (5) Acute respiratory failure with hypoxia: Status: Acute (6) Langerhans cell histiocytoses: Status: Acute (7) Vitamin D deficiency: Status: Chronic (8) Thrombocytopenia: Status: Chronic (9) Prediabetes: Status: Chronic Assessment and plan: This is a 61 yo critically ill gentleman admitted to the ICU for acute hypoxemic respiratory failure requiring CPAP for COVID and bacterial pneumonia. He does not have evidence of VTE at this time, however his d-dimer did increase today so I recommended 4 extremity Duplex studies to r/o clot, which were negative. He does pose and increased risk of bleeding due to his chronic thombocytopenia, however given that COVID is notoriusly pro-thrombotic, I do recommend chemical DVT prophylaxis - but not empiric A/C despite the severity of his illness. He is on appropriate antibiotics and an maximal medical therapy for COVID at this time. Recommendations Pulmonary: Acute hypoxic respiratory failure - recommend CPAP at night and as needed throughout the day - recommend HFNC during the day to facilitate out of bed to chair and nutrition - recommend IS and VibraPEP - recommend proning as much as able - recommend discontinuing Luna to facilitate ambulation - can consider albuterol neb/albuterol HFA as needed Cardiac: No acute concerns Renal: No acute concerns - monitor I/O - D/C Luna as above Hypokalemia - replete to 4.0 Hypocalcemia - replete as needed Vitamin D def - supplementation I&O: Intake & Output 04/26/21 04/27/21 04/28/21 04/29/21 23:59 23:59 23:59 23:59 Intake Total 1100 / 1120 2747.5 / 2747.5 150 / 150 Output Total 950 / 950 1250 / 1250 Balance 1100 / 1120 1797.5 / 1797.5 -1100 / -1100 Weight 122.4 kg 123.6 kg 123.7 kg Daily Fluid Goal:: Negative fluid balance (- 1L) GI Nutrition: Ok for regular diet Date of Last Bowel Movement: 04/25/21 Infectious Disease: COVID-19 - on remdesivir, decadron and barctinib - no VTE - no hemodynamic instability Bacterial pneumonia - agree with empiric ceftriaxone and azithromycin - would give 5 day course Hematologic: Langerhans histiocytosis with thrombocytopenia - advise against empiric therapeutic anticoagulation - recommend chemical DVT ppx - monitor daily labs - if platelets drop below 20 then I would hold DVT ppx until they recover Neurologic: No acute concerns Endocrine: Monitor glucose levels given steroids Lines: PIV Prophylaxis: Lovenox Famotidine Code Status: Resuscitation Status Full Code Subjective Critical and life-threatening events over the past 24 hours: This is a 61 yo man with obesity and histiocytosis who is unvaccinated and found to have COVID-19. On initial presentation he was critically ill requiring 100% CPAP 18. His inflammatory markers were elevated and there was significant suspicion for a bacterial pneumonia as well and so was placed on empiric CAP coverage. Due to his histiocytosis he has chronic thrombocytopenia (60's) and so chemical DVT ppx was initially held out of concern for bleeding. His Chest CT does not show any PE but does show significant COVID pneumonia. He was started on Decadron, remdesivir and barcitinib for his COVID and placed on CPAP and sent to the ICU. He did show improvements over the following day with modest improvements on his CPAP settings. On my assessment the patient was on CPAP and proning comfortably. He told me his breathing was easier then it had been. When asked why he hadnt received the COVID vaccine he responded just did not get to it yet. He has not been eating as he has not spent a sufficient time off of CPAP thus far. Exam Const General: no acute distress Nutritional Appearance: obese [facility] Head: normocephalic Ears: external ears normal and no periauricular adenopathy General nose exam: nasal mucous membranes and turbinates normal Face and sinus: sinuses nontender Mouth: oropharynx normal and moist mucous membranes Teeth and gingiva: dentition normal Eyes General: appearance normal, both eyes and all related structures Pupils: PERRL Neck Neck: normal visual inspection and no lymphadenopathy Chest Chest: normal inspection of the chest Resp Effort & Inspection: normal respiratory effort Auscultation: diminished lung sounds, rales, no rhonchi and no wheezes Cardio Rate: regular rate Rhythm: regular rhythm Heart Sounds: S1 normal, S2 normal and no murmurs Pulses: radial pulses present bilaterally GI Inspection: normal to inspection Palpation: soft Skin General skin exam: no rashes or lesions noted Neuro General: patient alert, patient awake and patient oriented x3 Extrem General: no clubbing, cyanosis or edema Psych Mental Status: mental status grossly normal Affect: normal affect Attitude: cooperative Most Recent VS/Results Last Vital Signs Temp 36.0 C L 04/29/21 09:30 Pulse 85 04/29/21 09:30 Resp 26 H 04/29/21 09:30 BP 144/72 H 04/29/21 09:30 Pulse Ox 92 04/29/21 09:30 Laboratory Results - last 24 hr 04/29/21 04/29/21 04/29/21 06:44 06:44 06:44 WBC 13.58 H D RBC 3.69 L Hgb 11.2 L Hct 33.7 L MCV 91.3 MCH 30.4 MCHC 33.2 RDW 13.7 Plt Count 51 L MPV Immature Gran % 5.8 Neutrophils % 78.2 Lymphocytes % 6.8 Monocytes % 9.0 Eosinophils % 0.1 Basophils % 0.1 Nucleated RBC % 0 Absolute Neutrophils 10.62 H Absolute Lymphocytes 0.92 L Absolute Monocytes 1.22 H Absolute Eosinophils 0.01 Absolute Basophils 0.01 RBC Morphology See Below Polychromasia Present Basophilic Stippling Present D-Dimer 2324 H Sodium 140 Potassium 3.4 L Chloride 103 Carbon Dioxide 27.4 Anion Gap 9.6 BUN 48 H D Creatinine 1.3 Estimated GFR/1.73 m2 56.50 Glucose 225 H Calcium 6.9 L Total Bilirubin 0.4 AST 38 H ALT 53 Alkaline Phosphatase 56 C-Reactive Protein 11.10 H Total Protein 6.6 Albumin 2.4 L Review of Systems All systems reviewed & are unremarkable except as noted in HPI and below
--- NOTE | 2021-04-29 10:50 | NUR.NOTE ---
Ultrasound of bilateral upper extremities continues. vascular ultrasound technologist is performing ultrasound on upper extremities and lower extremities.Nursing Note:
--- NOTE | 2021-04-29 10:56 | NUR.NOTE ---
Respiratory therapist assesses patient and determines patient's CPAP mask is too big. Respiratory therapist to apply smaller mask.Nursing Note:
--- NOTE | 2021-04-29 11:03 | NUR.NOTE ---
RN sends RT a SNPP message requesting a smaller CPAP mask be delivered to ICU stat. Patient's 02 sat is now 82%.Nursing Note:
--- NOTE | 2021-04-29 11:18 | DI.US_ITS ---
Exam(s) US UPPER EXTREMITY VENOUS LT US UPPER EXTREMITY VENOUS RT EXAM: US UPPER EXTREMITY VENOUS bilateral CLINICAL HISTORY: elevated d dimer, covid pneumonia. TECHNIQUE: Ultrasound examination of both upper extremity venous system(s) is performed using graysc lida, color-flow, and spectral Doppler analysis. COMPARISON: No previous for comparison. FINDINGS: The right internal jugular, axillary, subclavian, cephalic, basilic, brachial and median cubital vein s are patent without evidence of thrombosis. IMPRESSION: No evidence of DVT in either upper extremity. DATA REPOSITORY:
--- NOTE | 2021-04-29 11:19 | W.NUTRFU ---
Date of service: 04/29/21 Time of Service: 11:19 Nutritional Follow up NOTE: Mr. Lanza is admitted with Covid pneumonia. He is 173 cm and 123.7 kg. His BMI is 41.5 kg/m2 c/w class 3 obesity. His most recent A1C is 6.5 which is c/w diabetes. Blood sugars have been above target, likely aggravated by prednisone. Will continue to follow weight and PO intake and any pertinent labs. Will evaluate nutrition care plan ongoing and adjust as needed. Time Spent in Nutritional Counseling and Treatment: 0
[2021-04-29] MEDS: Albuterol/Ipratropium 3 ML UPD VIAL UPD ×2 (13:10→18:33)
--- NOTE | 2021-04-29 13:12 | PGE_ITS ---
Date of Service Date of service: 04/29/21 Time of Service: 15:59 Assessment and Plan Assessment and plan (1) Pneumonia due to COVID-19 virus: Status: Acute Assessment and plan: with acute hypoxic respiratory failure. SOFA score 8: predicts <=33.3 % mortality. 4C Mortality score is 9: 31.4-34.9% mortality predicted on this hospitalization. Given a borderline elevated procalcitonin, cannot rule out an additional bacterial process. Continue remdesivir, dexamethasone, baricitinib, and empiric ceftriaxone/doxycycline. Repeat procal in AM D Dimer increased (doubled), CRP decreased by 1/2. Concerning for possible DVT/pulmonary embolism. Venous US of all 4 exts negative for DVT. Provide vitamin C and D supplementation. Encourage proning. Doing well with CPAP with breaks on high flow. Full code. Will wean O2 as tolerated (2) Acute respiratory failure with hypoxia: Status: Acute Assessment and plan: As above (3) Thrombocytopenia: Status: Chronic Assessment and plan: Acute on chronic. JACKLYN yeager on admission. Plan was to avoid chemical prophylaxis but given elevation of D-dimer, decrease in CRP, Lovenox 40mg SC given. Venous US of exts was negative. Could potentially have pelvic DVT. Monitor platelets closely. (4) Hypokalemia: Status: Acute Assessment and plan: Repleted; normal magnesium. (5) Hypocalcemia: Status: Acute Assessment and plan: Replete. On Vit D supp. Mg normal. Monitor (6) DVT prophylaxis: Status: Acute Assessment and plan: TEDs to continue but also initiated Lovenox 40mg SC daily; Dr Macias recommendation. Stop lovenox for evidence of bleeding or significant decrease in platelets. (7) Discharge planning issues: Status: Acute Assessment and plan: Full code Admit to ICU. Subjective Subjective Patient reports: tolerating a regular diet and afebrile; denies nausea and vomi ting Interval history since last seen: Wearing BiPAP and proning intermittently. Ambulates from bed to chair. Exam Narrative Exam Narrative: Obese male / in prone position with CPAP mask. Pulse 80 - 91. High Flow NC at 82% FIO2, Flow Rate of 60%; 91% saturation. With CPAP FIO2 of 70% with O2 sat. of 96%. Const General: no acute distress Nutritional Appearance: obese Resp Effort & Inspection: normal respiratory effort Objective Last Vital Signs Temp 36.1 C L 04/29/21 12:04 Pulse 84 04/29/21 12:17 Resp 22 04/29/21 12:17 BP 150/97 H 04/29/21 12:04 Pulse Ox 93 04/29/21 12:17 Laboratory Results - last 24 hr 04/29/21 04/29/21 04/29/21 06:44 06:44 06:44 WBC 13.58 H D RBC 3.69 L Hgb 11.2 L Hct 33.7 L MCV 91.3 MCH 30.4 MCHC 33.2 RDW 13.7 Plt Count 51 L MPV Immature Gran % 5.8 Neutrophils % 78.2 Lymphocytes % 6.8 Monocytes % 9.0 Eosinophils % 0.1 Basophils % 0.1 Nucleated RBC % 0 Absolute Neutrophils 10.62 H Absolute Lymphocytes 0.92 L Absolute Monocytes 1.22 H Absolute Eosinophils 0.01 Absolute Basophils 0.01 RBC Morphology See Below Polychromasia Present Basophilic Stippling Present D-Dimer 2324 H Sodium 140 Potassium 3.4 L Chloride 103 Carbon Dioxide 27.4 Anion Gap 9.6 BUN 48 H D Creatinine 1.3 Estimated GFR/1.73 m2 56.50 Glucose 225 H Calcium 6.9 L Total Bilirubin 0.4 AST 38 H ALT 53 Alkaline Phosphatase 56 C-Reactive Protein 11.10 H Total Protein 6.6 Albumin 2.4 L
[2021-04-29] MEDS: cefTRIAXone 2 GM/50 ML BAG IVPB (15:56)
[2021-04-30] VITALS (90 sets, daily range): BP systolic 94–176; BP diastolic 37–109; PULSE 59–98; RESP 0–34; TEMP 34–37.2; O2SAT 73–98
[2021-04-30] MEDS: DOXYCYCLINE 100 MG in Normal Saline 100 ML IVPB ×2 (04:30→15:21)
[2021-04-30] MEDS: FAMOTIDINE 20 MG/50 ML BAG 200 MG IVPB ×2 (06:16→15:20)
[2021-04-30] MEDS: Levothyroxine 200 MCG TAB PO (06:16)
[2021-04-30 07:07] LABS: HCT 32.7 % (40.0-50.0); HGB 10.8 g/dL (13.5-17.5); MCH 30.5 pg (27.0-33.0); MCV 92.4 fL (80-95); Nucleated RBC 0 %; Platelet Count 59 10^3/uL (130-400); RBC 3.54 10^6/uL (4.36-5.78); RDW 13.9 % (11.8-14.1); RDW-SD 47.3 fL; WBC 15.79 10^3/uL (4.4-10.8)
[2021-04-30 07:30] LABS: C-Reactive Protein 6.21 mg/dL (0.0-0.3)
[2021-04-30 07:31] LABS: ALT 77 U/L (16-63); AST 52 U/L (15-37); Albumin 2.5 g/dL (3.4-5.0); Alkaline Phosphatase 59 U/L (46-116); Anion Gap 8.2 mmol/L (3-11); BUN 42 mg/dL (7-18); Bilirubin, Total 0.5 mg/dL (0.2-1.0); CO2 29.8 mmol/L (21.0-32.0); CREATININE 1.2 mg/dL (0.70-1.30); Calcium 6.9 mg/dL (8.5-10.1); Chloride 106 mmol/L (98-107); Glucose 135 mg/dL (74-106); Potassium 3.8 mmol/L (3.5-5.1); Sodium 144 mmol/L (136-145); Total Protein 6.6 g/dL (6.4-8.2)
[2021-04-30 07:43] LABS: Absolute Lymphocyte Count 1.11 10^3/uL (1.2-3.4); Absolute Monocyte Count 1.74 10^3/uL (0.1-0.8); Absolute Neutrophil Count 12.47 10^3/uL (1.2-6.7); Atypical Lymphocytes % 1; Bands % 7
[2021-04-30 07:44] LABS: Diff Comment Manual Differential; Metamyelocytes % 3; RBC Morphology Normal
[2021-04-30 07:46] LABS: D-Dimer 1948 ng/mlFEU (<500)
[2021-04-30 07:55] LABS: Procalcitonin 0.1 ng/mL
[2021-04-30] MEDS: Enoxaparin 40 MG/0.4 ML SYR SC (08:06)
[2021-04-30] MEDS: Dexamethasone 4 MG/ML VIAL 6 MG IVP (08:06)
[2021-04-30] MEDS: amLODIPine 10 MG TAB PO (08:07)
[2021-04-30] MEDS: Ascorbic Acid 500 MG TAB 1000 MG PO ×2 (08:08→21:19)
[2021-04-30] MEDS: Calcium Carbonate *TUMS* 500 MG CHEW 1000 MG PO ×2 (08:10→21:20)
[2021-04-30] MEDS: Calcitriol 0.25 MCG CAP 0.5 MCG PO ×2 (08:10→21:20)
[2021-04-30] MEDS: Losartan 50 MG TAB PO (08:10)
[2021-04-30] MEDS: Psyllium PKT 1 EACH PO (08:11)
[2021-04-30] MEDS: Cholecalciferol (Vitamin D3) 1,000 UNIT TAB 2000 UNITS PO (08:11)
--- NOTE | 2021-04-30 08:38 | W.PM.PROGNOT ---
Date of Service Date of service: 04/30/21 Time of Service: 11:34 Assessment and Plan Assessment and plan (1) Pneumonia due to COVID-19 virus: Status: Acute Assessment and plan: with acute hypoxic respiratory failure. Not improving, but stable at this time. Will try to avoid intubation by Continuing CPAP as much as possible and proning. Continue remdesivir, dexamethasone, baricitinib, and empiric ceftriaxone/doxycycline. Will provide antitussives and melatonin. Provide vitamin C and D supplementation. Keep in ICU. I have discussed the patient's condition and prognosis (that he might still require intubation) with him, he verbalized understanding. (2) Acute respiratory failure with hypoxia: Status: Acute Assessment and plan: As above (3) Thrombocytopenia: Status: Chronic Assessment and plan: Tolerating SQ lovenox - plt count is actually going up. (4) Hypokalemia: Status: Resolved Assessment and plan: Recheck in am (5) Hypocalcemia: Status: Acute Assessment and plan: Replete and check magnesium (6) DVT prophylaxis: Status: Acute Assessment and plan: lovenox while carefully monitoring plts (7) Discharge planning issues: Status: Acute Assessment and plan: Full code Keep in ICU. Total Critical care Time 60 minutes. Subjective Subjective Interval history since last seen: Mr Lanza states he is doing better. He denied headache, chest pain, felt less short of breath, denied nausea. Requested something to help with the cough and to help him sleep. Has been proning as well as laying on the side. Current on CPAP. On high flow this morning w/ max FiO2 - sats in the 80s while trying to eat. Overnight, proned while on CPAP (FiO2 70%), sats in low 90s. We discussed how he is not out of the tinajero, but not getting intubated right now/today. Exam Narrative Exam Narrative: General: Middle-aged Obese male, laying on his L side on CPAP, no evidence of dyspnea/tachypnea/cyanosis. CPAP settings: pressure 16, FiO2 70%. Neurological: A&Ox3, no obvious focal deficits HEENT: Wearing CPAP mask, EOMI, MMM from what I am able to tell from behind the mask Cardiovascular: RRR, no m/r/g Lungs: CTAB while laying on L side Gastrointestinal: Soft, nontender, nondistended Extremities: +1 BLE edema, wearing TEDS, 1+ pedal pulse B Objective Last Vital Signs Temp 37.1 C 04/30/21 04:15 Pulse 96 H 04/30/21 06:00 Resp 30 H 04/30/21 05:30 BP 120/63 04/30/21 06:00 Pulse Ox 93 04/30/21 06:01 Laboratory Results - last 24 hr 04/30/21 04/30/21 04/30/21 06:30 06:30 06:30 WBC RBC Hgb Hct MCV MCH MCHC RDW Plt Count MPV Immature Gran % Neutrophils % Band Neutrophils % Lymphocytes % Atypical Lymphs % Monocytes % Eosinophils % Basophils % Metamyelocytes % Nucleated RBC % Absolute Neutrophils Absolute Lymphocytes Absolute Monocytes Absolute Eosinophils Absolute Basophils RBC Morphology D-Dimer 1948 H Sodium Potassium Chloride Carbon Dioxide Anion Gap BUN Creatinine Estimated GFR/1.73 m2 Glucose Calcium Total Bilirubin AST ALT Alkaline Phosphatase C-Reactive Protein 6.21 H Total Protein Albumin Procalcitonin 0.1 04/30/21 04/30/21 06:30 06:30 WBC 15.79 H RBC 3.54 L Hgb 10.8 L Hct 32.7 L MCV 92.4 MCH 30.5 MCHC 33.0 RDW 13.9 Plt Count 59 L MPV Immature Gran % 0.0 Neutrophils % 72.0 Band Neutrophils % 7 Lymphocytes % 6.0 Atypical Lymphs % 1 Monocytes % 11.0 Eosinophils % 0.0 Basophils % 0.0 Metamyelocytes % 3 Nucleated RBC % 0 Absolute Neutrophils 12.47 H Absolute Lymphocytes 1.11 L Absolute Monocytes 1.74 H Absolute Eosinophils 0.00 Absolute Basophils 0.00 RBC Morphology Normal D-Dimer Sodium 144 Potassium 3.8 Chloride 106 Carbon Dioxide 29.8 Anion Gap 8.2 BUN 42 H Creatinine 1.2 Estimated GFR/1.73 m2 >= 60.00 Glucose 135 H D Calcium 6.9 L Total Bilirubin 0.5 AST 52 H ALT 77 H Alkaline Phosphatase 59 C-Reactive Protein Total Protein 6.6 Albumin 2.5 L Procalcitonin
[2021-04-30] MEDS: Benzonatate 200 MG CAP PO ×3 (10:20→21:19)
[2021-04-30] MEDS: Ipratropium/Albuterol 4 GM 120 PUFF INH IH ×4 (10:32→21:20)
[2021-04-30] MEDS: guaiFENesin/CODEINE PHOSPHATE 10 ML CUP 5 ML PO (13:30)
--- NOTE | 2021-04-30 14:23 | NUR.NOTE ---
RN attempts placement of new IV without success.Nursing Note:
[2021-04-30] MEDS: cefTRIAXone 2 GM/50 ML BAG IVPB (15:56)
[2021-04-30] MEDS: Insulin Aspart 300 UNITS/3 ML PEN SC ×2 (17:22→21:20)
--- NOTE | 2021-04-30 18:01 | NUR.NOTE ---
Patient on CPAP FI02 is 65% with pressure of 16. Patient feeling better today.Nursing Note:
[2021-04-30] MEDS: Melatonin 3 MG TAB PO (21:20)
[2021-05-01] VITALS (81 sets, daily range): BP systolic 102–138; BP diastolic 51–82; PULSE 60–97; RESP 13–78; TEMP 31–36.9; O2SAT 81–96
[2021-05-01] MEDS: DOXYCYCLINE 100 MG in Normal Saline 100 ML IVPB ×2 (06:35→17:45)
[2021-05-01] MEDS: Levothyroxine 200 MCG TAB PO (06:36)
[2021-05-01 07:04] LABS: HCT 34.9 % (40.0-50.0); HGB 11.4 g/dL (13.5-17.5); MCH 30.2 pg (27.0-33.0); MCHC 32.7 % (32.0-36.0); MCV 92.6 fL (80-95); MPV 13.6 fL (8.0-11.0); Nucleated RBC 0 %; Platelet Count 68 10^3/uL (130-400); RBC 3.77 10^6/uL (4.36-5.78); RDW 13.9 % (11.8-14.1); RDW-SD 47.1 fL; WBC 18.85 10^3/uL (4.4-10.8)
[2021-05-01 07:21] LABS: ALT 94 U/L (16-63); AST 48 U/L (15-37); Albumin 2.6 g/dL (3.4-5.0); Alkaline Phosphatase 61 U/L (46-116); Anion Gap 8.8 mmol/L (3-11); BUN 39 mg/dL (7-18); Bilirubin, Direct 0.2 mg/dL (0.0-0.2); Bilirubin, Total 0.5 mg/dL (0.2-1.0); CO2 29.2 mmol/L (21.0-32.0); CREATININE 1.1 mg/dL (0.70-1.30); Calcium 6.9 mg/dL (8.5-10.1); Chloride 106 mmol/L (98-107); Glucose 119 mg/dL (74-106); Potassium 3.8 mmol/L (3.5-5.1); Sodium 144 mmol/L (136-145); Total Protein 6.6 g/dL (6.4-8.2)
[2021-05-01] MEDS: Ipratropium/Albuterol 4 GM 120 PUFF INH IH ×3 (07:25→17:10)
[2021-05-01 07:26] LABS: C-Reactive Protein 3.53 mg/dL (0.0-0.3); Creatine Kinase 170 U/L (39-308)
[2021-05-01 07:40] LABS: Absolute Lymphocyte Count 2.26 10^3/uL (1.2-3.4); Absolute Monocyte Count 3.02 10^3/uL (0.1-0.8); Absolute Neutrophil Count 13.57 10^3/uL (1.2-6.7); Atypical Lymphocytes % 2; Bands % 3; Diff Comment Manual Differential
[2021-05-01] MEDS: amLODIPine 10 MG TAB PO (07:44)
[2021-05-01] MEDS: Ascorbic Acid 500 MG TAB 1000 MG PO ×2 (07:44→19:51)
[2021-05-01] MEDS: Calcitriol 0.25 MCG CAP 0.5 MCG PO ×2 (07:45→19:51)
[2021-05-01] MEDS: Benzonatate 200 MG CAP PO ×3 (07:45→19:51)
[2021-05-01] MEDS: Cholecalciferol (Vitamin D3) 1,000 UNIT TAB 2000 UNITS PO (07:46)
[2021-05-01] MEDS: Dexamethasone 4 MG/ML VIAL 6 MG IVP (07:46)
[2021-05-01] MEDS: Enoxaparin 40 MG/0.4 ML SYR SC (07:47)
[2021-05-01] MEDS: Losartan 50 MG TAB PO (07:48)
[2021-05-01] MEDS: FAMOTIDINE 20 MG/50 ML BAG 200 MG IVPB ×2 (07:48→19:52)
[2021-05-01] MEDS: Psyllium PKT 1 EACH PO (07:50)
[2021-05-01 07:51] LABS: Ferritin 671 ng/mL (26-388)
--- NOTE | 2021-05-01 08:10 | W.PM.PROGNOT ---
Date of Service Date of service: 05/01/21 Time of Service: 10:23 Assessment and Plan Assessment and plan (1) Pneumonia due to COVID-19 virus: Status: Acute Assessment and plan: with acute hypoxic respiratory failure. Slight improvement since yesterday. Continuing CPAP, while weaning pressures and FIO2, and proning. Continue remdesivir, dexamethasone, baricitinib, and empiric ceftriaxone/doxycycline (to complete a 5 day course of abx). Continue antitussives and melatonin. Continue vitamin C and D supplementation. Keep in ICU. I have discussed the patient's condition (slightly improved) and prognosis with the patient. (2) Acute respiratory failure with hypoxia: Status: Acute Assessment and plan: As above (3) Thrombocytopenia: Status: Chronic Assessment and plan: Tolerating SQ lovenox - plt count is actually going up. Continue to monitor. (4) Hypokalemia: Status: Resolved Assessment and plan: Recheck in am (5) Hypocalcemia: Status: Acute Assessment and plan: Replete and check magnesium (6) DVT prophylaxis: Status: Acute Assessment and plan: lovenox while carefully monitoring plts (7) Discharge planning issues: Status: Acute Assessment and plan: Full code Keep in ICU. Total Critical care Time 45 minutes. Subjective Subjective Interval history since last seen: Mr Lanza states he is feeling better (to me). I'm going to make it! Denies dizziness, chest pain, pain anywhere, nausea. Endorses a little shortness of breath. CPAP 65% saturating 96% PEEP 16 overnight. Proning. Both FiO2 and PEEP were decreased to 60%, PEEP of 14 this am. Good UOP. Exam Narrative Exam Narrative: Patient was examined while proning General: Middle-aged Obese male, laying on left side/abdomen, CPAP on, no evidence of dyspnea/tachypnea/cyanosis. CPAP settings: pressure 14, FiO2 60%. Neurological: A&Ox3, no obvious focal deficits HEENT: Wearing CPAP mask, EOMI, MMM Cardiovascular: RRR, auscultated posteriorly Lungs: CTAB Gastrointestinal: Soft, nontender, nondistended Extremities: trace BLE edema, wearing TEDS, 1+ pedal pulse B Objective Last Vital Signs Temp 36.6 C 05/01/21 05:00 Pulse 88 05/01/21 07:46 Resp 24 05/01/21 07:46 BP 102/59 L 10/24/21 05:00 Pulse Ox 96 05/01/21 07:46 Laboratory Results - last 24 hr 05/01/21 05/01/21 05/01/21 06:25 06:25 06:40 WBC 18.85 H RBC 3.77 L Hgb 11.4 L Hct 34.9 L MCV 92.6 MCH 30.2 MCHC 32.7 RDW 13.9 Plt Count 68 L MPV 13.6 H Immature Gran % 0.0 Neutrophils % 69.0 Band Neutrophils % 3 Lymphocytes % 10.0 Atypical Lymphs % 2 Monocytes % 16.0 Eosinophils % 0.0 Basophils % 0.0 Nucleated RBC % 0 Absolute Neutrophils 13.57 H Absolute Lymphocytes 2.26 Absolute Monocytes 3.02 H Absolute Eosinophils 0.00 Absolute Basophils 0.00 Sodium 144 Potassium 3.8 Chloride 106 Carbon Dioxide 29.2 Anion Gap 8.8 BUN 39 H Creatinine 1.1 Estimated GFR/1.73 m2 >= 60.00 Glucose 119 H Calcium 6.9 L Magnesium 2.0 Ferritin 671 H Total Bilirubin 0.5 Conjugated Bilirubin 0.2 AST 48 H ALT 94 H Alkaline Phosphatase 61 Creatine Kinase 170 C-Reactive Protein 3.53 H Total Protein 6.6 Albumin 2.6 L
[2021-05-01 08:28] LABS: D-Dimer 1991 ng/mlFEU (<500)
--- NOTE | 2021-05-01 10:24 | NUR.NOTE ---
Calcium carb Tums is actually given after speaking with .Nursing Note:
[2021-05-01] MEDS: Calcium Carbonate *TUMS* 500 MG CHEW (10:28)
--- NOTE | 2021-05-01 10:31 | NUR.NOTE ---
Although documented as given Amlodipine was not given per MD order.Nursing Note:
[2021-05-01] MEDS: Insulin Aspart 300 UNITS/3 ML PEN SC ×2 (13:51→18:11)
[2021-05-01] MEDS: Normal Saline 500 ML IV (16:00)
[2021-05-01] MEDS: cefTRIAXone 2 GM/50 ML BAG IVPB (16:05)
[2021-05-01] MEDS: Calcium Carbonate *TUMS* 500 MG CHEW 1000 MG PO (19:51)
[2021-05-01] MEDS: Melatonin 3 MG TAB PO (19:52)
[2021-05-02] VITALS (105 sets, daily range): BP systolic 99–135; BP diastolic 53–82; PULSE 0–97; RESP 14–50; TEMP 35.9–37.4; O2SAT 74–97
[2021-05-02] MEDS: Levothyroxine 200 MCG TAB PO (05:00)
[2021-05-02] MEDS: DOXYCYCLINE 100 MG in Normal Saline 100 ML IVPB ×2 (05:00→16:59)
[2021-05-02 07:12] LABS: HCT 32.8 % (40.0-50.0); HGB 10.9 g/dL (13.5-17.5); MCH 29.7 pg (27.0-33.0); MCHC 33.2 % (32.0-36.0); MCV 89.4 fL (80-95); RBC 3.67 10^6/uL (4.36-5.78); RDW 13.8 % (11.8-14.1); RDW-SD 45.1 fL; WBC 24.65 10^3/uL (4.4-10.8)
[2021-05-02 07:24] LABS: C-Reactive Protein 2.42 mg/dL (0.0-0.3); Magnesium 1.9 mg/dL (1.8-2.4)
[2021-05-02 07:25] LABS: ALT 99 U/L (16-63); AST 44 U/L (15-37); Albumin 2.3 g/dL (3.4-5.0); Alkaline Phosphatase 58 U/L (46-116); Anion Gap 7.3 mmol/L (3-11); BUN 31 mg/dL (7-18); Bilirubin, Direct 0.2 mg/dL (0.0-0.2); Bilirubin, Total 0.6 mg/dL (0.2-1.0); CO2 29.7 mmol/L (21.0-32.0); Calcium 6.5 mg/dL (8.5-10.1); Chloride 106 mmol/L (98-107); Glucose 103 mg/dL (74-106); Potassium 3.6 mmol/L (3.5-5.1); Sodium 143 mmol/L (136-145); Total Protein 6.1 g/dL (6.4-8.2)
[2021-05-02 07:47] LABS: Absolute Lymphocyte Count 0.99 10^3/uL (1.2-3.4); Absolute Monocyte Count 2.71 10^3/uL (0.1-0.8); Absolute Neutrophil Count 18.73 10^3/uL (1.2-6.7); Bands % 1; Metamyelocytes % 4; Myelocytes % 5; Nucleated RBC 1 %; Platelet Count 70 10^3/uL (130-400)
[2021-05-02 07:48] LABS: D-Dimer 2105 ng/mlFEU (<500); Diff Comment Manual Differential; RBC Morphology Normal
[2021-05-02 07:52] LABS: Ferritin 622 ng/mL (26-388)
--- NOTE | 2021-05-02 08:19 | W.PM.PROGNOT ---
Date of Service Date of service: 05/02/21 Time of Service: 11:20 Assessment and Plan Assessment and plan (1) Pneumonia due to COVID-19 virus: Status: Acute Assessment and plan: with acute hypoxic respiratory failure. No significant improvement since yesterday. Given +1 edema BLE's (with negative dopplers on 04/29), will trial a dose of lasix 40 mg IV to see if this improves the oxygen requirement. Continuing CPAP, while weaning pressures and FIO2, and proning. Continue remdesivir, dexamethasone, baricitinib. Finish abx today. Continue antitussives and melatonin. Continue vitamin C and D supplementation. Keep in ICU. Discussed with Dr Macias. (2) Acute respiratory failure with hypoxia: Status: Acute Assessment and plan: As above (3) Thrombocytopenia: Status: Chronic Assessment and plan: Tolerating SQ lovenox - plts still going up. Continue to monitor. (4) Hypokalemia: Status: Resolved Assessment and plan: Recheck in am (5) Hypocalcemia: Status: Acute Assessment and plan: Replete and recheck in am (6) Vitamin D deficiency: Status: Acute Assessment and plan: Replete (7) DVT prophylaxis: Status: Acute Assessment and plan: lovenox while carefully monitoring plts (8) Discharge planning issues: Status: Acute Assessment and plan: Full code Keep in ICU. Total Critical care Time 45 minutes. Subjective Subjective Interval history since last seen: Mr Lanza states to me that he is feeling better. Reports a cough - unsure of color of sputum. No dizziness, chest pain, nausea. On CPAP w/ FiO2 65%, PEEP of 16. Needed FiO2 of 75% when desatted with activity (was desturating to mid-80s). 85% sats right now when trying to move this am. Proned for two hrs. Minimal turning from side to side overnight. BP/HR ok. The patient verbalizes understanding that he needs to not be on his back, that he should be proning/turning side to side. Exam Narrative Exam Narrative: General: Middle-aged Obese male, laying on his back, CPAP on, no evidence of dyspnea/tachypnea/cyanosis, but does not look as energetic as yesterday. Neurological: A&Ox3, no obvious focal deficits HEENT: Wearing CPAP mask, EOMI, MMM Cardiovascular: RRR Lungs: Very diminished breath sounds B Gastrointestinal: Soft, nontender, nondistended Extremities: +1 BLE edema, wearing TEDS (I took them off), 1+ pedal pulse B Objective Last Vital Signs Temp 37.4 C 05/02/21 00:00 Pulse 67 05/02/21 05:00 Resp 26 H 05/02/21 05:05 BP 100/53 L 05/02/21 05:00 Pulse Ox 95 05/02/21 05:05 Laboratory Results - last 24 hr 05/01/21 05/02/21 05/02/21 06:25 06:42 06:42 WBC RBC Hgb Hct MCV MCH MCHC RDW Plt Count MPV Immature Gran % Neutrophils % Band Neutrophils % Lymphocytes % Monocytes % Eosinophils % Basophils % Metamyelocytes % Myelocytes % Nucleated RBC % Absolute Neutrophils Absolute Lymphocytes Absolute Monocytes Absolute Eosinophils Absolute Basophils RBC Morphology D-Dimer 1990 H 2105 H Sodium Potassium Chloride Carbon Dioxide Anion Gap BUN Creatinine Estimated GFR/1.73 m2 Glucose Calcium Magnesium 1.9 Ferritin 622 H Total Bilirubin Conjugated Bilirubin AST ALT Alkaline Phosphatase C-Reactive Protein 2.42 H Total Protein Albumin 05/02/21 05/02/21 06:42 06:42 WBC 24.65 H D RBC 3.67 L Hgb 10.9 L Hct 32.8 L MCV 89.4 MCH 29.7 MCHC 33.2 RDW 13.8 Plt Count 70 L MPV 14.0 H Immature Gran % See Differential Neutrophils % 75.0 Band Neutrophils % 1 Lymphocytes % 4.0 Monocytes % 11.0 Eosinophils % 0.0 Basophils % 0.0 Metamyelocytes % 4 Myelocytes % 5 Nucleated RBC % 1 Absolute Neutrophils 18.73 H Absolute Lymphocytes 0.99 L Absolute Monocytes 2.71 H Absolute Eosinophils 0.00 Absolute Basophils 0.00 RBC Morphology Normal D-Dimer Sodium 143 Potassium 3.6 Chloride 106 Carbon Dioxide 29.7 Anion Gap 7.3 BUN 31 H Creatinine 1.0 Estimated GFR/1.73 m2 >= 60.00 Glucose 103 Calcium 6.5 L Magnesium Ferritin Total Bilirubin 0.6 Conjugated Bilirubin 0.2 AST 44 H ALT 99 H Alkaline Phosphatase 58 C-Reactive Protein Total Protein 6.1 L Albumin 2.3 L
[2021-05-02] MEDS: FAMOTIDINE 20 MG/50 ML BAG 200 MG IVPB ×2 (08:46→20:08)
[2021-05-02] MEDS: Psyllium PKT 1 EACH PO (08:46)
[2021-05-02] MEDS: Dexamethasone 4 MG/ML VIAL 6 MG IVP (08:46)
[2021-05-02] MEDS: Calcitriol 0.25 MCG CAP 0.5 MCG PO ×2 (08:47→20:06)
[2021-05-02] MEDS: Cholecalciferol (Vitamin D3) 1,000 UNIT TAB 2000 UNITS PO (08:47)
[2021-05-02] MEDS: Benzonatate 200 MG CAP PO ×3 (08:47→20:06)
[2021-05-02] MEDS: Calcium Carbonate *TUMS* 500 MG CHEW 1000 MG PO ×4 (08:47→20:06)
[2021-05-02] MEDS: Losartan 50 MG TAB PO (08:48)
[2021-05-02] MEDS: Ascorbic Acid 500 MG TAB 1000 MG PO ×2 (08:48→20:05)
[2021-05-02] MEDS: Enoxaparin 40 MG/0.4 ML SYR SC (08:48)
--- NOTE | 2021-05-02 09:40 | NUR.NOTE ---
PT used call [facility] to ring and notify staff that his IV was leaking in R arm. This IT INFRA[employer]CTURE ARCHITECT notified RN and RN is now in room assessing. Nursing Note:
--- NOTE | 2021-05-02 11:19 | NUR.NOTE ---
This narrative writer called medsurg floor per request of RN to let them know that there was an order put in for midline. Nursing Note:
--- NOTE | 2021-05-02 11:28 | CMPROGNOTE_ITS ---
- If Service Date Differs Date of service: 05/02/21 Time of Service: 11:28 Care Management Progress Note S/O: Per report, Boy continues to be closely monitored at ICU level of care. He is currently using a CPAP, and is at 70% FiO2. Per RN, he cannot hear well enough with the CPAP mask on to talk on the phone, but she has updated the family today. He remains on 'triple therapy' for Covid. CM will continue to follow. A: 61 year old male admitted to [facility] 04/27/21 for COVID-19, acute hypoxic re spiratory failure P: Anticipate Boy will return home when medically cleared. Unclear if services will be indicated at this time, anticipate further evaluations to determine need. He will be transported home via private vehicle by family. He will follow up with his PCP and discharge plan of care. CM will continue to follow.
--- NOTE | 2021-05-02 12:00 | PUCC_ITS ---
General Date of Service Date of service: 05/02/21 Time of Service: 07:30 Reason for Admission to ICU: COVID PNA Assessment and Plan Assessment and plan (1) Pneumonia due to COVID-19 virus: Status: Acute (2) Thrombocytopenia: Status: Chronic (3) Hypocalcemia: Status: Acute (4) Hypokalemia: Status: Resolved (5) Acute respiratory failure with hypoxia: Status: Acute (6) Langerhans cell histiocytoses: Status: Acute (7) Vitamin D deficiency: Status: Chronic (8) Prediabetes: Status: Chronic Assessment and plan: This is a 61 yo critically ill gentleman admitted to the ICU for acute hypoxemic respiratory failure requiring CPAP for COVID and bacterial pneumonia. He does not have evidence of VTE at this time, however his d-dimer did increase today so I recommended 4 extremity Duplex studies to r/o clot, which were negative. He does pose and increased risk of bleeding due to his chronic thombocytopenia, however given that COVID is notoriusly pro- thrombotic, I do recommend chemical DVT prophylaxis - but not empiric A/C despite the severity of his illness. He is on appropriate antibiotics and an maximal medical therapy for COVID at this time. Recommendations Pulmonary: Acute hypoxic respiratory failure - recommend CPAP at night and as needed throughout the day - recommend trying more HFNC during the day - recommend IS and VibraPEP - recommend proning as much as able - recommend discontinuing Luna to facilitate ambulation - can consider albuterol neb/albuterol HFA as needed Cardiac: No acute concerns Renal: No acute concerns - monitor I/O - agree with diuresis Hypokalemia - replete to 4.0 Hypocalcemia - replete as needed Vitamin D def - supplementation I&O: Intake & Output 04/29/21 04/30/21 05/01/21 05/02/21 23:59 23:59 23:59 23:59 Intake Total 910 / 910 1760 / 1760 1580.175 / 1580.175 100 / 100 Output Total 1999 3250 / 3250 1150 / 1150 Balance -1090 / -1090 -240 / -240 -1669.825 / -1669.825 -1050 / -1050 Weight 123.7 kg 114.6 kg Daily Fluid Goal:: Negative 1-2L in 24 hours GI Nutrition: Continue diet Date of Last Bowel Movement: 05/01/21 Infectious Disease: COVID-19 - on remdesivir, decadron and barctinib - no VTE - no hemodynamic instability Bacterial pneumonia - agree with empiric ceftriaxone and doxy - would give 5 day course Hematologic: Langerhans histiocytosis with thrombocytopenia - advise against empiric therapeutic anticoagulation - DVT studies of 4 extremities negative - recommend chemical DVT ppx - monitor daily labs - if platelets drop below 20 then I would hold DVT ppx until they recover Neurologic: No acute concerns Endocrine: Monitor glucose - steroids Lines: Recommend midline Prophylaxis: Lovenox, famotidine Code Status: Resuscitation Status Full Code Subjective Critical and life-threatening events over the past 24 hours: Is feeling about the same. He was on CPAP during my assessment of him this morning. He has spent the majority of his time on CPAP with short high flow nasal cannula breaks for eating. He also continues to prone well. His inflammatory markers are impr oving with the exception of his D-dimer which seems to be plateaued. Exam Const General: no acute distress Nutritional Appearance: obese HENMT Head: normocephalic Ears: external ears normal and no periauricular adenopathy General nose exam: nasal mucous membranes and turbinates normal Face and sinus: sinuses nontender Mouth: oropharynx normal and moist mucous membranes Teeth and gingiva: dentition normal Eyes General: appearance normal, both eyes and all related structures Pupils: PERRL Neck Neck: normal visual inspection and no lymphadenopathy Chest Chest: normal inspection of the chest Resp Effort & Inspection: normal respiratory effort Auscultation: diminished lung sounds, rales, no rhonchi and no wheezes Cardio Rate: regular rate Rhythm: regular rhythm Heart Sounds: S1 normal, S2 normal and no murmurs Pulses: radial pulses present bilaterally GI Inspection: normal to inspection Palpation: soft Skin General skin exam: no rashes or lesions noted Neuro General: patient alert, patient awake and patient oriented x3 Extrem General: no clubbing, cyanosis or edema Psych Mental Status: mental status grossly normal Affect: normal affect Attitude: cooperative Most Recent VS/Results Last Vital Signs Temp 37.2 C 05/02/21 08:00 Pulse 83 05/02/21 11:36 Resp 25 H 05/02/21 11:36 BP 118/78 05/02/21 11:36 Pulse Ox 92 05/02/21 11:36 Laboratory Results - last 24 hr 05/02/21 05/02/21 05/02/21 06:42 06:42 06:42 WBC RBC Hgb Hct MCV MCH MCHC RDW Plt Count MPV Immature Gran % Neutrophils % Band Neutrophils % Lymphocytes % Monocytes % Eosinophils % Basophils % Metamyelocytes % Myelocytes % Nucleated RBC % Absolute Neutrophils Absolute Lymphocytes Absolute Monocytes Absolute Eosinophils Absolute Basophils RBC Morphology D-Dimer 2105 H Sodium 143 Potassium 3.6 Chloride 106 Carbon Dioxide 29.7 Anion Gap 7.3 BUN 31 H Creatinine 1.0 Estimated GFR/1.73 m2 >= 60.00 Glucose 103 Calcium 6.5 L Magnesium 1.9 Ferritin 622 H Total Bilirubin 0.6 Conjugated Bilirubin 0.2 AST 44 H ALT 99 H Alkaline Phosphatase 58 C-Reactive Protein 2.42 H Total Protein 6.1 L Albumin 2.3 L 05/02/21 06:42 WBC 24.65 H D RBC 3.67 L Hgb 10.9 L Hct 32.8 L MCV 89.4 MCH 29.7 MCHC 33.2 RDW 13.8 Plt Count 70 L MPV 14.0 H Immature Gran % See Differential Neutrophils % 75.0 Band Neutrophils % 1 Lymphocytes % 4.0 Monocytes % 11.0 Eosinophils % 0.0 Basophils % 0.0 Metamyelocytes % 4 Myelocytes % 5 Nucleated RBC % 1 Absolute Neutrophils 18.73 H Absolute Lymphocytes 0.99 L Absolute Monocytes 2.71 H Absolute Eosinophils 0.00 Absolute Basophils 0.00 RBC Morphology Normal D-Dimer Sodium Potassium Chloride Carbon Dioxide Anion Gap BUN Creatinine Estimated GFR/1.73 m2 Glucose Calcium Magnesium Ferritin Total Bilirubin Conjugated Bilirubin AST ALT Alkaline Phosphatase C-Reactive Protein Total Protein Albumin Review of Systems All systems reviewed & are unremarkable except as noted in HPI and below
[2021-05-02] MEDS: Furosemide 40 MG/4 ML VIAL IVP (12:43)
[2021-05-02] MEDS: Ipratropium/Albuterol 4 GM 120 PUFF INH IH ×3 (13:16→20:07)
[2021-05-02] MEDS: Insulin Aspart 300 UNITS/3 ML PEN SC (17:49)
[2021-05-02] MEDS: Normal Saline Flush 10 ML SYR IVP (20:05)
[2021-05-02] MEDS: Melatonin 3 MG TAB PO (22:00)
[2021-05-03] VITALS (41 sets, daily range): BP systolic 100–115; BP diastolic 52–90; PULSE 58–97; RESP 11–31; TEMP 34–36.4; O2SAT 89–97
--- NOTE | 2021-05-03 | DI.CT_ITS ---
Exam(s) CT CHEST PE CTA EXAM: CT CHEST PE CTA CLINICAL HISTORY: r/o PE; covid pneumonia, r/o superimposed pneumoni. TECHNIQUE: Imaging Protocol: Axial CT angiography was performed with multi-slice acquisition and mu lti-planar and/or 3D reconstructions. CONTRAST MATERIAL: Intravenous: Omnipaque 350 Contrast volume:100 ml COMPARISON: CT CT CHEST PE CTA from 04/27/2021 FINDINGS: Exam is significantly limited by respiratory motion particularly at the lung bases. . Pulmonary Art eries: No evidence of filling defect to suggest pulmonary emboli. Tracheobronchial tree: Patent where visualized. Mediastinum and Berenice: No dominant adenopathy or fluid collection. Pulmonary parenchyma: Severe bilateral confluent infiltrates with some clearing of the left lower lob e when compared with the previous exam. Pleura: No effusion or pneumothorax. Heart: The heart is not dilated. No dissection. No coronary artery calcifications are seen. Aorta: Thoracic aorta non-dilated. No dissection. Mild atherosclerotic changes. Upper abdomen: Unremarkable. Bones: Degenerative disc changes. IMPRESSION: There are bilateral infiltrates with some improvement in the left lower lobe. Exam limited by respir atory motion. No evidence of pulmonary embolism. RADIATION DOSE DELIVERED: 633.81mGy.cm Total DLP DATA REPOSITORY: All CT scans at this facility are submitted to the National Radiology Data Registry (NRDR) Dose Index Registry (DIR) with the [employer] (A[employer]). RADIATION OPTIMIZATION: All CT scans at this facility use at least one of these dose optimization te chniques: automated exposure control; mA and/or kV adjustment per patient size (includes targeted exa ms where dose is matched to clinical indication); or iterative reconstruction.
[2021-05-03] MEDS: Levothyroxine 200 MCG TAB PO (06:18)
[2021-05-03] MEDS: Normal Saline Flush 10 ML SYR IVP ×4 (06:18→21:21)
[2021-05-03 06:52] LABS: HCT 34.9 % (40.0-50.0); HGB 11.5 g/dL (13.5-17.5); MCH 30.1 pg (27.0-33.0); MCV 91.4 fL (80-95); Nucleated RBC 0 %; RBC 3.82 10^6/uL (4.36-5.78); RDW 13.8 % (11.8-14.1); RDW-SD 46.6 fL
[2021-05-03 07:13] LABS: ALT 143 U/L (16-63); AST 46 U/L (15-37); Albumin 2.4 g/dL (3.4-5.0); Alkaline Phosphatase 62 U/L (46-116); Anion Gap 6.9 mmol/L (3-11); BUN 33 mg/dL (7-18); Bilirubin, Direct 0.2 mg/dL (0.0-0.2); Bilirubin, Total 0.8 mg/dL (0.2-1.0); CO2 33.1 mmol/L (21.0-32.0); CREATININE 1.1 mg/dL (0.70-1.30); Calcium 7.2 mg/dL (8.5-10.1); Chloride 103 mmol/L (98-107); Glucose 102 mg/dL (74-106); Potassium 3.7 mmol/L (3.5-5.1); Sodium 143 mmol/L (136-145); Total Protein 6.4 g/dL (6.4-8.2)
[2021-05-03 07:15] LABS: C-Reactive Protein 4.54 mg/dL (0.0-0.3); Magnesium 2.1 mg/dL (1.8-2.4)
[2021-05-03 07:34] LABS: Absolute Neutrophil Count 21.35 10^3/uL (1.2-6.7); Bands % 7
[2021-05-03 07:35] LABS: Absolute Lymphocyte Count 1.91 10^3/uL (1.2-3.4); Absolute Monocyte Count 4.78 10^3/uL (0.1-0.8); Diff Comment Manual Differential; Metamyelocytes % 4; Myelocytes % 8; RBC Morphology Normal
[2021-05-03 07:36] LABS: Platelet Count 79 10^3/uL (130-400)
[2021-05-03 07:41] LABS: Ferritin 756 ng/mL (26-388)
[2021-05-03 07:50] LABS: D-Dimer 2310 ng/mlFEU (<500)
[2021-05-03 07:51] LABS: Procalcitonin < 0.1 ng/mL
--- NOTE | 2021-05-03 08:30 | W.PM.PROGNOT ---
Date of Service Date of service: 05/03/21 Time of Service: 11:39 Assessment and Plan Assessment and plan (1) Pneumonia due to COVID-19 virus: Status: Acute Assessment and plan: with acute hypoxic respiratory failure. Inflammatory markers are worse and clinically not improving. Discussed with Dr Macias - will obtain CTA. Will also empirically place on zosyn. Continuing CPAP, while weaning pressures and FIO2, and proning. Continue remdesivir, dexamethasone, baricitinib. Continue antitussives and melatonin. Continue vitamin C and D supplementation. Keep in ICU. (2) Acute respiratory failure with hypoxia: Status: Acute Assessment and plan: As above (3) Thrombocytopenia: Status: Chronic Assessment and plan: Tolerating SQ lovenox - plts still going up. Continue to monitor. (4) Hypokalemia: Status: Resolved Assessment and plan: Recheck in am (5) Hypocalcemia: Status: Resolved Assessment and plan: Corrected Ca is 8.5. Recheck in am (6) Vitamin D deficiency: Status: Acute Assessment and plan: Replete (7) DVT prophylaxis: Status: Acute Assessment and plan: lovenox while carefully monitoring plts May have to be upgraded to full dose anticoagulation. (8) Discharge planning issues: Status: Acute Assessment and plan: Full code Keep in ICU. Total Critical care Time 60 minutes. Subjective Subjective Interval history since last seen: Mr Lanza states that if you can fix the AC, I will lay on my abdomen. It is hot and humid in the room, he says. Denies dizziness, endorses chest heaviness from coughing, denies shortness of breath, denies n/v. Refused to prone overnight. Layed on his back on CPAP. CPAP 70%, 14 pressure, saturating 89-93 % overnight. Saturates in the 80s when on high flow trying eat at maximum FiO2 and flow. Exam Narrative Exam Narrative: General: Middle-aged Obese male, sitting on the side of the bed, CPAP on, mildly dyspneic, overall looks worse- more tired Neurological: A&Ox3, no obvious focal deficits HEENT: Wearing CPAP mask, EOMI, MMM Cardiovascular: RRR Lungs: slight rales at B bases Gastrointestinal: Soft, nontender, nondistended Extremities: no edema BLE's, trace pedal pulse B Objective Last Vital Signs Temp 35.9 C L 05/03/21 04:00 Pulse 62 05/03/21 06:01 Resp 28 H 05/03/21 06:01 BP 113/69 05/03/21 06:01 Pulse Ox 93 05/03/21 06:01 Laboratory Results - last 24 hr 05/03/21 05/03/21 05/03/21 06:30 06:30 06:30 WBC RBC Hgb Hct MCV MCH MCHC RDW Plt Count MPV Immature Gran % Neutrophils % Band Neutrophils % Lymphocytes % Monocytes % Eosinophils % Basophils % Metamyelocytes % Myelocytes % Nucleated RBC % Absolute Neutrophils Absolute Lymphocytes Absolute Monocytes Absolute Eosinophils Absolute Basophils RBC Morphology D-Dimer 2310 H Sodium 143 Potassium 3.7 Chloride 103 Carbon Dioxide 33.1 H Anion Gap 6.9 BUN 33 H Creatinine 1.1 Estimated GFR/1.73 m2 >= 60.00 Glucose 102 Calcium 7.2 L Magnesium 2.1 Ferritin 756 H Total Bilirubin 0.8 Conjugated Bilirubin 0.2 AST 46 H ALT 143 H Alkaline Phosphatase 62 C-Reactive Protein 4.54 H Total Protein 6.4 Albumin 2.4 L Procalcitonin 05/03/21 05/03/21 06:30 06:30 WBC 31.87 H* RBC 3.82 L Hgb 11.5 L Hct 34.9 L MCV 91.4 MCH 30.1 MCHC 33.0 RDW 13.8 Plt Count 79 L MPV Immature Gran % See Differential Neutrophils % 60.0 Band Neutrophils % 7 Lymphocytes % 6.0 Monocytes % 15.0 Eosinophils % 0.0 Basophils % 0.0 Metamyelocytes % 4 Myelocytes % 8 Nucleated RBC % 0 Absolute Neutrophils 21.35 H Absolute Lymphocytes 1.91 Absolute Monocytes 4.78 H Absolute Eosinophils 0.00 Absolute Basophils 0.00 RBC Morphology Normal D-Dimer Sodium Potassium Chloride Carbon Dioxide Anion Gap BUN Creatinine Estimated GFR/1.73 m2 Glucose Calcium Magnesium Ferritin Total Bilirubin Conjugated Bilirubin AST ALT Alkaline Phosphatase C-Reactive Protein Total Protein Albumin Procalcitonin < 0.1
[2021-05-03 08:31] LABS: WBC 31.87 10^3/uL (4.4-10.8)
[2021-05-03] MEDS: Ipratropium/Albuterol 4 GM 120 PUFF INH IH ×4 (09:00→21:21)
[2021-05-03] MEDS: Enoxaparin 40 MG/0.4 ML SYR SC (10:17)
[2021-05-03] MEDS: FAMOTIDINE 20 MG/50 ML BAG 200 MG IVPB ×2 (10:17→21:20)
[2021-05-03] MEDS: Psyllium PKT 1 EACH PO (10:17)
[2021-05-03] MEDS: Dexamethasone 4 MG/ML VIAL 6 MG IVP (10:17)
[2021-05-03] MEDS: Calcitriol 0.25 MCG CAP 0.5 MCG PO ×2 (10:20→21:01)
[2021-05-03] MEDS: Ascorbic Acid 500 MG TAB 1000 MG PO ×2 (10:20→21:00)
[2021-05-03] MEDS: Cholecalciferol (Vitamin D3) 1,000 UNIT TAB 2000 UNITS PO (10:20)
[2021-05-03] MEDS: Losartan 50 MG TAB PO (10:20)
[2021-05-03] MEDS: Benzonatate 200 MG CAP PO ×3 (10:20→21:00)
[2021-05-03] MEDS: Calcium Carbonate *TUMS* 500 MG CHEW 1000 MG PO ×4 (10:21→21:00)
[2021-05-03] MEDS: LORazepam 2 MG/ML VIAL 0.5 MG IVP (11:14)
[2021-05-03] MEDS: Normal Saline - Diluent 50 ML VIAL IV (12:43)
[2021-05-03] MEDS: Omnipaque 350 MG/ML 100 ML BTL IJ (12:43)
--- NOTE | 2021-05-03 17:00 | CMPROGNOTE_ITS ---
- If Service Date Differs Date of service: 05/03/21 Time of Service: 17:01 Care Management Progress Note S/O: Boy remains at ICU level of care. CM is unable to visit with him due to Covid 19 precautions. Per report, his inflammatory markers are worse, and he is clinically not improving. A palliative consult was placed, and he will likely be seen today by Dr. Pace. CM will continue to follow. A: 61 year old male admitted to [facility] 04/27/21 for COVID-19, acute hypoxic respiratory failure P: Anticipate Boy will return home when medically cleared. Unclear if services will be indicated at this time, anticipate further evaluations to determine need. He will be transported home via private vehicle by family. He will follow up with his PCP and discharge plan of care. CM will continue to follow.
[2021-05-03] MEDS: Melatonin 3 MG TAB PO (21:20)
[2021-05-03] MEDS: Insulin Aspart 300 UNITS/3 ML PEN SC (21:51)
[2021-05-04] VITALS (44 sets, daily range): BP systolic 102–130; BP diastolic 59–83; PULSE 56–98; RESP 15–34; TEMP 31–37; O2SAT 80–98
[2021-05-04] MEDS: Levothyroxine 200 MCG TAB PO (05:27)
[2021-05-04 07:33] LABS: Abs Immature Grans 4.97 10^3/uL (0.0-0.06); HCT 36.3 % (40.0-50.0); HGB 11.9 g/dL (13.5-17.5); MCH 29.7 pg (27.0-33.0); MCHC 32.8 % (32.0-36.0); MCV 90.5 fL (80-95); MPV 14.5 fL (8.0-11.0); Nucleated RBC 0 %; RBC 4.01 10^6/uL (4.36-5.78); RDW 13.8 % (11.8-14.1); RDW-SD 45.8 fL
[2021-05-04 07:42] LABS: ALT 120 U/L (16-63); AST 28 U/L (15-37); Albumin 2.5 g/dL (3.4-5.0); Alkaline Phosphatase 64 U/L (46-116); Anion Gap 7.5 mmol/L (3-11); BUN 30 mg/dL (7-18); Bilirubin, Direct 0.2 mg/dL (0.0-0.2); Bilirubin, Total 0.7 mg/dL (0.2-1.0); C-Reactive Protein 4.82 mg/dL (0.0-0.3); CO2 30.5 mmol/L (21.0-32.0); CREATININE 1.1 mg/dL (0.70-1.30); Calcium 7.8 mg/dL (8.5-10.1); Chloride 103 mmol/L (98-107); Glucose 103 mg/dL (74-106); Sodium 141 mmol/L (136-145); Total Protein 6.8 g/dL (6.4-8.2)
[2021-05-04 07:48] LABS: D-Dimer 1683 ng/mlFEU (<500)
--- NOTE | 2021-05-04 08:06 | W.PM.PROGNOT ---
Date of Service Date of service: 05/04/21 Time of Service: 11:19 Assessment and Plan Assessment and plan (1) Pneumonia due to COVID-19 virus: Status: Acute Assessment and plan: with acute hypoxic respiratory failure. Inflammatory markers are actually slightly better right now. CTA ruled out a PE and shows improvement in PNA. O2 requirement is also slightly better. Continue empiric zosyn. Will give lasix. Continuing CPAP, while weaning pressures and FIO2, and proning. Continue remdesivir, dexamethasone, baricitinib. Continue antitussives and melatonin. Continue vitamin C and D supplementation. Keep in ICU. (2) Acute respiratory failure with hypoxia: Status: Acute Assessment and plan: As above (3) Thrombocytopenia: Status: Chronic Assessment and plan: Tolerating SQ lovenox - plts still going up. Continue to monitor. (4) Hypokalemia: Status: Resolved Assessment and plan: Recheck in am (5) Hypocalcemia: Status: Resolved Assessment and plan: Corrected Ca is 9.0. Recheck in am (6) Vitamin D deficiency: Status: Acute Assessment and plan: Replete (7) DVT prophylaxis: Status: Acute Assessment and plan: lovenox while carefully monitoring plts (8) Discharge planning issues: Status: Acute Assessment and plan: Full code Keep in ICU. Total Critical care Time 30 minutes. Subjective Subjective Interval history since last seen: Mr Lanza states that he is feeling better today. He does not elaborate what that means. No pain, shortness of breath is better. Proned. FiO2 45% on CPAP of pressure of 14 overnight; this morning, he is requiring FiO2 of 60% but has quite a leak on his mask. I told him that his bloodwork is better and that I was feeling slightly more optimistic today about his prognosis. Exam Narrative Exam Narrative: General: Middle-aged Obese male, on CPAP, proning, Leak >90%, A&Ox3 Neurological: A&Ox3, no obvious focal deficits HEENT: Wearing CPAP mask, EOMI, MMM Cardiovascular: RRR Lungs: Diminished breath sounds B Gastrointestinal: Soft, nontender, nondistended Extremities: no edema BLE's, trace pedal pulse B Objective Last Vital Signs Temp 37.0 C 05/04/21 05:00 Pulse 68 05/04/21 05:00 Resp 23 05/04/21 05:00 BP 118/76 05/04/21 05:00 Pulse Ox 94 05/04/21 05:00 Laboratory Results - last 24 hr 05/03/21 05/04/21 05/04/21 06:30 06:00 06:00 WBC 31.87 H* D-Dimer 1683 H Sodium 141 Potassium 4.0 Chloride 103 Carbon Dioxide 30.5 Anion Gap 7.5 BUN 30 H Creatinine 1.1 Estimated GFR/1.73 m2 >= 60.00 Glucose 103 Calcium 7.8 L Magnesium 2.0 Total Bilirubin 0.7 Conjugated Bilirubin 0.2 AST 28 ALT 120 H Alkaline Phosphatase 64 C-Reactive Protein 4.82 H Total Protein 6.8 Albumin 2.5 L
[2021-05-04 08:20] LABS: Ferritin 659 ng/mL (26-388); Platelet Count 82 10^3/uL (130-400); WBC 35.92 10^3/uL (4.4-10.8)
[2021-05-04 08:21] LABS: Absolute Lymphocyte Count 3.23 10^3/uL (1.2-3.4); Absolute Monocyte Count 6.11 10^3/uL (0.1-0.8); Absolute Neutrophil Count 22.99 10^3/uL (1.2-6.7); Atypical Lymphocytes % 2; Bands % 3; Diff Comment Manual Differential
[2021-05-04 08:22] LABS: Metamyelocytes % 6; Myelocytes % 4; Polychromasia Present
--- NOTE | 2021-05-04 08:37 | PCNE_ITS ---
Date of service: 05/03/21 Time of Service: 18:37 History of Present Illness History of Present Illness Chief Complaint: COVID Narrative: Boy is a 61-year-old man with past medical history for thyroid cancer. He was in his usual state of health until he went to the [facility]. He and his were not vaccinated although their children were vaccinated. He returned home and within a week started feeling poorly. He was tested for Covid and was positive. His condition worsened. He summoned an ambulance and came to the emergency room where his O2 sats were very low in the 60s. He was admitted to the ICU and has been on high flow oxygen. His O2 sats now are in the mid 90s. He is a full code but unfortunately did not understand the importance of following nursing direction to improve his oxygenation i.e. he was refusing to lay prone. There was concern that he might not have his goals of care in line with his CODE STATUS. I was asked to speak with Boy and review this. Additionally Boy states that today he was doing much better and following directions. Staff did agree with this. He was especially happy with the re spiratory therapist to repeatedly came into help to remind him about problem positioning. He is very sincere and states that he will be getting the Covid vaccination as soon as he is able. This is been horrible for him. His also has Covid and is at home. He thought he would the day that they called the ambulance. Assessment and Plan Assessment and plan (1) Pneumonia due to COVID-19 virus: Status: Acute (2) Requires supplemental oxygen: Status: Acute (3) Palliative care patient: Status: Acute Assessment and plan: Advanced care planning: completed DPOA naming and kids to make decisions if he cannot code status: FULL CODE. COLST completed for FULL CODE He agrees to help himself by doing what nurses recommend He is very anxious to get home!!! PLans to get vaccinated catarino Review of Systems Narrative: Presently doing much better although really misses his and wants to get out of the hospital [place]. He understands that he may need to go home on oxygen. [facility] Medical History (Updated 05/04/21 @ 08:38 by Jeannie Pace MD, [place]) Chronic bacterial otitis externa of both ears Erectile dysfunction History of thyroid cancer completion of thyroidectomy 12/22/19; referred to Dr. Peck radiation oncology 02/25/20. Hypertension Hypomagnesemia Hypothyroidism (acquired) Langerhans cell histiocytoses [facility] [place] hem/onc report 04/23/19: KRAS gene mutation on the skin biopsy came back positive. This is an extremely rare diagnosis. his staging is negative . Single system disease involving the skin only. He will need to be followed by dermatology.([facility] has requested that) 09/24/20 Skin isolation only. [facility] FU Q 6 mo. Meralgia paraesthetica Metabolic syndrome Prediabetes Skin lesion of face Thrombocytopenia Tubulovillous adenoma Vitamin D deficiency Surgical History (Updated 02/24/21 @ 14:32 by Aspen Roth RN) H/O inguinal hernia repair H/O local excision of skin lesion excision of skin lesion from chin; positive for Langerhans cell histiocytosis H/O thyroidectomy 12/17/18- s/p hemithyroidectomy; 12/22/19 completion thyroidectomy 12/17/18 with vocal cord paralysis. saw ENT in f/u. voice has recovered and he will see ENT again before his next surgery. ([facility] report 04/23/19) History of colonoscopy with polypectomy (~11/26/20) Family History Mother Breast cancer Uterine cancer Father Alcohol abuse Sister No problems noted. Brother No problems noted. Social History (Updated 12/26/19 @ 16:11 by Corazon Encarnacion RN) Smoking/Tobacco Use Status: Never Smoking risk assessment performed?: Yes Alcohol Intake: current Alcohol Intake frequency: a few times a week Drug use: Never Substance use type: does not use Caregiver/Support person: No Household members: spouse Housing: house Number of Children: 2 Communication Needs: Hard of Hearing Do you need help understanding health information?: Rarely current occupation: [employer], [employer] Pets and animals: Yes (horses, rabbits, pigs) Sexually active: Yes Do you think of yourself as: straight/heterosexual Current gender identity: male What is your relationship status?: How often do you talk on the phone with friends or family?: three or more times per week How often do you get together with friends or relatives?: three or more times per week How often do you attend scientologist or scientologist services?: 1-3 times per year Do you belong to any clubs or organized social groups?: yes Panel score (0-1 are the most socially isolated patients): 3 What type of physical activity do you participate in: none Mari/Quaker: Zoroastrianism Special mari needs: No Agree to transfusion: Yes Seatbelt use: always Helmet use: Yes Drive intox or ride w/intox courier driver: No Working smoke detector in home: Yes Fire extinguisher in home: Yes Carbon monox detector in home: Yes Do you feel safe at home: Yes Do you feel safe in your relationship?: Yes Exam Narrative Exam Narrative: Obese 61-year-old man sitting in the side of his bed. He does have his high flow oxygen in place. He is speaking in complete sentences and as I watched the monitor satting at about 95%. He does have good airflow throughout his lung quinones and his heart is regular. Results Last Vital Signs Temp 98.6 F 05/04/21 05:00 Pulse 68 05/04/21 05:00 Resp 23 05/04/21 05:00 BP 118/76 05/04/21 05:00 Pulse Ox 94 05/04/21 05:00 Labs Result diagrams: 05/04/21 06:00 05/04/21 06:00 Labs: Laboratory Results - last 24 hr 05/04/21 05/04/21 05/04/21 06:00 06:00 06:00 WBC 35.92 H* RBC 4.01 L Hgb 11.9 L Hct 36.3 L MCV 90.5 MCH 29.7 MCHC 32.8 RDW 13.8 Plt Count 82 L MPV 14.5 H Immature Gran % See Differential Neutrophils % 61.0 Band Neutrophils % 3 Lymphocytes % 7.0 Atypical Lymphs % 2 Monocytes % 17.0 Eosinophils % 0.0 Basophils % 0.0 Metamyelocytes % 6 Myelocytes % 4 Nucleated RBC % 0 Absolute Neutrophils 22.99 H Absolute Lymphocytes 3.23 Absolute Monocytes 6.11 H Absolute Eosinophils 0.00 Absolute Basophils 0.00 RBC Morphology See Below Polychromasia Present D-Dimer 1683 H Sodium 141 Potassium 4.0 Chloride 103 Carbon Dioxide 30.5 Anion Gap 7.5 BUN 30 H Creatinine 1.1 Estimated GFR/1.73 m2 >= 60.00 Glucose 103 Calcium 7.8 L Magnesium 2.0 Ferritin 659 H Total Bilirubin 0.7 Conjugated Bilirubin 0.2 AST 28 ALT 120 H Alkaline Phosphatase 64 C-Reactive Protein 4.82 H Total Protein 6.8 Albumin 2.5 L
[2021-05-04] MEDS: Ipratropium/Albuterol 4 GM 120 PUFF INH IH ×4 (09:00→19:52)
[2021-05-04] MEDS: LORazepam 2 MG/ML VIAL 0.5 MG IVP (09:10)
[2021-05-04] MEDS: Psyllium PKT 1 EACH PO (09:12)
[2021-05-04] MEDS: Normal Saline Flush 10 ML SYR IVP ×2 (09:12→19:52)
[2021-05-04] MEDS: FAMOTIDINE 20 MG/50 ML BAG 200 MG IVPB ×2 (09:12→19:51)
[2021-05-04] MEDS: Calcitriol 0.25 MCG CAP 0.5 MCG PO ×2 (09:13→19:51)
[2021-05-04] MEDS: Enoxaparin 40 MG/0.4 ML SYR SC (09:13)
[2021-05-04] MEDS: Losartan 50 MG TAB PO (09:13)
[2021-05-04] MEDS: Calcium Carbonate *TUMS* 500 MG CHEW 1000 MG PO ×2 (09:13→19:51)
[2021-05-04] MEDS: Ascorbic Acid 500 MG TAB 1000 MG PO ×2 (09:13→19:51)
[2021-05-04] MEDS: Cholecalciferol (Vitamin D3) 1,000 UNIT TAB 2000 UNITS PO (09:13)
[2021-05-04] MEDS: Benzonatate 200 MG CAP PO ×3 (09:14→19:51)
[2021-05-04] MEDS: Dexamethasone 4 MG/ML VIAL 6 MG IVP (09:14)
--- NOTE | 2021-05-04 10:40 | PDOC.CMPRO ---
- If Service Date Differs Date of service: 05/04/21 Time of Service: 10:40 Care Management Progress Note S/O: Boy remains at ICU level of care today. Per RN, he continues to have high oxygen requirements, and is proning today, although it is uncomfortable for him. He had a Palliative care consult last night, where he completed a COLST for FULL CODE. He named his and children as decision makers for him. He also reported that he plans to get vaccinated after he recovers. Nursing has been keeping in contact with his family. CM will continue to follow. A: 61 year old male admitted to [facility] 04/27/21 for COVID-19, acute hypoxic respiratory failure P: Anticipate Boy will return home when medically cleared. Unclear if services will be indicated at this time, anticipate further evaluations to determine need. He will be transported home via private vehicle by family. He will follow up with his PCP and discharge plan of care. CM will continue to follow.
[2021-05-04] MEDS: Furosemide 20 MG TAB PO (12:10)
[2021-05-04] MEDS: Insulin Aspart 300 UNITS/3 ML PEN SC ×2 (13:47→23:03)
[2021-05-04] MEDS: Melatonin 3 MG TAB PO (19:53)
[2021-05-05] VITALS (25 sets, daily range): BP systolic 92–124; BP diastolic 49–99; PULSE 47–114; RESP 18–36; TEMP 34–36.7; O2SAT 81–98
[2021-05-05] MEDS: Levothyroxine 200 MCG TAB PO (05:59)
--- NOTE | 2021-05-05 08:26 | PGE_ITS ---
Date of Service Date of service: 05/05/21 Time of Service: 11:41 Assessment and Plan Assessment and plan (1) Pneumonia due to COVID-19 virus: Status: Acute Assessment and plan: with acute hypoxic respiratory failure, improving today. FiO2 is 80% on high flow right now, which is the best we've seen in a long time. Sitting up, looks better. Inflammatory markers are much better today, too (I think his leucocytosis is leukomoid reaction). CTA ruled out a PE and shows improvement in PNA. Increase lasix. Continue empiric zosyn. Continuing CPAP, while weaning pressures and FIO2, and proning. Continue remdesivir, dexamethasone, baricitinib. Continue antitussives and melatonin. Continue vitamin C and D supplementation. Keep in ICU. (2) Acute respiratory failure with hypoxia: Status: Acute Assessment and plan: As above (3) Thrombocytopenia: Status: Chronic Assessment and plan: Tolerating SQ lovenox - plts still going up. Continue to monitor. (4) Hypokalemia: Status: Resolved Assessment and plan: Recheck in am (5) Hypocalcemia: Status: Acute Assessment and plan: Replete. Recheck in am (6) Vitamin D deficiency: Status: Acute Assessment and plan: Replete (7) DVT prophylaxis: Status: Acute Assessment and plan: lovenox while carefully monitoring plts (8) Discharge planning issues: Status: Acute Assessment and plan: Full code Keep in ICU. Total Critical care Time 45 minutes. Subjective Subjective Interval history since last seen: Mr Lanza states he is feeling better. I'm coming out of here and not in a box. He verbalizes understanding that for that to happen he needs prone/rotate side to side/sit up in a chair. Denies dizziness, chest pain except for some chest heaviness from coughing, denies s hortness of breath while sitting up, denies n/v. On CPAP all night, Turning from side to side. Did not lay on abdomen. Pressure 14, 60% FiO2, 92-96%. Overnight, verbalized to nursing that he didn't believe that COVID was that big a deal and todd the wanted to leave here today and would get oxygen Met with palliative care - wants to full code as of yesterday am. Exam Narrative Exam Narrative: General: Middle-aged Obese male, sitting up in a chair, A&Ox3, on high flow Neurological: A&Ox3, no obvious focal deficits HEENT: EOMI, MMM Cardiovascular: RRR Lungs: Minimal crackles at B bases Gastrointestinal: Soft, nontender, nondistended Extremities: no edema BLE's,+1 pedal pulse B Objective Last Vital Signs Temp 36.4 C L 05/05/21 04:05 Pulse 114 H 05/05/21 06:02 Resp 27 H 05/05/21 07:00 BP 105/49 L 05/05/21 06:02 Pulse Ox 93 05/05/21 07:00
[2021-05-05] MEDS: Ipratropium/Albuterol 4 GM 120 PUFF INH IH ×3 (08:39→20:38)
[2021-05-05] MEDS: Psyllium PKT 1 EACH PO (09:45)
[2021-05-05] MEDS: FAMOTIDINE 20 MG/50 ML BAG 200 MG IVPB ×2 (09:45→20:17)
[2021-05-05] MEDS: Cholecalciferol (Vitamin D3) 1,000 UNIT TAB 2000 UNITS PO (09:46)
[2021-05-05] MEDS: Calcium Carbonate *TUMS* 500 MG CHEW 1000 MG PO ×3 (09:46→20:15)
[2021-05-05] MEDS: Calcitriol 0.25 MCG CAP 0.5 MCG PO ×2 (09:46→20:14)
[2021-05-05] MEDS: Benzonatate 200 MG CAP PO ×3 (09:46→20:14)
[2021-05-05] MEDS: Dexamethasone 4 MG/ML VIAL 6 MG IVP (09:47)
[2021-05-05] MEDS: Ascorbic Acid 500 MG TAB 1000 MG PO ×2 (09:47→20:14)
[2021-05-05] MEDS: Furosemide 20 MG TAB PO ×2 (09:47→15:14)
[2021-05-05] MEDS: Losartan 50 MG TAB PO (09:47)
[2021-05-05] MEDS: Enoxaparin 40 MG/0.4 ML SYR SC (09:47)
[2021-05-05] MEDS: Normal Saline Flush 10 ML SYR IVP ×2 (09:48→20:17)
--- NOTE | 2021-05-05 11:07 | PDOC.CMPRO ---
- If Service Date Differs Date of service: 05/05/21 Time of Service: 11:27 Care Management Progress Note S/O: Per RN, last night Boy stated that he plans on leaving today, no matter what. He was able to be calmed down after talking with his RN for some time. CM called his RN to discuss whether or not a tablet could be brought in for him to talk with his family members, who he hasn't seen in over a week. Per report, Boy declined a video call with his family, as he doesn't want them to see him like this, and he is also hard of hearing which makes calls difficult. He has been texting his family, providing updates. CM brought activities to him today, including an adult coloring book, colored pencils, and a word search book. CM will continue to follow. A: 61 year old male admitted to [facility] 04/27/21 for COVID-19, acute hypoxic respiratory failure P: Anticipate Boy will return home when medically cleared. Unclear if services will be indicated at this time, anticipate further evaluations to determine need. He will be transported home via private vehicle by family. He will follow up with his PCP and discharge plan of care. CM will continue to follow.
[2021-05-05 11:18] LABS: HCT 35.9 % (40.0-50.0); HGB 11.7 g/dL (13.5-17.5); MCH 30.5 pg (27.0-33.0); MCHC 32.6 % (32.0-36.0); MCV 93.5 fL (80-95); Nucleated RBC 0 %; Platelet Count 82 10^3/uL (130-400); RBC 3.84 10^6/uL (4.36-5.78); RDW 13.9 % (11.8-14.1); RDW-SD 46.8 fL
[2021-05-05 11:22] LABS: WBC 40.44 10^3/uL (4.4-10.8)
[2021-05-05 11:33] LABS: ALT 91 U/L (16-63); AST 20 U/L (15-37); Albumin 2.6 g/dL (3.4-5.0); Alkaline Phosphatase 60 U/L (46-116); Anion Gap 6.5 mmol/L (3-11); BUN 27 mg/dL (7-18); Bilirubin, Direct 0.2 mg/dL (0.0-0.2); Bilirubin, Total 0.7 mg/dL (0.2-1.0); C-Reactive Protein 2.55 mg/dL (0.0-0.3); CO2 33.5 mmol/L (21.0-32.0); CREATININE 1.2 mg/dL (0.70-1.30); Calcium 7.2 mg/dL (8.5-10.1); Chloride 101 mmol/L (98-107); Glucose 111 mg/dL (74-106); Magnesium 2.1 mg/dL (1.8-2.4); Potassium 3.9 mmol/L (3.5-5.1); Sodium 141 mmol/L (136-145); Total Protein 6.6 g/dL (6.4-8.2)
[2021-05-05 11:40] LABS: Absolute Lymphocyte Count 2.83 10^3/uL (1.2-3.4); Absolute Neutrophil Count 27.09 10^3/uL (1.2-6.7); Atypical Lymphocytes % 2; Bands % 8; Metamyelocytes % 3; Myelocytes % 1
[2021-05-05 11:41] LABS: Diff Comment Manual Differential; RBC Morphology Normal
[2021-05-05 11:48] LABS: D-Dimer 1041 ng/mlFEU (<500)
[2021-05-05 11:56] LABS: Ferritin 549 ng/mL (26-388)
[2021-05-05] MEDS: Insulin Aspart 300 UNITS/3 ML PEN SC (17:29)
[2021-05-05] MEDS: Normal Saline 500 ML 30 ML IV (17:56)
[2021-05-05] MEDS: Melatonin 3 MG TAB PO (20:39)
[2021-05-06] VITALS (48 sets, daily range): BP systolic 88–142; BP diastolic 53–83; PULSE 49–94; RESP 16–31; TEMP 34–37; O2SAT 84–99
[2021-05-06] MEDS: Levothyroxine 200 MCG TAB PO (05:32)
[2021-05-06 07:38] LABS: HCT 35.6 % (40.0-50.0); HGB 11.6 g/dL (13.5-17.5); MCH 30.2 pg (27.0-33.0); MCHC 32.6 % (32.0-36.0); MCV 92.7 fL (80-95); Nucleated RBC 0 %; Platelet Count 72 10^3/uL (130-400); RBC 3.84 10^6/uL (4.36-5.78); RDW 13.9 % (11.8-14.1); RDW-SD 46.8 fL
[2021-05-06 07:41] LABS: WBC 34.62 10^3/uL (4.4-10.8)
[2021-05-06 07:50] LABS: INR 1.2 (0.9-1.1); Prothrombin Time 11.7 sec (9.3-11.0)
[2021-05-06 07:51] LABS: Absolute Lymphocyte Count 2.08 10^3/uL (1.2-3.4); Absolute Monocyte Count 5.54 10^3/uL (0.1-0.8); Absolute Neutrophil Count 25.62 10^3/uL (1.2-6.7); Bands % 11; Diff Comment Manual Differential; Metamyelocytes % 3; Myelocytes % 1; RBC Morphology Normal
[2021-05-06 07:53] LABS: ALT 80 U/L (16-63); AST 20 U/L (15-37); Albumin 2.5 g/dL (3.4-5.0); Alkaline Phosphatase 55 U/L (46-116); Anion Gap 4.8 mmol/L (3-11); BUN 28 mg/dL (7-18); Bilirubin, Direct 0.2 mg/dL (0.0-0.2); Bilirubin, Total 0.8 mg/dL (0.2-1.0); CO2 32.2 mmol/L (21.0-32.0); CREATININE 1.1 mg/dL (0.70-1.30); Calcium 7.8 mg/dL (8.5-10.1); Chloride 103 mmol/L (98-107); Glucose 108 mg/dL (74-106); Magnesium 2.2 mg/dL (1.8-2.4); Potassium 4.3 mmol/L (3.5-5.1); Sodium 140 mmol/L (136-145); Total Protein 6.7 g/dL (6.4-8.2)
[2021-05-06 08:12] LABS: Procalcitonin < 0.1 ng/mL
[2021-05-06 08:16] LABS: D-Dimer 781 ng/mlFEU (<500)
[2021-05-06 08:22] LABS: Ferritin 557 ng/mL (26-388)
--- NOTE | 2021-05-06 08:22 | PGE_ITS ---
Date of Service Date of service: 05/06/21 Time of Service: 12:49 Assessment and Plan Assessment and plan (1) Pneumonia due to COVID-19 virus: Status: Acute Assessment and plan: with acute hypoxic respiratory failure, slowly improving. FiO2 is now being titrated down to 75% on high flow. Inflammatory markers improving. WBC likely represents leucomoid reaction. CTA ruled out a PE and shows improvement in PNA. Continue lasix. Continue empiric zosyn. Continuing CPAP, while weaning pressures and FIO2, and proning. Continue remdesivir, dexamethasone, baricitinib. Will finish remdesivir tomorow. Continue antitussives and melatonin. Continue vitamin C and D supplementation. Keep in ICU. (2) Acute respiratory failure with hypoxia: Status: Acute Assessment and plan: As above (3) Thrombocytopenia: Status: Chronic Assessment and plan: Tolerating SQ lovenox - plts still going up. Continue to monitor. (4) Hypokalemia: Status: Resolved Assessment and plan: Recheck in am (5) Hypocalcemia: Status: Acute Assessment and plan: Replete. Recheck in am (6) Vitamin D deficiency: Status: Acute Assessment and plan: Replete (7) DVT prophylaxis: Status: Acute Assessment and plan: lovenox while carefully monitoring plts (8) Discharge planning issues: Status: Acute Assessment and plan: Full code Keep in ICU. Total Critical care Time [address] Discuss[address] case [address] Macias Subjective Subjective Interval history since last seen: Mr Lanza states that he is feeling better. He denies dizziness, endorses chest tightness earlier today, as if I needed to cough, denies shortness of breath right now while sitting on humidified heated high flow (60 L, 80% FiO2, O2 sats 92%). Denies n/v/diarrhea. Agreeable to proning. Proned for 4.5 hrs last night. CPAP last night 55% - pressures of 14. 95% sats. Exam Narrative Exam Narrative: General: Middle-aged Obese male, sitting up in a chair, A&Ox3, on high flow, looks better, [place] Neurological: A&Ox3, no obvious focal deficits HEENT: EOMI, MMM Cardiovascular: RRR Lungs: Minimal crackles at B bases, improved Gastrointestinal: nondistended Extremities: +1 edema BLE's Objective Last Vital Signs Temp 36.3 C L 05/06/21 04:00 Pulse 61 05/06/21 06:01 Resp 25 H 05/06/21 06:01 BP 116/72 05/06/21 06:01 Pulse Ox 95 05/06/21 06:01 Laboratory Results - last 24 hr 05/05/21 05/05/21 05/05/21 11:00 11:00 11:00 WBC 40.44 H* RBC 3.84 L Hgb 11.7 L Hct 35.9 L MCV 93.5 MCH 30.5 MCHC 32.6 RDW 13.9 Plt Count 82 L MPV Immature Gran % 0.0 Neutrophils % 59.0 Band Neutrophils % 8 Lymphocytes % 5.0 Atypical Lymphs % 2 Monocytes % 22.0 Eosinophils % 0.0 Basophils % 0.0 Metamyelocytes % 3 Myelocytes % 1 Nucleated RBC % 0 Absolute Neutrophils 27.09 H Absolute Lymphocytes 2.83 Absolute Monocytes 8.90 H Absolute Eosinophils 0.00 Absolute Basophils 0.00 RBC Morphology Normal PT INR D-Dimer 1041 H Sodium 141 Potassium 3.9 Chloride 101 Carbon Dioxide 33.5 H Anion Gap 6.5 BUN 27 H Creatinine 1.2 Estimated GFR/1.73 m2 >= 60.00 Glucose 111 H Calcium 7.2 L Magnesium 2.1 Ferritin 549 H Total Bilirubin 0.7 Conjugated Bilirubin 0.2 AST 20 ALT 91 H Alkaline Phosphatase 60 C-Reactive Protein 2.55 H Total Protein 6.6 Albumin 2.6 L Procalcitonin 05/06/21 05/06/21 05/06/21 07:20 07:20 07:20 WBC 34.62 H* RBC 3.84 L Hgb 11.6 L Hct 35.6 L MCV 92.7 MCH 30.2 MCHC 32.6 RDW 13.9 Plt Count 72 L MPV Immature Gran % 0.0 Neutrophils % 63.0 Band Neutrophils % 11 Lymphocytes % 6.0 Atypical Lymphs % Monocytes % 16.0 Eosinophils % 0.0 Basophils % 0.0 Metamyelocytes % 3 Myelocytes % 1 Nucleated RBC % 0 Absolute Neutrophils 25.62 H Absolute Lymphocytes 2.08 Absolute Monocytes 5.54 H Absolute Eosinophils 0.00 Absolute Basophils 0.00 RBC Morphology Normal PT INR D-Dimer Sodium 140 Potassium 4.3 Chloride 103 Carbon Dioxide 32.2 H Anion Gap 4.8 BUN 28 H Creatinine 1.1 Estimated GFR/1.73 m2 >= 60.00 Glucose 108 H Calcium 7.8 L Magnesium 2.2 Ferritin Total Bilirubin 0.8 Conjugated Bilirubin 0.2 AST 20 ALT 80 H Alkaline Phosphatase 55 C-Reactive Protein 1.90 H Total Protein 6.7 Albumin 2.5 L Procalcitonin < 0.1 05/06/21 07:20 WBC RBC Hgb Hct MCV MCH MCHC RDW Plt Count MPV Immature Gran % Neutrophils % Band Neutrophils % Lymphocytes % Atypical Lymphs % Monocytes % Eosinophils % Basophils % Metamyelocytes % Myelocytes % Nucleated RBC % Absolute Neutrophils Absolute Lymphocytes Absolute Monocytes Absolute Eosinophils Absolute Basophils RBC Morphology PT 11.7 H INR 1.2 H D-Dimer 781 H Sodium Potassium Chloride Carbon Dioxide Anion Gap BUN Creatinine Estimated GFR/1.73 m2 Glucose Calcium Magnesium Ferritin Total Bilirubin Conjugated Bilirubin AST ALT Alkaline Phosphatase C-Reactive Protein Total Protein Albumin Procalcitonin
--- NOTE | 2021-05-06 09:00 | CMPROGNOTE_ITS ---
Care Management Progress Note S/O: Boy was able to connect with family virtually yesterday. He has been texting his family, providing updates. CM brought activities to him, including an adult coloring book, colored pencils, and a word search book. Per provider, he did make respiratory gains overnight, and appears to be slowly improving at this time. CM will continue to follow. A: 61 year old male admitted to [facility] 04/27/21 for COVID-19, acute hypoxic respiratory failure P: Anticipate Boy will return home when medically cleared. Unclear if services will be indicated at this time, anticipate further evaluations to determine need. He will be transported home via private vehicle by family. He will follow up with his PCP and discharge plan of care. CM will continue to follow.
[2021-05-06] MEDS: Ascorbic Acid 500 MG TAB 1000 MG PO ×2 (09:03→21:37)
[2021-05-06] MEDS: Cholecalciferol (Vitamin D3) 1,000 UNIT TAB 2000 UNITS PO (09:03)
[2021-05-06] MEDS: Calcium Carbonate *TUMS* 500 MG CHEW 1000 MG PO ×3 (09:04→21:38)
[2021-05-06] MEDS: Dexamethasone 4 MG/ML VIAL 6 MG IVP (09:04)
[2021-05-06] MEDS: Benzonatate 200 MG CAP PO ×3 (09:05→21:37)
[2021-05-06] MEDS: Calcitriol 0.25 MCG CAP 0.5 MCG PO ×2 (09:05→21:37)
[2021-05-06] MEDS: FAMOTIDINE 20 MG/50 ML BAG 200 MG IVPB ×2 (09:05→21:38)
[2021-05-06] MEDS: Enoxaparin 40 MG/0.4 ML SYR SC (09:05)
[2021-05-06] MEDS: Losartan 50 MG TAB PO (09:06)
[2021-05-06] MEDS: Furosemide 20 MG TAB PO ×2 (09:06→15:49)
[2021-05-06] MEDS: Psyllium PKT 1 EACH PO (09:07)
[2021-05-06] MEDS: Insulin Aspart 300 UNITS/3 ML PEN SC ×2 (10:00→19:01)
[2021-05-06] MEDS: Normal Saline Flush 10 ML SYR IVP (10:02)
--- NOTE | 2021-05-06 10:13 | W.PULMCC ---
General Date of Service Date of service: 05/06/21 Time of Service: 08:00 Reason for Admission to ICU: COVID-19 PNA Assessment and Plan Assessment and plan (1) Pneumonia due to COVID-19 virus: Status: Acute (2) Thrombocytopenia: Status: Chronic (3) Hypocalcemia: Status: Acute (4) Hypokalemia: Status: Resolved (5) Acute respiratory failure with hypoxia: Status: Acute (6) Langerhans cell histiocytoses: Status: Acute (7) Vitamin D deficiency: Status: Chronic (8) Prediabetes: Status: Chronic Assessment and plan: This is a 61 yo critically ill gentleman admitted to the ICU for acute hypoxemic respiratory failure requiring CPAP for COVID. He does not have evidence of VTE at this time. He was able to wear HFNC for much of the day yesterday, but he has not made a ton of strides with his FiO2 requirement. If he fails to make meaningful improvement by next week, [facility] should be reached out to as a potential for transfer. Hopefully, he continues to work on proning, getting out of bed and using his IS and Acapella. Recommendations Pulmonary: Acute hypoxic respiratory failure - recommend CPAP at night and as needed throughout the day - continue HFNC during the day - recommend IS and VibraPEP - albuterol HFA as needed Cardiac: No acute concerns Renal: No acute concerns Hypokalemia - replete to 4.0 Hypocalcemia - replete as needed Vitamin D def - supplementation I&O: Intake & Output 05/03/21 05/04/21 05/05/21 05/06/21 23:59 23:59 23:59 23:59 Intake Total 660 / 660 1395 / 1395 1310 / 1492 282 / 282 Output Total 1905 / 1905 3675 / 3975 2680 / 2680 1450 / 1450 Balance -1245 / -1245 -2280 / -2580 -1370 / -1188 -1168 / -1168 Weight 109.4 kg 114.9 kg 110.2 kg 109.2 kg Daily Fluid Goal:: -500cc to -1L in 24 hours GI Nutrition: Continue diet Date of Last Bowel Movement: 05/05/21 Infectious Disease: COVID-19 - on remdesivir, decadron and barctinib - no VTE - no hemodynamic instability Bacterial pneumonia - s/p ceftriaxone and doxy - currently on Zosyn - can consider discontinuing if WBC considers to drop and O2 requirements are stable/decreasing Hematologic: Langerhans histiocytosis with thrombocytopenia - advise against empiric therapeutic anticoagulation - DVT studies of 4 extremities negative - CTPE negative x 2 - continue DVT ppx - monitor daily labs - if platelets drop below 20 then I would hold DVT ppx until they recover Neurologic: no acute concerns Endocrine: no acute concerns Prophylaxis: Lovenox Famotidine Code Status: Resuscitation Status Full Code Subjective Critical and life-threatening events over the past 24 hours: Boy spent most of his day yesterday on HFNC. He was on CPAP 55% and [id number]. He has been proning more often. He is frustrated that he is not getting better faster. We talked about hos this is often a slow process, but I am concern about the amount of support he is still requiring despite his inflammatory markers improving. His white count improved today as well. He is still having SOB. he is almost 8L negative during hospitalization. Exam Const General: no acute distress Nutritional Appearance: obese HENMT Head: normocephalic Ears: external ears normal and no periauricular adenopathy General nose exam: nasal mucous membranes and turbinates normal Face and sinus: sinuses nontender Mouth: oropharynx normal and moist mucous membranes Teeth and gingiva: dentition normal Eyes General: appearance normal, both eyes and all related structures Pupils: PERRL Neck Neck: normal visual inspection and no lymphadenopathy Chest Chest: normal inspection of the chest Resp Effort & Inspection: normal respiratory effort Auscultation: diminished lung sounds, rales, no rhonchi and no wheezes Cardio Rate: regular rate Rhythm: regular rhythm Heart Sounds: S1 normal, S2 normal and no murmurs Pulses: radial pulses present bilaterally GI Inspection: normal to inspection Palpation: soft Skin General skin exam: no rashes or lesions noted Neuro General: patient alert, patient awake and patient oriented x3 Extrem General: no clubbing, cyanosis or edema Psych Mental Status: mental status grossly normal Affect: normal affect Attitude: cooperative Most Recent VS/Results Last Vital Signs Temp 36.3 C L 05/06/21 10:02 Pulse 84 05/06/21 09:00 Resp 29 H 05/06/21 09:00 BP 112/60 05/06/21 09:00 Pulse Ox 93 05/06/21 09:00 Laboratory Results - last 24 hr 05/05/21 05/05/21 05/05/21 11:00 11:00 11:00 WBC 40.44 H* RBC 3.84 L Hgb 11.7 L Hct 35.9 L MCV 93.5 MCH 30.5 MCHC 32.6 RDW 13.9 Plt Count 82 L MPV Immature Gran % 0.0 Neutrophils % 59.0 Band Neutrophils % 8 Lymphocytes % 5.0 Atypical Lymphs % 2 Monocytes % 22.0 Eosinophils % 0.0 Basophils % 0.0 Metamyelocytes % 3 Myelocytes % 1 Nucleated RBC % 0 Absolute Neutrophils 27.09 H Absolute Lymphocytes 2.83 Absolute Monocytes 8.90 H Absolute Eosinophils 0.00 Absolute Basophils 0.00 RBC Morphology Normal PT INR D-Dimer 1041 H Sodium 141 Potassium 3.9 Chloride 101 Carbon Dioxide 33.5 H Anion Gap 6.5 BUN 27 H Creatinine 1.2 Estimated GFR/1.73 m2 >= 60.00 Glucose 111 H Calcium 7.2 L Magnesium 2.1 Ferritin 549 H Total Bilirubin 0.7 Conjugated Bilirubin 0.2 AST 20 ALT 91 H Alkaline Phosphatase 60 C-Reactive Protein 2.55 H Total Protein 6.6 Albumin 2.6 L Procalcitonin 05/06/21 05/06/21 05/06/21 07:20 07:20 07:20 WBC 34.62 H* RBC 3.84 L Hgb 11.6 L Hct 35.6 L MCV 92.7 MCH 30.2 MCHC 32.6 RDW 13.9 Plt Count 72 L MPV Immature Gran % 0.0 Neutrophils % 63.0 Band Neutrophils % 11 Lymphocytes % 6.0 Atypical Lymphs % Monocytes % 16.0 Eosinophils % 0.0 Basophils % 0.0 Metamyelocytes % 3 Myelocytes % 1 Nucleated RBC % 0 Absolute Neutrophils 25.62 H Absolute Lymphocytes 2.08 Absolute Monocytes 5.54 H Absolute Eosinophils 0.00 Absolute Basophils 0.00 RBC Morphology Normal PT INR D-Dimer Sodium 140 Potassium 4.3 Chloride 103 Carbon Dioxide 32.2 H Anion Gap 4.8 BUN 28 H Creatinine 1.1 Estimated GFR/1.73 m2 >= 60.00 Glucose 108 H Calcium 7.8 L Magnesium 2.2 Ferritin 557 H Total Bilirubin 0.8 Conjugated Bilirubin 0.2 AST 20 ALT 80 H Alkaline Phosphatase 55 C-Reactive Protein 1.90 H Total Protein 6.7 Albumin 2.5 L Procalcitonin < 0.1 05/06/21 07:20 WBC RBC Hgb Hct MCV MCH MCHC RDW Plt Count MPV Immature Gran % Neutrophils % Band Neutrophils % Lymphocytes % Atypical Lymphs % Monocytes % Eosinophils % Basophils % Metamyelocytes % Myelocytes % Nucleated RBC % Absolute Neutrophils Absolute Lymphocytes Absolute Monocytes Absolute Eosinophils Absolute Basophils RBC Morphology PT 11.7 H INR 1.2 H D-Dimer 781 H Sodium Potassium Chloride Carbon Dioxide Anion Gap BUN Creatinine Estimated GFR/1.73 m2 Glucose Calcium Magnesium Ferritin Total Bilirubin Conjugated Bilirubin AST ALT Alkaline Phosphatase C-Reactive Protein Total Protein Albumin Procalcitonin Review of Systems All systems reviewed & are unremarkable except as noted in HPI and below Time spent with patient Time spent in Critical Care: 35 Time spent in Critical care included: Coordination of care, Chart review, Documenting critically ill care, Time at immediate bedside and Discussing critically ill care with other medical staff
[2021-05-06] MEDS: Ipratropium/Albuterol 4 GM 120 PUFF INH IH ×4 (10:14→21:30)
--- NOTE | 2021-05-06 11:25 | NUR.NOTE ---
At approximately 09:45 a.m. patient speaks to his son on facetime.Nursing Note:
[2021-05-06] MEDS: guaiFENesin/CODEINE PHOSPHATE 10 ML CUP 5 ML PO (14:32)
[2021-05-06] MEDS: Normal Saline 500 ML IV (17:30)
[2021-05-06] MEDS: Melatonin 3 MG TAB PO (21:37)
[2021-05-07] VITALS (33 sets, daily range): BP systolic 94–142; BP diastolic 50–82; PULSE 23–96; RESP 14–24; TEMP 34–36.7; O2SAT 90–96
[2021-05-07] MEDS: Levothyroxine 200 MCG TAB PO (06:18)
[2021-05-07] MEDS: FAMOTIDINE 20 MG/50 ML BAG 200 MG IVPB ×2 (07:17→20:41)
[2021-05-07] MEDS: Enoxaparin 40 MG/0.4 ML SYR SC (07:18)
--- NOTE | 2021-05-07 07:41 | NUR.NOTE ---
The cause of the leak was simply a small plastic pin on mask that had been dislodged. Plugging pin back in hole on mask fixed leak immediately. [Patient now sating 92% on CPAP 55% FIO2 with pressure of 14.Nursing Note:
--- NOTE | 2021-05-07 07:52 | NUR.NOTE ---
RN calls lab to draw patient since blood cannot be aspirated from midline but same flushes well.Nursing Note:
[2021-05-07] MEDS: Calcium Carbonate *TUMS* 500 MG CHEW 1000 MG PO ×3 (08:07→20:40)
[2021-05-07] MEDS: Benzonatate 200 MG CAP PO ×3 (08:07→20:40)
[2021-05-07] MEDS: Cholecalciferol (Vitamin D3) 1,000 UNIT TAB 2000 UNITS PO (08:08)
[2021-05-07] MEDS: Losartan 50 MG TAB PO (08:08)
[2021-05-07] MEDS: Calcitriol 0.25 MCG CAP 0.5 MCG PO ×2 (08:09→20:40)
[2021-05-07] MEDS: Dexamethasone 4 MG/ML VIAL 6 MG IVP (08:09)
[2021-05-07] MEDS: Ascorbic Acid 500 MG TAB 1000 MG PO ×2 (08:09→20:40)
[2021-05-07] MEDS: Furosemide 20 MG TAB PO ×2 (08:12→17:22)
[2021-05-07 08:48] LABS: HCT 35.6 % (40.0-50.0); HGB 11.7 g/dL (13.5-17.5); MCH 30.5 pg (27.0-33.0); MCHC 32.9 % (32.0-36.0); MCV 92.7 fL (80-95); Nucleated RBC 0 %; RBC 3.84 10^6/uL (4.36-5.78); RDW 13.9 % (11.8-14.1); RDW-SD 46.7 fL
[2021-05-07 09:10] LABS: Anion Gap 2.6 mmol/L (3-11); BUN 28 mg/dL (7-18); C-Reactive Protein 1.12 mg/dL (0.0-0.3); CO2 33.4 mmol/L (21.0-32.0); CREATININE 1.1 mg/dL (0.70-1.30); Calcium 7.8 mg/dL (8.5-10.1); Chloride 104 mmol/L (98-107); Glucose 101 mg/dL (74-106); Magnesium 2.2 mg/dL (1.8-2.4); Sodium 140 mmol/L (136-145)
[2021-05-07 09:26] LABS: WBC 38.47 10^3/uL (4.4-10.8)
[2021-05-07 09:27] LABS: Absolute Lymphocyte Count 3.08 10^3/uL (1.2-3.4); Absolute Monocyte Count 4.62 10^3/uL (0.1-0.8); Absolute Neutrophil Count 28.85 10^3/uL (1.2-6.7); Bands % 11; Metamyelocytes % 3; Myelocytes % 2; Platelet Count 67 10^3/uL (130-400)
[2021-05-07 09:28] LABS: D-Dimer 840 ng/mlFEU (<500); Diff Comment Manual Differential; RBC Morphology Normal
[2021-05-07 09:34] LABS: Ferritin 551 ng/mL (26-388)
[2021-05-07] MEDS: Ipratropium/Albuterol 4 GM 120 PUFF INH IH ×4 (10:50→20:41)
[2021-05-07] MEDS: Normal Saline Flush 10 ML SYR IVP ×2 (10:50→20:41)
[2021-05-07] MEDS: Psyllium PKT 1 EACH PO (10:52)
--- NOTE | 2021-05-07 11:06 | W.PM.PROGNOT ---
Date of Service Date of service: 05/07/21 Time of Service: 11:07 Assessment and Plan Assessment and plan (1) Pneumonia due to COVID-19 virus: Status: Acute Assessment and plan: FiO2 at 75% on high flow nasal cannula at 60 L/min. Patient has been practicing proning procedure. Continue empiric Zosyn. Given his Langerhans histiocytosis he may need a prolonged course of Zosyn i.e. 14-day course given the severity of his pneumonia. However we have no good evidence of a bacterial infection. Continue CPAP and/or high flow oxygen as tolerated. Continue proning procedures. Continue Remdesivir, dexamethasone, baricitinib. Remdesivir has been completed. Maintain in the ICU. (2) Acute respiratory failure with hypoxia: Status: Acute Assessment and plan: As above (3) Thrombocytopenia: Status: Chronic Assessment and plan: Tolerating SQ lovenox - plts have plateued at 67,000. Will continue lovenox as long as platelets remain over 50,000. Continue to monitor. (4) Hypokalemia: Status: Resolved Assessment and plan: repleted (5) Hypocalcemia: Status: Acute Assessment and plan: corrected calcium (adjusted for his hypoalbuminemia) is 9 mg/dL. will monitor but replacement not needed (6) Vitamin D deficiency: Status: Acute Assessment and plan: Replete (7) DVT prophylaxis: Status: Acute Assessment and plan: lovenox while carefully monitoring plts (8) Discharge planning issues: Status: Acute Assessment and plan: Full code Keep in ICU. Total Critical care Time 30 minutes Subjective Subjective Interval history since last seen: Patient feels much better. Denies any dyspnea. No cough and no fevers. He remains on baricitinib, dexamethasone for his COVID-19 pneumonia. He is completed 10-day course of remdesivir. He is on empiric Zosyn presumably due to concomitant bacterial pneumonia. Blood cultures from April 27 showed no growth. No sputum culture was ever obtained. His CRP continues to improve. Stender 1.12 from a peak of 23.5 on April 27. His procalcitonin which has been minimally elevated on admission at 0.4 has now been less than 0.1x2 readings from May 03 and May 06, 2021. He has now been on Zosyn since May 03, 2021. This is day #5 of Zosyn. I will recheck his procalcitonin level again tomorrow along with his CRP. Although his white cell count is elevated I think this is due to to the effects of prolonged Decadron treatment. He will need a prolonged taper of corticosteroids. Per the seat cover cutter recommendation yesterday she suggested that if he is not making great improvement by next week he should be transferred to [facility]. She indicated that if he shows improvement in his oxygen requirements and his WBC then Zosyn could be discontinued. Exam Narrative Exam Narrative: Middle-age male sitting up in his chair alert and oriented person place time circumstance not using accessory respiratory muscles not acutely dyspneic. Lungs are clear to auscultation with just some faint bibasilar rales no rhonchi or wheezes Heart is regular rate and rhythm without murmur rub or gallop Abdomen obese soft and nontender. Lower extremities without peripheral cyanosis or edema no calf tenderness. Neurologic exam grossly intact. Objective Last Vital Signs Temp 36.3 C L 05/07/21 10:50 Pulse 87 05/07/21 09:00 Resp 18 05/07/21 09:00 BP 113/70 05/07/21 09:00 Pulse Ox 94 05/07/21 09:00 Laboratory Results - last 24 hr 05/07/21 05/07/21 05/07/21 07:50 07:50 07:50 WBC 38.47 H* RBC 3.84 L Hgb 11.7 L Hct 35.6 L MCV 92.7 MCH 30.5 MCHC 32.9 RDW 13.9 Plt Count 67 L MPV Immature Gran % See Differential Neutrophils % 64.0 Band Neutrophils % 11 Lymphocytes % 8.0 Monocytes % 12.0 Eosinophils % 0.0 Basophils % 0.0 Metamyelocytes % 3 Myelocytes % 2 Nucleated RBC % 0 Absolute Neutrophils 28.85 H Absolute Lymphocytes 3.08 Absolute Monocytes 4.62 H Absolute Eosinophils 0.00 Absolute Basophils 0.00 RBC Morphology Normal D-Dimer 840 H Sodium 140 Potassium 4.0 Chloride 104 Carbon Dioxide 33.4 H Anion Gap 2.6 L BUN 28 H Creatinine 1.1 Estimated GFR/1.73 m2 >= 60.00 Glucose 101 Calcium 7.8 L Magnesium 2.2 Ferritin 551 H C-Reactive Protein 1.12 H
--- NOTE | 2021-05-07 13:32 | NUR.NOTE ---
Patient remains up in chair and enjoying his lunch.Nursing Note:
[2021-05-07] MEDS: Protein Nutritional Supplement 16 GM 1 OUNCE PACKET PO (20:41)
[2021-05-07] MEDS: Melatonin 3 MG TAB PO (21:17)
[2021-05-07] MEDS: Insulin Aspart 300 UNITS/3 ML PEN SC (21:37)
[2021-05-08] VITALS (44 sets, daily range): BP systolic 90–127; BP diastolic 47–80; PULSE 48–86; RESP 10–28; TEMP 34–36.7; O2SAT 84–97
[2021-05-08] MEDS: Levothyroxine 200 MCG TAB PO (06:17)
[2021-05-08 07:39] LABS: HCT 34.9 % (40.0-50.0); HGB 11.4 g/dL (13.5-17.5); MCH 30.2 pg (27.0-33.0); MCHC 32.7 % (32.0-36.0); MCV 92.6 fL (80-95); Nucleated RBC 0 %; RBC 3.77 10^6/uL (4.36-5.78); RDW 13.7 % (11.8-14.1); RDW-SD 45.9 fL
[2021-05-08 07:50] LABS: ALT 84 U/L (16-63); AST 20 U/L (15-37); Albumin 2.5 g/dL (3.4-5.0); Alkaline Phosphatase 50 U/L (46-116); Anion Gap 3.2 mmol/L (3-11); BUN 29 mg/dL (7-18); Bilirubin, Total 0.8 mg/dL (0.2-1.0); CO2 35.8 mmol/L (21.0-32.0); CREATININE 1.1 mg/dL (0.70-1.30); Calcium 8.4 mg/dL (8.5-10.1); Chloride 102 mmol/L (98-107); Glucose 103 mg/dL (74-106); Sodium 141 mmol/L (136-145); Total Protein 6.3 g/dL (6.4-8.2)
[2021-05-08 08:01] LABS: WBC 38.06 10^3/uL (4.4-10.8)
[2021-05-08 08:02] LABS: Absolute Lymphocyte Count 2.28 10^3/uL (1.2-3.4); Absolute Neutrophil Count 26.26 10^3/uL (1.2-6.7); Bands % 11; Platelet Count 62 10^3/uL (130-400)
[2021-05-08 08:03] LABS: Absolute Monocyte Count 6.09 10^3/uL (0.1-0.8); Atypical Lymphocytes % 1; Diff Comment Manual Differential; Metamyelocytes % 3; Myelocytes % 6; RBC Morphology Normal
[2021-05-08] MEDS: Ascorbic Acid 500 MG TAB 1000 MG PO ×2 (08:14→19:30)
[2021-05-08] MEDS: Calcitriol 0.25 MCG CAP 0.5 MCG PO ×2 (08:15→19:30)
[2021-05-08] MEDS: Calcium Carbonate *TUMS* 500 MG CHEW 1000 MG PO ×3 (08:15→19:30)
[2021-05-08] MEDS: Benzonatate 200 MG CAP PO ×3 (08:15→19:30)
[2021-05-08] MEDS: Cholecalciferol (Vitamin D3) 1,000 UNIT TAB 2000 UNITS PO (08:15)
[2021-05-08] MEDS: Dexamethasone 4 MG/ML VIAL 6 MG IVP (08:15)
[2021-05-08] MEDS: Enoxaparin 40 MG/0.4 ML SYR SC (08:16)
[2021-05-08] MEDS: Furosemide 20 MG TAB PO ×2 (08:16→16:53)
[2021-05-08] MEDS: FAMOTIDINE 20 MG/50 ML BAG 200 MG IVPB ×2 (08:16→19:30)
[2021-05-08] MEDS: Losartan 50 MG TAB PO (08:17)
[2021-05-08] MEDS: Ipratropium/Albuterol 4 GM 120 PUFF INH IH ×4 (08:17→20:28)
[2021-05-08] MEDS: Normal Saline Flush 10 ML SYR IVP ×3 (08:18→19:31)
[2021-05-08] MEDS: Psyllium PKT 1 EACH PO (08:19)
[2021-05-08] MEDS: Protein Nutritional Supplement 16 GM 1 OUNCE PACKET PO ×2 (08:19→19:30)
[2021-05-08 08:34] LABS: Ferritin 559 ng/mL (26-388)
[2021-05-08 08:35] LABS: D-Dimer 655 ng/mlFEU (<500)
--- NOTE | 2021-05-08 13:41 | PGE_ITS ---
Date of Service Date of service: 05/08/21 Time of Service: 13:41 Assessment and Plan Assessment and plan (1) Pneumonia due to COVID-19 virus: Status: Acute Assessment and plan: FiO2 at 60% on high flow nasal cannula at 60 L/min. Patient has been practicing proning procedure. Continue empiric Zosyn. Given his Langerhans histiocytosis he may need a prolonged course of Zosyn i.e. 14-day course given the severity of his pneumonia. However we have no good evidence of a bacterial infection. Continue CPAP and/or high flow oxygen as tolerated. Continue proning procedures. Continue Remdesivir, dexamethasone, baricitinib. Remdesivir has been completed. Maintain in the ICU. (2) Acute respiratory failure with hypoxia: Status: Acute Assessment and plan: As above. Repeat chest CT with contrast was performed on May 03, 2021 to rule out a PE. No pulmonary embolism was seen. He has bilateral infiltrates with some improvement in his left lower lobe consolidation. (3) Thrombocytopenia: Status: Chronic Assessment and plan: Tolerating SQ lovenox - plts have plateued at 62,000. Will continue lovenox as long as platelets remain over 50,000. Continue to monitor. (4) Vitamin D deficiency: Status: Acute Assessment and plan: Replete (5) DVT prophylaxis: Status: Acute Assessment and plan: lovenox while carefully monitoring plts (6) Discharge planning issues: Status: Acute Assessment and plan: Full code Keep in ICU due to high oxygen requirements. Time spent with patient and reviewing his labs and discussing his case with nursing 30 minutes Subjective Subjective Interval history since last seen: Mr. Lanza has no new complaints. He denies any dyspnea or chest pain. Cough is minimal and nonproductive. He is afebrile. His inflammatory markers continue to improve his ferritin is down to 559, CRP down to 0.6. Transaminases have improved. His D-dimer is down to 655. CBC demonstrates a white count of 38,000 however this is felt to be a leukemoid reaction from his Decadron. Platelets down to 62,000. However his platelets have varied between 51,000 and 82,000. His oxygen requirements are currently at 60 L/min high flow nasal cannula and 60% FiO2. Patient is eating and drinking well denies any nausea or vomiting or abdominal pains. He is moving his bowels and voiding well. He reportedly is participat ing in proning and rolling from side to side whenever he is in bed in order to prevent atelectasis. He has been using his I-S and his Acapella. Exam Narrative Exam Narrative: Obese male lying on his left side watching a football game. He is alert and oriented person place time circumstance. He is not in any respiratory distress not using accessory respiratory muscles. Heart is regular rate and rhythm without murmur rub or gallop. Lungs are fairly clear just some fine bibasilar rales no rhonchi or wheezes Abdomen is obese soft and nontender nondistended Legs without peripheral cyanosis or edema. No calf tenderness or thigh tenderness. Objective Last Vital Signs Temp 36.1 C L 05/08/21 12:02 Pulse 71 05/08/21 12:02 Resp 22 05/08/21 12:02 BP 102/63 05/08/21 12:02 Pulse Ox 92 05/08/21 12:02 Laboratory Results - last 24 hr 05/08/21 05/08/21 05/08/21 07:00 07:00 07:00 WBC 38.06 H* RBC 3.77 L Hgb 11.4 L Hct 34.9 L MCV 92.6 MCH 30.2 MCHC 32.7 RDW 13.7 Plt Count 62 L MPV Immature Gran % See Differential Neutrophils % 58.0 Band Neutrophils % 11 Lymphocytes % 5.0 Atypical Lymphs % 1 Monocytes % 16.0 Eosinophils % 0.0 Basophils % 0.0 Metamyelocytes % 3 Myelocytes % 6 Nucleated RBC % 0 Absolute Neutrophils 26.26 H Absolute Lymphocytes 2.28 Absolute Monocytes 6.09 H Absolute Eosinophils 0.00 Absolute Basophils 0.00 RBC Morphology Normal D-Dimer 655 H Sodium 141 Potassium 4.0 Chloride 102 Carbon Dioxide 35.8 H Anion Gap 3.2 BUN 29 H Creatinine 1.1 Estimated GFR/1.73 m2 >= 60.00 Glucose 103 Calcium 8.4 L Ferritin 559 H Total Bilirubin 0.8 AST 20 ALT 84 H Alkaline Phosphatase 50 C-Reactive Protein 0.60 H Total Protein 6.3 L Albumin 2.5 L
[2021-05-08] MEDS: guaiFENesin/CODEINE PHOSPHATE 10 ML CUP 5 ML PO (16:53)
[2021-05-08] MEDS: Zolpidem 5 MG TAB PO (19:30)
[2021-05-09] VITALS (26 sets, daily range): BP systolic 95–122; BP diastolic 50–68; PULSE 50–88; RESP 15–31; TEMP 35.5–36.6; O2SAT 89–95
[2021-05-09] MEDS: Levothyroxine 200 MCG TAB PO (06:02)
--- NOTE | 2021-05-09 08:11 | W.PALPGNOTE ---
Date of service: 05/09/21 Time of Service: 08:11 Assessment and Plan Assessment and plan (1) Acute respiratory distress: Status: Acute (2) Pneumonia due to COVID-19 virus: Status: Acute (3) Palliative care patient: Status: Acute Assessment and plan: Boy continues to require high flow oxygen. He is slowly getting better. He is anxious to get home. He was a little bit more irritable today than when I saw him a week ago, but he continues to be cooperative. I will not see Boy again in last care management or hospitalist feels that I could be of service. At this time he is improving, there is no change in his CODE STATUS, and I expect him to go home within a week. Subjective Subjective Patient reports: feels better, tolerating a regular diet, shortness of breath and afebrile Interval history since last seen: Boy is antsy to get home. He is very much focused on this. He feels that he could go home on oxygen and be fine. Staff states that he continues on high flow oxygen. His requirements are coming down, but slowly. His is now feeling quite a bit better Exam Const General: cooperative and comfortable Nutritional Appearance: overweight Orientation: oriented x3 Resp Effort & Inspection: able to speak in complete sentences Auscultation: rales on the left Psych Speech and Movement: speech clear Attitude: cooperative (But very much wants to get home) Thought Content: normal Objective Last Vital Signs Temp 95.9 F L 05/09/21 04:11 Pulse 54 L 05/09/21 06:01 Resp 19 05/09/21 06:01 BP 109/65 05/09/21 06:01 Pulse Ox 92 05/09/21 06:01 Laboratory Results - last 24 hr 05/08/21 05/08/21 07:00 07:00 D-Dimer 655 H Ferritin 559 H
--- NOTE | 2021-05-09 08:51 | CMPROGNOTE_ITS ---
- If Service Date Differs Date of service: 05/09/21 Time of Service: 08:51 Care Management Progress Note S/O: Boy remains in the ICU on Covid isolation precautions. Per provider, he continues to slowly improve. Subjectively, he feels better and does not have any dyspnea or chest pain. Boy is on high flow nasal cannula at 60L/min. He is eating and drinking well and voiding and moving his bowels without problems. CM was unable to speak to Boy today as he was resting when CM called and per sta ff, his phone was out of reach. A: 61 year old male admitted to [facility] 04/27/21 for COVID-19, acute hypoxic respiratory failure P: Anticipate Boy will return home when medically cleared. Unclear if services will be indicated at this time, anticipate further evaluations to determine need. He will be transported home via private vehicle by family. He will follow up with his PCP and discharge plan of care. CM will continue to follow.
[2021-05-09] MEDS: Calcium Carbonate *TUMS* 500 MG CHEW 1000 MG PO ×3 (10:28→20:48)
[2021-05-09] MEDS: Benzonatate 200 MG CAP PO ×3 (10:29→20:48)
[2021-05-09] MEDS: Furosemide 20 MG TAB PO ×2 (10:29→15:40)
[2021-05-09] MEDS: Losartan 50 MG TAB PO (10:29)
[2021-05-09] MEDS: Ascorbic Acid 500 MG TAB 1000 MG PO ×2 (10:29→20:48)
[2021-05-09] MEDS: Cholecalciferol (Vitamin D3) 1,000 UNIT TAB 2000 UNITS PO (10:29)
[2021-05-09] MEDS: Calcitriol 0.25 MCG CAP 0.5 MCG PO ×2 (10:29→20:48)
[2021-05-09] MEDS: FAMOTIDINE 20 MG/50 ML BAG 200 MG IVPB ×2 (10:30→20:48)
[2021-05-09] MEDS: Normal Saline Flush 10 ML SYR IVP ×2 (10:30→20:52)
[2021-05-09] MEDS: Dexamethasone 4 MG/ML VIAL 6 MG IVP (10:30)
[2021-05-09] MEDS: Psyllium PKT 1 EACH PO (10:31)
[2021-05-09] MEDS: Protein Nutritional Supplement 16 GM 1 OUNCE PACKET PO ×2 (10:32→20:52)
[2021-05-09] MEDS: Enoxaparin 40 MG/0.4 ML SYR SC (10:33)
[2021-05-09] MEDS: Ipratropium/Albuterol 4 GM 120 PUFF INH IH ×4 (10:34→20:51)
--- NOTE | 2021-05-09 16:52 | PGE_ITS ---
Date of Service Date of service: 05/09/21 Time of Service: 16:53 Assessment and Plan Assessment and plan (1) Pneumonia due to COVID-19 virus: Status: Acute Assessment and plan: FiO2 at 60% on high flow nasal cannula at 60 L/min. Patient has been practicing proning procedure. Continue empiric Zosyn. Given his Langerhans histiocytosis he may need a prolonged course of Zosyn i.e. 14-day course given the severity of his pneumonia. However we have no good evidence of a bacterial infection. Continue CPAP and/or high flow oxygen as tolerated. Continue proning procedures. Remdesivir has been completed. Baricitinib will be completed tomorrow. continue decadron. Maintain in the ICU. (2) Acute respiratory failure with hypoxia: Status: Acute Assessment and plan: As above. Repeat chest CT with contrast was performed on May 03, 2021 to rule out a PE. No pulmonary embolism was seen. He has bilateral infiltrates with some improvement in his left lower lobe consolidation.consider repeat his CT chest the latter part of this week, if he has no improvement in his oxygen requirements. Dr. Carrillo had suggested transfer to [facility] if he was not improving however, he seems to have plateaued on his oxygen requirements even though his inflammatory markers have improved (decreasing d-dimer, CRP and ferritin), although his WBC have increased and remained constant in the mid to high 30,000 range. I believe this is secondary to steroids. I do not feel that transfer to a tertiary care center would change his treatment. In fact I spoke w/ an I.D. physician from [facility] regarding another of our COVID-19 patients who has completed treatment for COVID-19 twice in the past month and still has increased oxygen requirements and still has high viral load even after full treatment w/ baricitinib and remdesivir and the I.D. physician had nothing else to offer other than continued steroid treatment. I think that Boy is going to need a prolonged course of corticosteorids. I am concened about his high WBC counts and will check a flow cytometry to rule out a lymphoma/leukemia reaction. I also may need to consult w/ hematology. (3) Thrombocytopenia: Status: Chronic Assessment and plan: Tolerating SQ lovenox - plts have plateued at 62,000. Will continue lovenox as long as platelets remain over 50,000. Continue to monitor. (4) Vitamin D deficiency: Status: Acute Assessment and plan: Replete (5) DVT prophylaxis: Status: Acute Assessment and plan: lovenox while carefully monitoring plts (6) Discharge planning issues: Status: Acute Assessment and plan: Full code Keep in ICU due to high oxygen requirements. Time spent with patient and reviewing his labs and discussing his case with nursing 30 minutes Subjective Subjective Patient reports: no new complaints, feels better and bowel movement; denies shortness of breath and fever Interval history since last seen: Boy is feeling better. No dyspnea w/ the minimal activity he can perform in his room in the ICU which is limited to going from the bed to the chair or getting up to use the commode. He has cough minimally productive. he remains on Zosyn but if his procalcitonin returns normal tomorrow then I may stop his Zosyn. He has finished his Remdesivir but has today and tomorrow to finish his Baricitinib. He remains on decadron. He still requires HFNC @ 60 LPM. and 60% FIO2. Exam Narrative Exam Narrative: Obese male sitting up in his chair preparing to eat his dinner. He is alert and oriented person place time circumstance. He is not in any respiratory distress not using accessory respiratory muscles. Heart is regular rate and rhythm without murmur rub or gallop. Lungs are fairly clear just some fine bibasilar rales no rhonchi or wheezes Abdomen is obese soft and nontender nondistended Legs without peripheral cyanosis or edema. No calf tenderness or thigh tenderness. Objective Last Vital Signs Temp 36.4 C L 05/09/21 16:06 Pulse 58 L 05/09/21 16:06 Resp 24 05/09/21 16:06 BP 121/61 05/09/21 16:06 Pulse Ox 90 L 05/09/21 16:06
[2021-05-09] MEDS: PIPERACILLIN/TAZO 3.375 GM in Normal Saline 50 ML 100 ML IVPB (17:46)
[2021-05-09] MEDS: Zolpidem 5 MG TAB PO (20:50)
[2021-05-09] MEDS: Insulin Aspart 300 UNITS/3 ML PEN SC (21:10)
[2021-05-10] VITALS (26 sets, daily range): BP systolic 93–130; BP diastolic 53–77; PULSE 54–96; RESP 16–30; TEMP 35.7–36.5; O2SAT 84–96
[2021-05-10] MEDS: PIPERACILLIN/TAZO 3.375 GM in Normal Saline 50 ML 100 ML IVPB ×4 (00:51→18:04)
[2021-05-10] MEDS: Levothyroxine 200 MCG TAB PO (05:43)
[2021-05-10 07:05] LABS: HCT 34.5 % (40.0-50.0); HGB 11.3 g/dL (13.5-17.5); MCH 29.7 pg (27.0-33.0); MCHC 32.8 % (32.0-36.0); MCV 90.8 fL (80-95); Nucleated RBC 0 %; Platelet Count 66 10^3/uL (130-400); RDW-SD 45.9 fL
[2021-05-10 07:14] LABS: WBC 46.29 10^3/uL (4.4-10.8)
[2021-05-10 07:31] LABS: Absolute Monocyte Count 4.63 10^3/uL (0.1-0.8); Absolute Neutrophil Count 37.96 10^3/uL (1.2-6.7); Bands % 7; Diff Comment Manual Differential; RBC Morphology Normal
[2021-05-10 07:33] LABS: ALT 80 U/L (16-63); AST 18 U/L (15-37); Albumin 2.5 g/dL (3.4-5.0); Alkaline Phosphatase 48 U/L (46-116); Anion Gap 5.9 mmol/L (3-11); BUN 32 mg/dL (7-18); Bilirubin, Total 0.6 mg/dL (0.2-1.0); CO2 32.1 mmol/L (21.0-32.0); CREATININE 1.1 mg/dL (0.70-1.30); Calcium 8.2 mg/dL (8.5-10.1); Chloride 104 mmol/L (98-107); D-Dimer 455 ng/mlFEU (<500); Ferritin 551 ng/mL (26-388); Glucose 111 mg/dL (74-106); Potassium 3.8 mmol/L (3.5-5.1); Sodium 142 mmol/L (136-145); Total Protein 6.1 g/dL (6.4-8.2)
[2021-05-10 08:05] LABS: LDH 248 U/L (85-227)
[2021-05-10] MEDS: Dexamethasone 4 MG/ML VIAL 6 MG IVP (10:02)
[2021-05-10] MEDS: Calcium Carbonate *TUMS* 500 MG CHEW 1000 MG PO ×3 (10:04→20:19)
[2021-05-10] MEDS: Cholecalciferol (Vitamin D3) 1,000 UNIT TAB 2000 UNITS PO (10:04)
[2021-05-10] MEDS: Calcitriol 0.25 MCG CAP 0.5 MCG PO ×2 (10:04→20:19)
[2021-05-10] MEDS: Ascorbic Acid 500 MG TAB 1000 MG PO ×2 (10:04→20:19)
[2021-05-10] MEDS: Benzonatate 200 MG CAP PO ×3 (10:04→20:19)
[2021-05-10] MEDS: Furosemide 20 MG TAB PO ×2 (10:05→16:42)
[2021-05-10] MEDS: Psyllium PKT 1 EACH PO (10:05)
[2021-05-10] MEDS: FAMOTIDINE 20 MG/50 ML BAG 200 MG IVPB (10:05)
[2021-05-10] MEDS: Protein Nutritional Supplement 16 GM 1 OUNCE PACKET PO ×2 (10:06→20:19)
[2021-05-10] MEDS: Ipratropium/Albuterol 4 GM 120 PUFF INH IH ×4 (10:06→20:00)
[2021-05-10] MEDS: Enoxaparin 40 MG/0.4 ML SYR SC (10:06)
[2021-05-10] MEDS: Losartan 50 MG TAB PO (10:09)
--- NOTE | 2021-05-10 11:27 | W.NUTRFU ---
Date of service: 05/10/21 Time of Service: 11:27 Nutrition Note NOTE: Assessment: Mr. Lanza continues to have excellent PO intake on a CHO consistent/heart healthy diet. His blood sugars have been in the target range. Of note his weight today is 106.4 kg, which is down a significant 13% in 12 days. He is getting furosemide which is likely the cause of this significant weight loss. Nutrition diagnosis: None at this time. Intervention: No new intervention to note. Continue with current nutrition care plan. Monitoring and Evaluation: Will continue to monitor nutrition status. Will evaluate nutrition care plan ongoing and adjust as needed. Time Spent in Nutritional Counseling and Treatment: 0
--- NOTE | 2021-05-10 11:28 | W.PM.PROGNOT ---
Date of Service Date of service: 05/10/21 Time of Service: 11:28 Assessment and Plan Assessment and plan (1) Pneumonia due to COVID-19 virus: Status: Acute Assessment and plan: FiO2 at 55% on high flow nasal cannula at 60 L/min. Patient has been practicing proning procedure. Continue empiric Zosyn. Given his Langerhans histiocytosis he may need a prolonged course of Zosyn i.e. 14-day course given the severity of his pneumonia. However we have no good evidence of a bacterial infection. Continue CPAP and/or high flow oxygen as tolerated. Continue proning procedures. Remdesivir has been completed. Baricitinib has been completed. continue decadron. Transfer to med/surg as his oxygen requirements while high, have been stable and he has shown no acute decompensation in his respiratory status and remains hemodynamically stable. (2) Acute respiratory failure with hypoxia: Status: Acute Assessment and plan: continue supportive care w/ HFNC and/or CPAP at night, along w/ IS and acapella use and proning. cont. corticosteroids. will start to wean steroids once his oxygen requirements improve (3) Thrombocytopenia: Status: Chronic Assessment and plan: platelet counts have been stable in the 60,000 ragne. cont. 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 In light of this diagnosis, I have elected to continue his Zosyn. he is now on day # 7. I will continue for at least 10 days before stopping and will repeat his procalcitonin before doing so. (6) Leukocytosis, unspecified: Status: Acute Assessment and plan: probably a leukemoid reaction to the steroids. He did not have a leukocytosis on admission. Will monitor however in light of his hx of thyroid cancer and Langerhans cell histiocytosis, I have sent a flow cytometry looking for leukemic process. Qualifiers: Leukocytosis type: leukemoid reaction Qualified Code(s): D72.823 - Leukemoid reaction (7) Hypothyroidism (acquired): Status: Chronic Assessment and plan: continue thryoid replacement. no recent TSH on file. Will get w/ next labs. currently on levothyroxine 200 mcg (8) DVT prophylaxis: Status: Acute Assessment and plan: lovenox while carefully monitoring plts (9) Discharge planning issues: Status: Acute Assessment and plan: Full code transfer to med/surg w/ continued close monitoring of his oxygen Subjective Subjective Interval history since last seen: Patient has no new complaints. He denies any chest pain or dyspnea no nausea or vomiting. He is moving his bowels with no diarrhea. However he still requiring high flow oxygen at 60 L/min and 55% FiO2. At night he wears a CPAP at 14 cm but is only requiring 35% FiO2. He has minimal cough that is nonproductive. I told Boy that we would plan to move him out to the floor today I think he could benefit from a change of venue. I told him if we can get his oxygen requirements down to a level that could be managed at home he can be discharged home. Exam Narrative Exam Narrative: Obese white male sitting up in his chair watching TV alert and oriented person place time circumstance. He is able to carry a conversation without any dyspnea or coughing. Lungs are clear anteriorly posteriorly has some fine basilar crackles no rhonchi or wheezes Heart is regular rate and rhythm Abdomen is obese soft nontender normal bowel sounds nondistended Extremities without peripheral edema or cyanosis. Objective Last Vital Signs Temp 36.3 C L 05/10/21 10:47 Pulse 80 05/10/21 08:06 Resp 20 05/10/21 08:06 BP 105/67 05/10/21 08:06 Pulse Ox 88 L 05/10/21 08:06 Laboratory Results - last 24 hr 05/10/21 05/10/21 05/10/21 06:30 06:30 06:30 WBC 46.29 H* RBC 3.80 L Hgb 11.3 L Hct 34.5 L MCV 90.8 MCH 29.7 MCHC 32.8 RDW 14.0 Plt Count 66 L MPV Immature Gran % 0.0 Neutrophils % 75.0 Band Neutrophils % 7 Lymphocytes % 8.0 Monocytes % 10.0 Eosinophils % 0.0 Basophils % 0.0 Nucleated RBC % 0 Absolute Neutrophils 37.96 H Absolute Lymphocytes 3.70 H Absolute Monocytes 4.63 H Absolute Eosinophils 0.00 Absolute Basophils 0.00 RBC Morphology Normal D-Dimer 455 Sodium 142 Potassium 3.8 Chloride 104 Carbon Dioxide 32.1 H Anion Gap 5.9 BUN 32 H Creatinine 1.1 Estimated GFR/1.73 m2 >= 60.00 Glucose 111 H Calcium 8.2 L Ferritin 551 H Total Bilirubin 0.6 AST 18 ALT 80 H Alkaline Phosphatase 48 Lactate Dehydrogenase 248 H C-Reactive Protein 0.20 Total Protein 6.1 L Albumin 2.5 L
--- NOTE | 2021-05-10 14:18 | PDOC.CMPRO ---
- If Service Date Differs Date of service: 05/10/21 Time of Service: 14:18 Care Management Progress Note S/O: Boy remains on Covid precautions, therefore CM was unable to meet with him in person today. CM talked to his , Vi, who dropped off paperwork for Boy and the provider to fill out. CM obtained MD signature, and asked his RN to obtain Boy's signature. CM also dropped off a personal item brought by his . CM will continue to follow. A: 61 year old male admitted to [facility] 04/27/21 for COVID-19, acute hypoxic respiratory failure P: Anticipate Boy will return home when medically cleared. Unclear if services will be indicated at this time, anticipate further evaluations to determine need. He will be transported home via private vehicle by family. He will follow up with his PCP and discharge plan of care. CM will continue to follow.
[2021-05-10] MEDS: Normal Saline Flush 10 ML SYR IVP (20:18)
[2021-05-10] MEDS: Famotidine 20 MG TAB PO (20:19)
[2021-05-10] MEDS: Melatonin 3 MG TAB PO (22:37)
[2021-05-11] VITALS (35 sets, daily range): BP systolic 88–115; BP diastolic 52–75; PULSE 50–78; RESP 16–29; TEMP 34–37.1; O2SAT 86–97
[2021-05-11] MEDS: PIPERACILLIN/TAZO 3.375 GM in Normal Saline 50 ML 100 ML IVPB ×4 (00:24→18:36)
[2021-05-11] MEDS: Normal Saline Flush 10 ML SYR IVP (00:25)
[2021-05-11] MEDS: Levothyroxine 200 MCG TAB PO (06:01)
--- NOTE | 2021-05-11 10:15 | RT.EKG_ITS ---
APPROVED REPORT Exam: Resting ECG Reason for Exam: chest pain Patient Location: I HR:55 bpm ECG Measurements Heart Rate 55 AXIS CO 139 P 55 QRSd 97 QRS 33 QT 432 T -6 QTc 415 Conclusion Sinus bradycardia...rate< 60
[2021-05-11 11:29] LABS: Abs Immature Grans 3.52 10^3/uL (0.0-0.06); HGB 11.4 g/dL (13.5-17.5); MCH 30.4 pg (27.0-33.0); MCHC 32.6 % (32.0-36.0); MCV 93.3 fL (80-95); Nucleated RBC 0 %; RBC 3.75 10^6/uL (4.36-5.78); RDW 14.2 % (11.8-14.1)
[2021-05-11 11:38] LABS: WBC 44.15 10^3/uL (4.4-10.8)
--- NOTE | 2021-05-11 11:38 | PGE_ITS ---
Date of Service Date of service: 05/11/21 Time of Service: 11:38 Assessment and Plan Assessment and plan (1) Chest pain at rest: Status: Acute Assessment and plan: EKG was performed demonstrated sinus bradycardia rate of 55 bpm. There is no acute ischemic ST or T wave changes. No evidence of right heart strain. Labs were not done this morning so we ordered stat CMP, CBC, coagulation studies, D-dimer, troponin I, proBNP. He is currently free of any chest discomfort. Now that his blood pressure stabilized patient will be sent for an emergent CTA of his chest to rule out a PE. Given his episode of sudden onset of chest tightness and dyspnea and hypotension patient will remain in the intensive care unit. He was written to go to the medical/surgical floor yesterday but we will keep him in the MICU for now. CC time spent directly w/ the patient 1 hour (2) Pneumonia due to COVID-19 virus: Status: Acute Assessment and plan: Continue supportive care with vitamin D vitamin C, zinc, Pepcid, high flow oxygen per nasal cannula, continue Decadron. Continue e mpiric antibiotics with Zosyn given his history of Langerhans' cell histiocytosis. Today is day 9 of his Zosyn. We will continue through tomorrow and if his procalcitonin level remains less than 0.1 I will discontinue his Zosyn after tomorrow. (3) Acute respiratory failure with hypoxia: Status: Acute Assessment and plan: continue supportive care w/ HFNC and/or CPAP at night, along w/ IS and acapella use and proning. cont. corticosteroids. will start to wean steroids once his oxygen requirements improve (4) Thrombocytopenia: Status: Chronic Assessment and plan: platelet counts have been stable in the 60,000 range. cont. lovenox for DVT prophylaxis in setting of COVID-19 pneumonia (5) Vitamin D deficiency: Status: Acute Assessment and plan: Replete (6) Langerhans cell histiocytoses: Status: Acute Assessment and plan: dx by skin biopsy but it does concern me as to whether or not he has lung involvement as well. In light of this diagnosis, I have elected to continue his Zosyn. he is now on day # 7. I will continue for at least 10 days before stopping and will repeat his procalcitonin before doing so. (7) Leukocytosis, unspecified: Status: Acute Assessment and plan: probably a leukemoid reaction to the steroids. He did not have a leukocytosis on admission. Will monitor however in light of his hx of thyroid cancer and Langerhans cell histiocytosis, I have sent a flow cytometry looking for leukemic process. Qualifiers: Leukocytosis type: leukemoid reaction Qualified Code(s): D72.823 - Leukemoid reaction (8) Hypothyroidism (acquired): Status: Chronic Assessment and plan: continue thryoid replacement. no recent TSH on file. Will get w/ next labs. currently on levothyroxine 200 mcg (9) DVT prophylaxis: Status: Acute Assessment and plan: We will give him a total of 100 mg of Lovenox this morning pending results of repeat CTA. If there is no pulmonary embolism then he will remain on DVT prophylactic levels of Lovenox. (10) Discharge planning issues: Status: Acute Assessment and plan: Full code transfer to med/surg w/ continued close monitoring of his oxygen Subjective Subjective Interval history since last seen: Patient was sitting up in his chair this morning he developed chest tightness. Apparently this went on for couple hours before he told anybody about it and then suddenly he developed lightheadedness and had a drop in his systolic blood pressure down to 71 and his oxygen saturation dropped to 84%. He was placed back in bed and is oxygen saturation came back up and his systolic pressure came up into the low 100s. I gowned up and went into the room and did a [id number] ultrasound of his lungs heart and venous compression study of his legs. Limited cardiac exam showed normal LV and RV function and no RV dilatation and no IVC dilatation with good collapsibility of his IVC. Venous compression study of his legs did not reveal any DVT. Lung POCUS exam shows diffuse bilateral B-lines although less so in the apices compared to the bases. He still has subpleural consolidations and no effusions. I am still suspicious that he may have thrown a pulmonary embolus but there is no evidence for right heart strain. Exam Narrative Exam Narrative: Obese male lying in bed currently free of any chest discomfort. Lungs with bilateral basilar rales no rhonchi or wheezing Heart is regular Abdomen is obese soft nontender Lower extremities without swelling or tenderness or cyanosis. Objective Last Vital Signs Temp 37.1 C 05/11/21 03:25 Pulse 51 L 05/11/21 03:46 Resp 18 05/10/21 17:05 BP 111/75 05/11/21 03:46 Pulse Ox 95 05/11/21 06:00 Laboratory Results - last 24 hr 05/10/21 06:30 Lymph/Leukemia Panel Cancelled
[2021-05-11 11:47] LABS: INR 1.1 (0.9-1.1); PTT Activated 23.4 sec (21.0-27.5)
[2021-05-11 11:48] LABS: ALT 102 U/L (16-63); AST 26 U/L (15-37); Albumin 2.6 g/dL (3.4-5.0); Alkaline Phosphatase 47 U/L (46-116); Anion Gap 3.2 mmol/L (3-11); BUN 28 mg/dL (7-18); Bilirubin, Total 0.6 mg/dL (0.2-1.0); CO2 33.8 mmol/L (21.0-32.0); CREATININE 1.1 mg/dL (0.70-1.30); Calcium 7.2 mg/dL (8.5-10.1); Chloride 105 mmol/L (98-107); Glucose 96 mg/dL (74-106); NT-proBNP 162 pg/mL (<300); Potassium 3.4 mmol/L (3.5-5.1); Sodium 142 mmol/L (136-145); Total Protein 6.1 g/dL (6.4-8.2)
[2021-05-11 11:51] LABS: Troponin I < 0.05 ng/mL (<0.06)
[2021-05-11 12:00] LABS: D-Dimer 486 ng/mlFEU (<500)
[2021-05-11 12:01] LABS: Absolute Lymphocyte Count 3.53 10^3/uL (1.2-3.4); Absolute Monocyte Count 6.62 10^3/uL (0.1-0.8); Absolute Neutrophil Count 31.79 10^3/uL (1.2-6.7); Bands % 2
[2021-05-11 12:02] LABS: Basophilic Stippling Present; Diff Comment Manual Differential; Metamyelocytes % 2; Myelocytes % 3; Polychromasia Present
[2021-05-11 12:03] LABS: Platelet Count 63 10^3/uL (130-400)
[2021-05-11] MEDS: Enoxaparin 60 MG/0.6 ML SYR SC (12:13)
[2021-05-11] MEDS: Omnipaque 350 MG/ML 100 ML BTL IJ (13:11)
[2021-05-11] MEDS: Normal Saline - Diluent 50 ML VIAL IV (13:12)
[2021-05-11] MEDS: Calcium Carbonate *TUMS* 500 MG CHEW 1000 MG PO ×2 (13:15→20:58)
[2021-05-11] MEDS: Famotidine 20 MG TAB PO ×2 (13:15→20:58)
[2021-05-11] MEDS: Dexamethasone 4 MG/ML VIAL 6 MG IVP (13:15)
[2021-05-11] MEDS: Ipratropium/Albuterol 4 GM 120 PUFF INH IH ×3 (13:15→20:59)
[2021-05-11] MEDS: Psyllium PKT 1 EACH PO (13:15)
[2021-05-11] MEDS: Losartan 50 MG TAB PO (13:15)
[2021-05-11] MEDS: Enoxaparin 40 MG/0.4 ML SYR SC (13:15)
[2021-05-11] MEDS: Protein Nutritional Supplement 16 GM 1 OUNCE PACKET PO ×2 (13:15→21:00)
[2021-05-11] MEDS: Benzonatate 200 MG CAP PO ×2 (13:15→20:58)
[2021-05-11] MEDS: Ascorbic Acid 500 MG TAB 1000 MG PO ×2 (13:15→20:58)
[2021-05-11] MEDS: Cholecalciferol (Vitamin D3) 1,000 UNIT TAB 2000 UNITS PO (13:15)
[2021-05-11] MEDS: Calcitriol 0.25 MCG CAP 0.5 MCG PO ×2 (13:15→20:58)
[2021-05-11] MEDS: Furosemide 20 MG TAB PO ×2 (13:15→16:07)
--- NOTE | 2021-05-11 13:15 | DI.CT_ITS ---
Exam(s) CT CHEST PE CTA EXAM: CT CHEST PE CTA CLINICAL HISTORY: chest pain, Covid +. TECHNIQUE: Imaging Protocol: CT angiography of the chest was performed using pulmonary embolus june col. Multi planar reconstructions were performed. CONTRAST MATERIAL: Intravenous: Omnipaque 350 Contrast volume: 100 cc COMPARISON: CT CT CHEST PE CTA from 05/03/2021 FINDINGS: CHEST: PULMONARY ARTERIES: There are no intraluminal filling defects to suggest acute pulmonary emboli. LUNGS: Is minimal if any significant improvement in the extensive bilateral pulmonary infiltrates whi ch involve all segments of both lungs. There are no pleural effusions. MEDIASTINUM: There is no obvious hilar nor mediastinal adenopathy. CARDIAC: Heart size is upper normal. There is no pericardial effusion. There is no significant shif t of the interventricular septum. Caliber of the ascending thoracic aorta measures 4.0 cm which is w ider than typical. There is no dissection. Diameter of the mid arch level is 3 cm. Diameter of the proximal descending thoracic aorta is 3.1 cm. Diameter of the distal thoracic aorta is 2.5 cm is up per normal. There is no dissection. PARTIALLY VISUALIZED UPPERMOST ABDOMEN: No adrenal masses. OSSEOUS: No significant osseous lesions.. IMPRESSION: 1. There is minimal if any radiographic improvement in the extensive bilateral pulmonary infiltrates which are highly suspicious for Covid-19 pneumonia..There are no pleural effusions. New intrathoraci c adenopathy noted 2. No evidence of pulmonary emboli. 3. Diameter of the thoracic aorta is increased. No evidence of dissection. RADIATION DOSE DELIVERED: 640.7mGy.cm Total DLP DATA REPOSITORY: All CT scans at this facility are submitted to the National Radiology Data Registry (NRDR) Dose Index Registry (DIR) with the [employer] (A[employer]). RADIATION OPTIMIZATION: All CT scans at this facility use at least one of these dose optimization te chniques: automated exposure control; mA and/or kV adjustment per patient size (includes targeted exa ms where dose is matched to clinical indication); or iterative reconstruction.
[2021-05-11] MEDS: Potassium Chloride 20 MEQ TABCR 40 MEQ PO (13:30)
--- NOTE | 2021-05-11 17:16 | CMPROGNOTE_ITS ---
- If Service Date Differs Date of service: 05/11/21 Time of Service: 17:16 Care Management Progress Note S/O: Boy was transferred back to ICU level of care today after feeling chest pain, which he reported was a 6/10. Per report, his troponin's and CT were both negative. He continues to require hi flow O2, is using CPAP at night and proning. CM called his , Vi today, to inform her that his short term disability paperwork is complete. CM will continue to follow. A: 61 year old male admitted to [facility] 04/27/21 for COVID-19, acute hypoxic respiratory failure P: Anticipate Boy will return home when medically cleared. Unclear if services will be indicated at this time, anticipate further evaluations to determine need. He will be transported home via private vehicle by family. He will follow up with his PCP and discharge plan of care. CM will continue to follow.
[2021-05-11 18:01] LABS: Troponin I < 0.05 ng/mL (<0.06)
[2021-05-11] MEDS: Melatonin 3 MG TAB PO (20:58)
[2021-05-11] MEDS: Insulin Aspart 300 UNITS/3 ML PEN SC (21:32)
[2021-05-12] VITALS (27 sets, daily range): BP systolic 91–115; BP diastolic 51–70; PULSE 49–75; RESP 16–26; TEMP 34–36.7; O2SAT 88–96
[2021-05-12] MEDS: PIPERACILLIN/TAZO 3.375 GM in Normal Saline 50 ML 100 ML IVPB ×2 (00:20→06:21)
[2021-05-12] MEDS: Levothyroxine 200 MCG TAB PO (06:21)
[2021-05-12 07:21] LABS: HCT 37.4 % (40.0-50.0); MCH 29.7 pg (27.0-33.0); MCHC 32.1 % (32.0-36.0); MCV 92.6 fL (80-95); Nucleated RBC 0 %; RBC 4.04 10^6/uL (4.36-5.78); RDW 14.7 % (11.8-14.1); RDW-SD 47.9 fL
[2021-05-12 07:30] LABS: WBC 46.11 10^3/uL (4.4-10.8)
[2021-05-12 07:42] LABS: ALT 115 U/L (16-63); AST 23 U/L (15-37); Albumin 2.8 g/dL (3.4-5.0); Alkaline Phosphatase 48 U/L (46-116); Anion Gap 3.6 mmol/L (3-11); BUN 26 mg/dL (7-18); Bilirubin, Total 0.5 mg/dL (0.2-1.0); C-Reactive Protein 0.08 mg/dL (0.0-0.3); CO2 30.4 mmol/L (21.0-32.0); Calcium 7.7 mg/dL (8.5-10.1); Chloride 104 mmol/L (98-107); Glucose 102 mg/dL (74-106); Potassium 3.8 mmol/L (3.5-5.1); Sodium 138 mmol/L (136-145); Total Protein 6.4 g/dL (6.4-8.2)
[2021-05-12 07:43] LABS: Absolute Lymphocyte Count 6.92 10^3/uL (1.2-3.4); Absolute Monocyte Count 3.23 10^3/uL (0.1-0.8); Atypical Lymphocytes % 5; Bands % 4; Diff Comment Manual Differential; Metamyelocytes % 6; Platelet Count 69 10^3/uL (130-400); RBC Morphology Normal
[2021-05-12 07:54] LABS: Procalcitonin < 0.1 ng/mL
[2021-05-12] MEDS: Ipratropium/Albuterol 4 GM 120 PUFF INH IH ×4 (08:00→21:10)
[2021-05-12] MEDS: Protein Nutritional Supplement 16 GM 1 OUNCE PACKET PO ×2 (08:01→20:42)
[2021-05-12] MEDS: Normal Saline Flush 10 ML SYR IVP ×3 (08:01→20:42)
[2021-05-12] MEDS: Psyllium PKT 1 EACH PO (08:01)
[2021-05-12] MEDS: Dexamethasone 4 MG/ML VIAL 6 MG IVP (08:01)
[2021-05-12] MEDS: Enoxaparin 40 MG/0.4 ML SYR SC (08:01)
[2021-05-12] MEDS: Cholecalciferol (Vitamin D3) 1,000 UNIT TAB 2000 UNITS PO (08:02)
[2021-05-12] MEDS: Calcitriol 0.25 MCG CAP 0.5 MCG PO ×2 (08:03→20:41)
[2021-05-12] MEDS: Ascorbic Acid 500 MG TAB 1000 MG PO ×2 (08:03→20:41)
[2021-05-12] MEDS: Furosemide 20 MG TAB PO ×2 (08:03→16:23)
[2021-05-12] MEDS: Famotidine 20 MG TAB PO ×2 (08:03→20:42)
[2021-05-12] MEDS: Benzonatate 200 MG CAP PO ×3 (08:04→20:41)
[2021-05-12] MEDS: Losartan 50 MG TAB PO (08:04)
[2021-05-12] MEDS: Calcium Carbonate *TUMS* 500 MG CHEW 1000 MG PO ×3 (08:04→20:41)
[2021-05-12 08:11] LABS: D-Dimer 405 ng/mlFEU (<500)
[2021-05-12 08:17] LABS: Ferritin 571 ng/mL (26-388)
--- NOTE | 2021-05-12 11:13 | W.PM.PROGNOT ---
Date of Service Date of service: 05/12/21 Time of Service: 11:13 Assessment and Plan Assessment and plan (1) Pneumonia due to COVID-19 virus: Status: Acute Assessment and plan: Continue supportive care with vitamin D vitamin C, zinc, Pepcid, high flow oxygen per nasal cannula, continue Decadron. Repeat procalcitonin level is normal. He has had no fever and his CT of the chest showed no new consolidations. Patient has completed 9 days of Zosyn therefore I am going to discontinue his Zosyn. I have increased his Decadron to 10 mg orally. Patient is medically stable and can be transferred from the medical ICU to the medical/surgical floor. Telemetry will be discontinued as he has had no cardiac arrhythmias. (2) Acute respiratory failure with hypoxia: Status: Acute Assessment and plan: As above (3) Chest pain at rest: Status: Resolved Assessment and plan: No further chest pain. Serial troponins negative and EKG negative. CTA of the chest from yesterday showed no pulmonary emboli. There is a discrepancy in the CT report and that the body of the report says there is no hilar or mediastinal adenopathy while the impression says new thoracic adenopathy. I called Dr. Morton and asked him to review the case and correct the report. (4) Thrombocytopenia: Status: Chronic Assessment and plan: platelet counts have been stable in the 60,000 range. cont. lovenox for DVT prophylaxis in setting of COVID-19 pneumonia (5) Vitamin D deficiency: Status: Acute Assessment and plan: Replete (6) Langerhans cell histiocytoses: Status: Acute Assessment and plan: dx by skin biopsy but it does concern me as to whether or not he has lung involvement as well. He is completed 9 days of Zosyn therapy and has had normal procalcitonin levels on repeated testing. I have discontinued his Zosyn as of today. (7) Leukocytosis, unspecified: Status: Acute Assessment and plan: probably a leukemoid reaction to the steroids. He did not have a leukocytosis on admission. Will monitor however in light of his hx of thyroid cancer and Langerhans cell histiocytosis, I have sent a flow cytometry looking for leukemic process. Flow cytometry is still pending Qualifiers: Leukocytosis type: leukemoid reaction Qualified Code(s): D72.823 - Leukemoid reaction (8) Hypothyroidism (acquired): Status: Chronic Assessment and plan: continue thryoid replacement. no recent TSH on file. Will get w/ next labs. currently on levothyroxine 200 mcg (9) DVT prophylaxis: Status: Acute Assessment and plan: Patient is back on DVT prophylaxis dosing of enoxaparin (10) Discharge planning issues: Status: Acute Assessment and plan: Full code transfer to med/surg w/ continued close monitoring of his oxygen Subjective Subjective Interval history since last seen: Boy has no complaints this morning. Overall he has felt much better today. No dizziness or lightheadedness and no chest discomfort. He was able to perform his ADLs without significant dyspnea. However he still remains on high flow nasal cannula at 55 L/min. His oxygen saturation is running 91 to 96%. I think Boy is medically stable enough to go out to the medical/surgical floor. I discussed with him the fact that he has a significant leukocytosis which I feel is probably due to his steroids however I did raise concern about the persistently high leukocytosis and possible other secondary causes. He has had no fevers or night sweats. Exam Narrative Exam Narrative: Obese white male sitting up in his chair; no acute distress, not using his accessory respiratory muscles Neck: supple, no adenopathy; s/p thyroidectomy; no supraclavicular adenopathy Lungs: bibasilar dry rales; no rhonchi or wheezing Axilla: no adenopathy Abdomen: obese, soft, nontender, no organomegaly Groin: no inguinal adenopathy Legs: has TEDS on and there is no edema or calf tenderness Objective Last Vital Signs Temp 36.6 C 05/12/21 04:00 Pulse 70 05/12/21 08:23 Resp 21 05/12/21 08:23 BP 107/56 L 05/12/21 08:23 Pulse Ox 93 05/12/21 08:23 Laboratory Results - last 24 hr 05/10/21 05/11/21 05/11/21 06:30 10:48 11:10 WBC RBC Hgb Hct MCV MCH MCHC RDW Plt Count MPV Immature Gran % Neutrophils % Band Neutrophils % Lymphocytes % Atypical Lymphs % Monocytes % Eosinophils % Basophils % Metamyelocytes % Myelocytes % Nucleated RBC % Absolute Neutrophils Absolute Lymphocytes Absolute Monocytes Absolute Eosinophils Absolute Basophils RBC Morphology Polychromasia Basophilic Stippling PT INR Cancelled APTT D-Dimer Sodium 142 Potassium 3.4 L Chloride 105 Carbon Dioxide 33.8 H Anion Gap 3.2 BUN 28 H Creatinine 1.1 Estimated GFR/1.73 m2 >= 60.00 Glucose 96 Calcium 7.2 L Ferritin Total Bilirubin 0.6 AST 26 ALT 102 H Alkaline Phosphatase 47 Troponin I < 0.05 C-Reactive Protein NT-Pro-B Natriuret Pep 162 Total Protein 6.1 L Albumin 2.6 L Procalcitonin Lymph/Leukemia Panel Cancelled 05/11/21 05/11/21 05/11/21 11:10 11:10 17:40 WBC 44.15 H* RBC 3.75 L Hgb 11.4 L Hct 35.0 L MCV 93.3 MCH 30.4 MCHC 32.6 RDW 14.2 H Plt Count 63 L MPV Immature Gran % 0.0 Neutrophils % 70.0 Band Neutrophils % 2 Lymphocytes % 8.0 Atypical Lymphs % Monocytes % 15.0 Eosinophils % 0.0 Basophils % 0.0 Metamyelocytes % 2 Myelocytes % 3 Nucleated RBC % 0 Absolute Neutrophils 31.79 H Absolute Lymphocytes 3.53 H Absolute Monocytes 6.62 H Absolute Eosinophils 0.00 Absolute Basophils 0.00 RBC Morphology See Below Polychromasia Present Basophilic Stippling Present PT 11.0 INR 1.1 APTT 23.4 D-Dimer 486 Sodium Potassium Chloride Carbon Dioxide Anion Gap BUN Creatinine Estimated GFR/1.73 m2 Glucose Calcium Ferritin Total Bilirubin AST ALT Alkaline Phosphatase Troponin I < 0.05 C-Reactive Protein NT-Pro-B Natriuret Pep Total Protein Albumin Procalcitonin Lymph/Leukemia Panel 05/12/21 05/12/21 05/12/21 06:20 06:20 06:20 WBC 46.11 H* RBC 4.04 L Hgb 12.0 L Hct 37.4 L MCV 92.6 MCH 29.7 MCHC 32.1 RDW 14.7 H Plt Count 69 L MPV Immature Gran % 0.0 Neutrophils % 68.0 Band Neutrophils % 4 Lymphocytes % 10.0 Atypical Lymphs % 5 Monocytes % 7.0 Eosinophils % 0.0 Basophils % 0.0 Metamyelocytes % 6 Myelocytes % Nucleated RBC % 0 Absolute Neutrophils 33.20 H Absolute Lymphocytes 6.92 H Absolute Monocytes 3.23 H Absolute Eosinophils 0.00 Absolute Basophils 0.00 RBC Morphology Normal Polychromasia Basophilic Stippling PT INR APTT D-Dimer Sodium 138 Potassium 3.8 Chloride 104 Carbon Dioxide 30.4 Anion Gap 3.6 BUN 26 H Creatinine 1.0 Estimated GFR/1.73 m2 >= 60.00 Glucose 102 Calcium 7.7 L Ferritin 571 H Total Bilirubin 0.5 AST 23 ALT 115 H Alkaline Phosphatase 48 Troponin I C-Reactive Protein 0.08 NT-Pro-B Natriuret Pep Total Protein 6.4 Albumin 2.8 L Procalcitonin < 0.1 Lymph/Leukemia Panel 05/12/21 06:20 WBC RBC Hgb Hct MCV MCH MCHC RDW Plt Count MPV Immature Gran % Neutrophils % Band Neutrophils % Lymphocytes % Atypical Lymphs % Monocytes % Eosinophils % Basophils % Metamyelocytes % Myelocytes % Nucleated RBC % Absolute Neutrophils Absolute Lymphocytes Absolute Monocytes Absolute Eosinophils Absolute Basophils RBC Morphology Polychromasia Basophilic Stippling PT INR APTT D-Dimer 405 Sodium Potassium Chloride Carbon Dioxide Anion Gap BUN Creatinine Estimated GFR/1.73 m2 Glucose Calcium Ferritin Total Bilirubin AST ALT Alkaline Phosphatase Troponin I C-Reactive Protein NT-Pro-B Natriuret Pep Total Protein Albumin Procalcitonin Lymph/Leukemia Panel
--- NOTE | 2021-05-12 11:57 | PDOC.CMPRO ---
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 Per report, he had a chest CT to determine if he has a PE, which was negative. It did show, however, that his Covid pneumonia is still present, which he remains on antibiotics for. His WBC continues to elevate, it is now 46.11. CM will continue to follow. A: 61 year old male admitted to [facility] 04/27/21 for COVID-19, acute hypoxic respiratory failure P: Anticipate Boy will return home when medically cleared. Unclear if services will be indicated at this time, anticipate further evaluations to determine need. He will be transported home via private vehicle by family. He will follow up with his PCP and discharge plan of care. CM will continue to follow.
[2021-05-12] MEDS: Insulin Aspart 300 UNITS/3 ML PEN SC ×3 (12:00→21:05)
[2021-05-12] MEDS: Melatonin 3 MG TAB PO (20:42)
[2021-05-13] VITALS (39 sets, daily range): BP systolic 105–129; BP diastolic 58–68; PULSE 67–86; RESP 20–22; TEMP 36.2–36.6; O2SAT 85–95
[2021-05-13] MEDS: Levothyroxine 200 MCG TAB PO (05:58)
[2021-05-13 06:54] LABS: HCT 33.7 % (40.0-50.0); HGB 11.1 g/dL (13.5-17.5); MCHC 32.9 % (32.0-36.0); MCV 91.1 fL (80-95); MPV 14.5 fL (8.0-11.0); Nucleated RBC 0 %; RDW 14.6 % (11.8-14.1); RDW-SD 46.1 fL
[2021-05-13 07:03] LABS: WBC 36.48 10^3/uL (4.4-10.8)
[2021-05-13 07:11] LABS: ALT 102 U/L (16-63); AST 20 U/L (15-37); Albumin 2.5 g/dL (3.4-5.0); Alkaline Phosphatase 47 U/L (46-116); Anion Gap 4.1 mmol/L (3-11); BUN 23 mg/dL (7-18); Bilirubin, Total 0.4 mg/dL (0.2-1.0); C-Reactive Protein 0.05 mg/dL (0.0-0.3); CO2 32.9 mmol/L (21.0-32.0); Calcium 7.1 mg/dL (8.5-10.1); Chloride 105 mmol/L (98-107); Glucose 99 mg/dL (74-106); Potassium 3.7 mmol/L (3.5-5.1); Sodium 142 mmol/L (136-145); Total Protein 5.8 g/dL (6.4-8.2)
[2021-05-13 07:27] LABS: Absolute Lymphocyte Count 1.82 10^3/uL (1.2-3.4); Absolute Monocyte Count 4.74 10^3/uL (0.1-0.8); Absolute Neutrophil Count 28.09 10^3/uL (1.2-6.7); Atypical Lymphocytes % 1; Bands % 5; Diff Comment Manual Differential; Metamyelocytes % 4; Myelocytes % 1; Platelet Count 60 10^3/uL (130-400); RBC Morphology Normal
[2021-05-13 07:38] LABS: D-Dimer 399 ng/mlFEU (<500)
[2021-05-13 07:42] LABS: Ferritin 508 ng/mL (26-388)
[2021-05-13] MEDS: Ascorbic Acid 500 MG TAB 1000 MG PO ×2 (08:09→19:03)
[2021-05-13] MEDS: Calcitriol 0.25 MCG CAP 0.5 MCG PO ×2 (08:10→19:03)
[2021-05-13] MEDS: Calcium Carbonate *TUMS* 500 MG CHEW 1000 MG PO ×3 (08:10→19:02)
[2021-05-13] MEDS: Benzonatate 200 MG CAP PO ×3 (08:10→19:03)
[2021-05-13] MEDS: Dexamethasone 4 MG TAB 10 MG PO (08:11)
[2021-05-13] MEDS: Cholecalciferol (Vitamin D3) 1,000 UNIT TAB 2000 UNITS PO (08:11)
[2021-05-13] MEDS: Enoxaparin 40 MG/0.4 ML SYR SC (08:11)
[2021-05-13] MEDS: Furosemide 20 MG TAB PO ×2 (08:12→17:15)
[2021-05-13] MEDS: Famotidine 20 MG TAB PO ×2 (08:12→19:03)
[2021-05-13] MEDS: Losartan 50 MG TAB PO (08:14)
[2021-05-13] MEDS: Protein Nutritional Supplement 16 GM 1 OUNCE PACKET PO ×2 (08:15→19:03)
[2021-05-13] MEDS: Normal Saline Flush 10 ML SYR IVP ×2 (08:15→19:03)
[2021-05-13] MEDS: Psyllium PKT 1 EACH PO (08:16)
[2021-05-13] MEDS: Ipratropium/Albuterol 4 GM 120 PUFF INH IH ×4 (09:04→19:15)
--- NOTE | 2021-05-13 11:12 | PDOC.CMPRO ---
- If Service Date Differs Date of service: 05/13/21 Time of Service: 11:12 Care Management Progress Note S/O: Boy remains on Covid 19 precautions. Per report, he continues to improve. He is currently on 5L, with sats from 88-91%, nasal canula. Per RN, he may be able to transfer out of the ICU, to Med/Surge soon. He is anxious to return home, and his reports that she is continuing to improve, and is looking forward to Boy returning home. CM will continue to follow. A: 61 year old male admitted to [facility] 04/27/21 for COVID-19, acute hypoxic respiratory failure P: Anticipate Boy will return home when medically cleared. Unclear if services will be indicated at this time, anticipate further evaluations to determine need. He will be transported home via private vehicle by family. He will follow up with his PCP and discharge plan of care. CM will continue to follow.
--- NOTE | 2021-05-13 13:52 | W.PM.PROGNOT ---
Date of Service Date of service: 05/13/21 Time of Service: 13:53 Assessment and Plan Assessment and plan (1) Pneumonia due to COVID-19 virus: Status: Acute Assessment and plan: Continue supportive care with vitamin D vitamin C, zinc, Pepcid, high flow oxygen per nasal cannula, continue Decadron. Repeat procalcitonin level was normal. He has had no fever and his CT of the chest showed no new consolidations. Patient has completed 9 days of Zosyn therefore his Zosyn has been discontinued. I have increased his Decadron to 10 mg orally. Patient is medically stable. Hopefully his oxygen requirements will continue to improve. (2) Acute respiratory failure with hypoxia: Status: Acute Assessment and plan: As above (3) Thrombocytopenia: Status: Chronic Assessment and plan: platelet counts have been stable in the 60,000 range. cont. 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 He i completed 9 days of Zosyn therapy and has had normal procalcitonin levels on repeated testing. I have discontinued his Zosyn as of yesterday. (6) Leukocytosis, unspecified: Status: Acute Assessment and plan: probably a leukemoid reaction to the steroids. He did not have a leukocytosis on admission. Will monitor however in light of his hx of thyroid cancer and Langerhans cell histiocytosis, I have sent a flow cytometry looking for leukemic process. Flow cytometry is still pending. His total WBC has declined to 36,000 from a peak of 46,000. Continue to monitor Qualifiers: Leukocytosis type: leukemoid reaction Qualified Code(s): D72.823 - Leukemoid reaction (7) Hypothyroidism (acquired): Status: Chronic Assessment and plan: continue thryoid replacement. no recent TSH on file. Will get w/ next labs. currently on levothyroxine 200 mcg (8) DVT prophylaxis: Status: Acute Assessment and plan: Patient is back on DVT prophylaxis dosing of enoxaparin (9) Discharge planning issues: Status: Acute Assessment and plan: Full code transfer to med/surg w/ continued close monitoring of his oxygen Subjective Subjective Interval history since last seen: Patient feels great. No dyspnea at rest and only mild dyspnea w/ activity. No fever and cough only minimal clear to white mucous when he first woke up. His oxygen requirments are finally improving. He was on 5 LPM but had to go on 6 LPM after activity this afternoon. While he remains in the ICU he is actually a med/surgical floor patient as an overflow in the ICU. He has had no further orthostasis and no chest pains. Exam Narrative Exam Narrative: Obese white male sitting up in his chair; no acute distress, not using his accessory respiratory muscles Neck: supple, no adenopathy; s/p thyroidectomy; no supraclavicular adenopathy Lungs: fine, bibasilar dry rales; no rhonchi or wheezing Abdomen: obese, soft, nontender Legs: has TEDS on and there is no edema or calf tenderness Objective Last Vital Signs Temp 36.2 C L 05/13/21 08:30 Pulse 68 05/13/21 08:30 Resp 22 05/13/21 08:30 BP 129/58 L 05/13/21 08:30 Pulse Ox 88 L 05/13/21 08:30 Laboratory Results - last 24 hr 05/13/21 05/13/21 05/13/21 06:10 06:10 06:10 WBC 36.48 H* RBC 3.70 L Hgb 11.1 L Hct 33.7 L MCV 91.1 MCH 30.0 MCHC 32.9 RDW 14.6 H Plt Count 60 L MPV 14.5 H Immature Gran % 0.0 Neutrophils % 72.0 Band Neutrophils % 5 Lymphocytes % 4.0 Atypical Lymphs % 1 Monocytes % 13.0 Eosinophils % 0.0 Basophils % 0.0 Metamyelocytes % 4 Myelocytes % 1 Nucleated RBC % 0 Absolute Neutrophils 28.09 H Absolute Lymphocytes 1.82 Absolute Monocytes 4.74 H Absolute Eosinophils 0.00 Absolute Basophils 0.00 RBC Morphology Normal D-Dimer 399 Sodium 142 Potassium 3.7 Chloride 105 Carbon Dioxide 32.9 H Anion Gap 4.1 BUN 23 H Creatinine 1.0 Estimated GFR/1.73 m2 >= 60.00 Glucose 99 Calcium 7.1 L Ferritin 508 H Total Bilirubin 0.4 AST 20 ALT 102 H Alkaline Phosphatase 47 C-Reactive Protein 0.05 Total Protein 5.8 L Albumin 2.5 L
[2021-05-13] MEDS: Melatonin 3 MG TAB PO (22:42)
[2021-05-14 00:21] VITALS: BP 124/66; PULSE 62; RESP 16; TEMP 35; O2SAT 94
[2021-05-14] MEDS: Normal Saline Flush 10 ML SYR IVP ×3 (00:21→22:19)
[2021-05-14] MEDS: Levothyroxine 200 MCG TAB PO (06:00)
[2021-05-14 07:39] LABS: Abs Immature Grans 3.79 10^3/uL (0.0-0.06); HCT 37.1 % (40.0-50.0); HGB 12.1 g/dL (13.5-17.5); MCH 30.3 pg (27.0-33.0); MCHC 32.6 % (32.0-36.0); MCV 92.8 fL (80-95); Platelet Count 65 10^3/uL (130-400); RDW 15.1 % (11.8-14.1); RDW-SD 48.1 fL
[2021-05-14 07:50] LABS: WBC 40.72 10^3/uL (4.4-10.8)
[2021-05-14 08:06] LABS: ALT 99 U/L (16-63); AST 19 U/L (15-37); Albumin 2.8 g/dL (3.4-5.0); Alkaline Phosphatase 52 U/L (46-116); Anion Gap 6.3 mmol/L (3-11); BUN 24 mg/dL (7-18); Bilirubin, Total 0.5 mg/dL (0.2-1.0); C-Reactive Protein 0.19 mg/dL (0.0-0.3); CO2 31.7 mmol/L (21.0-32.0); CREATININE 0.9 mg/dL (0.70-1.30); Calcium 7.7 mg/dL (8.5-10.1); Chloride 102 mmol/L (98-107); Glucose 101 mg/dL (74-106); Potassium 3.8 mmol/L (3.5-5.1); Sodium 140 mmol/L (136-145); Total Protein 6.7 g/dL (6.4-8.2)
[2021-05-14 08:27] LABS: Absolute Lymphocyte Count 1.63 10^3/uL (1.2-3.4); Absolute Monocyte Count 6.52 10^3/uL (0.1-0.8); Absolute Neutrophil Count 31.35 10^3/uL (1.2-6.7); Bands % 2; Diff Comment Manual Differential; Myelocytes % 3; Nucleated RBC 1 %
[2021-05-14 08:28] LABS: Polychromasia Present
[2021-05-14 08:31] LABS: D-Dimer 411 ng/mlFEU (<500)
[2021-05-14 08:36] LABS: Ferritin 515 ng/mL (26-388)
[2021-05-14 09:11] VITALS: PULSE 79; O2SAT 90
[2021-05-14] MEDS: Ipratropium/Albuterol 4 GM 120 PUFF INH IH ×4 (09:11→22:25)
[2021-05-14 10:00] VITALS: O2SAT 94
[2021-05-14 10:11] VITALS: BP 101/61; PULSE 76; RESP 20; TEMP 36.4; O2SAT 93
[2021-05-14] MEDS: Psyllium PKT 1 EACH PO (10:13)
[2021-05-14] MEDS: Protein Nutritional Supplement 16 GM 1 OUNCE PACKET PO ×2 (10:13→22:19)
[2021-05-14] MEDS: Calcium Carbonate *TUMS* 500 MG CHEW 1000 MG PO ×3 (10:14→22:20)
[2021-05-14] MEDS: Dexamethasone 4 MG TAB 10 MG PO (10:14)
[2021-05-14] MEDS: Benzonatate 200 MG CAP PO ×3 (10:14→22:20)
[2021-05-14] MEDS: Ascorbic Acid 500 MG TAB 1000 MG PO ×2 (10:15→22:21)
[2021-05-14] MEDS: Calcitriol 0.25 MCG CAP 0.5 MCG PO ×2 (10:16→22:21)
[2021-05-14] MEDS: Famotidine 20 MG TAB PO ×2 (10:16→22:20)
[2021-05-14] MEDS: Losartan 50 MG TAB PO (10:16)
[2021-05-14] MEDS: Cholecalciferol (Vitamin D3) 1,000 UNIT TAB 2000 UNITS PO (10:16)
[2021-05-14] MEDS: Enoxaparin 40 MG/0.4 ML SYR SC (11:00)
[2021-05-14] MEDS: Furosemide 20 MG TAB PO ×2 (11:25→18:20)
[2021-05-14] MEDS: Insulin Aspart 300 UNITS/3 ML PEN SC ×2 (18:21→22:23)
[2021-05-14 18:25] VITALS: BP 112/63; PULSE 73; RESP 20; TEMP 35.9; O2SAT 93
--- NOTE | 2021-05-14 18:48 | W.PM.PROGNOT ---
Date of Service Date of service: 05/14/21 Time of Service: 18:00 Assessment and Plan Assessment and plan (1) Pneumonia due to COVID-19 virus: Status: Acute Assessment and plan: with acute hypoxic respiratory failure, much improved. Continue proning, weaning O2 as tolerated. Continue dexamethasone. Finished remdesivir and baricitinib. Continue antitussives and melatonin. Continue vitamin C and D supplementation. (2) Acute respiratory failure with hypoxia: Status: Acute Assessment and plan: As above (3) Thrombocytopenia: Status: Chronic Assessment and plan: Tolerating SQ lovenox Continue to monitor. (4) Vitamin D deficiency: Status: Acute Assessment and plan: Replete (5) DVT prophylaxis: Status: Acute Assessment and plan: lovenox sc while plt count is >50 (6) Discharge planning issues: Status: Acute Assessment and plan: Full code Continues to require hospitalizaiton. Subjective Subjective Interval history since last seen: Mr Lanza feels a lot better. He is on 5L of O2 by [place]. Denies dizziness, chest pain, shortness of breath, nausea. Reports occasional nonproductive cough. Exam Narrative Exam Narrative: General: Pleasant middle-aged male who looks well sitting up in a chair, A&Ox3, on 5L of O2 by [place], no dyspnea/tachypnea HEENT: EOMI, MMM Heart: RRR, no m/r/g Lungs: CTAB Abdomen: soft, nontender, nondistended Extremities: trace edema BLE's while wearing TEDs. Objective Last Vital Signs Temp 35.9 C L 05/14/21 18:25 Pulse 73 05/14/21 18:25 Resp 20 05/14/21 18:25 BP 112/63 05/14/21 18:25 Pulse Ox 93 05/14/21 18:25 Laboratory Results - last 24 hr 05/14/21 05/14/21 05/14/21 06:40 06:40 06:40 WBC 40.72 H* RBC 4.00 L Hgb 12.1 L Hct 37.1 L MCV 92.8 MCH 30.3 MCHC 32.6 RDW 15.1 H Plt Count 65 L MPV Not Applicable Immature Gran % Neutrophils % 75.0 Band Neutrophils % 2 Lymphocytes % 4.0 Monocytes % 16.0 Eosinophils % 0.0 Basophils % 0.0 Myelocytes % 3 Nucleated RBC % 1 Absolute Neutrophils 31.35 H Absolute Lymphocytes 1.63 Absolute Monocytes 6.52 H Absolute Eosinophils 0.00 Absolute Basophils 0.00 RBC Morphology See Below Polychromasia Present D-Dimer 411 Sodium 140 Potassium 3.8 Chloride 102 Carbon Dioxide 31.7 Anion Gap 6.3 BUN 24 H Creatinine 0.9 Estimated GFR/1.73 m2 >= 60.00 Glucose 101 Calcium 7.7 L Ferritin 515 H Total Bilirubin 0.5 AST 19 ALT 99 H Alkaline Phosphatase 52 C-Reactive Protein 0.19 Total Protein 6.7 Albumin 2.8 L
[2021-05-14] MEDS: Melatonin 3 MG TAB PO (22:20)
[2021-05-15] VITALS (9 sets, daily range): BP systolic 107–125; BP diastolic 66–72; PULSE 59–86; RESP 16–19; TEMP 35.3–37.1; O2SAT 88–95
[2021-05-15] MEDS: Normal Saline Flush 10 ML SYR IVP ×3 (01:00→22:06)
[2021-05-15] MEDS: Levothyroxine 200 MCG TAB PO (05:02)
[2021-05-15] MEDS: Calcitriol 0.25 MCG CAP 0.5 MCG PO ×2 (08:28→22:05)
[2021-05-15] MEDS: Dexamethasone 4 MG TAB 10 MG PO (08:28)
[2021-05-15] MEDS: Cholecalciferol (Vitamin D3) 1,000 UNIT TAB 2000 UNITS PO (08:28)
[2021-05-15] MEDS: Ipratropium/Albuterol 4 GM 120 PUFF INH IH ×4 (08:29→22:05)
[2021-05-15] MEDS: Famotidine 20 MG TAB PO ×2 (08:29→22:05)
[2021-05-15] MEDS: Calcium Carbonate *TUMS* 500 MG CHEW 1000 MG PO ×3 (08:29→22:05)
[2021-05-15] MEDS: Benzonatate 200 MG CAP PO ×3 (08:29→22:05)
[2021-05-15] MEDS: Ascorbic Acid 500 MG TAB 1000 MG PO ×2 (08:29→22:05)
[2021-05-15] MEDS: Losartan 50 MG TAB PO (08:29)
[2021-05-15] MEDS: Furosemide 20 MG TAB PO ×2 (08:29→17:07)
[2021-05-15] MEDS: Psyllium PKT 1 EACH PO (08:30)
[2021-05-15] MEDS: Enoxaparin 40 MG/0.4 ML SYR SC (08:30)
[2021-05-15] MEDS: Insulin Aspart 300 UNITS/3 ML PEN SC (08:30)
[2021-05-15] MEDS: Protein Nutritional Supplement 16 GM 1 OUNCE PACKET PO ×2 (08:30→22:06)
--- NOTE | 2021-05-15 17:00 | W.PM.PROGNOT ---
Date of Service Date of service: 05/15/21 Time of Service: 16:40 Assessment and Plan Assessment and plan (1) Pneumonia due to COVID-19 virus: Status: Acute Assessment and plan: with acute hypoxic respiratory failure, much improved. Continue proning, weaning O2 as tolerated. Continue dexamethasone. Finished remdesivir and baricitinib. Continue antitussives and melatonin. Continue vitamin C and D supplementation. Check exercise ox in am. (2) Acute respiratory failure with hypoxia: Status: Acute Assessment and plan: As above (3) Thrombocytopenia: Status: Chronic Assessment and plan: Tolerating SQ lovenox Continue to monitor. (4) Vitamin D deficiency: Status: Acute Assessment and plan: Replete (5) DVT prophylaxis: Status: Acute Assessment and plan: lovenox sc while plt count is >50 (6) Discharge planning issues: Status: Acute Assessment and plan: Full code Possible discharge home tomorrow Subjective Subjective Interval history since last seen: Feels better. No dizziness, chest pain, shortness of breath, nausea, diarrhea. Down to 2L of O2 today. Exam Narrative Exam Narrative: General: Pleasant middle-aged male who looks well sitting up in a chair, A&Ox3, on 2L of O2 by [place], no dyspnea/tachypnea HEENT: EOMI, MMM Heart: RRR, no m/r/g Lungs: CTAB Abdomen: soft, nontender, nondistended Extremities: trace edema BLE's. Objective Last Vital Signs Temp 36.0 C L 05/15/21 12:30 Pulse 86 05/15/21 16:30 Resp 18 05/15/21 16:30 BP 107/68 05/15/21 16:30 Pulse Ox 92 05/15/21 16:30
[2021-05-15] MEDS: Melatonin 3 MG TAB PO (22:05)
[2021-05-16 05:10] VITALS: BP 124/77; PULSE 86; RESP 19; TEMP 36.5; O2SAT 90
[2021-05-16] MEDS: Levothyroxine 200 MCG TAB PO (05:20)
[2021-05-16 07:39] LABS: HCT 37.5 % (40.0-50.0); HGB 12.1 g/dL (13.5-17.5); MCH 30.7 pg (27.0-33.0); MCHC 32.3 % (32.0-36.0); MCV 95.2 fL (80-95); Nucleated RBC 0 %; RBC 3.94 10^6/uL (4.36-5.78); RDW 16.3 % (11.8-14.1); RDW-SD 52.4 fL
[2021-05-16 08:07] LABS: Absolute Lymphocyte Count 6.99 10^3/uL (1.2-3.4); Absolute Neutrophil Count 29.18 10^3/uL (1.2-6.7); Bands % 3; Platelet Count 56 10^3/uL (130-400)
[2021-05-16 08:08] LABS: Absolute Monocyte Count 4.11 10^3/uL (0.1-0.8); Diff Comment Manual Differential; Metamyelocytes % 2; RBC Morphology Normal
[2021-05-16 08:18] LABS: D-Dimer 390 ng/mlFEU (<500)
[2021-05-16 08:23] LABS: ALT 110 U/L (16-63); AST 24 U/L (15-37); Albumin 2.9 g/dL (3.4-5.0); Alkaline Phosphatase 49 U/L (46-116); Anion Gap 7.3 mmol/L (3-11); BUN 29 mg/dL (7-18); Bilirubin, Direct 0.2 mg/dL (0.0-0.2); Bilirubin, Total 0.7 mg/dL (0.2-1.0); CO2 30.7 mmol/L (21.0-32.0); Calcium 8.4 mg/dL (8.5-10.1); Chloride 102 mmol/L (98-107); Glucose 103 mg/dL (74-106); Magnesium 2.3 mg/dL (1.8-2.4); Sodium 140 mmol/L (136-145); Total Protein 6.4 g/dL (6.4-8.2)
[2021-05-16 08:24] LABS: C-Reactive Protein < 0.05 mg/dL (0.0-0.3)
[2021-05-16 08:58] LABS: Ferritin 465 ng/mL (26-388)
[2021-05-16] MEDS: Ipratropium/Albuterol 4 GM 120 PUFF INH IH ×4 (09:01→21:43)
[2021-05-16] MEDS: Normal Saline Flush 10 ML SYR IVP ×2 (09:01→21:44)
[2021-05-16] MEDS: Furosemide 20 MG TAB PO ×2 (09:02→16:34)
[2021-05-16] MEDS: Calcium Carbonate *TUMS* 500 MG CHEW 1000 MG PO ×3 (09:02→21:40)
[2021-05-16] MEDS: Psyllium PKT 1 EACH PO (09:02)
[2021-05-16] MEDS: Cholecalciferol (Vitamin D3) 1,000 UNIT TAB 2000 UNITS PO (09:02)
[2021-05-16] MEDS: Protein Nutritional Supplement 16 GM 1 OUNCE PACKET PO (09:03)
[2021-05-16] MEDS: Calcitriol 0.25 MCG CAP 0.5 MCG PO ×2 (09:03→21:40)
[2021-05-16] MEDS: Famotidine 20 MG TAB PO (09:03)
[2021-05-16] MEDS: Ascorbic Acid 500 MG TAB 1000 MG PO ×2 (09:03→21:39)
[2021-05-16] MEDS: Benzonatate 200 MG CAP PO ×3 (09:04→21:41)
[2021-05-16] MEDS: Dexamethasone 4 MG TAB 10 MG PO (09:04)
[2021-05-16] MEDS: Losartan 50 MG TAB PO (09:04)
[2021-05-16] MEDS: Enoxaparin 40 MG/0.4 ML SYR SC (09:04)
[2021-05-16 09:18] VITALS: O2SAT 89
[2021-05-16 09:19] VITALS: BP 129/88; PULSE 92; RESP 20; TEMP 36.9; O2SAT 89
[2021-05-16 10:13] VITALS: PULSE 99; RESP 22; O2SAT 83
[2021-05-16] MEDS: Insulin Aspart 300 UNITS/3 ML PEN SC ×2 (16:44→21:56)
--- NOTE | 2021-05-16 17:02 | PDOC.CMPRO ---
- If Service Date Differs Date of service: 05/16/21 Time of Service: 17:02 Care Management Progress Note S/O: Per report, Boy is showing improvement from his hypoxic respiratory failure. He is being encouraged to prone, and his O2 is being weaned as tolerated. Today, he had an exercise oximetry, which per RT, he was not able to maintain his O2 saturation with ambulation using 4L or less. He will have another exercise walk tomorrow to determine if he can be discharged home. Per RT, he will need to have an O2 requirement of 4L or less in order to set up new home O2. CM will continue to follow. A: 61 year old male admitted to [facility] 04/27/21 for COVID-19, acute hypoxic respiratory failure P: Anticipate Boy will return home when medically cleared. Unclear if services will be indicated at this time, anticipate further evaluations to determine need. He will be transported home via private vehicle by family. He will follow up with his PCP and discharge plan of care. CM will continue to follow.
--- NOTE | 2021-05-16 17:21 | NUR.NOTE ---
Patient was expressing the desire to leave AMA and had failed his exercise oximetry test in the AM. I had interacted with the patient extensively in the ICU and had a strong rapport in setting goals with the patient and helping him feel motivated and calm. He had requested I check in on him this week. Spoke with Hema Mcleod RN patient's primary and he confirmed that the patient has been irritable and threatening to leave. He had also taken the dressing off his midline. After speaking with the MS care team including Dr. Figueroa, I called and spoke with the patient over the phone. He was unsure of what the goal of the oximeter test was to pass and he had many questions regarding his care and the ability to go home. Patient needed continued support and education continued from his MS team. I was able to spend from approximately [id number] in the room with the patient except for retrieving care items. The patient was calm and apologized for his irritation/frustration. He was pleasant and very cooperative. The pt has been using his IS, walking frequently, and proning at night per patient report. I did extensive work with the patient on trialling various forms of oxygen delivery, perfusion differences, various monitors, and activity tolerance. Some maki findings were the 02 sat is 1-2 points lower when using the 20+ feet of tubing stretching all the way to the bathroom versus the 1 cannula length and an oxygen tank. Also, his perfusion was 94% 02 sat R ear, 91% L ear, and 89% L hand. Dr. Figueroa is aware and wants the R ear used for the oximeter test. The patient states he feels when his 02 sat is in the 90s and can tell that the 80s reading in his hand is lower than what he feels. I educated the patient on walking slower and taking short pauses to take a few deep breaths. This also aided keeping his 02 sat 90% while walking. RT provided an optimizer cannula that Dr. Macias has. It allows a small reservoir of 02 on the cannula. The patient was able to walk with minimal pauses on 4L/optimizer NC hooked to the 02 tank and held 89-90%. Dr. Figueroa was updated on all the findings and agrees that if the patient is able to maintain 89-90% tomorrow he will be D/Cd. She assessed the patient while I was in the room. I updated Hema Mcleod RN, and Marco Rodriguez RT. The plan is to do another oximetry test at 1000 or after in the AM with Ze and myself to discuss finding from this evening. The patient is very appreciative of his care and states no further needs for the night. He was joking and conversant when I left. I replaced his midline dressing, changed his bedding, and refilled his water.
[2021-05-16 17:47] VITALS: O2SAT 93
--- NOTE | 2021-05-16 17:54 | W.PM.PROGNOT ---
Date of Service Date of service: 05/16/21 Time of Service: 17:54 Assessment and Plan Assessment and plan (1) Pneumonia due to COVID-19 virus: Status: Acute Assessment and plan: with acute hypoxic respiratory failure, much improved. Continue proning, weaning O2 as tolerated. Continue dexamethasone. Finished remdesivir and baricitinib. Continue antitussives and melatonin. Continue vitamin C and D supplementation. Recheck exercise ox in am with plans for discharge home tomorrow. (2) Acute respiratory failure with hypoxia: Status: Acute Assessment and plan: As above (3) Thrombocytopenia: Status: Chronic Assessment and plan: Tolerating SQ lovenox Continue to monitor. (4) Vitamin D deficiency: Status: Acute Assessment and plan: Replete (5) DVT prophylaxis: Status: Acute Assessment and plan: lovenox sc while plt count is >50 (6) Discharge planning issues: Status: Acute Assessment and plan: Full code Plan for discharge home tomorrow Subjective Subjective Interval history since last seen: Gabe is on 4L of O2 today which he is also requiring on ambulation. Denies dizziness,chest pain, shortness of breath, nausea. I'm going home tomorrow no matter what! Exam Narrative Exam Narrative: General: Pleasant middle-aged male who looks well sitting up in a chair, A&Ox3, on 4L of O2 by [place], no dyspnea/tachypnea HEENT: EOMI, MMM Heart: RRR, no m/r/g Lungs: CTAB, diminished at B bases Abdomen: soft, nontender, nondistended Extremities: trace edema BLE's. Objective Last Vital Signs Temp 36.9 C 05/16/21 09:19 Pulse 92 H 05/16/21 09:19 Resp 20 05/16/21 09:19 BP 129/88 05/16/21 09:19 Pulse Ox 93 05/16/21 17:47 Laboratory Results - last 24 hr 05/16/21 05/16/21 05/16/21 07:05 07:05 07:05 WBC 41.10 H* RBC 3.94 L Hgb 12.1 L Hct 37.5 L MCV 95.2 H MCH 30.7 MCHC 32.3 RDW 16.3 H Plt Count 56 L MPV Immature Gran % 0.0 Neutrophils % 68.0 Band Neutrophils % 3 Lymphocytes % 17.0 Monocytes % 10.0 Eosinophils % 0.0 Basophils % 0.0 Metamyelocytes % 2 Nucleated RBC % 0 Absolute Neutrophils 29.18 H Absolute Lymphocytes 6.99 H Absolute Monocytes 4.11 H Absolute Eosinophils 0.00 Absolute Basophils 0.00 RBC Morphology Normal D-Dimer 390 Sodium 140 Potassium 4.0 Chloride 102 Carbon Dioxide 30.7 Anion Gap 7.3 BUN 29 H Creatinine 1.0 Estimated GFR/1.73 m2 >= 60.00 Glucose 103 Calcium 8.4 L Magnesium 2.3 Ferritin 465 H Total Bilirubin 0.7 Conjugated Bilirubin 0.2 AST 24 ALT 110 H Alkaline Phosphatase 49 C-Reactive Protein < 0.05 Total Protein 6.4 Albumin 2.9 L
[2021-05-16] MEDS: Melatonin 3 MG TAB PO (21:41)
[2021-05-17] MEDS: Levothyroxine 200 MCG TAB PO (05:27)
[2021-05-17] MEDS: Psyllium PKT 1 EACH PO (08:04)
[2021-05-17] MEDS: Calcitriol 0.25 MCG CAP 0.5 MCG PO (08:04)
[2021-05-17] MEDS: Calcium Carbonate *TUMS* 500 MG CHEW 1000 MG PO ×2 (08:04→14:33)
[2021-05-17] MEDS: Famotidine 20 MG TAB PO (08:05)
[2021-05-17] MEDS: Ascorbic Acid 500 MG TAB 1000 MG PO (08:05)
[2021-05-17] MEDS: Benzonatate 200 MG CAP PO ×2 (08:05→14:34)
[2021-05-17] MEDS: Cholecalciferol (Vitamin D3) 1,000 UNIT TAB 2000 UNITS PO (08:05)
[2021-05-17] MEDS: Furosemide 20 MG TAB PO (08:06)
[2021-05-17] MEDS: Losartan 50 MG TAB PO (08:06)
[2021-05-17] MEDS: Dexamethasone 4 MG TAB 10 MG PO (08:06)
[2021-05-17] MEDS: Normal Saline Flush 10 ML SYR IVP ×2 (08:07→11:51)
[2021-05-17 08:10] VITALS: BP 136/79; PULSE 85; RESP 18; TEMP 36.3; O2SAT 97
[2021-05-17] MEDS: Ipratropium/Albuterol 4 GM 120 PUFF INH IH ×3 (08:10→17:22)
[2021-05-17 08:30] VITALS: O2SAT 89
[2021-05-17 10:21] LABS: HCT 37.5 % (40.0-50.0); HGB 12.5 g/dL (13.5-17.5); MCH 31.2 pg (27.0-33.0); MCHC 33.3 % (32.0-36.0); MCV 93.5 fL (80-95); Nucleated RBC 0 %; RBC 4.01 10^6/uL (4.36-5.78); RDW 16.7 % (11.8-14.1); RDW-SD 51.1 fL
[2021-05-17 10:23] LABS: WBC 38.32 10^3/uL (4.4-10.8)
[2021-05-17 10:34] LABS: INR 1.1 (0.9-1.1); Prothrombin Time 10.9 sec (9.3-11.0)
--- NOTE | 2021-05-17 10:41 | DI.RAD_ITS ---
Exam(s) XR PORTABLE CHEST AP EXAM: XR PORTABLE CHEST AP CLINICAL HISTORY: worsening hypoxic resp. failure, COVID TECHNIQUE: 2D digital imaging was performed of the chest. One image was obtained. An AP view was ob tained. COMPARISON: CT CT CHEST PE CTA from 05/11/[address] CHEST PE CTA from 05/11/2021 FINDINGS: MEDIASTINUM: Normal. HEART: Upper limits of normal. PULMONARY VASCULATURE: Normal. LUNGS: There are bilateral airspace opacities present. Compared with the CT scan from 05/11/2021 the findings are grossly unchanged, though there may be mild improvement of the infiltrates in the right mid lung. PLEURAL SPACE: No pleural effusion or pneumothorax. BONE:Within normal limits for the patient's age. OTHER FINDINGS:Normal. IMPRESSION: Multifocal pulmonary infiltrates consistent with pneumonia. Compared to 05/11/2021, there has been no worsening of the infiltrates present. DATA REPOSITORY: RADIATION DOSE DELIVERED:
[2021-05-17 10:49] LABS: BUN 27 mg/dL (7-18); Calcium 8.4 mg/dL (8.5-10.1); Glucose 149 mg/dL (74-106)
[2021-05-17 10:50] LABS: ALT 163 U/L (16-63); AST 31 U/L (15-37); Alkaline Phosphatase 56 U/L (46-116); Anion Gap 8.7 mmol/L (3-11); Bilirubin, Direct 0.2 mg/dL (0.0-0.2); Bilirubin, Total 0.6 mg/dL (0.2-1.0); CO2 30.3 mmol/L (21.0-32.0); CREATININE 1.1 mg/dL (0.70-1.30); Chloride 103 mmol/L (98-107); Magnesium 2.1 mg/dL (1.8-2.4); Potassium 3.8 mmol/L (3.5-5.1); Sodium 142 mmol/L (136-145); Total Protein 6.6 g/dL (6.4-8.2)
[2021-05-17 10:51] LABS: C-Reactive Protein < 0.05 mg/dL (0.0-0.3); NT-proBNP 149 pg/mL (<300)
[2021-05-17 10:54] LABS: Absolute Lymphocyte Count 1.92 10^3/uL (1.2-3.4); Absolute Monocyte Count 5.75 10^3/uL (0.1-0.8); Absolute Neutrophil Count 29.51 10^3/uL (1.2-6.7); Bands % 4; Diff Comment Manual Differential; Metamyelocytes % 2; Myelocytes % 1
[2021-05-17 10:55] LABS: D-Dimer 419 ng/mlFEU (<500)
[2021-05-17 10:56] LABS: Polychromasia Present
[2021-05-17 10:58] LABS: Poikilocytes 1+
[2021-05-17 10:59] LABS: Platelet Count 53 10^3/uL (130-400)
[2021-05-17 11:09] LABS: Ferritin 556 ng/mL (26-388)
[2021-05-17 11:39] LABS: Leukemia/Lymphoma by FC (Blood See Comments
[2021-05-17] MEDS: Furosemide 40 MG/4 ML VIAL IVP (11:50)
--- NOTE | 2021-05-17 11:57 | NUR.NOTE ---
I spoke with Ze Martinez RT this AM and we made a plan to do oximetry test on the patient. Went in earlier than planned yesterday so we can get the paperwork sent in earlier. Pt had been mid-high 90s on VS check but was running mid to high 80s at rest with 7L/ncL. He failed the oximetry test at 83% with slow walking and stops. Pt feeling very discouraged and teary. Pt has increased respiratory effort this AM and I am hearing crackles/diminished in the bases. Worked with patient for an hour on I/S, acapella, tripod breathing, and walking/deep breaths. I talked to and she ordered AM labs and CXR. Spoke with Henry on CXR results being same or slightly improved, WBC decreased/lab review. She ordered 40mg IVP lasix. I updated Johana Altamirano LPN and she agreed with the plan that I would give IV lasix, update patient, noon meds, and assess resp status. pt had been irritated with her the last visit in the room. I went and updated the patient. His breathing is visually improved and he has been walking and doing his IS/Acappella frequently. He reports that he coughed up some sputum after doing the deep breathing. His 02 sat is now 93% on 4L/optimizer NC and we walked 3 fast trips to the door and back with no stops and he maintained 89% (briefly 88%). Recovered within 1-2 min to 93% on 4L. I called and updated Dr. Figueroa. She had me still give the IV lasix and states she will assess the patient but she approves getting the home 02 set-up and plans to D/C today. I text paged RT Ze Martinez. Updating Johana Mattson [employer]. Pt states he was frustrated earlier and took it out on the nurses. He is pleasant and hopeful to go home today. Plan is to update him by 1400 on home oxygen status/d/c. Nursing Note:
--- NOTE | 2021-05-17 12:08 | RESPIRATORY ---
Patient desaturates to 79% on room air at rest, but is able to maintain an SpO2 of 89% or greater when on 4lpm FiO2
[2021-05-17] MEDS: Enoxaparin 40 MG/0.4 ML SYR SC (12:17)
[2021-05-17 12:30] VITALS: O2SAT 93
--- NOTE | 2021-05-17 14:50 | DSE_ITS ---
Date of service: 05/17/21 Time of Service: 14:51 DS: Diagnosis Discharge Diagnosis (1) Pneumonia due to COVID-19 virus: Status: Acute (2) Acute respiratory failure with hypoxia: Status: Acute (3) Thrombocytopenia: Status: Chronic (4) Vitamin D deficiency: Status: Acute (5) Obesity (BMI 30.0-34.9): Status: Chronic (6) Hypocalcemia: Status: Acute (7) Hypokalemia: Status: Resolved (8) Leukemoid reaction: Status: Acute Discharge Plan Disposition Patient Disposition: [facility] W/HOME HEALTH SERVICE Condition: Improving Discharge Details Reason For Visit: Covid-19 pneumonia, acute hypoxic respiratory fail Admit Date/Time: 04/27/21 20:04 Admit Provider: Indu Figueroa Attending Provider: Indu Figueroa Primary Care Provider: [place] Cristobal [facility] Hospital Course: Mr Lanza is a 61 year old male with PMHx of Langerhans hsitiocytosis, prediabeties, metabolic syndrome, thrombocytopenia, obesity w/ BMI of 35.5 kg/m2 who was was not vaccinated against COVID-19 and was admitted to [facility] ICU under the hospitalist service on 04/27/21 with acute hypoxic respiratory failure due to COVID-19 pneumonia and suspected superimposed bacterial pneumonia. The patient was requiring CPAP with FiO2 of 80% to saturate 93% on arrival to the [facility] and did require increase of FiO2 to 100% the first night of his hospitalization. He was treated with IV remdesivir, dexamethasone, and baricitinib in addition to IS/vibrapep, proning. Additionally, the patient received vitamin supplementation. He did not require intubation, but his recovery has been protracted, alternating between CPAP and humidified heated high flow oxygen in the ICU. He completed 10 days of remdesivir and 14 days of baricitinib. He was transferred out of the ICU on 05/10/21 to medical surgical floor, back to the ICU on 05/11/21 for transient worsening of his condition, and out of the ICU again on 05/12/21. The patient has now been weaned down to 4L of O2 by CT at both rest and activity. He feels that his progress will be faster at home, and we do not have a strong reason to keep him as an in-patient anymore as he has completed his intravenous therapy. He is being discharged home today with a pulse oxymeter with instructions to monitor his oxygen saturations and to re turn to the hospital is they are lower the 89% for more than a brief period of time. He is going home with a referral for home health nursing. He should have blood work done in 1 week (CBC w/ diff, BMP, magnesium). He is to follow up with his PCP in 2 weeks. 45 minutes were spent on preparation of patient's discharge and care for patient on the day of discharge. Home Meds and New Rx's Prescriptions: New benzonatate 200 mg Capsule 200 mg PO TID Qty: 30 RF: 0 famotidine 20 mg Tablet 20 mg PO BID Qty: 60 RF: 0 ascorbic acid (vitamin C) [Vitamin C] 500 mg Tablet 1,000 mg PO BID Qty: 0 RF: 0 furosemide 20 mg Tablet 20 mg PO BID DIURETIC Qty: 28 RF: 0 Combivent Respimat 20-100 mcg/actuation Mist 1 puff inhalation QID Qty: 0 RF: 0 guaifenesin [Mucinex] 600 mg tablet extended release 12hr 600 mg PO BID Qty: 60 RF: 0 dexamethasone 2 mg tablet See Rx Instructions .ROUTE .COMPLEX Qty: 70 RF: 0 Continued hydrocortisone-pramoxine 2.5-1 % cream 1 applic RI QID PRN (Reason: itching) Qty: 30 RF: 6 levothyroxine 100 mcg tablet 200 mcg PO DAILY RF: 0 calcitriol 0.5 mcg capsule 0.5 mcg PO BID Qty: 180 RF: 3 amlodipine 10 mg tablet 10 mg PO DAILY Qty: 90 RF: 3 calcium carbonate [Tums Ultra] 400 mg calcium (1,000 mg) tablet,chewable 1,200 mg PO DAILY RF: 0 cholecalciferol (vitamin D3) 100 mcg (4,000 unit) tablet 100 mcg PO DAILY RF: 0 clotrimazole 1 % solution 1 applic topical BID RF: 0 losartan 50 mg tablet 50 mg PO DAILY Qty: 90 RF: 3 prednisolone acetate [Pred Forte] 1 % drops,suspension 2 drp ophthalmic (eye) HS RF: 0 sildenafil 50 mg tablet 50 mg PO DAILY PRN (Reason: sexual activity) Qty: 10 RF: 6 Metamucil Sugar-Free (aspart) 3.4 gram/5.8 gram powder 5.143295 g PO DAILY Qty: 1040 RF: 6 Discharge Instructions Instructions: Famotidine (By mouth), Furosemide (By mouth), Dexamethasone (By mouth), COVID-19 (Coronavirus Disease 2019) (DC) Additional Instructions: Finish your dexamethasone taper as prescribed. Return to the hospital with any fever, bleeding, chest pain, or shortness of breath. You should measure your pulse ox daily and return to the hospital if you are noticing numbers below 89% for more than a brief period of time (>5 minutes). You should continue to self-isolate for 10 more days. Stand Alone Forms: Nursing Discharge Form Referrals: Washington Cristobal DO [Primary Care Provider] - 06/07/21 10:15 am Activity:: Activity as Tolerated Equipment/Supplies:: No Equipment Needed Diet:: As Tolerated Discharge Orders Discharge Orders: Discharge Order (Routine); Ordered 05/17/21 Ordered By: Indu Figueroa DS: Summary Time Spent with Patient providing and/or coordinating discharge services: Greater than 30 minutes Status at Discharge Functional status at discharge: independent ambulation Overall status at discharge: patient is progressing back to baseline Mental Status: mental status grossly normal Speech and Movement: speech and movement normal Mood: congruent mood Affect: normal affect Exam Narrative Exam Narrative: General: Pleasant middle-aged male who looks well sitting up in a chair, A&Ox3, on 4L of O2 by NC, no dyspnea/tachypnea HEENT: EOMI, MMM Heart: RRR, no m/r/g Lungs: CTAB, diminished at B bases Abdomen: soft, nontender, nondistended Extremities: trace edema BLE's. Psych Mental Status: mental status grossly normal Speech and Movement: speech and movement normal Mood: congruent mood Affect: normal affect DS: Data Vitals/I&O Vitals and I&O: Vital Signs Temperature 36.3 C L 05/17/21 08:10 Temperature Source Tympanic 05/17/21 08:10 Pulse 85 05/17/21 08:10 Pulse Rhythm Regular 05/16/21 18:40 Pulse 67 05/12/21 08:23 Respiratory Rate 18 05/17/21 08:10 Respiratory Effort 05/17/21 05:15 Respiratory Depth Normal 05/17/21 05:15 Respiratory Pattern Normal 05/17/21 05:15 Blood Pressure 136/79 05/17/21 08:10 Blood Pressure Mean 78 05/13/21 17:28 Blood Pressure Position Sitting 05/11/21 16:27 Pulse Oximetry 97 05/17/21 08:10 Oxygen Delivery Method Nasal Cannula 05/17/21 08:10 Oxygen Flow Rate 4 05/17/21 08:10 Fraction of Inspired Oxygen (FIO2) 35 05/12/21 22:05 Pain Level 0 05/16/21 09:19 Comment 05/14/21 09:11 Intake & Output 05/16/21 05/17/21 05/17/21 23:59 11:59 23:59 Intake Total 250 / 370 Balance 250 / 370 Intake: Oral 250 / 350 Other: Urine Appearance Clear 05/10/21 leukemia/lymphoma panel: No immunophenotypic evidence of a clonal population. Data Completed and Pending Completed studies during hospitalization [Text1]: CTA chest 04/27/21: 1. Extensive bilateral patchy and confluent pulmonary infiltrates involving all lobes of both lungs.There are no pleural effusions nor obvious adenopathy. 1st consideration is for extensive pneumonia. Recommend Covid testing. 2. No evidence of obvious pulmonary emboli. 3. Hepatic steatosis noted. Venous doppler BLE's 04/29/21: Right: Negative for DVT Left: Negative for DVT Venous doppler BUE's 04/29/21: No evidence of DVT in either upper extremity. CTA chest 05/03/21: There are bilateral infiltrates with some improvement in the left lower lobe. Exam limited by respiratory motion. No evidence of pulmonary embolism. CTA CHEST 05/11/21: 1. There is minimal if any radiographic improvement in the extensive bilateral pulmonary infiltrates which are highly suspicious for Covid- 19 pneumonia..There are no pleural effusions. New intrathoracic adenopathy noted 2. No evidence of pulmonary emboli. 3. Diameter of the thoracic aorta is increased. No evidence of dissection. CXR 05/17/21: Multifocal pulmonary infiltrates consistent with pneumonia. Compared to 05/11/2021, there has been no worsening of the infiltrates present. Labs on day of discharge: Labs from last 24 hours 05/17/21 05/17/21 05/17/21 10:05 10:05 10:05 WBC 38.32 H* RBC 4.01 L Hgb 12.5 L Hct 37.5 L MCV 93.5 MCH 31.2 MCHC 33.3 RDW 16.7 H Plt Count 53 L MPV Immature Gran % See Differential Neutrophils % 73.0 Band Neutrophils % 4 Lymphocytes % 5.0 Monocytes % 15.0 Eosinophils % 0.0 Basophils % 0.0 Metamyelocytes % 2 Myelocytes % 1 Nucleated RBC % 0 Absolute Neutrophils 29.51 H Absolute Lymphocytes 1.92 Absolute Monocytes 5.75 H Absolute Eosinophils 0.00 Absolute Basophils 0.00 RBC Morphology See Below Polychromasia Present Poikilocytosis 1+ PT 10.9 INR 1.1 D-Dimer 419 Sodium 142 Potassium 3.8 Chloride 103 Carbon Dioxide 30.3 Anion Gap 8.7 BUN 27 H Creatinine 1.1 Estimated GFR/1.73 m2 >= 60.00 Glucose 149 H Calcium 8.4 L Magnesium 2.1 Ferritin 556 H Total Bilirubin 0.6 Conjugated Bilirubin 0.2 AST 31 ALT 163 H Alkaline Phosphatase 56 C-Reactive Protein < 0.05 NT-Pro-B Natriuret Pep 149 Total Protein 6.6 Albumin 3.0 L Lymph/Leukemia Panel 05/11/21 11:10 WBC RBC Hgb Hct MCV MCH MCHC RDW Plt Count MPV Immature Gran % Neutrophils % Band Neutrophils % Lymphocytes % Monocytes % Eosinophils % Basophils % Metamyelocytes % Myelocytes % Nucleated RBC % Absolute Neutrophils Absolute Lymphocytes Absolute Monocytes Absolute Eosinophils Absolute Basophils RBC Morphology Polychromasia Poikilocytosis PT INR D-Dimer Sodium Potassium Chloride Carbon Dioxide Anion Gap BUN Creatinine Estimated GFR/1.73 m2 Glucose Calcium Magnesium Ferritin Total Bilirubin Conjugated Bilirubin AST ALT Alkaline Phosphatase C-Reactive Protein NT-Pro-B Natriuret Pep Total Protein Albumin Lymph/Leukemia Panel See Comments [facility] Medical History (Updated 05/17/21 @ 15:20 by Indu Figueroa MD) Chronic bacterial otitis externa of both ears Erectile dysfunction History of thyroid cancer papillary thyroid cancer; s/p L[place] December 2018, [place] [facility] [place] hob[place], focal posterior margin positive w/ 5 of 5 level nodes positive, completion of thyroidectomy 12/22/19; referred to Dr. Peck radiation oncology 04/08/20. Hypertension Hypomagnesemia Hypoparathyroidism postoperative complication of completion thyroidectomy Hypothyroidism (acquired) Langerhans cell histiocytoses [facility] hem[facility]onc report 04/23/19: KRAS gene mutation on the skin biopsy came back positive. This is an extremely rare diagnosis. his staging is negative . Single system disease involving the skin only. He will need to be followed by dermatology[place] [place] 09/24/20 [place] [facility] [place] 6 mo. Meralgia paraesthetica Metabolic syndrome Obesity (BMI 30.0-34.9) Prediabetes Skin lesion of face Thrombocytopenia Tubulovillous adenoma Vitamin D deficiency Surgical History (Updated 02/24/21 @ 14:32 by Aspen Roth RN) H/O inguinal hernia repair H/O local excision of skin lesion excision of skin lesion from chin; positive for Langerhans cell histiocytosis H/O thyroidectomy 12/17/18- s/p hemithyroidectomy; 12/22/19 completion thyroidectomy 12/17/18 with vocal cord paralysis. saw ENT in f/u. voice has recovered and he will see ENT again before his next surgery. [place] [place] History of colonoscopy with polypectomy (~11/26/20) Family History Mother Breast cancer Uterine cancer Father Alcohol abuse Sister No problems noted. Brother No problems noted. Social History (Updated 12/26/19 @ 16:11 by Corazon Encarnacion RN) Smoking/Tobacco Use Status: Never Smoking risk assessment performed?: Yes Alcohol Intake: current Alcohol Intake frequency: a few times a week Drug use: Never Substance use type: does not use Caregiver/Support person: No Household members: spouse Housing: house Number of Children: 2 Communication Needs: Hard of Hearing Do you need help understanding health information?: Rarely current occupation: [employer] Pets and animals: Yes (horses, rabbits, pigs) Sexually active: Yes Do you think of yourself as: straight/heterosexual Current gender identity: male What is your relationship status?: How often do you talk on the phone with friends or family?: three or more times per week How often do you get together with friends or relatives?: three or more times per week How often do you attend oriental orthodox or cheondoism services?: 1-3 times per year Do you belong to any clubs or organized social groups?: yes Panel score (0-1 are the most socially isolated patients): 3 What type of physical activity do you participate in: none Mari/Taoism: Confucianism Special mari needs: No Agree to transfusion: Yes Seatbelt use: always Helmet use: Yes Drive intox or ride w/intox motor pool driver: No Working smoke detector in home: Yes Fire extinguisher in home: Yes Carbon monox detector in home: Yes Do you feel safe at home: Yes Do you feel safe in your relationship?: Yes
--- NOTE | 2021-05-17 15:49 | PDOC.HHF2F ---
Home Health Certification Home Health Certification: 1. Encounter Date and Reason I certify that Gabe Lanza was seen by Indu Figueroa on 05/17/21 and that I had a [id number] encounter with this patient that meets the physician face to face encounter requirements. 2. Clinical Findings Supporting Skilled Need and Homebound Status I certify that home health services are medically necessary, include either intermittent half-way and/or physical/speech therapy, and that this patient is homebound in that absences from the home require considerable and taxing effort and are infrequent or of short duration, or are attributable to the need to receive medical care. [X] (a) Attached documentation from encounter provides clinical findings supporting skilled need and homebound status (including what assistance patient requires to leave the home). The encounter with the patient was in whole, or in part, for the following medical condition, which is the primary reason for home health care: Covid-19 pneumonia, acute hypoxic respiratory fail Custodial: COVID-19 with hypoxia, needs bloodwork (CBC w/ diff, BMP, magnesium in 1 week). Homebound: unable to leave home without assistance 3. Certification and Authentication I certify that I composed the above information based on my clinical judgement relating to this patient's medical condition and, if applicable, clinical findings communicated to me by the NPP or inpatient physician who performed the Home Health Referral. All further orders will be obtained through ___Dr Cristobal (Community Based Physician - PCP)
[2021-05-17 16:50] VITALS: BP 105/62; PULSE 94; RESP 20; TEMP 36.4; O2SAT 90
--- NOTE | 2021-05-17 17:10 | PDOC.CMDIS ---
- If Service Date Differs Date of service: 05/17/21 Time of Service: 17:10 LACE Index Scoring Tool - Questions: Length of Stay (in days): 14 or more Acuity (Admit via E.D.?): Yes E.D. Visits: 1 - Answers: Total Score: 11 Risk of Readmission: High Risk Care Management Discharge Reason for Hospitalization: Covid 19 pneumonia, acute hypoxic respiratory failure Discharge Plan: Boy returned home today with new orders for HH RN, as well as new home O2, supplied by [facility]. His son, Chris drove him home via private vehicle. He will follow up with his PCP and discharge plan of care. He is happy to be going home following a long hospitalization. Patient/Family Education Needs: Review discharge instructions with oBy and his , Vi, regarding activity levels and oxygen requirements; discussion of self care needs including ask me three. Services Needed at Discharge: Home Health Care Services (new HH RN), Oxygen Therapy (6L home O2, [facility])
--- NOTE | 2021-05-17 20:16 | RESPIRATORY ---
Pt was discharged to 4lpm of Oxygen through [facility]
== END 2021-05-17 17:31 | disposition designated cancer center or children's hospital (05) | DRG 177 ==
LOC: ER 21:04 → ICU 21:20 → MS 05-13 19:25
PROVIDERS: Family Medicine; Internal Medicine; Admitting Provider Internal Medicine; Emergency Provider Physician Assistant; PCP Family Medicine; Visit Provider Internal Medicine
DX: U07.1 COVID-19 (principal); J12.82 Pneumonia due to coronavirus disease 2019; J96.01 Acute respiratory failure with hypoxia; J15.9 Unspecified bacterial pneumonia; C96.6 Unifocal Langerhans-cell histiocytosis; E66.9 Obesity, unspecified; D69.6 Thrombocytopenia, unspecified; I10 Essential (primary) hypertension; R73.03 Prediabetes; E87.6 Hypokalemia; E89.0 Postprocedural hypothyroidism; Z85.850 Personal history of malignant neoplasm of thyroid; E55.9 Vitamin D deficiency, unspecified; G57.10 Meralgia paresthetica, unspecified lower limb; Z68.35 Body mass index [BMI] 35.0-35.9, adult; D72.823 Leukemoid reaction; R07.89 Other chest pain; I95.9 Hypotension, unspecified
CPT/HCPCS: 36410; 36415; 36592; 71275; 80048; 80053; 80076; 82306; 82550; 82803; 82805; 84145; 87040; 87635; 88185; 93005; 94618; 94640; 96361; 96374; 99291; J1650; 36600; 71045; 82728; 83036; 83605; 83615; 83735; 83880; 84484; 85025; 85379; 85610; 85730; 86140; 88184; 88189; 93010; 93970; 93971; 94660; 99232; 99233; 99239; J0610; J1100; J1940; J2060; J2543; J2930; J3480; J3490; J7613; J7620; J8540

== ENCOUNTER 2021-05-23 15:22 | Outpatient (REF) | payer OTHER, SELFPAY ==
[2021-05-23 13:46] LABS: HCT 38.7 % (40.0-50.0); HGB 12.7 g/dL (13.5-17.5); MCH 32.2 pg (27.0-33.0); MCHC 32.8 % (32.0-36.0); RBC 3.95 10^6/uL (4.36-5.78); RDW 19.6 % (11.8-14.1); RDW-SD 67.6 fL
[2021-05-23 13:52] LABS: WBC 34.21 10^3/uL (4.4-10.8)
[2021-05-23 14:07] LABS: Absolute Lymphocyte Count 4.45 10^3/uL (1.2-3.4); Absolute Monocyte Count 1.71 10^3/uL (0.1-0.8); Absolute Neutrophil Count 27.71 10^3/uL (1.2-6.7); Atypical Lymphocytes % 1; Bands % 3; Diff Comment Manual Differential; Metamyelocytes % 1; Platelet Count 26 10^3/uL (130-400); RBC Morphology Normal
[2021-05-23 14:31] LABS: ALT 115 U/L (16-63); AST 28 U/L (15-37); Albumin 2.9 g/dL (3.4-5.0); Alkaline Phosphatase 67 U/L (46-116); Anion Gap 14.2 mmol/L (3-11); BUN 28 mg/dL (7-18); Bilirubin, Total 0.4 mg/dL (0.2-1.0); CO2 26.8 mmol/L (21.0-32.0); Calcium 7.8 mg/dL (8.5-10.1); Chloride 103 mmol/L (98-107); Glucose 170 mg/dL (74-106); Magnesium 1.9 mg/dL (1.8-2.4); Sodium 144 mmol/L (136-145); Total Protein 5.9 g/dL (6.4-8.2)
== END 2021-05-23 15:23 | disposition home or self-care (01) ==
LOC: LBN 15:22
PROVIDERS: PCP Family Medicine; Visit Provider Family Medicine
DX: U07.1 COVID-19 (principal); D69.6 Thrombocytopenia, unspecified; E87.6 Hypokalemia; I10 Essential (primary) hypertension
CPT/HCPCS: 80053; 83735; 85025

== ENCOUNTER 2021-05-26 13:33 | Outpatient (REF) | payer OTHER, SELFPAY ==
[2021-05-26 12:44] LABS: HCT 40.9 % (40.0-50.0); HGB 13.1 g/dL (13.5-17.5); MCV 96.7 fL (80-95); Nucleated RBC 0 %; RBC 4.23 10^6/uL (4.36-5.78); RDW 19.9 % (11.8-14.1); RDW-SD 68.5 fL
[2021-05-26 12:56] LABS: WBC 28.66 10^3/uL (4.4-10.8)
[2021-05-26 13:15] LABS: Absolute Lymphocyte Count 1.72 10^3/uL (1.2-3.4); Absolute Monocyte Count 3.44 10^3/uL (0.1-0.8); Absolute Neutrophil Count 22.35 10^3/uL (1.2-6.7); Bands % 10; Diff Comment Manual Differential; Metamyelocytes % 4; Platelet Count 17 10^3/uL (130-400); RBC Morphology Normal
== END 2021-05-26 13:34 | disposition home or self-care (01) ==
LOC: LBN 13:33
PROVIDERS: PCP Family Medicine; Visit Provider Family Medicine
DX: D69.6 Thrombocytopenia, unspecified (principal)
CPT/HCPCS: 85025

== ENCOUNTER 2021-05-30 14:46 | Outpatient (REF) | payer OTHER, SELFPAY ==
[2021-05-30 12:55] LABS: HCT 40.2 % (40.0-50.0); HGB 12.9 g/dL (13.5-17.5); MCH 31.6 pg (27.0-33.0); MCHC 32.1 % (32.0-36.0); MCV 98.5 fL (80-95); Nucleated RBC 0 %; RBC 4.08 10^6/uL (4.36-5.78); RDW 19.5 % (11.8-14.1); RDW-SD 68.4 fL
[2021-05-30 13:05] LABS: Absolute Lymphocyte Count 1.48 10^3/uL (1.2-3.4); Absolute Monocyte Count 2.37 10^3/uL (0.1-0.8); Absolute Neutrophil Count 23.43 10^3/uL (1.2-6.7); Atypical Lymphocytes % 3; Bands % 9; Diff Comment Manual Differential; Metamyelocytes % 5; Myelocytes % 3; RBC Morphology Normal
[2021-05-30 13:25] LABS: TSH 0.73 uIU/mL (0.36-3.74)
[2021-05-30 13:28] LABS: WBC 29.66 10^3/uL (4.4-10.8)
[2021-05-30 13:29] LABS: Platelet Count 29 10^3/uL (130-400)
== END 2021-05-30 14:47 | disposition home or self-care (01) ==
LOC: LBN 14:46
PROVIDERS: PCP Family Medicine; Visit Provider Family Medicine
DX: D69.6 Thrombocytopenia, unspecified (principal); Z90.09 Acquired absence of other part of head and neck
CPT/HCPCS: 84443; 85025

== ENCOUNTER 2021-06-06 12:41 | Outpatient (REF) | payer OTHER, SELFPAY ==
[2021-06-06 12:16] LABS: HCT 41.4 % (40.0-50.0); HGB 13.3 g/dL (13.5-17.5); MCHC 32.1 % (32.0-36.0); MCV 99.8 fL (80-95); Nucleated RBC 0 %; RBC 4.15 10^6/uL (4.36-5.78); RDW 19.9 % (11.8-14.1); RDW-SD 72.1 fL
[2021-06-06 12:39] LABS: WBC 40.29 10^3/uL (4.4-10.8)
[2021-06-06 13:28] LABS: Absolute Lymphocyte Count 2.42 10^3/uL (1.2-3.4); Absolute Monocyte Count 4.43 10^3/uL (0.1-0.8); Absolute Neutrophil Count 29.41 10^3/uL (1.2-6.7); Atypical Lymphocytes % 3; Bands % 5; Metamyelocytes % 9; Myelocytes % 1; Platelet Count 52 10^3/uL (130-400)
[2021-06-06 13:29] LABS: Diff Comment Manual Differential; RBC Morphology Normal
== END 2021-06-06 12:42 | disposition home or self-care (01) ==
LOC: LBN 12:41
PROVIDERS: PCP Family Medicine; Visit Provider Family Medicine
DX: D69.6 Thrombocytopenia, unspecified (principal)
CPT/HCPCS: 85025

== ENCOUNTER 2021-12-19 08:51 | Outpatient (REF) | payer OTHER, SELFPAY ==
[2021-12-19 15:26] LABS: Creatinine,Urine 79.53 mg/dL
[2021-12-19 15:47] LABS: Total Volume 1750 ml
[2021-12-19 15:48] LABS: Creatinine,24hr Ur 1.35 g/24hr (0.95-2.49)
[2021-12-20 08:43] LABS: Calcium Urine 17.5 mg/dL (See Note); Calcium Urine 24 hr 306 mg/24hrs (100-300); Timed Urine Volume 1750 mL
== END 2021-12-19 08:52 | disposition home or self-care (01) ==
LOC: LBN 08:51
PROVIDERS: PCP Family Medicine; Visit Provider Internal Medicine
DX: E89.2 Postprocedural hypoparathyroidism (principal)
CPT/HCPCS: 81050; 82340; 82570

== ENCOUNTER 2022-11-27 02:31 | Outpatient (CLI) | payer OTHER, SELFPAY ==
[2022-11-27 16:01] LABS: Abs Immature Grans 0.44 10^3/uL (0.0-0.06); Absolute Basophil Count 0.02 10^3/uL (0.0-0.2); Absolute Lymphocyte Count 1.26 10^3/uL (1.2-3.4); Absolute Monocyte Count 2.13 10^3/uL (0.1-0.8); Absolute Neutrophil Count 6.72 10^3/uL (1.2-6.7); Basophils % 0.2; HCT 42.4 % (40.0-50.0); HGB 13.6 g/dL (13.5-17.5); Immature Grans % 4.2; Lymphocytes % 11.9; MCH 29.2 pg (27.0-33.0); MCHC 32.1 % (32.0-36.0); MCV 91 fL (80-95); MPV 11.8 fL (8.0-11.0); Monocytes % 20.2; Neutrophils % 63.5; RBC 4.65 10^6/uL (4.36-5.78); RDW 14.7 % (11.8-14.1); RDW-SD 49.1 fL; WBC 10.57 10^3/uL (4.4-10.8)
[2022-11-27 16:24] LABS: Platelet Count 94 10^3/uL (130-400)
[2022-11-27 16:25] LABS: Diff Comment Diff Reviewed; RBC Morphology Normal
[2022-11-27 16:26] LABS: ALT 41 U/L (16-63); AST 22 U/L (15-37); Albumin 3.5 g/dL (3.4-5.0); Alkaline Phosphatase 108 U/L (46-116); Anion Gap 8.4 mmol/L (3-11); BUN 14 mg/dL (7-18); Bilirubin, Total 0.4 mg/dL (0.2-1.0); CO2 29.6 mmol/L (21.0-32.0); Calcium 7.8 mg/dL (8.5-10.1); Chloride 102 mmol/L (98-107); Estimated GFR 86.16 (mL/min/1.73m2); Glucose 101 mg/dL (74-106); Potassium 3.7 mmol/L (3.5-5.1); Sodium 140 mmol/L (136-145); Total Protein 7.7 g/dL (6.4-8.2)
== END 2022-11-27 02:32 | disposition home or self-care (01) ==
PROVIDERS: PCP Family Medicine; Visit Provider Nurse Practitioner Adult Health
DX: C96.6 Unifocal Langerhans-cell histiocytosis (principal); D69.6 Thrombocytopenia, unspecified
CPT/HCPCS: 36415; 80053; 85025

== ENCOUNTER 2022-12-26 06:24 | Emergency (ER) | payer BC, SELFPAY ==
[2022-12-26 06:28] VITALS: BP 142/71; PULSE 85; RESP 17; TEMP 36.4; O2SAT 94
--- NOTE | 2022-12-26 06:30 | DI.CT_ITS ---
Exam(s) CT ABDOMEN PELVIS WO EXAM: CT ABDOMEN PELVIS WO CLINICAL HISTORY: R flank pain. TECHNIQUE: Imaging Protocol: Axial computed tomography images with coronal and sagittal reformatted images were created and reviewed. COMPARISON: CT CT ABDOMEN PELVIS CTA from 01/17/[address] CHEST PE CTA from 05/03/[address] CHEST PE CTA from 05/11/2021 FINDINGS: ABDOMEN: Lung Bases: There is an infiltrate in the right lower lobe. Liver: Normal density. There is a stable cyst in the left lobe of the liver. No follow-up is recomme nded. Gallbladder and biliary tract: No radiodense calculus or biliary ductal dilation. Pancreas: Normal density, no abnormal calcifications or inflammatory process. Spleen: Normal. Kidneys: Normal size, contour and axis.No nephrolithiasis is seen. There is marked stranding seen ar ound the kidneys and the proximal ureters. There is a 2 mm density which may lie in the proximal ure ter (series 3, image 523). No masses seen. Adrenal glands: No mass is seen. Lymph nodes: Within normal limits. Abdominal Aorta: Abdominal portion non-dilated. Atherosclerosis is present. PELVIS: Bladder:There is diffuse thickening of the wall of the urinary bladder. This may be due to incomplet e distention. No bladder stones are seen. Cystitis cannot be excluded. Bowel: There are few diverticula seen in the sigmoid colon, but no evidence of acute diverticulitis. There is no evidence of bowel wall thickening or obstruction. Appendix is unremarkable. Peritoneal cavity: There is no ascites. There is mild stranding of the mesentery. There is edema se en in the retroperitoneum particularly around the upper aorta and IVC. No focal fluid collection is seen. No free air. Reproductive organs: Unremarkable as visualized. Bones: Within normal limits. Soft Tissues: Within normal limits. IMPRESSION: 1. 2 mm density which appears to lie in the proximal right ureter. (Series 3, image 523). 2. Stranding seen in the pararenal compared nephric soft tissues and in the retroperitoneum. Pyelone phritis should be considered. There is mild hydronephrosis of the right kidney. This may be seconda ry to the 2 mm density seen in the proximal right ureter as described in impression 1. 3. Right basilar infiltrate. This may represent pneumonia. Please correlate clinically. 4. Diffuse thickening of the wall of the urinary bladder. This may be due to incomplete distension b ut cystitis cannot be excluded. No bladder stones are seen. 5. Colonic diverticulosis without evidence of acute diverticulitis. RADIATION DOSE DELIVERED: 1,204.78mGy.cm Total DLP DATA REPOSITORY: All CT scans at this facility are submitted to the National Radiology Data Registry (NRDR) Dose Index Registry (DIR) with the [employer] (ACR). RADIATION OPTIMIZATION: All CT scans at this facility use at least one of these dose optimization te chniques: automated exposure control; mA and/or kV adjustment per patient size (includes targeted exa ms where dose is matched to clinical indication); or iterative reconstruction.
--- NOTE | 2022-12-26 06:47 | ED.GENADUL_ITS ---
Discharge Plan Disposition Patient Disposition: Home Discharge Details Clinical Impression: Ureterolithiasis, Hydronephrosis, Community acquired pneumonia, Acute kidney injury Primary Care Provider: [place] Cristobal ED Provider: Mark Monterroso Home Meds and New Rx's Prescriptions: New levofloxacin 750 mg tablet 750 mg PO DAILY Qty: 5 0RF Continued hydrocortisone-pramoxine 2.5-1 % cream 1 applic AR QID PRN (Reason: itching) Qty: 30 6RF Wegovy 0.25 mg/0.5 mL pen injector 0.25 mg subcut QWEEK Qty: 2 0RF Rx Instructions: administer weeks 1 through 4 of therapy sildenafil 50 mg tablet 50 mg PO DAILY PRN (Reason: sexual activity) Qty: 10 6RF Rx Instructions: administer 30 minutes to 4 hours before activity calcitriol 0.5 mcg capsule 0.5 mcg PO BID Qty: 180 3RF Rx Instructions: s/p thyroidectomy fluocinolone acetonide oil 0.01 % drops 5 drp otic (ear) DAILY Rx Instructions: For use in both ears, as directed levothyroxine 112 mcg capsule 224 mcg PO DAILY Qty: 180 1RF amlodipine 10 mg tablet 10 mg PO DAILY Qty: 90 3RF losartan 50 mg tablet 50 mg PO DAILY Qty: 90 3RF Metamucil Sugar-Free (aspart) 3.4 gram/5.8 gram powder 5.561173 g PO DAILY Qty: 1040 6RF Rx Instructions: 1 tbls in 4 oz water/juice daily Discharge Instructions Instructions: Community Acquired Pneumonia (ED) Additional Instructions: Please read all of the information that accompanies these instructions. You were seen in the emergency department for your flank pain. You were found to have a 2 mm area concerning for a kidney stone. Please follow-up with urology in the next week. If you develop fevers nausea or vomiting please return to the emergency department. You are receiving an antibiotic that you should take as directed. If you develop fever or cough please also return to the emergency department. Your CAT scan showed concern for possible pneumonia for which you are receiving antibiotic. Discharge Data Discharge Date/Time-TO BE ENTERED AT DEPARTURE: 12/26/22 12:20 Medical Decision Making Lab Data Lab results reviewed: Yes I reviewed the patient's lab results. Lab results narrative: His platelet count today is 50,000 down from 94,000 on 11/27/22. It has been as low as 17,000 dating back to 2020. Patient's WBC is 30.4 up from 10.6 on 11/27/2022, otherwise it has been 20-40,000 dating back years. His ALT is 64 which has been baseline in the past. Alk phos is 140 and elevated. Creatinine is 1.5 and elevated. Glucose is 160. Potassium is 3 and he is getting replacement. HPI General Date/Time Provider Initiated Documentation: 12/26/22 06:38 . HPI Narrative: This 62-year-old male patient presents with a chief complaint of right flank pain that woke him from sleep around 4 AM this morning. He states its been strong, severe, and somewhat colicky in nature. Nothing makes it better or worse. It does not radiate into his abdomen. He tried getting into a hot shower and this did not help. He reports vague dysuria this morning but no hematuria. He says the pain is strong enough that he feels like it is making him mildly nauseous. There is no vomiting or diarrhea. He has no history of AAA. There is no family history of AAA. He does have a history of high blood pressure. There is no fever, chills, URI symptoms, chest pain, or shortness of breath. Related Data Home Medications Medication Instructions Recorded Confirmed hydrocortisone-pramoxine 2.5 %-1 % 1 applic AR QID PRN itching #30 07/08/20 12/26/22 rectal cream grams psyllium husk (aspartame) 3.4 5.502949 g PO DAILY #1,040 grams 11/26/20 12/26/22 gram/5.8 gram oral powder (Metamucil Sugar-Free (aspartame)) sildenafil 50 mg tablet 50 mg PO DAILY PRN sexual activity 04/07/21 12/26/22 #10 tabs semaglutide (weight loss) 0.25 0.25 mg (0.5 mL) subcut QWEEK #2 mL 05/23/22 12/26/22 mg/0.5 mL subcutaneous pen injector (Wegovy) calcitriol 0.5 mcg capsule 0.5 mcg PO BID #180 caps 05/26/22 12/26/22 fluocinolone acetonide oil 0.01 % 5 drp otic (ear) DAILY 07/05/22 12/26/22 ear drops levothyroxine 112 mcg capsule 224 mcg PO DAILY #180 caps 10/24/22 12/26/22 amlodipine 10 mg tablet 10 mg PO DAILY #90 tabs 11/06/22 12/26/22 losartan 50 mg tablet 50 mg PO DAILY #90 tabs 11/06/22 12/26/22 levofloxacin 750 mg tablet 750 mg PO DAILY #5 tabs 12/26/22 Previous Rx's Medication Instructions Recorded hydrocortisone-pramoxine 2.5 %-1 % 1 applic AR QID PRN itching #30 07/08/20 rectal cream grams psyllium husk (aspartame) 3.4 5.583474 g PO DAILY #1,040 grams 11/26/20 gram/5.8 gram oral powder (Metamucil Sugar-Free (aspartame)) sildenafil 50 mg tablet 50 mg PO DAILY PRN sexual activity 04/07/21 #10 tabs semaglutide (weight loss) 0.25 0.25 mg (0.5 mL) subcut QWEEK #2 mL 05/23/22 mg/0.5 mL subcutaneous pen injector (Gary) calcitriol 0.5 mcg capsule 0.5 mcg PO BID #180 caps 05/26/22 levothyroxine 112 mcg capsule 224 mcg PO DAILY #180 caps 10/24/22 amlodipine 10 mg tablet 10 mg PO DAILY #90 tabs 11/06/22 losartan 50 mg tablet 50 mg PO DAILY #90 tabs 11/06/22 levofloxacin 750 mg tablet 750 mg PO DAILY #5 tabs 12/26/22 Allergies Allergy/AdvReac Type Severity Reaction Status Date / Time aspirin Allergy Mild Verified 12/26/22 06:35 lisinopril Allergy Mild Cough Verified 12/26/22 06:35 General Stated Complaint: FlankPain TARA: 3 Review of Systems Constitutional Constitutional: Denies chills, Denies fever(s), Denies headache(s) and Denies weakness Eyes Eyes: Denies diplopia and Reports other (no redness) ENT Ears, Nose, Mouth, and Throat: Denies otalgia, Denies headache(s), Denies nasal congestion, Denies nasal discharge, Denies neck pain and Denies sore throat Cardiovascular Cardiovascular: Denies chest pain, Denies palpitations and Denies dyspnea Respiratory Respiratory: Denies cough and Denies dyspnea Gastrointestinal Gastrointestinal: Denies abdominal pain, Denies diarrhea, Reports nausea and Denies vomiting Genitourinary Genitourinary: Reports difficulty urinating (Vague this a.m.) and Denies dysuria Comments: As right flank pain Musculoskeletal Musculoskeletal: Denies myalgias, Denies muscle weakness, Denies neck pain, Denies numbness and Reports other (edema) Integumentary/Breasts Skin/Breast: Denies change in pigmentation and Denies rash Neurologic Neurologic: Denies headache(s), Denies numbness and Denies weakness Endocrine Endocrine: Denies palpitations PFSH All Active Problems (Updated 12/26/22 @ 15:38 by Mark Monterroso MD) Ureterolithiasis (Acute) Hydronephrosis (Acute) Community acquired pneumonia (Acute) Acute kidney injury (Acute) Hypothyroidism (acquired) (Acute) Sensorineural hearing loss (SNHL) of left ear with restricted hearing of right ear (Chronic) Cochlear implant in place (Acute) Post covid-19 condition, unspecified (Acute) Acute eczematoid otitis externa of left ear (Acute) 09/14/21 [facility] [place] Otolatyngology note Leukemoid reaction (Acute) Obesity (BMI 30.0-34.9) (Chronic) Leukocytosis, unspecified (Acute) Vitamin D deficiency (Acute) Thrombocytopenia (Chronic) Sessile colonic polyp (Acute) Rosacea (Acute) Chronic ischemic colitis (Acute) Adenomatous polyp of cecum (Acute) Diverticula of colon (Acute) Chronic anal fissure (Acute) Rectal pain, chronic (Acute) Chronic otitis externa of both ears (Acute) 09/07/20 [facility] [place] Otolaryngology 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 saw ENT in f/u. voice has recovered and he will see ENT again before his next surgery. 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 Mary Altman MD Langerhans cell histiocytoses (Acute) [facility] [place] hem/onc report 04/23/19: KRAS gene mutation on the skin biopsy came back positive. This is an extremely rare diagnosis. his staging is negative . Single system disease involving the skin only. He will need to be followed by dermatology.([facility] has requested that) 09/24/20 Skin isolation only. [facility] Derm FU Q 6 mo. Vitamin D deficiency (Chronic) Thrombocytopenia (Chronic) Prediabetes (Chronic) Metabolic syndrome (Chronic) Hypertension (Chronic) Medical History Chronic bacterial otitis externa of both ears History of thyroid cancer papillary thyroid cancer; s/p L. hemithyroidectomy December 2018, Dr. Altman, [facility] (focal hobnail pattern, focal posterior margin positive w/ 5 of 5 level nodes positive, completion of thyroidectomy 12/22/19; referred to Dr. Peck radiation oncology 04/08/20. Hypomagnesemia Hypoparathyroidism postoperative complication of completion thyroidectomy Tubulovillous adenoma Surgical History H/O inguinal hernia repair H/O local excision of skin lesion excision of skin lesion from chin; positive for Langerhans cell histiocytosis History of colonoscopy with polypectomy (~11/26/20) Family History Mother Breast cancer Uterine cancer Father Alcohol abuse Sister No problems noted. Brother No problems noted. 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, [employer] Pets and animals: Yes (horses, rabbits, pigs) Sexually active: Yes Do you think of yourself as: straight/heterosexual Current gender identity: male What is your relationship status?: How often do you talk on the phone with friends or family?: three or more times per week How often do you get together with friends or relatives?: three or more times per week How often do you attend zoroastrianism or rastafarian services?: 1-3 times per year Do you belong to any clubs or organized social groups?: yes Panel score (0-1 are the most socially isolated patients): 3 What type of physical activity do you participate in: none Mari/Restoration: Adventism Special mari needs: No Agree to transfusion: Yes Seatbelt use: always Helmet use: Yes Drive intox or ride w/intox trailer truck driver: No Working smoke detector in home: Yes Fire extinguisher in home: Yes Carbon monox detector in home: Yes Do you feel safe at home: Yes Do you feel safe in your relationship?: Yes Exam Const General: no acute distress, well developed, well groomed and not in acute distress Nutritional Appearance: well nourished Orientation: alert and oriented x3 HENMT Head: normocephalic and atraumatic Ears: external ears normal Mouth: oropharynx normal and moist mucous membranes Throat: posterior oropharynx normal Eyes Conjunctivae: conjunctivae normal Neck Neck: full ROM and supple Chest Chest: normal inspection of the chest Resp Effort & Inspection: normal respiratory effort Auscultation: clear to auscultation bilaterally Cardio Rate: regular rate Rhythm: regular rhythm Heart Sounds: no murmurs and no rubs GI Inspection: normal to inspection and other (obese) Palpation: soft, no aortic enlargement, no pulsatile masses, nontender and other (non distended) Percussion: normal to percussion Auscultation: normal bowel sounds Back/Spine/Pelvis Back: CVA tenderness (R) Skin General skin exam: no rashes or lesions noted and other (pink, warm, dry) Neuro General: patient alert, patient awake and patient oriented x3 Speech: speech normal Motor: other (GUERRERO) Sensory Exam: no sensory deficits noted Extrem General: normal to inspection, full ROM and pedal edema present Psych Mental Status: mental status grossly normal Speech and Movement: speech and movement normal Affect: normal affect Course Vital Signs Vital signs: Vital Signs Temperature 36.4 C L 12/26/22 06:28 Pulse 85 12/26/22 06:28 Respiratory Rate 17 12/26/22 06:28 Blood Pressure 142/71 H 12/26/22 06:28 Pulse Oximetry 94 12/26/22 06:28 Temperature 36.4 C L 12/26/22 06:28 Temperature Source Oral 12/26/22 06:28 Pulse 85 12/26/22 06:28 Respiratory Rate 17 12/26/22 06:28 Respiratory Effort Normal 12/26/22 06:30 Blood Pressure 142/71 H 12/26/22 06:28 Blood Pressure Position Sitting 12/26/22 06:28 Pulse Oximetry 94 12/26/22 06:28 Oxygen Delivery Method Room Air 12/26/22 06:28 Oxygen Flow Rate 0 12/26/22 06:28 Pain Level 10 12/26/22 06:28 Sign Out Sign Out Data: Sign Out Comment: 62-year-old male patient with history of hypertension, thrombocytopenia, leukocytosis, and leukemoid reaction presents with right flank pain that woke him at 4 AM. White cell count of 30,000 and platelet count of 50 ,000 are not unusual for him. CT shows no AAA but markedly abnormal kidneys with question hydro and stranding. CT read pending. UA pending. Last updated by Jerri Perez MD at 12/26/22 08:15
[2022-12-26] MEDS: Normal Saline 1,000 ML 1000 ML IV (06:52)
[2022-12-26] MEDS: Ondansetron 4 MG/2 ML VIAL 8 MG IVP (06:53)
[2022-12-26] MEDS: Ketorolac 15 MG/ML VIAL IVP (06:57)
[2022-12-26] MEDS: HYDROmorphone 2 MG/ML SYR 1 MG IVP (06:58)
[2022-12-26 07:03] LABS: HCT 40.8 % (40.0-50.0); HGB 13.6 g/dL (13.5-17.5); MCH 30.1 pg (27.0-33.0); MCHC 33.3 % (32.0-36.0); MCV 90 fL (80-95); Nucleated RBC 0.1 % (0.0-0.3); RBC 4.52 10^6/uL (4.36-5.78); RDW 14.3 % (11.8-14.1)
[2022-12-26 07:05] LABS: Absolute Monocyte Count 10.03 10^3/uL (0.1-0.8)
[2022-12-26 07:19] LABS: ALT 64 U/L (16-63); AST 36 U/L (15-37); Albumin 3.4 g/dL (3.4-5.0); Alkaline Phosphatase 140 U/L (46-116); Anion Gap 12.1 mmol/L (3-11); BUN 18 mg/dL (7-18); Bilirubin, Total 0.7 mg/dL (0.2-1.0); CO2 28.9 mmol/L (21.0-32.0); CREATININE 1.5 mg/dL (0.70-1.30); Calcium 8.4 mg/dL (8.5-10.1); Chloride 102 mmol/L (98-107); Estimated GFR 52.97 (mL/min/1.73m2); Glucose 160 mg/dL (74-106); Sodium 143 mmol/L (136-145); Total Protein 7.7 g/dL (6.4-8.2)
[2022-12-26 07:27] LABS: Absolute Lymphocyte Count 2.74 10^3/uL (1.2-3.4); Absolute Neutrophil Count 17.33 10^3/uL (1.2-6.7); Bands % 3; Platelet Count 50 10^3/uL (130-400)
[2022-12-26 07:28] LABS: Diff Comment Manual Differential; Polychromasia Present
--- NOTE | 2022-12-26 08:14 | W.EDPROG ---
Date of service: 12/26/22 Time of Service: 08:15 Medical Decision Making I received signout on this 62-year-old male with right-sided back pain. He is pending a CT scan of his abdomen and pelvis and a urinalysis. He has a history of Langerhans' cell histiocytosis hypertension thrombocytopenia leukemoid reaction and prediabetes.His labs are significant for an MADELINE. He also has moderate hypocalcemia and hypokalemia. Will obtain ECG. 10:[address] Webb is seen the patient and request a lipase which I ordered. I will have patient provide a urine sample. No obvious QTc prolongation on ECG. 11 AM Urinalysis with large blood but nitrite negative. Reassuring negative lipase. Patient discharged with return indications and 5 days of daily levofloxacin. Patient tolerated p.o. in the ED. I have asked health window unit air conditioning mechanic Shaina to have seen later this week for repeat basic metabolic panel given his acute kidney injury. Sign Out Sign Out Data: Sign Out Comment: 62-year-old male patient with history of hypertension, thrombocytopenia, leukocytosis, and leukemoid reaction presents with right flank pain that woke him at 4 AM. White cell count of 30,000 and platelet count of 50,000 are not unusual for him. CT shows no AAA but markedly abnormal kidneys with question hydro and stranding. CT read pending. UA pending. Last updated by Jerri Perez MD at 12/26/22 08:15 Discharge Plan Disposition Patient Disposition: Home Discharge Details Clinical Impression: Ureterolithiasis, Hydronephrosis, Community acquired pneumonia, Acute kidney injury Primary Care Provider: [place] Cristobal ED Provider: Mark Monterroso Home Meds and New Rx's Prescriptions: New levofloxacin 750 mg tablet 750 mg PO DAILY Qty: 5 0RF Continued hydrocortisone-pramoxine 2.5-1 % cream 1 applic [place] QID PRN (Reason: itching) Qty: 30 6RF Wegovy 0.25 mg/0.5 mL pen injector 0.25 mg subcut QWEEK Qty: 2 0RF Rx Instructions: administer weeks 1 through 4 of therapy sildenafil 50 mg tablet 50 mg PO DAILY PRN (Reason: sexual activity) Qty: 10 6RF Rx Instructions: administer 30 minutes to 4 hours before activity calcitriol 0.5 mcg capsule 0.5 mcg PO BID Qty: 180 3RF Rx Instructions: s/p thyroidectomy fluocinolone acetonide oil 0.01 % drops 5 drp otic (ear) DAILY Rx Instructions: For use in both ears, as directed levothyroxine 112 mcg capsule 224 mcg PO DAILY Qty: 180 1RF amlodipine 10 mg tablet 10 mg PO DAILY Qty: 90 3RF losartan 50 mg tablet 50 mg PO DAILY Qty: 90 3RF Metamucil Sugar-Free (aspart) 3.4 gram/5.8 gram powder 5.401796 g PO DAILY Qty: 1040 6RF Rx Instructions: 1 tbls in 4 oz water/juice daily Discharge Instructions Instructions: Community Acquired Pneumonia (ED) Additional Instructions: Please read all of the information that accompanies these instructions. You were seen in the emergency department for your flank pain. You were found to have a 2 mm area concerning for a kidney stone. Please follow-up with urology in the next week. If you develop fevers nausea or vomiting please return to the emergency department. You are receiving an antibiotic that you should take as directed. If you develop fever or cough please also return to the emergency department. Your CAT scan showed concern for possible pneumonia for which you are receiving antibiotic. Discharge Data Discharge Date/Time-TO BE ENTERED AT DEPARTURE: 12/26/22 12:20
--- NOTE | 2022-12-26 08:15 | RT.EKG_ITS ---
APPROVED REPORT Exam: Resting ECG Reason for Exam: Hypokalemia Patient Location: E HR:89 bpm ECG Measurements Heart Rate 89 AXIS [place] 167 P 52 QRSd 98 QRS 30 QT [id number] T -24 QTc 0 Conclusion Sinus rhythm...normal P axis, V-rate 60- 99 Probable left atrial enlargement...P >50mS, <-0.10mV V1 Borderline T abnormalities, diffuse leads...T flat/neg Narrow complex normal sinus rhythm at a rate of 89. Normal axis. [place] within normal limits. QTc appe ars within normal limits but is not calculated explicitly. No ST segment abnormalities. New T wave inversion in V2. No acute injury pattern.
[2022-12-26] MEDS: Normal Saline 500 ML IV ×2 (08:30→08:35)
[2022-12-26] MEDS: POTASSIUM CHLORIDE 20 MEQ/100 ML BAG 50 MEQ IVPB (08:55)
[2022-12-26 10:31] VITALS: BP 145/83; PULSE 90; RESP 18; TEMP 36.6; O2SAT 92
--- NOTE | 2022-12-26 10:39 | NUR.NOTE ---
Nursing Note: referral to uro faxxed
[2022-12-26 11:00] LABS: Bilirubin Small (Negative); Blood Large (Negative); Clarity Sl Cloudy (Clear); Glucose Negative (Negative); Ketones 15 mg/dL (Negative); Leukocyte Esterase Negative (Negative); Nitrite Negative (Negative); Urobilinogen 0.2 mg/dL (Up to 0.2)
[2022-12-26 11:12] LABS: Bacteria Moderate HPF (Negative); Crystals Negative HPF (Negative); Epithelial Cells Few HPF (Negative); Mucus Heavy (Negative); Other Cells Few Transitional (Negative); RBC >50 HPF (0-2)
[2022-12-26 11:13] LABS: C & S Indicated? Yes
[2022-12-26 11:17] LABS: Lipase 12 U/L (16-77)
[2022-12-26] MEDS: levoFLOXacin 500 MG, levoFLOXacin 250 MG 750 MG PO (11:27)
--- NOTE | 2022-12-26 15:39 | NUR.NOTE ---
Nursing Note: referral to pcp fpor followup
== END 2022-12-26 12:20 | disposition home or self-care (01) ==
PROVIDERS: Emergency Medicine; Emergency Provider Emergency Medicine; PCP Family Medicine
DX: N13.2 Hydronephrosis with renal and ureteral calculous obstruction; J18.9 Pneumonia, unspecified organism; N17.9 Acute kidney failure, unspecified
CPT/HCPCS: 80053; 83690; 93005; 96361; 96365; 96366; 96375; 99284; 74176; 81003; 81015; 85025; 87086; 93010; J1170; J1885; J2405; J3480

== ENCOUNTER 2022-12-29 09:18 | Outpatient (REF) | payer BC, SELFPAY ==
[2022-12-29 09:30] LABS: Abs Immature Grans 8.25 10^3/uL (0.0-0.06); HCT 37.7 % (40.0-50.0); HGB 12.6 g/dL (13.5-17.5); MCH 29.2 pg (27.0-33.0); MCHC 33.4 % (32.0-36.0); MCV 87 fL (80-95); RBC 4.32 10^6/uL (4.36-5.78); RDW 14.3 % (11.8-14.1); RDW-SD 46.3 fL
[2022-12-29 09:51] LABS: ALT 44 U/L (16-63); AST 44 U/L (15-37); Albumin 2.8 g/dL (3.4-5.0); Alkaline Phosphatase 123 U/L (46-116); Anion Gap 10.9 mmol/L (3-11); BUN 30 mg/dL (7-18); Bilirubin, Total 0.8 mg/dL (0.2-1.0); CO2 27.1 mmol/L (21.0-32.0); CREATININE 1.9 mg/dL (0.70-1.30); Calcium 9.2 mg/dL (8.5-10.1); Chloride 103 mmol/L (98-107); Estimated GFR 39.89 (mL/min/1.73m2); Glucose 104 mg/dL (74-106); Potassium 3.1 mmol/L (3.5-5.1); Sodium 141 mmol/L (136-145); Total Protein 6.8 g/dL (6.4-8.2)
[2022-12-29 09:58] LABS: Platelet Count 34 10^3/uL (130-400)
[2022-12-29 09:59] LABS: Absolute Lymphocyte Count 10.33 10^3/uL (1.2-3.4); Absolute Monocyte Count 22.39 10^3/uL (0.1-0.8); Absolute Neutrophil Count 23.54 10^3/uL (1.2-6.7); Bands % 1
[2022-12-29 10:02] LABS: Diff Comment Manual Differential; Polychromasia Present
[2022-12-29 10:09] LABS: WBC 57.41 10^3/uL (4.4-10.8)
[2022-12-29 11:16] LABS: Metamyelocytes % 2
== END 2022-12-29 09:19 | disposition home or self-care (01) ==
LOC: LBN 09:18
PROVIDERS: PCP Family Medicine; Visit Provider Urology
DX: R31.0 Gross hematuria (principal); N17.9 Acute kidney failure, unspecified; E03.9 Hypothyroidism, unspecified; I10 Essential (primary) hypertension; D69.6 Thrombocytopenia, unspecified
CPT/HCPCS: 80053; 85025

== ENCOUNTER 2022-12-29 12:49 | Emergency (ER) | payer BC, SELFPAY ==
[2022-12-29] VITALS (40 sets, daily range): BP systolic 128–159; BP diastolic 69–90; PULSE 106–123; RESP 5–27; TEMP 37.1; O2SAT 88–99
--- NOTE | 2022-12-29 14:45 | DI.RAD_ITS ---
Exam(s) XR CHEST 2V PA LATERAL EXAM: XR CHEST 2V PA LATERAL CLINICAL HISTORY: cough TECHNIQUE: 2D digital imaging was performed of the chest. Two images were obtained. PA and lateral views were obtained. COMPARISON: CR XR PORTABLE CHEST AP from 05/17/[address] ABDOMEN PELVIS WO from 12/26/2022 FINDINGS: MEDIASTINUM: Normal. HEART: Normal. PULMONARY VASCULATURE: Normal. LUNGS: There is an infiltrate again seen in the right lower lobe. Grossly it is unchanged compared t o the CT scan of the abdomen and pelvis from 12/26/2022. The lungs are otherwise clear. PLEURAL SPACE: No pleural effusion or pneumothorax. BONE:Within normal limits for the patient's age. OTHER FINDINGS:Normal. IMPRESSION: Persistent right basilar infiltrate. DATA REPOSITORY: RADIATION DOSE DELIVERED:
--- NOTE | 2022-12-29 15:00 | RT.EKG_ITS ---
APPROVED REPORT Exam: Resting ECG Reason for Exam: Shortness of breath Patient Location: E HR:107 bpm ECG Measurements Heart Rate 107 AXIS [place] 158 P 47 QRSd 101 QRS 43 QT 350 T -28 QTc 468 Conclusion Sinus tachycardia...rate> 99 Probable left atrial enlargement...P >50mS, <-0.10mV V1 Borderline T abnormalities, diffuse leads...T flat/neg
--- NOTE | 2022-12-29 15:07 | W.ED.GENAD ---
Discharge Plan Discharge Details Chief Complaint: Recheck Primary Care Provider: Washington Cristobal ED Provider: Ryland Washington Home Meds and New Rx's Prescriptions: No Action hydrocortisone-pramoxine 2.5-1 % cream 1 applic CA QID PRN (Reason: itching) Qty: 30 6RF Wegovy 0.25 mg/0.5 mL pen injector 0.25 mg subcut QWEEK Qty: 2 0RF Rx Instructions: administer weeks 1 through 4 of therapy albuterol sulfate 90 mcg/actuation HFA aerosol inhaler 1 inh inhalation Q4H PRN (Reason: shortness of breath or wheezing) Qty: 8.5 2RF sildenafil 50 mg tablet 50 mg PO DAILY PRN (Reason: sexual activity) Qty: 10 6RF Rx Instructions: administer 30 minutes to 4 hours before activity calcitriol 0.5 mcg capsule 0.5 mcg PO BID Qty: 180 3RF Rx Instructions: s/p thyroidectomy fluocinolone acetonide oil 0.01 % drops 5 drp otic (ear) DAILY Rx Instructions: For use in both ears, as directed levothyroxine 112 mcg capsule 224 mcg PO DAILY Qty: 180 1RF amlodipine 10 mg tablet 10 mg PO DAILY Qty: 90 3RF losartan 50 mg tablet 50 mg PO DAILY Qty: 90 3RF Metamucil Sugar-Free (aspart) 3.4 gram/5.8 gram powder 5.806140 g PO DAILY Qty: 1040 6RF Rx Instructions: 1 tbls in 4 oz water/juice daily levofloxacin 750 mg tablet 750 mg PO DAILY Qty: 5 0RF Medical Decision Making Patient presenting to the emergency department for chief complaint of abnormal labs and worsening cough. Patient was seen here in the emergency department a couple days ago and diagnosed with pneumonia and kidney stone. He has a history of Langerhans' cell histiocytosis hypertension thrombocytopenia leukemoid reaction and prediabetes Patient placed upon Levaquin for his pneumonia and was to follow-up with urology for his kidney stone but also had some acute kidney injury components. Today during that follow-up his labs had worsened and so urologist sent him to the emergency department for further work-up. Patient states his flank pain and urinary symptoms have drastically improved, but does state worsening cough and shortness of breath with activity and having low oxygen numbers with ambulation. Patient denies fever chills, abdominal pain, any other bleeding or bruising type symptoms. Physical exam shows tachycardia, hypertension, afebrile normal respirations and oxygen of 99% at triage. Patient has clear lung sounds with no focal findings on my examination. Exam otherwise nondiagnostic. We will plan on repeating chest x-ray to look for any worsening pneumonia, and will do EKG and labs. Lab Data Lab results reviewed: Yes I reviewed the patient's lab results. HPI General Mode of arrival: ambulatory. Date/Time Provider Initiated Documentation: 12/29/22 13:16. Limitations to Documentation: no limitations. Information obtained by: patient and RN notes reviewed. History of Present Illness 62 year old M presents to the emergency department with the chief complaint of Cough, abnormal labs, Patient started experiencing this week(s) (3) and it has been constant. No relieving factors improve symptom(s), No exacerbating factors reported . Patient notes malaise. Patient did receive the following treatments prior to arrival, none Related Data Home Medications Medication Instructions Recorded Confirmed hydrocortisone-pramoxine 2.5 %-1 % 1 applic CA QID PRN itching #30 07/08/20 12/29/22 rectal cream grams psyllium husk (aspartame) 3.4 5.367616 g PO DAILY #1,040 grams 11/26/20 12/29/22 gram/5.8 gram oral powder (Metamucil Sugar-Free (aspartame)) sildenafil 50 mg tablet 50 mg PO DAILY PRN sexual activity 04/07/21 12/29/22 #10 tabs semaglutide (weight loss) 0.25 0.25 mg (0.5 mL) subcut QWEEK #2 mL 05/23/22 12/29/22 mg/0.5 mL subcutaneous pen injector (Wegovy) calcitriol 0.5 mcg capsule 0.5 mcg PO BID #180 caps 05/26/22 12/29/22 fluocinolone acetonide oil 0.01 % 5 drp otic (ear) DAILY 07/05/22 12/29/22 ear drops levothyroxine 112 mcg capsule 224 mcg PO DAILY #180 caps 10/24/22 12/29/22 amlodipine 10 mg tablet 10 mg PO DAILY #90 tabs 11/06/22 12/29/22 losartan 50 mg tablet 50 mg PO DAILY #90 tabs 11/06/22 12/29/22 levofloxacin 750 mg tablet 750 mg PO DAILY #5 tabs 12/26/22 12/29/22 albuterol sulfate 90 mcg/actuation 1 inh inhalation Q4H PRN shortness 12/29/22 12/29/22 aerosol inhaler of breath or wheezing #8.5 grams Previous Rx's Medication Instructions Recorded hydrocortisone-pramoxine 2.5 %-1 % 1 applic CA QID PRN itching #30 07/08/20 rectal cream grams psyllium husk (aspartame) 3.4 5.491664 g PO DAILY #1,040 grams 11/26/20 gram/5.8 gram oral powder (Metamucil Sugar-Free (aspartame)) sildenafil 50 mg tablet 50 mg PO DAILY PRN sexual activity 04/07/21 #10 tabs semaglutide (weight loss) 0.25 0.25 mg (0.5 mL) subcut QWEEK #2 mL 05/23/22 mg/0.5 mL subcutaneous pen injector (Gary) calcitriol 0.5 mcg capsule 0.5 mcg PO BID #180 caps 05/26/22 levothyroxine 112 mcg capsule 224 mcg PO DAILY #180 caps 10/24/22 amlodipine 10 mg tablet 10 mg PO DAILY #90 tabs 11/06/22 losartan 50 mg tablet 50 mg PO DAILY #90 tabs 11/06/22 levofloxacin 750 mg tablet 750 mg PO DAILY #5 tabs 12/26/22 albuterol sulfate 90 mcg/actuation 1 inh inhalation Q4H PRN shortness 12/29/22 aerosol inhaler of breath or wheezing #8.5 grams Allergies Allergy/AdvReac Type Severity Reaction Status Date / Time aspirin Allergy Mild Verified 12/29/22 08:34 lisinopril Allergy Mild Cough Verified 12/29/22 08:34 General Stated Complaint: Recheck TARA: 3 Review of Systems Constitutional Constitutional: Denies chills, Denies fever(s) and Reports malaise Cardiovascular Cardiovascular: Denies chest pain, Reports dyspnea and Reports dyspnea on exertion Respiratory Respiratory: Reports dyspnea and Reports dyspnea on exertion Gastrointestinal Gastrointestinal: Denies abdominal pain, Denies hematochezia, Denies nausea and Denies vomiting Genitourinary Genitourinary: Denies flank pain PFSH All Active Problems (Updated 12/29/22 @ 09:09 by Dakota Webb MD) Gross hematuria (Acute) Ureterolithiasis (Acute) Hydronephrosis (Acute) Community acquired pneumonia (Acute) Acute kidney injury (Acute) Hypothyroidism (acquired) (Acute) Sensorineural hearing loss (SNHL) of left ear with restricted hearing of right ear (Chronic) Cochlear implant in place (Acute) Post covid-19 condition, unspecified (Acute) Acute eczematoid otitis externa of left ear (Acute) 09/14/21 [facility] [place] Leukemoid reaction (Acute) Obesity (BMI 30.0-34.9) (Chronic) Leukocytosis, unspecified (Acute) Vitamin D deficiency (Acute) Thrombocytopenia (Chronic) Sessile colonic polyp (Acute) Rosacea (Acute) Chronic ischemic colitis (Acute) Adenomatous polyp of cecum (Acute) Diverticula of colon (Acute) Chronic anal fissure (Acute) Rectal pain, chronic (Acute) Chronic otitis externa of both ears (Acute) 09/07/20 [facility] [place] 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 saw ENT in f/u. voice has recovered and he will see ENT again before his next surgery. ([facility] [place] report 04/23/19) Unilateral partial paralysis of vocal cords or larynx (Acute) 01/30/19 Dr Ernesto Kiran, [facility] [place]olaryngology Primary thyroid cancer (Acute) reported [facility] [place] note dated 11/14/18. Mary Altman MD Langerhans cell histiocytoses (Acute) [facility] [place] hem/onc report 04/23/19: KRAS gene mutation on the skin biopsy came back positive. This is an extremely rare diagnosis. his staging is negative . Single system disease involving the skin only. He will need to be followed by dermatology.([facility] [place] has requested that) 09/24/20 Skin isolation only. [facility] [place] D[facility] FU Q 6 mo. Vitamin D deficiency (Chronic) Thrombocytopenia (Chronic) Prediabetes (Chronic) Metabolic syndrome (Chronic) Hypertension (Chronic) Medical History Chronic bacterial otitis externa of both ears History of thyroid cancer papillary thyroid cancer; s/p L. hemithyroidectomy December 2018, Dr. Altman, [facility] [place] (focal hobnail pattern, focal posterior margin positive w/ 5 of 5 level nodes positive, completion of thyroidectomy 12/22/19; referred to Dr. Peck radiation oncology 04/08/20. Hypomagnesemia Hypoparathyroidism postoperative complication of completion thyroidectomy Tubulovillous adenoma Surgical History H/O inguinal hernia repair H/O local excision of skin lesion excision of skin lesion from chin; positive for Langerhans cell histiocytosis History of colonoscopy with polypectomy (~11/26/20) Family History Mother Breast cancer Uterine cancer Father Alcohol abuse Sister No problems noted. Brother No problems noted. Social History Smoking/Tobacco Use Status: Never Smoking risk assessment performed?: Yes Alcohol Intake: current Alcohol Intake frequency: a few times a week Drug use: Never Substance use type: does not use Caregiver/Support person: No Household members: spouse Housing: house Number of Children: 2 Communication Needs: Hard of Hearing Do you need help understanding health information?: Rarely current occupation: [employer], [employer] Pets and animals: Yes (horses, rabbits, pigs) Sexually active: Yes Do you think of yourself as: straight/heterosexual Current gender identity: male What is your relationship status?: How often do you talk on the phone with friends or family?: three or more times per week How often do you get together with friends or relatives?: three or more times per week How often do you attend mandaeism or yazdanism services?: 1-3 times per year Do you belong to any clubs or organized social groups?: yes Panel score (0-1 are the most socially isolated patients): 3 What type of physical activity do you participate in: none Mari/Restorationism: Scientology Special mari needs: No Agree to transfusion: Yes Seatbelt use: always Helmet use: Yes Drive intox or ride w/intox sales route driver helper: No Working smoke detector in home: Yes Fire extinguisher in home: Yes Carbon monox detector in home: Yes Do you feel safe at home: Yes Do you feel safe in your relationship?: Yes Exam Const General: cooperative, no acute distress and not ill appearing Orientation: alert, awake and oriented x3 HENMT Mouth: moist mucous membranes Resp Effort & Inspection: normal respiratory effort, able to speak in complete sentences, cough Quality of cough: dry and no respiratory distress Auscultation: clear to auscultation bilaterally Cardio Rate: tachycardic Rhythm: regular rhythm Heart Sounds: S1 normal and S2 normal GI Inspection: obesity Skin General skin exam: no rashes or lesions noted, ecchymosis (Overall blood draw sites), no petechiae and no purpura Neuro General: patient alert, patient awake, patient oriented x3, moves all extremities and no focal motor deficits Sensory Exam: no sensory deficits noted Course Vital Signs Vital signs: Vital Signs Temperature 37.1 C 12/29/22 12:56 Pulse 110 H 12/29/22 12:56 Respiratory Rate 18 12/29/22 12:56 Blood Pressure 152/69 H 12/29/22 12:56 Pulse Oximetry 99 12/29/22 12:56 Temperature 37.1 C 12/29/22 12:56 Temperature Source Oral 12/29/22 12:56 Pulse 110 H 12/29/22 12:56 Respiratory Rate 18 12/29/22 12:56 Respiratory Effort Normal 12/29/22 14:20 Blood Pressure 152/69 H 12/29/22 12:56 Blood Pressure Position Sitting 12/29/22 12:56 Pulse Oximetry 99 12/29/22 12:56 Oxygen Delivery Method Room Air 12/29/22 12:56 Oxygen Flow Rate 0 12/29/22 12:56 Sign Out Sign Out Data: Sign Out Comment: Patient signed out pending review of initial work-up which includes labs, chest x-ray, and EKG. Patient in stable condition Last updated by Ryland Washington NP at 12/29/22 15:48
[2022-12-29 16:19] LABS: HCT 36.3 % (40.0-50.0); HGB 12.2 g/dL (13.5-17.5); MCH 29.5 pg (27.0-33.0); MCHC 33.6 % (32.0-36.0); MCV 88 fL (80-95); RBC 4.13 10^6/uL (4.36-5.78); RDW 14.3 % (11.8-14.1)
[2022-12-29] MEDS: Benzonatate 100 MG CAP PO (16:25)
[2022-12-29 16:43] LABS: ALT 44 U/L (16-63); AST 44 U/L (15-37); Albumin 2.8 g/dL (3.4-5.0); Alkaline Phosphatase 110 U/L (46-116); Anion Gap 10.4 mmol/L (3-11); BUN 33 mg/dL (7-18); Bilirubin, Total 0.8 mg/dL (0.2-1.0); CO2 27.6 mmol/L (21.0-32.0); Calcium 9.4 mg/dL (8.5-10.1); Chloride 103 mmol/L (98-107); Glucose 102 mg/dL (74-106); Magnesium 1.9 mg/dL (1.8-2.4); NT-proBNP 379 pg/mL (<300); Potassium 3.2 mmol/L (3.5-5.1); Sodium 141 mmol/L (136-145); Total Protein 6.7 g/dL (6.4-8.2); Troponin I < 50 ng/L (<or=60)
--- NOTE | 2022-12-29 16:45 | DI.CT_ITS ---
Exam(s) CT CHEST PE CTA EXAM: CT CHEST PE CTA CLINICAL HISTORY: shortness of breath, elevated ddimer. TECHNIQUE: Imaging Protocol: Axial CT angiography was performed with multi-slice acquisition and mu lti-planar reconstructions as well as axial, coronal and sagittal MIP reconstructions. CONTRAST MATERIAL: Intravenous: Omnipaque 350 Contrast volume:100 ml COMPARISON: CT CT ABDOMEN PELVIS WO from 12/26/2022 CR XR CHEST 2V PA LATERAL from 12/29/2022 FINDINGS: Exam is limited by motion artifact. Pulmonary Arteries: No evidence of filling defect to suggest pulmonary emboli. Distal emboli not ex cluded due to motion artifact. Tracheobronchial tree: Patent where visualized. Mediastinum and Berenice: No dominant adenopathy or fluid collection. Pulmonary parenchyma: Bilateral ground-glass infiltrates greatest in left upper and lower right lower lobes. Pleura: No effusion or pneumothorax. Heart: The heart is not dilated. Mild coronary artery calcifications are seen. Aorta: Thoracic aorta non-dilated. No aneurysm. No dissection. Atherosclerotic changes. Bones: Degenerative disc changes. IMPRESSION: No evidence of pulmonary embolism. Bilateral infiltrates. RADIATION DOSE DELIVERED: 525.61mGy.cm Total DLP DATA REPOSITORY: All CT scans at this facility are submitted to the National Radiology Data Registry (NRDR) Dose Index Registry (DIR) with the [employer] (A[employer]). RADIATION OPTIMIZATION: All CT scans at this facility use at least one of these dose optimization te chniques: automated exposure control; mA and/or kV adjustment per patient size (includes targeted exa ms where dose is matched to clinical indication); or iterative reconstruction.
[2022-12-29 16:47] LABS: Absolute Neutrophil Count 27.14 10^3/uL (1.2-6.7); Bands % 4
[2022-12-29 16:48] LABS: Absolute Lymphocyte Count 12.39 10^3/uL (1.2-3.4); Absolute Monocyte Count 18.29 10^3/uL (0.1-0.8); Atypical Lymphocytes % 8; Diff Comment Manual Differential; Metamyelocytes % 2; Platelet Count 31 10^3/uL (130-400)
[2022-12-29 16:49] LABS: D-Dimer 3309 ng/mlFEU (<500)
[2022-12-29] MEDS: Omnipaque 350 MG/ML 100 ML BTL IJ (17:18)
[2022-12-29] MEDS: Normal Saline - Diluent 50 ML VIAL IJ (17:18)
--- NOTE | 2022-12-29 17:27 | W.EDPROG ---
Date of service: 12/29/22 Time of Service: 17:27 Medical Decision Making 1727 -- Care was signed out by SONDRA Washington with plan to follow-up on chest x-ray, D-dimer and discuss case with hematology. D-dimer is elevated. Plan to proceed to CT of the chest. Chest x-ray was interpreted by radiology: Persistent right basilar infiltrate. Plan to initiate treatment with cefepime 2 g given worsening cough despite treatment with Levaquin. I called and spoke with Dr. Landry [facility], discussed ED presentation course including diagnostics, he notes concern for potential CML given monocytosis. He recommends confirming no blast. I called and spoke with lab personnel regarding differential and confirmed that there are no blasts on differential here in the Emergency Department and also nonpresent earlier today. 1853 --CT of the chest was interpreted by radiology: Limited ability to evaluate peripheral vessels due to motion artifact but no large pulmonary emboli identified in the main pulmonary artery right or left pulmonary artery or proximal branching pulmonary arteries. Bilateral pneumonia. Possible hepatic mass versus superior right renal mass. Recommend abdominal and pelvic CT. We will obtain CT of the abdomen pelvis. 2049 -- CT of the abdomen and pelvis interpreted: IMPRESSION: 1. ? Multiple nodular densities are present within the perinephric space bilaterally. Mixed soft tissue fatty mass present superior to the right kidney measuring 6.3 x 10.1 x 6.3 cm with a similar appearing mass the measuring 6.8 x 6 x 5.7 cm at that hilum of the left kidney. There are multiple mixed high and low-attenuation masses present within the perinephric spaces bilaterally. These findings are highly suspicious for a malignant process.? Consider retroperitoneal liposarcoma. 2. ? Patchy consolidation of the right greater than left lower lobes of the lung consistent with pneumonia. 3. ? There is a small a moderate pericardial effusion present. 4. ? There is severe bilateral perinephric stranding. Priori CT the abdomen pelvis wo contrast performed on 12/26/2022 was interpreted by radiology as follows:1. 2 mm density which appears to lie in the proximal right ureter.? (Series 3, image 523). 2. Stranding seen in the pararenal compared nephric soft tissues and in the retroperitoneum.? Pyelonephritis should be considered.? There is mild hydronephrosis of the right kidney.? This may be secondary to the 2 mm density seen in the proximal right ureter as described in impression 1.? 3. Right basilar infiltrate.? This may represent pneumonia.? Please correlate clinically. 4. Diffuse thickening of the wall of the urinary bladder.? This may be due to incomplete distension but cystitis cannot be excluded.? No bladder stones are seen. 5. Colonic diverticulosis without evidence of acute diverticulitis. Will repeat UA. I have called [facility] to request transfer. Awaiting call back. 2244 -- I spoke with with oncology fellow at [facility] - they recommend transfer to hospital medicine. She recommended checking labs for lumor lysis syndrome including LDH, phosphorus, uric acid and peripheral smear. I spoke with Dr. Finn, hospitalist at [facility], she will accept the patient in transfer but no bed immediately available. There will likely be a bed in the morning. No further recommendations at this time. I also called [facility] to request transfer and spoke with oncology and the hospitalist unfortunately do not have capacity to accept the patient in transfer. Patient reassessed and remains tachycardic. Will give additional IVF. -- Will initiate treatment with vancomycin and azithromycin. 5 --I spoke with oncology fellow at [facility] regarding elevated LDH, phosphorus and uric acid. I reviewed results with her. She recommends giving rasburicase which unfortunately we do not have on formulary and then recommended allopurinol 200 mg twice daily. She recommends continuing IV fluid, LR at 125 mL/h. Lab Data Lab results reviewed: Yes I reviewed the patient's lab results. Labs: 12/29/22 21:36 Urine - Reflex from Ua Urine Culture - Pending Laboratory Tests Range/Units 12/29/22 12/29/22 12/29/22 16:00 16:00 16:00 WBC (4.4-10.8) 10^3/uL 59.00 H* RBC (4.36-5.78) 10^6/uL 4.13 L Hgb (13.5-17.5) g/dL 12.2 L Hct (40.0-50.0) % 36.3 L MCV (80-95) fL 88 MCH (27.0-33.0) pg 29.5 MCHC (32.0-36.0) % 33.6 RDW (11.8-14.1) % 14.3 H Plt Count (130-400) 10^3/uL 31 L MPV (8.0-11.0) fL Immature Gran % 0.0 Neutrophils % 42.0 Band Neutrophils % 4 Lymphocytes % 13.0 Atypical Lymphs % 8 Monocytes % 31.0 Eosinophils % 0.0 Basophils % 0.0 Metamyelocytes % 2 Myelocytes % Promyelocytes % Other Cells % Nucleated RBC % (0.0-0.3) % 0.0 Absolute Neutrophils (1.2-6.7) 10^3/uL 27.14 H Absolute Lymphocytes (1.2-3.4) 10^3/uL 12.39 H Absolute Monocytes (0.1-0.8) 10^3/uL 18.29 H Absolute Eosinophils (0.0-0.7) 10^3/uL 0.00 Absolute Basophils (0.0-0.2) 10^3/uL 0.00 RBC Morphology Polychromasia Hypochromasia Poikilocytosis Basophilic Stippling Anisocytosis Microcytosis Macrocytosis Spherocytes Tear Drop Cells Ovalocytes Stomatocytes [place] Bodies Cecelia Cells/Echinocytes Acanthocytes (Spur) Schistocytes D-Dimer (<500) ng/mlFEU 3309 H Sodium (136-145) mmol/L 141 Potassium (3.5-5.1) mmol/L 3.2 L Chloride (98-107) mmol/L 103 Carbon Dioxide (21.0-32.0) mmol/L 27.6 Anion Gap (3-11) mmol/L 10.4 BUN (7-18) mg/dL 33 H Creatinine (0.70-1.30) mg/dL 2.0 H Est GFR (CKD-EPI 2020) (mL/min/1.73m2) 37.50 Glucose (74-106) mg/dL 102 Uric Acid (3.5-7.2) mg/dL Calcium (8.5-10.1) mg/dL 9.4 Phosphorus (2.6-4.7) mg/dL Magnesium (1.8-2.4) mg/dL 1.9 Total Bilirubin (0.2-1.0) mg/dL 0.8 AST (15-37) U/L 44 H ALT (16-63) U/L 44 Alkaline Phosphatase (46-116) U/L 110 Lactate Dehydrogenase (85-227) U/L Troponin I (<or=60) ng/L < 50 NT-Pro-B Natriuret Pep (<300) pg/mL 379 H Total Protein (6.4-8.2) g/dL 6.7 Albumin (3.4-5.0) g/dL 2.8 L Urine Color (Yellow) Urine Clarity (Clear) Urine pH (5-8) Ur Specific [place] (1.005-1.025) Urine Protein (Negative) mg/dL Urine Ketones (Negative) mg/dL Urine Blood (Negative) Urine Nitrite (Negative) Urine Bilirubin (Negative) Urine Urobilinogen (Up to 0.2) mg/dL Ur Leukocyte Esterase (Negative) Urine RBC (0-2) HPF Urine WBC (0-5) HPF Ur Epithelial Cells Urine Crystals Urine Bacteria Urine Mucus Ur Culture Indicated? Urine Glucose (Negative) mg/dL Range/Units 12/29/22 12/29/22 12/29/22 17:09 21:36 22:27 WBC (4.4-10.8) 10^3/uL RBC (4.36-5.78) 10^6/uL Hgb (13.5-17.5) g/dL Hct (40.0-50.0) % MCV (80-95) fL MCH (27.0-33.0) pg MCHC (32.0-36.0) % RDW (11.8-14.1) % Plt Count (130-400) 10^3/uL MPV (8.0-11.0) fL Immature Gran % Cancelled Neutrophils % Cancelled Band Neutrophils % Cancelled Lymphocytes % Cancelled Atypical Lymphs % Cancelled Monocytes % Cancelled Eosinophils % Cancelled Basophils % Cancelled Metamyelocytes % Cancelled Myelocytes % Cancelled Promyelocytes % Cancelled Other Cells % Cancelled Nucleated RBC % (0.0-0.3) % Absolute Neutrophils (1.2-6.7) 10^3/uL Cancelled Absolute Lymphocytes (1.2-3.4) 10^3/uL Cancelled Absolute Monocytes (0.1-0.8) 10^3/uL Cancelled Absolute Eosinophils (0.0-0.7) 10^3/uL Cancelled Absolute Basophils (0.0-0.2) 10^3/uL Cancelled RBC Morphology Cancelled Polychromasia Cancelled Hypochromasia Cancelled Poikilocytosis Cancelled Basophilic Stippling Cancelled Anisocytosis Cancelled Microcytosis Cancelled Macrocytosis Cancelled Spherocytes Cancelled Tear Drop Cells Cancelled Ovalocytes Cancelled Stomatocytes Cancelled [place] Bodies Cancelled [place] Cells/Echinocytes Cancelled Acanthocytes (Spur) Cancelled Schistocytes Cancelled D-Dimer (<500) ng/mlFEU Sodium (136-145) mmol/L Potassium (3.5-5.1) mmol/L Chloride (98-107) mmol/L Carbon Dioxide (21.0-32.0) mmol/L Anion Gap (3-11) mmol/L BUN (7-18) mg/dL Creatinine (0.70-1.30) mg/dL Est GFR (CKD-EPI 2020) (mL/min/1.73m2) Glucose (74-106) mg/dL Uric Acid (3.5-7.2) mg/dL 9.7 H Calcium (8.5-10.1) mg/dL Phosphorus (2.6-4.7) mg/dL 4.8 H Magnesium (1.8-2.4) mg/dL Total Bilirubin (0.2-1.0) mg/dL AST (15-37) U/L ALT (16-63) U/L Alkaline Phosphatase (46-116) U/L Lactate Dehydrogenase (85-227) U/L 721 H Troponin I (<or=60) ng/L NT-Pro-B Natriuret Pep (<300) pg/mL Total Protein (6.4-8.2) g/dL Albumin (3.4-5.0) g/dL Urine Color (Yellow) Yellow Urine Clarity (Clear) Sl Cloudy Urine pH (5-8) 5.5 Ur Specific [place] (1.005-1.025) <= 1.005 Urine Protein (Negative) mg/dL 100 H Urine Ketones (Negative) mg/dL Negative Urine Blood (Negative) Large H Urine Nitrite (Negative) Negative Urine Bilirubin (Negative) Negative Urine Urobilinogen (Up to 0.2) mg/dL 0.2 Ur Leukocyte Esterase (Negative) Small H Urine RBC (0-2) HPF >50 H Urine WBC (0-5) HPF Ur Epithelial Cells Not Applicable Urine Crystals Not Applicable Urine Bacteria Not Applicable Urine Mucus Not Applicable Ur Culture Indicated? Yes Urine Glucose (Negative) mg/dL Negative Sign Out Sign Out Data: Sign Out Comment: Patient signed out pending review of initial work-up which includes labs, chest x-ray, and EKG. Patient in stable condition Last updated by Ryland Washington NP at 12/29/22 15:48 Discharge Plan Discharge Details Chief Complaint: Recheck Primary Care Provider: [place] Cristobal ED Provider: Royer Jackson Home Meds and New Rx's Prescriptions: No Action hydrocortisone-pramoxine 2.5-1 % cream 1 applic [place] QID PRN (Reason: itching) Qty: 30 6RF Patient Comments: not taking Wegovy 0.25 mg/0.5 mL pen injector 0.25 mg subcut QWEEK Qty: 2 0RF Patient Comments: not taking Rx Instructions: administer weeks 1 through 4 of therapy albuterol sulfate 90 mcg/actuation HFA aerosol inhaler 1 inh inhalation Q4H PRN (Reason: shortness of breath or wheezing) Qty: 8.5 2RF sildenafil 50 mg tablet 50 mg PO DAILY PRN (Reason: sexual activity) Qty: 10 6RF Rx Instructions: administer 30 minutes to 4 hours before activity calcitriol 0.5 mcg capsule 0.5 mcg PO BID Qty: 180 3RF Rx Instructions: s/p thyroidectomy fluocinolone acetonide oil 0.01 % drops 5 drp otic (ear) DAILY Rx Instructions: For use in both ears, as directed levothyroxine 112 mcg capsule 224 mcg PO DAILY Qty: 180 1RF amlodipine 10 mg tablet 10 mg PO DAILY Qty: 90 3RF losartan 50 mg tablet 50 mg PO DAILY Qty: 90 3RF Metamucil Sugar-Free (aspart) 3.4 gram/5.8 gram powder 5.115308 g PO DAILY Qty: 1040 6RF Rx Instructions: 1 tbls in 4 oz water/juice daily levofloxacin 750 mg tablet 750 mg PO DAILY Qty: 5 0RF
[2022-12-29] MEDS: CEFEPIME 2 GM in Normal Saline 100 ML IVPB (18:00)
[2022-12-29] MEDS: Lactated Ringers 500 ML 1000 ML IV (18:00)
--- NOTE | 2022-12-29 18:00 | DI.VRAD_ITS ---
PROCEDURE INFORMATION: Exam: CTA Chest With Contrast Exam date and time: 12/29/2022 5:19 PM Age: 62 years old Clinical indication: Shortness of breath and other: SOB, elevated ddimer TECHNIQUE: Imaging protocol: Computed tomographic angiography of the chest with contrast. Exam focused on the arteries. 3D rendering (Not supervised by radiologist): MIP and/or 3D reconstructed images were created by the technologist. Radiation optimization: All CT scans at this facility use at least one of these dose optimization techniques: automated exposure control; mA and/or kV adjustment per patient size (includes targeted exams where dose is matched to clinical indication); or iterative reconstruction. Contrast material: 350; Contrast volume: 100 ml; Contrast route: INTRAVENOUS (IV); COMPARISON: CT CHEST PE CTA 09/16/2020 12:56 FINDINGS: Limitations: Respiratory motion artifact. Pulmonary arteries: No large pulmonary emboli identified in the main pulmonary artery, or right and left pulmonary artery, or proximal branching pulmonary arteries. Cannot evaluate peripheral pulmonary arteries due to limitations discussed above. Aorta: Unremarkable. No aortic aneurysm. No aortic dissection. Other arteries: Atherosclerotic disease. Limited ability to evaluate the peripheral vessels due to motion artifact. Trachea: Moderate tracheal malacia. Lungs: Bilateral patchy infiltrates with greatest involvement of the left upper lobe and right lower lobe. Pleural spaces: Unremarkable. No pneumothorax. No pleural effusion. Heart: Cardiomegaly. Lymph nodes: Unremarkable. No enlarged lymph nodes. Diaphragm: Asymmetric elevation of the right hemidiaphragm. Liver: Hepatic steatosis. Amorphous fatty infiltration along the medial posterior aspect of the liver and superior aspect of the kidney incompletely evaluated on this CT. Recommend additional imaging of the abdomen for further evaluation of the liver and kidney for possible infiltrative mass. Bones/joints: Multilevel degenerative changes of the spine. Soft tissues: Unremarkable. IMPRESSION: 1. Limitations as discussed above. 2. Moderate tracheal malacia. 3. Bilateral pneumonia. 4. No large central pulmonary embolus. Limitations as discussed above. 5. Possible hepatic mass versus superior right renal mass. Recommend abdominal and pelvic CT. Dictated and Authenticated by: Monet Anderson MD. Ordering:SHREE Linton MD
--- NOTE | 2022-12-29 18:45 | DI.CT_ITS ---
Exam(s) CT ABDOMEN PELVIS WO EXAM: CT ABDOMEN PELVIS WO CLINICAL HISTORY: mass on ct chest. TECHNIQUE: Imaging Protocol: Axial computed tomography images with coronal and sagittal reformatted images were created and reviewed. Oral: / no COMPARISON: CT CT ABDOMEN PELVIS WO from 12/26/2022 FINDINGS: ABDOMEN: Lung Bases: Right basilar infiltrate. Trace pericardial effusion. Liver: Enlarged. Normal density. Stable small cysts. Gallbladder and biliary tract: No radiodense calculus or dilation. Pancreas: Normal density, no abnormal calcifications or inflammatory process. Spleen: Enlarged. Kidneys: There is residual contrast in the collecting system related to prior chest CT. There is carolina ed stranding around both kidneys as well as marked infiltration and soft tissue stranding in the ivania l pelves. These findings have significantly worsened since 2020. There is no evidence of obstruction of the collecting systems. There rounded mass like densities in the retroperitoneal fat. Findings cou ld be related to severe retroperitoneal inflammation or possibly retroperitoneal fibrosis.. Malignanc y such as lipoma slight high sarcoma is also possibility peer Adrenal glands: No masses seen. Lymph nodes: Within normal limits. Abdominal Aorta: Abdominal portion non-dilated. PELVIS: Bladder: Distended with IV contrast. no gross wall thickening. Bowel: Diverticulosis. No obstruction or bowel wall thickening. Peritoneal cavity: No ascites, collection or mesenteric inflammatory response. Reproductive organs: Within normal limits. Bones: Within normal limits. IMPRESSION: Severe bilateral perinephric stranding and suggestion of multiple rounded masses in the retroperitone al fat. The findings could be secondary to severe inflammation or retroperitoneal fibrosis however a malignant process is also possibility. RADIATION DOSE DELIVERED: 1,327.89mGy.cm Total DLP DATA REPOSITORY: All CT scans at this facility are submitted to the National Radiology Data Registry (NRDR) Dose Index Registry (DIR) with the [employer] (A[employer]). RADIATION OPTIMIZATION: All CT scans at this facility use at least one of these dose optimization te chniques: automated exposure control; mA and/or kV adjustment per patient size (includes targeted exa ms where dose is matched to clinical indication); or iterative reconstruction.
--- NOTE | 2022-12-29 19:47 | DI.VRAD_ITS ---
Addendum created by Cristian Barnard MD on 12/29/2022 9:18:31 PM EDT: The patient's prior CT is available with a report at this time. The current findings of multiple nodular masses within the retroperitoneum and perinephric soft tissue stranding with a possible associated mass at the left renal hilum at at the superior aspect of the right perinephric space were present previously on CT of 12/26/2022. These are perhaps more severe at this time but I do not see any evidence of an obstructive uropathy. My concern is primarily for neoplastic process, retroperitoneal fibrosis or infectious process could also give this appearance.THIS REPORT CONTAINS FINDINGS THAT MAY BE CRITICAL TO PATIENT CARE. The findings were verbally communicated via telephone conference with Royer Jackson at 9:18 PM EDT on 12/29/2022. The findings were acknowledged and understood. Initial report created on 12/29/2022 7:47:10 PM EDT: PROCEDURE INFORMATION: Exam: CT Abdomen And Pelvis Without Contrast Exam date and time: 12/29/2022 7:25 PM Age: 62 years old Clinical indication: Other: Mass on chest CT TECHNIQUE: Imaging protocol: Computed tomography of the abdomen and pelvis without contrast. COMPARISON: CT ABDOMEN PELVIS WO 12/26/2022 7:33 AM FINDINGS: Lungs: Patchy consolidation of the right greater than left lower lobes of the lung consistent with pneumonia. Pleural spaces: There is no evidence of pneumothorax. There are no pleural effusions present. Heart: There is a small a moderate pericardial effusion present. The heart is otherwise unremarkable. Coronary arteries: There is mild atherosclerotic calcification of the coronary arteries. Liver: There are no focal liver lesions present. There is no evidence of intrahepatic or extrahepatic biliary ductal dilation. Gallbladder and bile ducts: The gallbladder is normal. There is no cholelitiasis, wall thickening or pericholecystic fluid to suggest cholecystitis. Pancreas: The pancreas is normal. Spleen: The spleen is normal. Adrenal glands: The adrenal glands are normal. Kidneys and ureters: There is severe bilateral perinephric stranding. Excretion of contrast by both kidneys no evidence of hydronephrosis. Multiple nodular densities are present within the perinephric space bilaterally. Mixed soft tissue fatty mass present superior to the right kidney measuring 6.3 x 10.1 x 6.3 cm with a similar appearing mass the measuring 6.8 x 6 x 5.7 cm at that hilum of the left kidney. There are multiple mixed high and low-attenuation masses present within the perinephric spaces bilaterally. These findings are highly suspicious for a malignant process. Consider retroperitoneal liposarcoma. Stomach and bowel: There is no evidence of intestinal obstruction. Appendix: No evidence of appendicitis. Intraperitoneal space: Unremarkable. No free air. Small amount of fluid present within the right and left paracolic gutters. Vasculature: The aorta is unremarkable without evidence of significant atherosclerosis or aneurysmal disease. The peripheral arterial vascular system visualized is unremarkable. The portal venous system visualized is unremarkable. The peripheral venous vascular system visualized is unremarkable. Lymph nodes: Unremarkable. No enlarged lymph nodes. Urinary bladder: Unremarkable as visualized. Reproductive: The prostate gland demonstrates calcification and moderate nonspecific enlargement. The seminal vesicles are normal. Bones/joints: The thoracolumbar spine demonstrates moderate degenerative changes at multiple levels.There are diffuse enthesopathic changes consistent with benign diffuse idiopathic skeletal hyperostosis (DISH). Degenerative changes sacroiliac joints with ankylosis. Mild degenerative changes of the hips bilaterally. Soft tissues: The extra-abdominal soft tissues are normal. There are nonobstructing bilateral inguinal hernias containing fat and possibly a small amount of mesentery. IMPRESSION: 1. Multiple nodular densities are present within the perinephric space bilaterally. Mixed soft tissue fatty mass present superior to the right kidney measuring 6.3 x 10.1 x 6.3 cm with a similar appearing mass the measuring 6.8 x 6 x 5.7 cm at that hilum of the left kidney. There are multiple mixed high and low-attenuation masses present within the perinephric spaces bilaterally. These findings are highly suspicious for a malignant process. Consider retroperitoneal liposarcoma. 2. Patchy consolidation of the right greater than left lower lobes of the lung consistent with pneumonia. 3. There is a small a moderate pericardial effusion present. 4. There is severe bilateral perinephric stranding. Dictated and Authenticated by: Cristian Barnard MD. Ordering:SHREE Linton MD
[2022-12-29 21:41] LABS: Bilirubin Negative (Negative); Blood Large (Negative); Clarity Sl Cloudy (Clear); Glucose Negative (Negative); Ketones Negative (Negative); Leukocyte Esterase Small (Negative); Nitrite Negative (Negative); Specific Gravity <= 1.005 (1.005-1.025); Urobilinogen 0.2 mg/dL (Up to 0.2); pH 5.5 (5-8)
[2022-12-29 21:53] LABS: C & S Indicated? Yes; RBC >50 HPF (0-2)
[2022-12-29 22:45] LABS: LDH 721 U/L (85-227); PHOSPHORUS 4.8 mg/dL (2.6-4.7); Uric Acid 9.7 mg/dL (3.5-7.2)
[2022-12-30] VITALS (96 sets, daily range): BP systolic 120–153; BP diastolic 65–100; PULSE 100–120; RESP 13–27; TEMP 37; O2SAT 87–97
[2022-12-30] MEDS: Allopurinol 100 MG TAB 200 MG PO ×2 (00:34→08:34)
[2022-12-30] MEDS: AZITHROMYCIN 500 MG in Normal Saline 250 ML 250 MG IVPB (00:37)
[2022-12-30] MEDS: Lactated Ringers 1,000 ML 125 ML IV (00:39)
[2022-12-30] MEDS: VANCOMYCIN 2,000 MG in Normal Saline 500 ML 250 MG IVPB (02:58)
[2022-12-30 06:08] LABS: Abs Immature Grans 8.92 10^3/uL (0.0-0.06); HCT 34.3 % (40.0-50.0); HGB 11.5 g/dL (13.5-17.5); MCH 29.6 pg (27.0-33.0); MCHC 33.5 % (32.0-36.0); MCV 88 fL (80-95); MPV 12.8 fL (8.0-11.0); Nucleated RBC 0.1 % (0.0-0.3); RBC 3.88 10^6/uL (4.36-5.78); RDW 14.6 % (11.8-14.1); RDW-SD 46.8 fL
[2022-12-30 06:34] LABS: ALT 46 U/L (16-63); AST 43 U/L (15-37); Albumin 2.5 g/dL (3.4-5.0); Alkaline Phosphatase 113 U/L (46-116); Anion Gap 9.5 mmol/L (3-11); BUN 33 mg/dL (7-18); Bilirubin, Total 0.7 mg/dL (0.2-1.0); CO2 28.5 mmol/L (21.0-32.0); CREATININE 2.1 mg/dL (0.70-1.30); Calcium 8.2 mg/dL (8.5-10.1); Chloride 103 mmol/L (98-107); Estimated GFR 35.37 (mL/min/1.73m2); Glucose 108 mg/dL (74-106); Potassium 3.4 mmol/L (3.5-5.1); Sodium 141 mmol/L (136-145); Total Protein 5.6 g/dL (6.4-8.2)
[2022-12-30 06:40] LABS: Absolute Lymphocyte Count 9.63 10^3/uL (1.2-3.4); Absolute Neutrophil Count 19.27 10^3/uL (1.2-6.7); Atypical Lymphocytes % 5; Metamyelocytes % 6; Myelocytes % 2; Other Cells % 2
[2022-12-30 06:42] LABS: Platelet Count 27 10^3/uL (130-400)
[2022-12-30 06:43] LABS: Diff Comment Manual Differential; WBC 64.23 10^3/uL (4.4-10.8)
--- NOTE | 2022-12-30 07:48 | W.EDPROG ---
Date of service: 12/30/22 Time of Service: 07:48 Medical Decision Making Patient signed out to me by my colleague Dr. Jackson pending bed at [facility]. Please refer to his HPI, physical exam, assessment and plan. Patient stayed hemodynamically stable during his stay throughout the night. No interventions needed. Repeat labs demonstrate an uptrending white count, downtrending platelet count, stable electrolytes, relatively stable creatinine. Cefepime was redosed. Pending pharmacy recommendations for vancomycin redosing. Patient will be signed out to my colleague Dr. Bustamante pending bed placement at [facility]. Sign Out Sign Out Data: Sign Out Comment: Patient signed out pending review of initial work-up which includes labs, chest x-ray, and EKG. Patient in stable condition Last updated by Ryland Washington NP at 12/29/22 15:48 Sign Out Comment: Patient pending transfer to [facility] when bed available. Plan to continue treatment for pneumonia. Patient will require vancomycin and cefepime in the a.m. Plan to continue allopurinol twice daily. Continue IV fluid and monitor hemodynamics tonight. Follow-up on peripheral smear when available. Last updated by Royer Jackson MD at 12/30/22 00:15 Discharge Plan Discharge Details Chief Complaint: Recheck Primary Care Provider: [place] Cristobal ED Provider: Gab Duffy Home Meds and New Rx's Prescriptions: No Action hydrocortisone-pramoxine 2.5-1 % cream 1 applic [place] QID PRN (Reason: itching) Qty: 30 6RF Patient Comments: not taking Wegovy 0.25 mg/0.5 mL pen injector 0.25 mg subcut QWEEK Qty: 2 0RF Patient Comments: not taking Rx Instructions: administer weeks 1 through 4 of therapy albuterol sulfate 90 mcg/actuation HFA aerosol inhaler 1 inh inhalation Q4H PRN (Reason: shortness of breath or wheezing) Qty: 8.5 2RF sildenafil 50 mg tablet 50 mg PO DAILY PRN (Reason: sexual activity) Qty: 10 6RF Rx Instructions: administer 30 minutes to 4 hours before activity calcitriol 0.5 mcg capsule 0.5 mcg PO BID Qty: 180 3RF Rx Instructions: s/p thyroidectomy fluocinolone acetonide oil 0.01 % drops 5 drp otic (ear) DAILY Rx Instructions: For use in both ears, as directed levothyroxine 112 mcg capsule 224 mcg PO DAILY Qty: 180 1RF amlodipine 10 mg tablet 10 mg PO DAILY Qty: 90 3RF losartan 50 mg tablet 50 mg PO DAILY Qty: 90 3RF Metamucil Sugar-Free (aspart) 3.4 gram/5.8 gram powder 5.773428 g PO DAILY Qty: 1040 6RF Rx Instructions: 1 tbls in 4 oz water/juice daily levofloxacin 750 mg tablet 750 mg PO DAILY Qty: 5 0RF
[2022-12-30] MEDS: CEFEPIME 2 GM in Normal Saline 100 ML IVPB (07:49)
--- NOTE | 2022-12-30 10:19 | NUR.NOTE ---
Nursing Note: This RN took report at 1000 and assumed care. Pt comfortable in bed and in no signs of distress. Pt understands next steps of care. Pt has call light and consumed breakfast.
--- NOTE | 2022-12-30 12:14 | NUR.NOTE ---
Nursing Note: Pt updated with care. Pt understands further wait. Pt has call light and blankets offered for comfort. Lunch ordered.
--- NOTE | 2022-12-30 13:41 | NUR.NOTE ---
Nursing Note: Pt ate lunch and updated again. Pt sitting up and watching TV on iphone. Call light within reach and pt denies needs at this time.
--- NOTE | 2022-12-30 17:11 | NUR.NOTE ---
Nursing Note: Report called to Eldon Up at [facility] at [facility]. All questions answered and pt stable for transport.
[2022-12-30] MEDS: Benzonatate 100 MG CAP PO (17:13)
== END 2022-12-30 17:58 | disposition short-term general hospital (02) ==
PROVIDERS: Nurse Practitioner Family; Student in an Organized Health Care Education/Training Program; Emergency Provider Emergency Medicine; PCP Family Medicine
DX: R79.9 Abnormal finding of blood chemistry, unspecified (principal); N17.9 Acute kidney failure, unspecified; J18.9 Pneumonia, unspecified organism; I10 Essential (primary) hypertension; C96.6 Unifocal Langerhans-cell histiocytosis; Z85.850 Personal history of malignant neoplasm of thyroid; R00.0 Tachycardia, unspecified; N20.1 Calculus of ureter; N13.30 Unspecified hydronephrosis; R93.89 Abnormal findings on diagnostic imaging of other specified body structures
CPT/HCPCS: 71275; 80053; 93005; 96361; 96365; 96366; 99285; 71046; 74176; 81003; 81015; 83615; 83735; 83880; 84100; 84484; 84550; 85007; 85025; 85379; 87086; 93010; J0456; J3490